=== PATIENT | male | born 1945 | race Caucasian/White ===

== ENCOUNTER 2018-03-04 05:58 | Inpatient (IN) ==
[2018-03-04 09:43] LABS: ABG PCO2 44 mmHg (38-42); ABG PO2 84 mmHg (61-120)
[2018-03-04] MEDS ORDERED: fentaNYL Citrate Inj 100 MCG/2 ML Ampul IV.PUSH ONE (09:43)
[2018-03-04] MEDS: Sod Chloride 0.9% Inj 1,000 ML IV.CONT SCH ×2 (09:45→18:08)
[2018-03-04] MEDS: Sod Chloride 0.9% Inj 1,000 ML IV.SIG SCH ×5 (09:45→11:17)
[2018-03-04 09:46] LABS: Hematocrit 31.6 % (39.0-51.0); Hemoglobin 10.8 gm/dL (13.0-17.0); Mean Corpuscular HGB Conc 34.1 % (32.0-36.0); Mean Corpuscular Hemoglobin 36.1 pg (27.0-34.0); Mean Corpuscular Volume 105.9 fL (80.0-100.0); Mean Platelet Volume 10.2 fL (7.0-11.0); Platelet Count 166 th/mm3 (150-450); Red Blood Count 2.98 mil/mm3 (4.50-5.90); Red Cell Distribution Width 13.6 % (11.6-17.2); White Blood Count 41.9 th/mm3 (4.0-11.0)
[2018-03-04 09:53] LABS: INR 1.2 Ratio; Prothrombin Time 12.6 sec (9.8-11.6)
[2018-03-04] MEDS ORDERED: Sodium Bicarbonate 8.4% Inj 50 MEQ/50 ML Syringe ONE (09:58)
[2018-03-04 10:06] LABS: Albumin 1.8 g/dL (3.4-5.0); Calcium 6.9 mg/dL (8.5-10.1); Carbon Dioxide 18.4 meq/L (21.0-32.0); Potassium 3.6 meq/L (3.5-5.1); Total Protein 4.8 g/dL (6.4-8.2)
--- NOTE | 2018-03-04 10:08 | XR ---
EXAM DATE: 03/04/2018 10:03 AM EST AGE/SEX: 73 years / Male INDICATIONS: Esophageal perforation. CLINICAL DATA: This is the patient's subsequent encounter. Patient reports that signs and symptoms h ave been present for 1 day and indicates a pain score of Nonresponsive. MEDICAL/SURGICAL HISTORY: Non-responsive. Non-responsive. COMPARISON: . FINDINGS: ET tube is in good position. Nasogastric tube has been removed. Minimal parental changes are noted in the right base. There is increased consolidation and pleural effusion in the left chest. There is no pneumothorax. CONCLUSION: Increasing consolidation and pleural effusion left chest ET tube in good position. Nasogastric tube is not evident. Electronically signed by: Scotty Martins MD Board Certified Radiologist 03/04/2018 10:07 AM EST
[2018-03-04] MEDS: Sodium Bicarbonate 8.4% Inj 150 MEQ in Water for Inj, Sterile 850 ML IV.CONT SCH ×2 (10:18→17:44)
[2018-03-04 10:23] LABS: Eosinophils 1 % (0-4); Metamyelocytes 2 % (0-1); Monocytes 4 % (0-8); Platelet Estimate Normal (Normal); Platelet Morphology Normal (Normal); Toxic Granulation 2+
--- NOTE | 2018-03-04 10:46 | P.HPCC ---
History of Present Illness Service: Critical care medicine Primary Care Physician: Mich Ashton Chief Complaint: Abdominal pain History of Present Illness: This 73-year-old gentleman presented to [facility] with severe left chest and upper abdominal pain. He underwent a proximal gastrectomy for carcinoma on February 23 and had an uneventful postoperative course. He was initially doing well at home but was not satisfied with small portions for meals. His states that he began eating large amounts of food and subsequently developed severe vomiting over the past 2 days. CAT scan on arrival to the outside hospital reveals mediastinal air consistent with disruption of the esophageal anastomosis. There is a left pleural effusion and diffuse abdominal tenderness. He was intubated at the outside hospital and arrives on mechanical ventilation. Blood pressure on arrival was 65 systolic with norepinephrine infusing at 40 mcg/min and Abhinav-Synephrine infusing at 100 mics per minute. He responded quickly to 3 L of intravenous fluid and sodium bicarbonate, administered for a metabolic acidosis and base deficit of 10. He was loaded with Flagyl intravenous antibiotic before arrival and we have augmented this with cefepime. - Diagnosis (1) Septic shock (2) Acute kidney injury (nontraumatic) (3) Acute hypoxemic respiratory failure (4) Encephalopathy acute Inpatient Certification: I certify that the inpatient services were ordered in accordance with Medicare regulations governing the order. This includes certification that hospital inpatient services are reasonable and necessary and in the case of services not specified as inpatient-only under 42 CFR 419.22(n), that they are appropriately provided as inpatient services in accordance to with the 2-midnight benchmark under 43 CFR 412.3(e) Review of Systems Severe chest and upper abdominal pain. Shortness of breath. PMFSH - History History Provided By: Patient - Medical History Medical History: Medical History (Last Reviewed 02/28/18 @ 09:00 by Becki Blas) Cervical vertebral fusion Crohn disease Depression Gastric cancer High blood pressure High cholesterol Melanoma Prostate CA Thrombocytopenia - Surgical History Surgical History: Surgical History (Last Reviewed 02/28/18 @ 09:00 by Becki Blas) H/O prostatectomy History of cholecystectomy Hx of tonsillectomy - Tobacco History Second Hand Smoke Exposure: Yes Smoking Status: Current every day smoker Tobacco Type: Cigarettes - Alcohol History How Often Do You Have a Drink Containing Alcohol: Monthly or less - Substance Use History Substance History: No History of Abuse Medications and Allergies Active Medications: Active Medications Albuterol (Duoneb Neb (Prn)) 1 ampul NEB Q2HR NEB PRN PRN Reason: SHORTNESS OF BREATH Chlorhexidine Gluconate (Peridex 0.12% Oral Kit) 15 ml OROPHARYNG BID@0800, 2000 [facility] Hydrocortisone Sodium Succinate (Solucortef Inj) 50 mg IV.PUSH Q6HR [facility] Stop: 03/06/18 23:59 Sodium Chloride (Ns Inj) 1,000 mls @ 3,000 mls/hr IV.SIG Q20M [facility] Stop: 03/04/18 10:44 Metronidazole/Sodium Chloride (Flagyl 500 Mg Inj) 100 mls @ 100 mls/hr IV.SIG Q6H [facility] Cefepime HCl 2,000 mg/ Sodium (Chloride) 100 mls @ 200 mls/hr IV.SIG Q12H [facility] Phenylephrine HCl 80 mg/ (Sodium Chloride) 500 mls @ 15 mls/hr IV.CONT TITRATE PRN; Protocol PRN Reason: See prorocol Norepinephrine Bitartrate (Levophed-Dextrose 4 Mg/250 Ml Drip) 4 mg in 250 mls @ 7.5 mls/hr IV.SIG TITRATE PRN; Protocol PRN Reason: Per Protocol Fentanyl (Fentanyl 10 Mcg/Ml Premix Drip) 2,500 mcg in 250 mls @ 5 mls/hr IV.SIG TITRATE PRN; Protocol PRN Reason: Per Protocol Propofol (Diprivan 1000 Mg/100 Ml Inj) 1,000 mg in 100 mls @ 2.166 mls/hr IV.CONT TITRATE PRN; Protocol PRN Reason: Per Protocol Sodium Chloride (Ns Inj) 1,000 mls @ 150 mls/hr IV.CONT .Q6H40M [facility] Sodium Bicarbonate 150 meq/ (Sterile Water) 1,000 mls @ 150 mls/hr IV.CONT .Q6H40M [facility] Sodium Chloride (Ns Inj) 1,000 mls @ 3,000 mls/hr IV.SIG Q20M [facility] Stop: 03/04/18 10:59 Miscellaneous Medication () 1 each OROPHARYNG 0000,0400,1200,1600 [facility] Pantoprazole Sodium (Protonix Inj) 40 mg IV.PUSH Q24H [facility] Terbutaline Sulfate (Brethine Inj) 1 mg SQ UNSCH PRN PRN Reason: For Extravasation Terbutaline Sulfate (Brethine Inj) 1 mg SQ UNSCH PRN PRN Reason: For Extravasation Allergies Allergy/AdvReac Type Severity Reaction Status Date / Time No Known Allergies Allergy Verified 02/23/18 06:30 Home Medications Medication Instructions Recorded Confirmed Type atorvastatin [Lipitor] 20 mg PO DAILY 02/23/18 02/23/18 History duloxetine [Cymbalta] 30 mg PO DAILY 02/23/18 02/23/18 History lisinopril 5 mg PO DAILY 02/23/18 02/23/18 History multivitamin 1 tab PO DAILY 02/23/18 02/23/18 History Results - Labs CBC & Chem 7: 03/04/18 09:30 03/04/18 09:30 Labs: Short CBC 03/04/18 Range/Units 09:30 WBC 41.9 H (4.0-11.0) th/mm3 Hgb 10.8 L (13.0-17.0) gm/dL Hct 31.6 L (39.0-51.0) % Plt Count 166 D (150-450) th/mm3 BMP 03/04/18 09:30 Sodium 146 H Potassium 3.6 Chloride 115 H Carbon Dioxide 18.4 L BUN 18 Creatinine 1.59 H Calcium 6.9 L* Liver Function 03/04/18 Range/Units 09:30 Total Bilirubin 1.2 H (0.2-1.0) mg/dL AST 21 (15-37) U/L ALT 17 (12-78) U/L Alkaline Phosphatase 87 (45-117) U/L Albumin 1.8 L (3.4-5.0) g/dL - Imaging Impressions Chest X-Ray 03/04/18 00:00 CONCLUSION: Increasing consolidation and pleural effusion left chest ET tube in good position. Nasogastric tube is not evident. Exam Vital signs: Intake & Output 03/03/18 03/04/18 03/04/18 18:59 06:59 18:59 Weight 72.2 kg Narrative: General: Ill-appearing but well-developed 73-year-old male, in acute distress Head: Normal, atraumatic Neck: Supple, orotracheal intubation Lungs: Decreased breath sounds left side with diffuse rhonchi. Breath sounds clear right side with few rhonchi. Good bilateral air movement Heart: Distant tones, tachycardia, neck veins are flat Abdomen: Moderately distended, generally tender to palpation, quiet. Small well -healed laparoscopy incisions. Extremities: Tepid, poorly perfused. No peripheral edema. Neuro: Moves 4 limbs spontaneously. Does not follow commands. Opens eyes to noxious stimulation. Fentanyl drip infusing and appears encephalopathic. Septic Shock Reassessment Septic shock perfusion: reassessment completed Caprini VTE Risk Assessment Caprini VTE Risk Assessment: Moderate/High Risk (score >= 2) VTE Pharmacological Exception Reason: High risk for bleeding Caprini Risk Assessment Model: Point Value = 1 Point Value = 2 Point Value = 3 Point Value = 5 Age 41-60 Minor surgery BMI > 25 kg/m2 Swollen legs Varicose veins or History of unexplained or recurrent spontaneous Oral contraceptives or hormone replacement Sepsis (< 1 month) Serious lung disease, including pneumonia (< 1 month) Abnormal pulmonary function Acute myocardial infarction Congestive heart failure (< 1 month) History of inflammatory bowel disease Medical patient at bed rest Age 61-74 Arthroscopic surgery Major open surgery (> 45 min) Laparoscopic surgery (> 45 min) Malignancy Confined to bed (> 72 hours) Immobilizing plaster cast Central venous access Age >= 75 History of VTE Family history of VTE Factor V Leiden Prothrombin [id number] Lupus anticoagulant Anticardiolipin antibodies Elevated serum homocysteine Heparin-induced thrombocytopenia Other congenital or acquired thrombophilia Stroke (< 1 month) Elective arthroplasty Hip, pelvis, or leg fracture Acute spinal cord injury (< 1 month) Prophylaxis Regimen: Total Risk Factor Score Risk Level Prophylaxis Regimen 0-1 Low Early ambulation 2 Moderate Order ONE of the following: *Sequential Compression Device (SCD) *Heparin 5000 units SQ BID 3-4 Higher Order ONE of the following medications: *Heparin 5000 units SQ TID *Enoxaparin/Lovenox 40 mg SQ daily (WT < 150 kg, CrCl > 30 mL/min) *Enoxaparin/Lovenox 30 mg SQ daily (WT < 150 kg, CrCl > 10-29 mL/min) *Enoxaparin/Lovenox 30 mg SQ BID (WT < 150 kg, CrCl > 30 mL/min) AND/OR *Sequential Compression Device (SCD) 5 or more Highest Order ONE of the following medications: *Heparin 5000 units SQ TID (Preferred with Epidurals) *Enoxaparin/Lovenox 40 mg SQ daily (WT < 150 kg, CrCl > 30 mL/min) *Enoxaparin/Lovenox 30 mg SQ daily (WT < 150 kg, CrCl > 10-29 mL/min) *Enoxaparin/Lovenox 30 mg SQ BID (WT < 150 kg, CrCl > 30 mL/min) AND *Sequential Compression Device (SCD) Assessment and Plan - Problem List (1) Septic shock Code(s): A41.9 - Sepsis, unspecified organism; R65.21 - Severe sepsis with septic shock Status: Acute (2) Acute kidney injury (nontraumatic) Code(s): N17.9 - Acute kidney failure, unspecified Status: Acute (3) Acute hypoxemic respiratory failure Code(s): J96.01 - Acute respiratory failure with hypoxia Status: Acute (4) Encephalopathy acute Code(s): G93.40 - Encephalopathy, unspecified Status: Acute - Assessment and Plan Plan: Plan: 1. Continued aggressive hydration with isotonic crystalloid 2. Dressed dose steroids, hydrocortisone 50 mg IV every 6 hours 3. Protonix for GI ulcer prophylaxis 4. Avoid nasogastric tube for now 5. Mechanical ventilation assist control mode 6. Cefepime and Flagyl antibiotic coverage 7. Hold chemical DVT prophylaxis until after surgery. 8. Sodium bicarb drip at 150 cc/h 9. Fernandez catheter for hourly urine output 10. Arterial blood gas now and after 2 hours. 11. Type and screen for blood 12. See MP and CBC 13. Coagulation profile Overall impression: This gentleman is critically ill and septic shock with multiple organ system dysfunction. He remains hemodynamically unstable and vasopressor support at quite high doses. He will likely remain unstable until source control surgery can be performed. We are using this intervening opportunity to resuscitate him and hopefully achieve better peripheral perfusion and acid-base balance prior to his operation. Critical care time 80 minutes aside from invasive procedures.
--- NOTE | 2018-03-04 10:48 | P.PCN ---
Date of procedure: 03/04/18 Procedure: Diagnosis: Septic shock Procedure: Insertion left common femoral artery monitoring line Narrative: Timeout performed and patient properly identified. Ultrasound inspection of the left groin revealed a suitable conduit for insertion. Distal pulse week and left foot. Left groin prepped and draped using ultrasound guidance the left common femoral artery was cannulated with a thin-walled needle and a wire easily advanced. Over the wire a 18-gauge catheter was advanced to a distance of 15 cm. The arterial line flange was sutured in place and the insertion site was covered with a sterile dressing. Dorsalis pedis pulse in the left foot was unchanged after the procedure. A good waveform was observed on the monitor.
[2018-03-04] MEDS: Oral Hygiene Kit OROPHARYNG SCH ×2 (11:48→17:44)
[2018-03-04] MEDS: Pantoprazole Inj 40 MG Vial IV.PUSH SCH (11:48)
[2018-03-04] MEDS: Hydrocortisone Sod Succinate 100 MG Vial IV.PUSH SCH ×2 (11:48→20:10)
--- NOTE | 2018-03-04 11:54 | P.HPGS ---
History of Present Illness Service: General Surgery Primary Care Physician: Mich Ashton Chief Complaint: Abdominal pain History of Present Illness: This year old male known to our service and is status post laparoscopic proximal gastrectomy on February 23 of this year. The patient recovered well during his hospitalization and was discharged on February 28. He was instructed to eat small meals. His family at the bedside report that he had an excellent day on Wednesday but on Wednesday began eating larger meals. On , he ate a large bowl of soup and starting vomiting. He was taken to [facility]. His WBC was 20,000. A CT abdomen/pelvis was obtained which is shows intraperitoneal free air and there is a concern for an anastomotic leak at the gastroesophageal junction. The patient has been transferred to [place] for evaluation. He is currently intubated and on pressors. - Diagnosis (1) Gastric perforation Inpatient Certification: I certify that the inpatient services were ordered in accordance with Medicare regulations governing the order. This includes certification that hospital inpatient services are reasonable and necessary and in the case of services not specified as inpatient-only under 42 CFR 419.22(n), that they are appropriately provided as inpatient services in accordance to with the 2-midnight benchmark under 43 CFR 412.3(e) Review of Systems unobtainable due to endotracheal tube PMFSH - History History Provided By: Family Member - Medical History Medical History: Medical History (Last Reviewed 03/04/18 @ 11:51 by STEVE Rosa) Cervical vertebral fusion Crohn disease Depression Gastric cancer High blood pressure High cholesterol Melanoma Prostate CA Thrombocytopenia - Surgical History Surgical History: Surgical History (Last Updated 03/04/18 @ 11:51 by STEVE Rosa) History of partial gastrectomy H/O prostatectomy History of cholecystectomy Hx of tonsillectomy - Tobacco History Second Hand Smoke Exposure: Yes Smoking Status: Current every day smoker Tobacco Type: Cigarettes - Alcohol History How Often Do You Have a Drink Containing Alcohol: Monthly or less - Substance Use History Substance History: No History of Abuse Medications and Allergies Allergies Allergy/AdvReac Type Severity Reaction Status Date / Time No Known Allergies Allergy Verified 02/23/18 06:30 Home Medications Medication Instructions Recorded Confirmed Type atorvastatin [Lipitor] 20 mg PO DAILY 02/23/18 02/23/18 History duloxetine [Cymbalta] 30 mg PO DAILY 02/23/18 02/23/18 History lisinopril 5 mg PO DAILY 02/23/18 02/23/18 History multivitamin 1 tab PO DAILY 02/23/18 02/23/18 History Active Medications: Active Medications Albuterol (Duoneb Neb (Prn)) 1 ampul NEB Q2HR NEB PRN PRN Reason: SHORTNESS OF BREATH Chlorhexidine Gluconate (Peridex 0.12% Oral Kit) 15 ml OROPHARYNG BID@0800, 2000 [facility] Hydrocortisone Sodium Succinate (Solucortef Inj) 50 mg IV.PUSH Q6HR [facility] Stop: 03/06/18 23:59 Metronidazole/Sodium Chloride (Flagyl 500 Mg Inj) 100 mls @ 100 mls/hr IV.SIG Q6H [facility] Cefepime HCl 2,000 mg/ Sodium (Chloride) 100 mls @ 200 mls/hr IV.SIG Q12H [facility] Phenylephrine HCl 80 mg/ (Sodium Chloride) 500 mls @ 15 mls/hr IV.CONT TITRATE PRN; Protocol PRN Reason: See prorocol Norepinephrine Bitartrate (Levophed-Dextrose 4 Mg/250 Ml Drip) 4 mg in 250 mls @ 7.5 mls/hr IV.SIG TITRATE PRN; Protocol PRN Reason: Per Protocol Fentanyl (Fentanyl 10 Mcg/Ml Premix Drip) 2,500 mcg in 250 mls @ 5 mls/hr IV.SIG TITRATE PRN; Protocol PRN Reason: Per Protocol Propofol (Diprivan 1000 Mg/100 Ml Inj) 1,000 mg in 100 mls @ 2.166 mls/hr IV.CONT TITRATE PRN; Protocol PRN Reason: Per Protocol Sodium Chloride (Ns Inj) 1,000 mls @ 150 mls/hr IV.CONT .Q6H40M [facility] Sodium Bicarbonate 150 meq/ (Sterile Water) 1,000 mls @ 150 mls/hr IV.CONT .Q6H40M [facility] Last Admin: 03/04/18 10:18 Dose: 150 mls/hr Miscellaneous Medication () 1 each OROPHARYNG 0000,0400,1200,1600 [facility] Pantoprazole Sodium (Protonix Inj) 40 mg IV.PUSH Q24H [facility] Terbutaline Sulfate (Brethine Inj) 1 mg SQ UNSCH PRN PRN Reason: For Extravasation Terbutaline Sulfate (Brethine Inj) 1 mg SQ UNSCH PRN PRN Reason: For Extravasation Exam Vital signs: Vital Signs 03/04/18 10:32 Respiratory Rate 22 Pulse Oximetry 100 Intake & Output 03/03/18 03/04/18 03/04/18 18:59 06:59 18:59 Intake Total 4000 / 4000 Balance 4000 / 4000 Weight 72.2 kg Intake: IV 4000 / 4000 NS Inj 1,000 ML @ 3000 mls/hr 4000 / 4000 IV.SIG Q20M [facility] Rx#:[id number] Narrative: GENERAL: 73 year old male critically ill orally intubated on mechanical ventilation. SKIN: Warm and dry. HEAD: Atraumatic. Normocephalic. EYES: Pupils equal and round. No scleral icterus. No injection or drainage. ENT: No nasal bleeding or discharge. Mucous membranes pink and moist. NECK: Trachea midline. CARDIOVASCULAR: Regular rate and rhythm. RESPIRATORY: No accessory muscle use. Clear to auscultation. Breath sounds equal bilaterally. GASTROINTESTINAL: Abdomen firm. Incisions c/d/i with skin glue. MUSCULOSKELETAL: Extremities without clubbing, cyanosis, or edema. No obvious deformities. NEUROLOGICAL: Unable to examine. PSYCHIATRIC: Unable to examine. Results - Labs 03/09/18 04:22 03/09/18 03:36 Laboratory Results - last 24 hr 03/04/18 03/04/18 03/04/18 09:08 09:26 09:30 WBC RBC Hgb Hct MCV MCH MCHC RDW Plt Count MPV WBC Differential Seg Neuts % (Manual) Band Neuts % (Manual) Monocytes % (Manual) Eosinophils % (Manual) Metamyelocytes % (Man) Abs Neuts (Manual) Differential Comment Toxic Granulation Platelet Estimate Platelet Morphology PT INR Puncture Site Art line Patient Temperature 98.6 O2 Saturation 91 ABG pH 7.20 L* ABG pCO2 44 H ABG pO2 84 ABG HCO3 17 L ABG O2 Content 14.0 ABG Base Excess -10.0 L ABG Methemoglobin 1.3 Hemoglobin 10.9 L Carboxyhemoglobin 0.9 O2 Delivery Device Ventilator Vent Setting 500/20/+5/0.90 Inspired O2 100 Critical Value Yes Sodium Potassium Chloride Carbon Dioxide Anion Gap BUN Creatinine Estimated GFR POC Glucose 125 H Random Glucose Lactic Acid 5.4 H* Calcium Calcium Adj for Albumin Total Bilirubin AST ALT Alkaline Phosphatase Total Protein Albumin Blood Type Blood Type Recheck Antibody Screen 03/04/18 03/04/18 03/04/18 09:30 09:30 09:30 WBC 41.9 H RBC 2.98 L Hgb 10.8 L Hct 31.6 L MCV 105.9 H MCH 36.1 H MCHC 34.1 RDW 13.6 Plt Count 166 D MPV 10.2 WBC Differential Manual diff final Seg Neuts % (Manual) 73 H Band Neuts % (Manual) 20 H Monocytes % (Manual) 4 Eosinophils % (Manual) 1 Metamyelocytes % (Man) 2 H Abs Neuts (Manual) 39.8 H Differential Comment . Toxic Granulation 2+ H Platelet Estimate Normal Platelet Morphology Normal PT 12.6 H INR 1.2 Puncture Site Patient Temperature O2 Saturation ABG pH ABG pCO2 ABG pO2 ABG HCO3 ABG O2 Content ABG Base Excess ABG Methemoglobin Hemoglobin Carboxyhemoglobin O2 Delivery Device Vent Setting Inspired O2 Critical Value Sodium 146 H Potassium 3.6 Chloride 115 H Carbon Dioxide 18.4 L Anion Gap 13 BUN 18 Creatinine 1.59 H Estimated GFR 43 L POC Glucose Random Glucose 143 H Lactic Acid Calcium 6.9 L* Calcium Adj for Albumin 8.7 Total Bilirubin 1.2 H AST 21 ALT 17 Alkaline Phosphatase 87 Total Protein 4.8 L D Albumin 1.8 L Blood Type Blood Type Recheck Antibody Screen 03/04/18 09:30 WBC RBC Hgb Hct MCV MCH MCHC RDW Plt Count MPV WBC Differential Seg Neuts % (Manual) Band Neuts % (Manual) Monocytes % (Manual) Eosinophils % (Manual) Metamyelocytes % (Man) Abs Neuts (Manual) Differential Comment Toxic Granulation Platelet Estimate Platelet Morphology PT INR Puncture Site Patient Temperature O2 Saturation ABG pH ABG pCO2 ABG pO2 ABG HCO3 ABG O2 Content ABG Base Excess ABG Methemoglobin Hemoglobin Carboxyhemoglobin O2 Delivery Device Vent Setting Inspired O2 Critical Value Sodium Potassium Chloride Carbon Dioxide Anion Gap BUN Creatinine Estimated GFR POC Glucose Random Glucose Lactic Acid Calcium Calcium Adj for Albumin Total Bilirubin AST ALT Alkaline Phosphatase Total Protein Albumin Blood Type A Positive Blood Type Recheck Not needed Antibody Screen Negative - Imaging Imaging: ITS Impressions Chest X-Ray 03/04/18 00:00 CONCLUSION: Increasing consolidation and pleural effusion left chest ET tube in good position. Nasogastric tube is not evident. CT scan - abdomen: image reviewed (reviewed images from [facility]) Caprini VTE Risk Assessment Caprini VTE Risk Assessment: Moderate/High Risk (score >= 2) VTE Pharmacological Exception Reason: Documented (Going to [place] ), High risk for bleeding Caprini Risk Assessment Model: Point Value = 1 Point Value = 2 Point Value = 3 Point Value = 5 Age 41-60 Minor surgery BMI > 25 kg/m2 Swollen legs Varicose veins or History of unexplained or recurrent spontaneous Oral contraceptives or hormone replacement Sepsis (< 1 month) Serious lung disease, including pneumonia (< 1 month) Abnormal pulmonary function Acute myocardial infarction Congestive heart failure (< 1 month) History of inflammatory bowel disease Medical patient at bed rest Age 61-74 Arthroscopic surgery Major open surgery (> 45 min) Laparoscopic surgery (> 45 min) Malignancy Confined to bed (> 72 hours) Immobilizing plaster cast Central venous access Age >= 75 History of VTE Family history of VTE Factor V Leiden Prothrombin [id number] Lupus anticoagulant Anticardiolipin antibodies Elevated serum homocysteine Heparin-induced thrombocytopenia Other congenital or acquired thrombophilia Stroke (< 1 month) Elective arthroplasty Hip, pelvis, or leg fracture Acute spinal cord injury (< 1 month) Prophylaxis Regimen: Total Risk Factor Score Risk Level Prophylaxis Regimen 0-1 Low Early ambulation 2 Moderate Order ONE of the following: *Sequential Compression Device (SCD) *Heparin 5000 units SQ BID 3-4 Higher Order ONE of the following medications: *Heparin 5000 units SQ TID *Enoxaparin/Lovenox 40 mg SQ daily (WT < 150 kg, CrCl > 30 mL/min) *Enoxaparin/Lovenox 30 mg SQ daily (WT < 150 kg, CrCl > 10-29 mL/min) *Enoxaparin/Lovenox 30 mg SQ BID (WT < 150 kg, CrCl > 30 mL/min) AND/OR *Sequential Compression Device (SCD) 5 or more Highest Order ONE of the following medications: *Heparin 5000 units SQ TID (Preferred with Epidurals) *Enoxaparin/Lovenox 40 mg SQ daily (WT < 150 kg, CrCl > 30 mL/min) *Enoxaparin/Lovenox 30 mg SQ daily (WT < 150 kg, CrCl > 10-29 mL/min) *Enoxaparin/Lovenox 30 mg SQ BID (WT < 150 kg, CrCl > 30 mL/min) AND *Sequential Compression Device (SCD) Assessment and Plan - Assessment (1) Gastric perforation Code(s): K25.5 - Chronic or unspecified gastric ulcer with perforation Status : Acute Plan: 73 year old male s/p partial gastrectomy about 10 days ago; back with gastric perforation; septic shock -Will plan for ex lap; possible G and J tube; LEFT thoracoscopy tube placement -Obtain consents -NPO -Family at bedside updated about patient's condition as well as procedure -Patient remains critically ill - Plan Discussed Condition With: Dr. Dotty Ramos case specialist at bedside - Attending Attestation The exam, history, and the medical decision-making described in the above note were completed with the assistance of the mid-level provider. I reviewed and agree with the findings presented. I attest that I had a [id number] encounter with the patient on the same day, and personally performed and documented my assessment and findings in the medical record. s/p lap proximal gastrectomy, patient "overate" per family report, then had violent vomiting, followed by left chest pain transferred from [place], severe chest pain and sepsis, CT scan shows left effusion suspect traumatic perforation at anastomosis due to vomiting, Boerhaave's syndrome presentation long d/w family at , recommend surgery for left chest, exlap for evaluation and source control for possible leak, R/B/A discussed family agrees to surgery will proceed emergently to [place]
[2018-03-04] MEDS ORDERED: Post-op Orders (for Pharmacy) OTHER ONE (16:30)
[2018-03-04] MEDS ORDERED: Promethazine 25 MG Supp RECTAL PRN (16:30)
[2018-03-04] MEDS ORDERED: Sod Chloride 0.9% Inj 1,000 ML IV.CONT SCH (16:30)
[2018-03-04] MEDS ORDERED: Benzocaine 20% Oral Spray 60 ML Can OROPHARYNG PRN (16:30)
[2018-03-04] MEDS ORDERED: Naloxone Inj 0.4 MG/ML Vial IV.PUSH PRN (16:30)
[2018-03-04 17:49] LABS: Calcium 6.4 mg/dL (8.5-10.1); Carbon Dioxide 21.8 meq/L (21.0-32.0); Potassium 3.3 meq/L (3.5-5.1)
[2018-03-04 18:08] LABS: Albumin 1.8 g/dL (3.4-5.0); Calcium-Albumin Corrected 8.2 mg/dL (8.5-10.1)
--- NOTE | 2018-03-04 19:14 | MB ---
cc: Louie Olivier MD DATE: 03/04/2018 CONSULTING PHYSICIAN: Dr. Olivier REFERRING PHYSICIAN: Dr. Storm REASON FOR CONSULTATION: Gastroesophageal perforation and contamination of the left chest, sepsis. This is an intraoperative consult. HISTORY OF PRESENT ILLNESS: This 73-year-old male underwent a proximal gastrectomy with primary anastomosis for a carcinoma of the esophagus. 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 This also resulted in a huge left pleural effusion with abdominal pain and chest pain. The patient was transferred to [facility] and then to us for further care. I am doing an intraoperative at this point regarding the chest condition. PAST MEDICAL HISTORY: Crohn disease, hypertension, hypercholesterolemia, melanoma, carcinoma of the prostate, and above-noted proximal gastric cancer. PAST SURGICAL HISTORY: As above noted, plus prostatectomy and tonsillectomy. PHYSICAL EXAMINATION: Physical examination is performed in the OR and I was present at the time of surgery. The patient does indeed have an intraabdominal perforation which is now being repaired by Dr. Storm. I discussed with him the issues regarding the chest. The patient apparently had significant chest contamination, which was washed out with saline and 2 large chest tubes were placed. This would be exactly what I would have done and, at this point, hopefully the patient will not develop empyema. If he does develop empyema or any signs of such, I will be available to assist. Thank you very much for the referral. Louie Olivier MD SJ/ll , 05:47 PM , 05:54 PM
[2018-03-04] MEDS ORDERED: Magnesium Oxide 400 MG Tablet PO PRN (19:19)
[2018-03-04] MEDS ORDERED: Sodium Phosphate Inj 30 MMOL in Sodium Chlor 0.9% Inj 250 ML IV.SIG PRN (19:19)
[2018-03-04] MEDS ORDERED: Magnesium Sulfate Inj 4 GM in Sodium Chlor 0.9% Inj 92 ML IV.SIG PRN (19:19)
[2018-03-04] MEDS ORDERED: Potassium Chlor 20 mEq Premix 20 MEQ/100 ML PIGGYBACK IV.SIG PRN (19:19)
[2018-03-04] MEDS ORDERED: Magnesium Sulfate Inj 2 GM in Sodium Chlor 0.9% Inj 96 ML IV.SIG PRN (19:19)
[2018-03-04] MEDS ORDERED: Potassium Chlor 40 mEq Premix 40 MEQ/100 ML PIGGYBACK IV.SIG PRN ×2 (19:19)
[2018-03-04] MEDS ORDERED: Potassium Phosphate Inj 30 MMOL in Sodium Chlor 0.9% Inj 250 ML IV.SIG PRN (19:19)
[2018-03-04] MEDS: Phenylephrine Inj 80 MG in Sodium Chlor 0.9% Inj 492 ML IV.CONT PRN (20:20)
[2018-03-04] MEDS: Chlorhexidine 0.12% Oral Kit 15 ML UDC OROPHARYNG SCH (20:28)
--- NOTE | 2018-03-04 21:39 | MP ---
cc: Fabián Storm MD DATE OF OPERATION: 03/04/2018 PREOPERATIVE DIAGNOSES: 1. Proximal gastric adenocarcinoma, status post chemotherapy and radiation and proximal gastrectomy. 2. Sepsis with suspected perforation of gastric remnant. POSTOPERATIVE DIAGNOSES: 1. Proximal gastric adenocarcinoma, status post chemotherapy and radiation and proximal gastrectomy. 2. Anastomotic dehiscence anterior and laterally at the junction of the esophagus and gastric remnant with contamination of the left chest and a Boerhaave-type perforation. PROCEDURE PERFORMED: 1. Left thoracostomy tube placement x 2 with irrigation of the left chest. 2. Exploratory laparotomy. 3. Primary repair of esophagogastric dehiscence, 50% of the circumference. 4. Pyloroplasty, Heineke-Mikulicz pyloroplasty. 4. Peritoneal biopsy on the transverse colon mesentery. 5. Gastrostomy tube. 6. Jejunostomy tube. ATTENDING SURGEON: Fabián Storm MD ROADWAY TECHNICIAN: Staff. ANESTHESIA: General. FINDINGS: 1. One liter of black to lopez turbid fluid in the left chest. 2. No abdominal contamination. 3. Dehiscence of the anterior and lateral esophagogastrostomy anastomosis with drainage into the left chest, tissue healthy viable and bleeding, consistent with a traumatic dehiscence. 3. Stomach engorged and distended with food products. 4. Patent but mildly narrow pylorus. INTRAOPERATIVE CONSULTATION: Louie Olivier MD, thoracic surgery. BLOOD LOSS: 100 mL. COMPLICATIONS: None. INDICATIONS FOR PROCEDURE: The patient is a 73-year-old male who is approximately 2 weeks status post laparoscopic proximal gastrectomy with esophagogastrostomy anastomosis. The patient was discharged home, tolerating a soft diet and was prescribed to eat small, very soft food meals. The patient, per family report, is noncompliant with his diet and overeats multiple large meals, which resulted in discomfort, multiple episodes of vomiting and left-sided chest pain last night. The patient presented to [facility], underwent evaluation, and there was concern for perforation of the patient's gastric remnant. The patient was transferred to [facility] in critical condition for evaluation. Upon arrival, the patient was found to be in septic shock. There was clinically concern for intra-abdominal and perforation into the left chest. A discussion was had with the patient's about risks, benefits, and alternatives to return to the operating room for exploration and treatment of any source of sepsis. She agreed that the patient undergo the procedure. PROCEDURE: The patient was taken to the operating room emergently, and placed on the operating room table and placed under general anesthesia through his already in place endotracheal tube. The patient's chest bilaterally and abdomen were shaved, prepped and draped in a sterile fashion. A timeout was performed. Thoracostomy tube was performed on the left side. A 2 cm horizontal skin incision at the level of the nipple and spread down to above the rib with the hemostats. We bluntly entered the chest. We were greeted with approximately 1 liter of black to brown foul smelling turbid fluid. This was suctioned clear, completely out of the chest using a full suction device. At this point in time, consultation was placed, Dr. Olivier of thoracic surgery, for possible further management. After evaluation, Dr. Olivier did recommend that the patient undergo a washout and 2 chest tube placement, for expectant management and to avoid a thoracotomy. The patient had no signs of empyema or pleural thickening. We used 3 liters of sterile saline with cystoscopy tubing to irrigate the left chest thoroughly until all suctioned fluid was completely clear of all discoloration or particulate matter. We placed two 32-[place] Islander chest tubes 1 at the apex and 1 in the left lower chest through 2 separate incisions. We sutured these in place with silk sutures and sterile dressings were placed. These were placed to 20 cm suction. We then turned our attention towards the abdomen. An upper midline incision was made with the 15 blade scalpel, followed by Bovie electrocautery through the subcutaneous tissue and fascia. We entered the abdomen. There was no contamination of the abdomen, no signs of perforation. We carefully explored the GE junction and after dissecting the gastric remnant and the esophagus away from the surrounding diaphragm, we noted a 50% dehiscence of the anastomosis anteriorly and laterally. This was good healthy viable, bleeding edges with no signs of any necrosis. I felt this was consistent with a traumatic perforation likely due to the patient vomiting after a recent surgery. Again, there was no contamination in this area. We did place an NG tube through the esophagus into the gastric remnant under visualization. The suture had primarily repaired this perforation using several interrupted 3-0 silk sutures. We had complete closure of this dehiscence with healthy tissue. At this point in time, we did place omental tissue on either side of this anastomosis in an attempt to place omental tissue up towards the area of the chest. I turned my attention towards the stomach, a small gastrotomy was made in the area where a planned gastrostomy tube was to be placed. I evaluated the pylorus. This was patent, although it was less than 1 centimeter. I wanted to ensure good drainage in this patient. Therefore, I performed the Heineke-Mikulicz pyloroplasty. A Bovie electrocautery was used to make a vertical incision over the pylorus, dividing the muscle completely through the mucosa. This was closed, then transversely with interrupted 3-0 silk sutures. We had excellent technical repair with no leak. We also gently explored the abdomen, irrigated this out gently and looked for any other pathology. We ran the small bowel. There was no other pathology or any sign of infection. However, there was a small nodule from the transverse colon mesentery. This was completely excised with the Bovie electrocautery and sent for permanent processing to rule out any peritoneal disease. The patient did have history of recent gastric cancer. We turned our attention towards completion and did place two 19-[place] Islander round Randy drains through separate stab incisions, one in the right upper quadrant, one in her left upper quadrant, and sutured these in place with nylon sutures. We performed a jejunostomy tube approximately 40 cm past the ligament of Treitz. This was performed through a pursestring and Pattie sutured up against the abdominal wall with 3-0 silk sutures. We performed a gastrostomy tube, placing the gastrostomy through the gastrotomy we had made earlier in the case, and this was closed with a pursestring as well as Pattie sutured up against the abdominal wall and brought out through a separate incision. At this point in time, we felt the patient was sufficiently treated and there were no further surgical procedures indicated. The patient did remain in critical condition and attempts were made to limit anesthesia time, in the patient's best interest. We turned towards closure, and we closed the upper midline incision with #1 looped PDS suture. We closed the skin with miracle and sterile dressing was applied. The patient's drains were placed to bulb suction. The patient's gastrostomy and jejunostomy tubes were placed to gravity drainage bag. The chest tubes were placed to 20 cm suction. The patient was transported to the intensive care unit, critical care bed in critical condition. The patient tolerated the procedure well and slightly improved hemodynamically during the procedure. All counts were correct. There were no apparent complications. I was present and scrubbed for the entire procedure. MD ADILIA Dias/sharon/do , 06:54 PM , 07:11 PM [email or web address]
[2018-03-05] MEDS: Sodium Bicarbonate 8.4% Inj 150 MEQ in Water for Inj, Sterile 850 ML IV.CONT SCH ×2 (00:05→06:41)
[2018-03-05] MEDS: Hydrocortisone Sod Succinate 100 MG Vial IV.PUSH SCH ×4 (00:06→17:00)
[2018-03-05] MEDS: Oral Hygiene Kit OROPHARYNG SCH ×4 (01:56→16:17)
[2018-03-05] MEDS: fentaNYL 10 mcg/mL Premix Drip 2,500 MCG/250 ML BAG IV.SIG PRN ×3 (02:10→20:09)
[2018-03-05 02:13] LABS: Baso % (Auto) 0.2 % (0.0-2.0); Hematocrit 33.1 % (39.0-51.0); Hemoglobin 11.7 gm/dL (13.0-17.0); Lymph # (Auto) 0.8 th/mm3 (1.0-4.8); Lymph % (Auto) 3.3 % (9.0-44.0); Mean Corpuscular HGB Conc 35.3 % (32.0-36.0); Mean Corpuscular Hemoglobin 35.6 pg (27.0-34.0); Mean Corpuscular Volume 100.7 fL (80.0-100.0); Mean Platelet Volume 10.2 fL (7.0-11.0); Mono # (Auto) 0.9 th/mm3 (0.0-0.9); Mono % (Auto) 3.6 % (0.0-8.0); Neut # (Auto) 22.8 th/mm3 (1.8-7.7); Neut % (Auto) 92.9 % (16.0-70.0); Platelet Count 150 th/mm3 (150-450); Red Blood Count 3.28 mil/mm3 (4.50-5.90); Red Cell Distribution Width 13.6 % (11.6-17.2); White Blood Count 24.5 th/mm3 (4.0-11.0)
[2018-03-05 02:38] LABS: Carbon Dioxide 25.5 meq/L (21.0-32.0); Potassium 4.3 meq/L (3.5-5.1)
[2018-03-05 02:44] LABS: Albumin 1.5 g/dL (3.4-5.0); Lymphocytes 3 % (9-44); Metamyelocytes 6 % (0-1); Monocytes 3 % (0-8); Myelocytes 3 % (0-0)
[2018-03-05 02:45] LABS: Platelet Estimate Normal (Normal); Platelet Morphology Normal (Normal)
--- NOTE | 2018-03-05 05:19 | XR ---
EXAM DATE: 03/05/2018 5:13 AM EST AGE/SEX: 73 years / Male INDICATIONS: Pleural effusion. Status post esophageal repair. CLINICAL DATA: This is the patient's subsequent encounter. Patient reports that signs and symptoms h ave been present for 2 days and indicates a pain score of Nonresponsive. MEDICAL/SURGICAL HISTORY: Non-responsive. Non-responsive. COMPARISON: [facility], CHEST 1V SINGLE AP, 03/04/2018. . FINDINGS: The ET tube and NG tube are well placed. There are 2 left-sided chest tubes. A pneumothorax is not se en. The heart size is upper limits of normal. There is diffuse increased interstitial prominence. Stone gical hardware is seen in the cervical spine. CONCLUSION: Diffuse increased interstitial prominence likely related to edema. 2 left-sided chest tubes without evidence for pneumothorax. Electronically signed by: Nic Rodríguez MD Board Certified Radiologist 03/05/2018 5:18 AM EST
[2018-03-05 07:25] LABS: ABG Base Excess 3.1 mmol/L (-2-2); ABG PCO2 34 mmHg (38-42); ABG PO2 78 mmHg (61-120)
[2018-03-05] MEDS: Chlorhexidine 0.12% Oral Kit 15 ML UDC OROPHARYNG SCH ×2 (08:17→22:13)
[2018-03-05] MEDS: Sod Chloride 0.9% Inj 1,000 ML IV.SIG SCH ×2 (08:17→16:17)
[2018-03-05] MEDS: Pantoprazole Inj 40 MG Vial IV.PUSH SCH (09:03)
--- NOTE | 2018-03-05 09:07 | P.PNVS ---
Subjective Subjective/Hospital Course: 11/03/2017 This 73-year-old male underwent a proximal gastrectomy with primary anastomosis for a carcinoma of the esophagus. 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 This also resulted in a huge left pleural effusion with abdominal pain and chest pain. The patient was transferred to [facility] and then to us for further care. I am doing an intraoperative at this point regarding the chest condition. Physical examination is performed in the OR and I was present at the time of surgery. The patient does indeed have an intraabdominal perforation which is now being repaired by Dr. Storm. I discussed with him the issues regarding the chest. The patient apparently had significant chest contamination, which was washed out with saline and 2 large chest tubes were placed. This would be exactly what I would have done and, at this point, hopefully the patient will not develop empyema. If he does develop empyema or any signs of such, I will be available to assist. Today patient is stable hemodynamically and respiratory Bilateral breath sounds ventilatory supported Left chest tubes are draining serosanguineous material, some grayish particulate matter but left chest appears to be clear on a.m. x-ray With this quite adequate drainage patient is not likely to develop an empyema but clearly with contamination this is a distinct possibility so we will see how he does Will continue to follow Objective Vital Signs / I&O: Vital Signs 03/04/18 10:32 03/04/18 11:01 03/04/18 12:00 Temperature Pulse Rate 129 H Respiratory Rate 22 22 Blood Pressure 94/59 L Pulse Oximetry 100 94 L 03/04/18 12:01 03/04/18 12:02 03/04/18 12:03 Temperature Pulse Rate 129 H 128 H 128 H Respiratory Rate 22 22 22 Blood Pressure 83/54 L 84/57 L 95/53 L Pulse Oximetry 94 L 94 L 94 L 03/04/18 12:27 03/04/18 13:00 03/04/18 13:01 Temperature Pulse Rate 128 H 127 H Respiratory Rate 22 22 22 Blood Pressure 88/50 L Pulse Oximetry 95 95 95 03/04/18 13:05 03/04/18 16:14 03/04/18 16:23 Temperature Pulse Rate 126 H 94 H 94 H Respiratory Rate 22 22 Blood Pressure 97/55 L Pulse Oximetry 95 100 99 03/04/18 16:25 03/04/18 16:28 03/04/18 16:30 Temperature Pulse Rate 93 H Respiratory Rate 22 22 Blood Pressure 110/69 97/59 L Pulse Oximetry 97 97 03/04/18 16:45 03/04/18 17:00 03/04/18 17:15 Temperature Pulse Rate 87 89 88 Respiratory Rate 10 L 22 22 Blood Pressure 104/70 99/63 L 105/64 Pulse Oximetry 97 98 99 03/04/18 17:30 03/04/18 17:45 03/04/18 18:00 Temperature Pulse Rate 87 86 87 Respiratory Rate 22 18 18 Blood Pressure 101/65 111/73 107/60 Pulse Oximetry 99 100 100 03/04/18 18:15 03/04/18 18:30 03/04/18 18:44 Temperature Pulse Rate 86 86 Respiratory Rate 18 18 Blood Pressure 99/58 L 100/64 93/54 L Pulse Oximetry 100 100 03/04/18 18:45 03/04/18 19:00 03/04/18 20:00 Temperature 97.9 F Pulse Rate 88 87 91 H Respiratory Rate 18 18 18 Blood Pressure 108/63 109/58 L 94/53 L Pulse Oximetry 100 100 99 03/04/18 20:31 03/04/18 21:00 03/04/18 21:30 Temperature Pulse Rate 85 84 Respiratory Rate 18 18 18 Blood Pressure 93/53 L 94/55 L Pulse Oximetry 100 99 100 03/04/18 21:45 03/04/18 22:00 03/04/18 22:11 Temperature Pulse Rate 85 84 Respiratory Rate 18 18 20 Blood Pressure 99/54 L 99/54 L Pulse Oximetry 99 100 100 03/04/18 22:45 03/04/18 23:00 03/04/18 23:03 Temperature Pulse Rate 89 88 96 H Respiratory Rate 18 18 16 Blood Pressure 107/52 L Pulse Oximetry 99 99 100 03/04/18 23:04 03/04/18 23:15 03/04/18 23:30 Temperature Pulse Rate 88 87 Respiratory Rate 18 18 Blood Pressure Pulse Oximetry 99 99 100 03/04/18 23:45 03/05/18 00:00 03/05/18 00:15 Temperature 97.9 F Pulse Rate 87 86 85 Respiratory Rate 18 18 18 Blood Pressure 99/54 L Pulse Oximetry 99 99 100 03/05/18 00:30 03/05/18 00:45 03/05/18 01:00 Temperature Pulse Rate 86 85 84 Respiratory Rate 18 18 18 Blood Pressure Pulse Oximetry 99 100 100 03/05/18 01:15 03/05/18 01:25 03/05/18 01:30 Temperature Pulse Rate 83 84 Respiratory Rate 18 18 18 Blood Pressure Pulse Oximetry 100 99 99 03/05/18 01:45 03/05/18 02:00 03/05/18 02:15 Temperature Pulse Rate 83 81 84 Respiratory Rate 18 25 H 19 Blood Pressure 99/54 L Pulse Oximetry 100 98 98 03/05/18 02:30 03/05/18 02:31 03/05/18 02:45 Temperature Pulse Rate 83 83 84 Respiratory Rate 18 18 18 Blood Pressure Pulse Oximetry 99 99 99 03/05/18 03:00 03/05/18 03:15 03/05/18 03:30 Temperature Pulse Rate 82 81 81 Respiratory Rate 18 18 18 Blood Pressure Pulse Oximetry 99 99 99 03/05/18 03:45 03/05/18 04:00 03/05/18 04:15 Temperature 98.7 F Pulse Rate 80 80 82 Respiratory Rate 18 19 18 Blood Pressure Pulse Oximetry 98 98 99 03/05/18 04:30 03/05/18 04:45 03/05/18 04:46 Temperature Pulse Rate 81 80 Respiratory Rate 18 18 18 Blood Pressure Pulse Oximetry 98 99 99 03/05/18 05:00 03/05/18 05:15 03/05/18 05:30 Temperature Pulse Rate 70 74 79 Respiratory Rate 18 18 18 Blood Pressure Pulse Oximetry 98 98 98 03/05/18 05:45 03/05/18 06:00 03/05/18 06:15 Temperature Pulse Rate 83 84 86 Respiratory Rate 19 18 18 Blood Pressure Pulse Oximetry 98 97 97 03/05/18 08:28 Temperature Pulse Rate Respiratory Rate Blood Pressure Pulse Oximetry 97 Intake & Output 03/04/18 03/05/18 03/05/18 18:59 06:59 18:59 Intake Total 6700 / 6700 3700 / 3700 Output Total 1250 / 1250 890 / 890 Balance 5450 / 5450 2810 / 2810 Weight 72.2 kg 81 kg Intake: IV 5200 / 5200 3700 / 3700 Sodium Bicarbonate 8.4% Inj 150 1000 / 1000 2000 / 2000 MEQ In Sterile Water for Inj 850 ML @ 50 mls/hr IV.CONT . Q20H KELSIE Rx#:[id number] Maxipime Inj 2,000 MG In NS Inj 100 / 100 100 / 100 100 ML @ 200 mls/hr IV.SIG Q12H KELSIE Rx#:[id number] Levophed-Dextrose 4 mg/250 ml 500 / 500 Drip 4 mg In 250 ml @ 2 MCG/MIN 7.5 mls/hr IV.SIG TITRATE PRN Rx#:[id number] KCl 40 mEq Premix Inj 40 meq In 100 / 100 100 ml @ 25 mls/hr IV.SIG Q2H PRN Rx#:[id number] NS Inj 1,000 ML @ 3000 mls/hr 4000 / 4000 IV.SIG Q20M KELSIE Rx#:[id number] Flagyl 500 MG Inj 100 ML @ 100 100 / 100 300 / 300 mls/hr IV.SIG Q6H KELSIE Rx#: [id number] Oral 0 / 0 Anesthesia Amount 1500 / 1500 Output: Estimated Blood Loss 100 / 100 Urine Amount (Catheter) 750 / 750 200 / 200 Indwelling Urethral Catheter 750 / 750 200 / 200 Gastric Drainage 0 / 0 170 / 170 G tube 0 / 0 100 / 100 J tube 0 / 0 60 / 60 RT NG tube 0 / 0 10 / 10 Wound Drainage 150 / 150 120 / 120 #1 Lft Abdomen 90 / 90 70 / 70 #2 Rt abdomen 60 / 60 50 / 50 Chest Tube Drainage 250 / 250 400 / 400 #1Y and #2Y Left Pleural Y 250 / 250 400 / 400 Connected Other: Weight On Admission 72.2 kg Laboratory Results - last 24 hr 03/04/18 03/04/18 03/04/18 09:08 09:26 09:30 WBC RBC Hgb Hct MCV MCH MCHC RDW Plt Count MPV Prelim Diff (Auto) Neut % (Auto) Lymph % (Auto) Wilcox % (Auto) Eos % (Auto) Baso % (Auto) Neut # (Auto) Lymph # (Auto) Wilcox # (Auto) Eos # (Auto) Baso # (Auto) WBC Differential Seg Neuts % (Manual) Band Neuts % (Manual) Lymphocytes % (Manual) Monocytes % (Manual) Eosinophils % (Manual) Metamyelocytes % (Man) Myelocytes % (Man) Abs Neuts (Manual) Differential Comment Toxic Granulation Platelet Estimate Platelet Morphology PT INR Puncture Site Art line Patient Temperature 98.6 O2 Saturation 91 ABG pH 7.20 L* ABG pCO2 44 H ABG pO2 84 ABG HCO3 17 L ABG O2 Content 14.0 ABG Base Excess -10.0 L ABG Methemoglobin 1.3 Freddy Test Hemoglobin 10.9 L Carboxyhemoglobin 0.9 O2 Delivery Device Ventilator Vent Setting 500/20/+5/0.90 Inspired O2 100 Critical Value Yes Sodium Potassium Chloride Carbon Dioxide Anion Gap BUN Creatinine Estimated GFR POC Glucose 125 H Random Glucose Lactic Acid 5.4 H* Calcium Calcium Adj for Albumin Total Bilirubin AST ALT Alkaline Phosphatase Total Protein Albumin Blood Type Blood Type Recheck Antibody Screen 03/04/18 03/04/18 03/04/18 09:30 09:30 09:30 WBC 41.9 H RBC 2.98 L Hgb 10.8 L Hct 31.6 L MCV 105.9 H MCH 36.1 H MCHC 34.1 RDW 13.6 Plt Count 166 D MPV 10.2 Prelim Diff (Auto) Manual diff required Neut % (Auto) Lymph % (Auto) Wilcox % (Auto) Eos % (Auto) Baso % (Auto) Neut # (Auto) Lymph # (Auto) Wilcox # (Auto) Eos # (Auto) Baso # (Auto) WBC Differential Manual diff final Seg Neuts % (Manual) 73 H Band Neuts % (Manual) 20 H Lymphocytes % (Manual) Monocytes % (Manual) 4 Eosinophils % (Manual) 1 Metamyelocytes % (Man) 2 H Myelocytes % (Man) Abs Neuts (Manual) 39.8 H Differential Comment . Toxic Granulation 2+ H Platelet Estimate Normal Platelet Morphology Normal PT 12.6 H INR 1.2 Puncture Site Patient Temperature O2 Saturation ABG pH ABG pCO2 ABG pO2 ABG HCO3 ABG O2 Content ABG Base Excess ABG Methemoglobin Freddy Test Hemoglobin Carboxyhemoglobin O2 Delivery Device Vent Setting Inspired O2 Critical Value Sodium 146 H Potassium 3.6 Chloride 115 H Carbon Dioxide 18.4 L Anion Gap 13 BUN 18 Creatinine 1.59 H Estimated GFR 43 L POC Glucose Random Glucose 143 H Lactic Acid Calcium 6.9 L* Calcium Adj for Albumin 8.7 Total Bilirubin 1.2 H AST 21 ALT 17 Alkaline Phosphatase 87 Total Protein 4.8 L D Albumin 1.8 L Blood Type Blood Type Recheck Antibody Screen 03/04/18 03/04/18 03/04/18 09:30 13:05 16:45 WBC RBC Hgb Hct MCV MCH MCHC RDW Plt Count MPV Prelim Diff (Auto) Neut % (Auto) Lymph % (Auto) Wilcox % (Auto) Eos % (Auto) Baso % (Auto) Neut # (Auto) Lymph # (Auto) Wilcox # (Auto) Eos # (Auto) Baso # (Auto) WBC Differential Seg Neuts % (Manual) Band Neuts % (Manual) Lymphocytes % (Manual) Monocytes % (Manual) Eosinophils % (Manual) Metamyelocytes % (Man) Myelocytes % (Man) Abs Neuts (Manual) Differential Comment Toxic Granulation Platelet Estimate Platelet Morphology PT INR Puncture Site Patient Temperature O2 Saturation ABG pH ABG pCO2 ABG pO2 ABG HCO3 ABG O2 Content ABG Base Excess ABG Methemoglobin Freddy Test Hemoglobin Carboxyhemoglobin O2 Delivery Device Vent Setting Inspired O2 Critical Value Sodium 145 Potassium 3.3 L Chloride 112 H Carbon Dioxide 21.8 Anion Gap 11 BUN 19 H Creatinine 1.55 H Estimated GFR 44 L POC Glucose Random Glucose 165 H Lactic Acid 4.8 H* Calcium 6.4 L* Calcium Adj for Albumin 8.2 L Total Bilirubin AST ALT Alkaline Phosphatase Total Protein Albumin 1.8 L Blood Type A Positive Blood Type Recheck Not needed Antibody Screen Negative 03/05/18 03/05/18 03/05/18 02:02 02:02 07:11 WBC 24.5 H RBC 3.28 L Hgb 11.7 L Hct 33.1 L MCV 100.7 H D MCH 35.6 H MCHC 35.3 RDW 13.6 Plt Count 150 MPV 10.2 Prelim Diff (Auto) Slide review pending Neut % (Auto) 92.9 H Lymph % (Auto) 3.3 L Wilcox % (Auto) 3.6 Eos % (Auto) 0.0 Baso % (Auto) 0.2 Neut # (Auto) 22.8 H Lymph # (Auto) 0.8 L Wilcox # (Auto) 0.9 Eos # (Auto) 0.0 Baso # (Auto) 0.0 WBC Differential Manual diff final Seg Neuts % (Manual) 52 Band Neuts % (Manual) 33 H Lymphocytes % (Manual) 3 L Monocytes % (Manual) 3 Eosinophils % (Manual) Metamyelocytes % (Man) 6 H Myelocytes % (Man) 3 H Abs Neuts (Manual) 23.0 H Differential Comment . Toxic Granulation Platelet Estimate Normal Platelet Morphology Normal PT INR Puncture Site Marilou Patient Temperature 98.6 O2 Saturation 95 ABG pH 7.50 H ABG pCO2 34 L ABG pO2 78 ABG HCO3 26 ABG O2 Content 14.9 ABG Base Excess 3.1 H ABG Methemoglobin 1.2 Freddy Test Present Hemoglobin 11.1 L Carboxyhemoglobin 1.1 O2 Delivery Device Ventilator Vent Setting See comments Inspired O2 50 Critical Value No Sodium 144 Potassium 4.3 D Chloride 112 H Carbon Dioxide 25.5 Anion Gap 7 BUN 21 H Creatinine 1.77 H Estimated GFR 38 L POC Glucose Random Glucose 139 H Lactic Acid Calcium 6.0 L* Calcium Adj for Albumin 8.0 L Total Bilirubin AST ALT Alkaline Phosphatase Total Protein Albumin 1.5 L Blood Type Blood Type Recheck Antibody Screen Impressions Chest X-Ray 03/04/18 00:00 CONCLUSION: Increasing consolidation and pleural effusion left chest ET tube in good position. Nasogastric tube is not evident. Chest X-Ray 03/05/18 04:00 CONCLUSION: Diffuse increased interstitial prominence likely related to edema. 2 left-sided chest tubes without evidence for pneumothorax.
--- NOTE | 2018-03-05 09:40 | P.PNCC ---
Subjective Subjective Remarks/Hospital Course: This 73-year-old gentleman presented to [facility] with severe left chest and upper abdominal pain. He underwent a proximal gastrectomy for carcinoma on February 23 and had an uneventful postoperative course. He was initially doing well at home but was not satisfied with small portions for meals. His states that he began eating large amounts of food and subsequently developed severe vomiting over the past 2 days. CAT scan on arrival to the outside hospital reveals mediastinal air consistent with disruption of the esophageal anastomosis. There is a left pleural effusion and diffuse abdominal tenderness. He was intubated at the outside hospital and arrives on mechanical ventilation. Blood pressure on arrival was 65 systolic with norepinephrine infusing at 40 mcg/min and Abhinav-Synephrine infusing at 100 mics per minute. He responded quickly to 3 L of intravenous fluid and sodium bicarbonate, administered for a metabolic acidosis and base deficit of 10. He was loaded with Flagyl intravenous antibiotic before arrival and we have augmented this with cefepime. 03/05: Remains vasopressor dependent despite aggressive fluid resuscitation and stress dose steroids. Acid base balance largely corrected and bicarb drip has been discontinued. Remains on mechanical ventilation and gas exchange is acceptable. Urinary output marginal with decrease in glomerular filtration rate observed. Continue broad-spectrum antibiotic coverage including fungal. - Diagnosis (1) Septic shock (s/p repair of gastrojejunal anastomotic disruption) (2) Acute kidney injury (nontraumatic) (3) Acute hypoxemic respiratory failure (4) Encephalopathy acute Objective Vital Signs / I&O: Vital Signs 03/04/18 10:32 03/04/18 11:01 03/04/18 12:00 Temperature Pulse Rate 129 H Respiratory Rate 22 22 Blood Pressure 94/59 L Pulse Oximetry 100 94 L 03/04/18 12:01 03/04/18 12:02 03/04/18 12:03 Temperature Pulse Rate 129 H 128 H 128 H Respiratory Rate 22 22 22 Blood Pressure 83/54 L 84/57 L 95/53 L Pulse Oximetry 94 L 94 L 94 L 03/04/18 12:27 03/04/18 13:00 03/04/18 13:01 Temperature Pulse Rate 128 H 127 H Respiratory Rate 22 22 22 Blood Pressure 88/50 L Pulse Oximetry 95 95 95 03/04/18 13:05 03/04/18 16:14 03/04/18 16:23 Temperature Pulse Rate 126 H 94 H 94 H Respiratory Rate 22 22 Blood Pressure 97/55 L Pulse Oximetry 95 100 99 03/04/18 16:25 03/04/18 16:28 03/04/18 16:30 Temperature Pulse Rate 93 H Respiratory Rate 22 22 Blood Pressure 110/69 97/59 L Pulse Oximetry 97 97 03/04/18 16:45 03/04/18 17:00 03/04/18 17:15 Temperature Pulse Rate 87 89 88 Respiratory Rate 10 L 22 22 Blood Pressure 104/70 99/63 L 105/64 Pulse Oximetry 97 98 99 03/04/18 17:30 03/04/18 17:45 03/04/18 18:00 Temperature Pulse Rate 87 86 87 Respiratory Rate 22 18 18 Blood Pressure 101/65 111/73 107/60 Pulse Oximetry 99 100 100 03/04/18 18:15 03/04/18 18:30 03/04/18 18:44 Temperature Pulse Rate 86 86 Respiratory Rate 18 18 Blood Pressure 99/58 L 100/64 93/54 L Pulse Oximetry 100 100 03/04/18 18:45 03/04/18 19:00 03/04/18 20:00 Temperature 97.9 F Pulse Rate 88 87 91 H Respiratory Rate 18 18 18 Blood Pressure 108/63 109/58 L 94/53 L Pulse Oximetry 100 100 99 03/04/18 20:31 03/04/18 21:00 03/04/18 21:30 Temperature Pulse Rate 85 84 Respiratory Rate 18 18 18 Blood Pressure 93/53 L 94/55 L Pulse Oximetry 100 99 100 03/04/18 21:45 03/04/18 22:00 03/04/18 22:11 Temperature Pulse Rate 85 84 Respiratory Rate 18 18 20 Blood Pressure 99/54 L 99/54 L Pulse Oximetry 99 100 100 03/04/18 22:45 03/04/18 23:00 03/04/18 23:03 Temperature Pulse Rate 89 88 96 H Respiratory Rate 18 18 16 Blood Pressure 107/52 L Pulse Oximetry 99 99 100 03/04/18 23:04 03/04/18 23:15 03/04/18 23:30 Temperature Pulse Rate 88 87 Respiratory Rate 18 18 Blood Pressure Pulse Oximetry 99 99 100 03/04/18 23:45 03/05/18 00:00 03/05/18 00:15 Temperature 97.9 F Pulse Rate 87 86 85 Respiratory Rate 18 18 18 Blood Pressure 99/54 L Pulse Oximetry 99 99 100 03/05/18 00:30 03/05/18 00:45 03/05/18 01:00 Temperature Pulse Rate 86 85 84 Respiratory Rate 18 18 18 Blood Pressure Pulse Oximetry 99 100 100 03/05/18 01:15 03/05/18 01:25 03/05/18 01:30 Temperature Pulse Rate 83 84 Respiratory Rate 18 18 18 Blood Pressure Pulse Oximetry 100 99 99 03/05/18 01:45 03/05/18 02:00 03/05/18 02:15 Temperature Pulse Rate 83 81 84 Respiratory Rate 18 25 H 19 Blood Pressure 99/54 L Pulse Oximetry 100 98 98 03/05/18 02:30 03/05/18 02:31 03/05/18 02:45 Temperature Pulse Rate 83 83 84 Respiratory Rate 18 18 18 Blood Pressure Pulse Oximetry 99 99 99 03/05/18 03:00 03/05/18 03:15 03/05/18 03:30 Temperature Pulse Rate 82 81 81 Respiratory Rate 18 18 18 Blood Pressure Pulse Oximetry 99 99 99 03/05/18 03:45 03/05/18 04:00 03/05/18 04:15 Temperature 98.7 F Pulse Rate 80 80 82 Respiratory Rate 18 19 18 Blood Pressure Pulse Oximetry 98 98 99 03/05/18 04:30 03/05/18 04:45 03/05/18 04:46 Temperature Pulse Rate 81 80 Respiratory Rate 18 18 18 Blood Pressure Pulse Oximetry 98 99 99 03/05/18 05:00 03/05/18 05:15 03/05/18 05:30 Temperature Pulse Rate 70 74 79 Respiratory Rate 18 18 18 Blood Pressure Pulse Oximetry 98 98 98 03/05/18 05:45 03/05/18 06:00 03/05/18 06:15 Temperature Pulse Rate 83 84 86 Respiratory Rate 19 18 18 Blood Pressure Pulse Oximetry 98 97 97 03/05/18 08:28 Temperature Pulse Rate Respiratory Rate Blood Pressure Pulse Oximetry 97 Intake & Output 03/04/18 03/05/18 03/05/18 18:59 06:59 18:59 Intake Total 6700 / 6700 3700 / 3700 250 / 250 Output Total 1250 / 1250 890 / 890 Balance 5450 / 5450 2810 / 2810 250 / 250 Weight 72.2 kg 81 kg Intake: IV 5200 / 5200 3700 / 3700 250 / 250 Sodium Bicarbonate 8.4% Inj 150 1000 / 1000 2000 / 2000 MEQ In Sterile Water for Inj 850 ML @ 50 mls/hr IV.CONT . Q20H KELSIE Rx#:[id number] Maxipime Inj 2,000 MG In NS Inj 100 / 100 100 / 100 100 ML @ 200 mls/hr IV.SIG Q12H KELSIE Rx#:[id number] Levophed-Dextrose 4 mg/250 ml 500 / 500 250 / 250 Drip 4 mg In 250 ml @ 2 MCG/MIN 7.5 mls/hr IV.SIG TITRATE PRN Rx#:[id number] KCl 40 mEq Premix Inj 40 meq In 100 / 100 100 ml @ 25 mls/hr IV.SIG Q2H PRN Rx#:[id number] NS Inj 1,000 ML @ 3000 mls/hr 4000 / 4000 IV.SIG Q20M KELSIE Rx#:[id number] Flagyl 500 MG Inj 100 ML @ 100 100 / 100 300 / 300 mls/hr IV.SIG Q6H KELSIE Rx#: [id number] Oral 0 / 0 Anesthesia Amount 1500 / 1500 Output: Estimated Blood Loss 100 / 100 Urine Amount (Catheter) 750 / 750 200 / 200 Indwelling Urethral Catheter 750 / 750 200 / 200 Gastric Drainage 0 / 0 170 / 170 G tube 0 / 0 100 / 100 J tube 0 / 0 60 / 60 RT NG tube 0 / 0 10 / 10 Wound Drainage 150 / 150 120 / 120 #1 Lft Abdomen 90 / 90 70 / 70 #2 Rt abdomen 60 / 60 50 / 50 Chest Tube Drainage 250 / 250 400 / 400 #1Y and #2Y Left Pleural Y 250 / 250 400 / 400 Connected Other: Weight On Admission 72.2 kg Result Diagrams: 03/05/18 02:02 03/05/18 02:02 Objective Remarks: Narrative: General: Ill-appearing 73-year-old male Head: Normal, atraumatic Neck: Supple, orotracheal intubation Lungs: Improved breath sounds left side with persistent rhonchi. Breath sounds clear right side with few rhonchi. Good bilateral air movement Heart: Distant tones, tachycardia, neck veins are not distended. Abdomen: Moderately distended, bowel sounds are present. Small well-healed laparoscopy incisions. Extremities: Warm, well-perfused. No peripheral edema. Neuro: Moves 4 limbs spontaneously. Does not follow commands. Opens eyes to noxious stimulation. Fentanyl drip infusing and heavily sedated. Assessment and Plan - Problem List (1) Septic shock Code(s): A41.9 - Sepsis, unspecified organism; R65.21 - Severe sepsis with septic shock Status: Acute (2) Acute kidney injury (nontraumatic) Code(s): N17.9 - Acute kidney failure, unspecified Status: Acute (3) Acute hypoxemic respiratory failure Code(s): J96.01 - Acute respiratory failure with hypoxia Status: Acute (4) Encephalopathy acute Code(s): G93.40 - Encephalopathy, unspecified Status: Acute - Assessment and Plan Plan: Plan: 1. Continued maintenance hydration with isotonic crystalloid 2. Stress dose steroids, hydrocortisone 50 mg IV every 6 hours 3. Protonix for GI ulcer prophylaxis 4. Nasogastric tube to low intermittent suction 5. Mechanical ventilation assist control mode, PEEP 8 6. Cefepime and Flagyl antibiotic coverage, add micafungin. 7. Chemical DVT prophylaxis until after surgery. 8. Discontinue sodium bicarb drip at 150 cc/h 9. Fernandez catheter for hourly urine output 10. Arterial blood gas in a.m. 11. Type and screen for blood 12. Daily BMP, CBC 13. Follow left hemithorax closely for development of effusion. Overall impression: This gentleman arrived critically ill and in septic shock with multiple organ system dysfunction. He remains hemodynamically unstable and still requiring vasopressor support. He is undergone infection source control surgery with debridement and adequate drainage of the involved start him. He remains critically ill and hemodynamically unstable. Critical care time 45 minutes aside from invasive procedures.
[2018-03-05] MEDS: Albumin Human 25% Inj 100 ML IV.SIG SCH ×2 (10:39→17:00)
[2018-03-05] MEDS: Propofol 1000 mg/100 ml Inj 1,000 MG/100 ML BOTTLE IV.CONT PRN ×2 (14:07→20:36)
--- NOTE | 2018-03-05 15:05 | P.PNGS ---
Subjective Patient reports: other (Patient on ventilator) Interval history: DAILY PROGRESS NOTE FOR SURGICAL ATTENDING, DR. AUNDREA HIDALGO Discussed with nursing staff Physical Exam Vital signs: Vital Signs 03/04/18 16:14 03/04/18 16:23 03/04/18 16:25 Temperature Pulse Rate 94 H 94 H Respiratory Rate 22 Blood Pressure 110/69 Pulse Oximetry 100 99 03/04/18 16:28 03/04/18 16:30 03/04/18 16:45 Temperature Pulse Rate 93 H 87 Respiratory Rate 22 22 10 L Blood Pressure 97/59 L 104/70 Pulse Oximetry 97 97 97 03/04/18 17:00 03/04/18 17:15 03/04/18 17:30 Temperature Pulse Rate 89 88 87 Respiratory Rate 22 22 22 Blood Pressure 99/63 L 105/64 101/65 Pulse Oximetry 98 99 99 03/04/18 17:45 03/04/18 18:00 03/04/18 18:15 Temperature Pulse Rate 86 87 86 Respiratory Rate 18 18 18 Blood Pressure 111/73 107/60 99/58 L Pulse Oximetry 100 100 100 03/04/18 18:30 03/04/18 18:44 03/04/18 18:45 Temperature Pulse Rate 86 88 Respiratory Rate 18 18 Blood Pressure 100/64 93/54 L 108/63 Pulse Oximetry 100 100 03/04/18 19:00 03/04/18 20:00 03/04/18 20:31 Temperature 97.9 F Pulse Rate 87 91 H Respiratory Rate 18 18 18 Blood Pressure 109/58 L 94/53 L Pulse Oximetry 100 99 100 03/04/18 21:00 03/04/18 21:30 03/04/18 21:45 Temperature Pulse Rate 85 84 85 Respiratory Rate 18 18 18 Blood Pressure 93/53 L 94/55 L 99/54 L Pulse Oximetry 99 100 99 03/04/18 22:00 03/04/18 22:11 03/04/18 22:45 Temperature Pulse Rate 84 89 Respiratory Rate 18 20 18 Blood Pressure 99/54 L Pulse Oximetry 100 100 99 03/04/18 23:00 03/04/18 23:03 03/04/18 23:04 Temperature Pulse Rate 88 96 H Respiratory Rate 18 16 Blood Pressure 107/52 L Pulse Oximetry 99 100 99 03/04/18 23:15 03/04/18 23:30 03/04/18 23:45 Temperature Pulse Rate 88 87 87 Respiratory Rate 18 18 18 Blood Pressure Pulse Oximetry 99 100 99 03/05/18 00:00 03/05/18 00:15 03/05/18 00:30 Temperature 97.9 F Pulse Rate 86 85 86 Respiratory Rate 18 18 18 Blood Pressure 99/54 L Pulse Oximetry 99 100 99 03/05/18 00:45 03/05/18 01:00 03/05/18 01:15 Temperature Pulse Rate 85 84 83 Respiratory Rate 18 18 18 Blood Pressure Pulse Oximetry 100 100 100 03/05/18 01:25 03/05/18 01:30 03/05/18 01:45 Temperature Pulse Rate 84 83 Respiratory Rate 18 18 18 Blood Pressure Pulse Oximetry 99 99 100 03/05/18 02:00 03/05/18 02:15 03/05/18 02:30 Temperature Pulse Rate 81 84 83 Respiratory Rate 25 H 19 18 Blood Pressure 99/54 L Pulse Oximetry 98 98 99 03/05/18 02:31 03/05/18 02:45 03/05/18 03:00 Temperature Pulse Rate 83 84 82 Respiratory Rate 18 18 18 Blood Pressure Pulse Oximetry 99 99 99 03/05/18 03:15 03/05/18 03:30 03/05/18 03:45 Temperature Pulse Rate 81 81 80 Respiratory Rate 18 18 18 Blood Pressure Pulse Oximetry 99 99 98 03/05/18 04:00 03/05/18 04:15 03/05/18 04:30 Temperature 98.7 F Pulse Rate 80 82 81 Respiratory Rate 19 18 18 Blood Pressure Pulse Oximetry 98 99 98 03/05/18 04:45 03/05/18 04:46 03/05/18 05:00 Temperature Pulse Rate 80 70 Respiratory Rate 18 18 18 Blood Pressure Pulse Oximetry 99 99 98 03/05/18 05:15 03/05/18 05:30 03/05/18 05:45 Temperature Pulse Rate 74 79 83 Respiratory Rate 18 18 19 Blood Pressure Pulse Oximetry 98 98 98 03/05/18 06:00 03/05/18 06:15 03/05/18 06:31 Temperature Pulse Rate 84 86 86 Respiratory Rate 18 18 18 Blood Pressure 90/55 L Pulse Oximetry 97 97 96 03/05/18 07:00 03/05/18 08:00 03/05/18 08:28 Temperature 98.8 F Pulse Rate 84 81 Respiratory Rate 18 14 Blood Pressure Pulse Oximetry 97 97 97 03/05/18 09:00 03/05/18 10:00 03/05/18 11:00 Temperature Pulse Rate 76 75 70 Respiratory Rate 14 Blood Pressure Pulse Oximetry 97 95 96 03/05/18 11:41 03/05/18 12:00 03/05/18 13:00 Temperature 99.8 F H Pulse Rate 76 72 Respiratory Rate 14 14 14 Blood Pressure Pulse Oximetry 96 96 96 03/05/18 14:00 Temperature Pulse Rate 71 Respiratory Rate 14 Blood Pressure Pulse Oximetry 96 Intake & Output 03/04/18 03/05/18 03/05/18 18:59 06:59 18:59 Intake Total 6700 / 6700 3700 / 3700 2049 Output Total 1250 / 1250 890 / 890 210 / 210 Balance 5450 / 5450 2810 / 2810 1840 / 1840 Weight 72.2 kg 81 kg Intake: IV 5200 / 5200 3700 / 3700 2049 Sodium Bicarbonate 8.4% Inj 150 1000 / 1000 2000 / 2000 1000 / 1000 MEQ In Sterile Water for Inj 850 ML @ 50 mls/hr IV.CONT . Q20H KELSIE Rx#:[id number] Flexbumin 25% Inj 100 ML @ 60 100 / 100 mls/hr IV.SIG Q8H KELSIE Rx#: [id number] Maxipime Inj 2,000 MG In NS Inj 100 / 100 100 / 100 100 / 100 100 ML @ 200 mls/hr IV.SIG Q12H KELSIE Rx#:[id number] Levophed-Dextrose 4 mg/250 ml 500 / 500 500 / 500 Drip 4 mg In 250 ml @ 2 MCG/MIN 7.5 mls/hr IV.SIG TITRATE PRN Rx#:[id number] KCl 40 mEq Premix Inj 40 meq In 100 / 100 100 ml @ 25 mls/hr IV.SIG Q2H PRN Rx#:[id number] NS Inj 1,000 ML @ 3000 mls/hr 4000 / 4000 IV.SIG Q20M KELSIE Rx#:[id number] fentaNYL 10 mcg/mL Premix Drip 250 / 250 2,500 mcg In 250 ml @ 50 MCG/HR 5 mls/hr IV.SIG TITRATE PRN Rx #:[id number] Flagyl 500 MG Inj 100 ML @ 100 100 / 100 300 / 300 100 / 100 mls/hr IV.SIG Q6H KELSIE Rx#: [id number] Oral 0 / 0 Anesthesia Amount 1500 / 1500 Output: Estimated Blood Loss 100 / 100 Urine Amount (Catheter) 750 / 750 200 / 200 Indwelling Urethral Catheter 750 / 750 200 / 200 Gastric Drainage 0 / 0 170 / 170 G tube 0 / 0 100 / 100 J tube 0 / 0 60 / 60 RT NG tube 0 / 0 10 / 10 Wound Drainage 150 / 150 120 / 120 210 / 210 #1 Lft Abdomen 90 / 90 70 / 70 60 / 60 #2 Rt abdomen 60 / 60 50 / 50 150 / 150 Chest Tube Drainage 250 / 250 400 / 400 #1Y and #2Y Left Pleural Y 250 / 250 400 / 400 Connected Other: Weight On Admission 72.2 kg Narrative: Patient on the ventilator Chest tubes left side G-tube and J-tube and Dominic-Shah drains noted. Cloudy drainage from chest tube on the left chest Fernandez catheter in with urine - Urinary Catheter Management Indwelling Urethral Catheter Cath placed during this visit: no Reason for continuing: Hourly intake/output Results - Labs 03/05/18 02:02 03/05/18 02:02 Laboratory Results - last 24 hr 03/04/18 03/05/18 03/05/18 16:45 02:02 02:02 WBC 24.5 H RBC 3.28 L Hgb 11.7 L Hct 33.1 L MCV 100.7 H D MCH 35.6 H MCHC 35.3 RDW 13.6 Plt Count 150 MPV 10.2 Prelim Diff (Auto) Slide review pending Neut % (Auto) 92.9 H Lymph % (Auto) 3.3 L Placer % (Auto) 3.6 Eos % (Auto) 0.0 Baso % (Auto) 0.2 Neut # (Auto) 22.8 H Lymph # (Auto) 0.8 L Placer # (Auto) 0.9 Eos # (Auto) 0.0 Baso # (Auto) 0.0 WBC Differential Manual diff final Seg Neuts % (Manual) 52 Band Neuts % (Manual) 33 H Lymphocytes % (Manual) 3 L Monocytes % (Manual) 3 Metamyelocytes % (Man) 6 H Myelocytes % (Man) 3 H Abs Neuts (Manual) 23.0 H Differential Comment . Platelet Estimate Normal Platelet Morphology Normal Puncture Site Patient Temperature O2 Saturation ABG pH ABG pCO2 ABG pO2 ABG HCO3 ABG O2 Content ABG Base Excess ABG Methemoglobin Freddy Test Hemoglobin Carboxyhemoglobin O2 Delivery Device Vent Setting Inspired O2 Critical Value Sodium 145 144 Potassium 3.3 L 4.3 D Chloride 112 H 112 H Carbon Dioxide 21.8 25.5 Anion Gap 11 7 BUN 19 H 21 H Creatinine 1.55 H 1.77 H Estimated GFR 44 L 38 L Random Glucose 165 H 139 H Calcium 6.4 L* 6.0 L* Calcium Adj for Albumin 8.2 L 8.0 L Albumin 1.8 L 1.5 L 03/05/18 07:11 WBC RBC Hgb Hct MCV MCH MCHC RDW Plt Count MPV Prelim Diff (Auto) Neut % (Auto) Lymph % (Auto) Placer % (Auto) Eos % (Auto) Baso % (Auto) Neut # (Auto) Lymph # (Auto) Placer # (Auto) Eos # (Auto) Baso # (Auto) WBC Differential Seg Neuts % (Manual) Band Neuts % (Manual) Lymphocytes % (Manual) Monocytes % (Manual) Metamyelocytes % (Man) Myelocytes % (Man) Abs Neuts (Manual) Differential Comment Platelet Estimate Platelet Morphology Puncture Site [place] Patient Temperature 98.6 O2 Saturation 95 ABG pH 7.50 H ABG pCO2 34 L ABG pO2 78 ABG HCO3 26 ABG O2 Content 14.9 ABG Base Excess 3.1 H ABG Methemoglobin 1.2 Freddy Test Present Hemoglobin 11.1 L Carboxyhemoglobin 1.1 O2 Delivery Device Ventilator Vent Setting See comments Inspired O2 50 Critical Value No Sodium Potassium Chloride Carbon Dioxide Anion Gap BUN Creatinine Estimated GFR Random Glucose Calcium Calcium Adj for Albumin Albumin - Imaging Imaging: ITS Impressions Chest X-Ray 03/05/18 04:00 CONCLUSION: Diffuse increased interstitial prominence likely related to edema. 2 left-sided chest tubes without evidence for pneumothorax. 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 AUNDREA HIDALGO I attest that I had a [id number] encounter with the patient on the same day, and personally performed and documented my assessment and findings in the medical record. The following services were provided during this hospital visit: Chart data review, vital sign assessments/reviewing monitor data Review of consultations notes if present. Medication orders/review and/or management Ordering and/or reviewing lab tests Ordering and/or interpreting/reviewing x-rays and/or diagnostic studies Care of the patient and discussion of the patient with the care team Documentation time To help prompt me to consider important information that might be impacting today's encounter and assessment, Information from prior notes written by myself or my colleagues may have been "brought forward/copy and pasted" into today's note.
[2018-03-05 16:59] LABS: Calcium 6.5 mg/dL (8.5-10.1); Carbon Dioxide 27.6 meq/L (21.0-32.0); Potassium 4.3 meq/L (3.5-5.1)
[2018-03-05 17:13] LABS: Albumin 1.9 g/dL (3.4-5.0); Calcium-Albumin Corrected 8.2 mg/dL (8.5-10.1)
[2018-03-06] MEDS: Hydrocortisone Sod Succinate 100 MG Vial IV.PUSH SCH ×4 (01:04→17:15)
[2018-03-06] MEDS: Oral Hygiene Kit OROPHARYNG SCH ×4 (01:04→15:10)
[2018-03-06] MEDS: Sod Chloride 0.9% Inj 1,000 ML IV.SIG SCH ×3 (01:04→12:27)
[2018-03-06] MEDS: Phenylephrine Inj 80 MG in Sodium Chlor 0.9% Inj 492 ML IV.CONT PRN (01:17)
[2018-03-06] MEDS: Albumin Human 25% Inj 100 ML IV.SIG SCH ×3 (03:27→17:15)
[2018-03-06] MEDS: Propofol 1000 mg/100 ml Inj 1,000 MG/100 ML BOTTLE IV.CONT PRN ×3 (04:23→19:05)
[2018-03-06] MEDS: fentaNYL 10 mcg/mL Premix Drip 2,500 MCG/250 ML BAG IV.SIG PRN ×2 (06:11→17:16)
[2018-03-06 06:17] LABS: Baso % (Auto) 0.1 % (0.0-2.0); Hematocrit 27.3 % (39.0-51.0); Hemoglobin 9.6 gm/dL (13.0-17.0); Lymph # (Auto) 0.6 th/mm3 (1.0-4.8); Lymph % (Auto) 4.2 % (9.0-44.0); Mean Corpuscular HGB Conc 35.3 % (32.0-36.0); Mean Corpuscular Hemoglobin 36.1 pg (27.0-34.0); Mean Corpuscular Volume 102.2 fL (80.0-100.0); Mean Platelet Volume 10.8 fL (7.0-11.0); Mono # (Auto) 0.5 th/mm3 (0.0-0.9); Mono % (Auto) 3.4 % (0.0-8.0); Neut # (Auto) 14.2 th/mm3 (1.8-7.7); Neut % (Auto) 92.3 % (16.0-70.0); Platelet Count 112 th/mm3 (150-450); Red Blood Count 2.67 mil/mm3 (4.50-5.90); Red Cell Distribution Width 13.6 % (11.6-17.2); White Blood Count 15.3 th/mm3 (4.0-11.0)
[2018-03-06 06:49] LABS: Calcium 6.8 mg/dL (8.5-10.1); Carbon Dioxide 23.9 meq/L (21.0-32.0); Potassium 3.8 meq/L (3.5-5.1)
[2018-03-06 07:05] LABS: Albumin 2.4 g/dL (3.4-5.0); Calcium-Albumin Corrected 8.1 mg/dL (8.5-10.1)
[2018-03-06] MEDS: Chlorhexidine 0.12% Oral Kit 15 ML UDC OROPHARYNG SCH ×2 (07:49→21:04)
[2018-03-06] MEDS: Pantoprazole Inj 40 MG Vial IV.PUSH SCH (09:06)
--- NOTE | 2018-03-06 11:03 | P.PNCC ---
Subjective Subjective Remarks/Hospital Course: This 73-year-old gentleman presented to [facility] with severe left chest and upper abdominal pain. He underwent a proximal gastrectomy for carcinoma on February 23 and had an uneventful postoperative course. He was initially doing well at home but was not satisfied with small portions for meals. His states that he began eating large amounts of food and subsequently developed severe vomiting over the past 2 days. CAT scan on arrival to the outside hospital reveals mediastinal air consistent with disruption of the esophageal anastomosis. There is a left pleural effusion and diffuse abdominal tenderness. He was intubated at the outside hospital and arrives on mechanical ventilation. Blood pressure on arrival was 65 systolic with norepinephrine infusing at 40 mcg/min and Abhinav-Synephrine infusing at 100 mics per minute. He responded quickly to 3 L of intravenous fluid and sodium bicarbonate, administered for a metabolic acidosis and base deficit of 10. He was loaded with Flagyl intravenous antibiotic before arrival and we have augmented this with cefepime. 03/05: Remains vasopressor dependent despite aggressive fluid resuscitation and stress dose steroids. Acid base balance largely corrected and bicarb drip has been discontinued. Remains on mechanical ventilation and gas exchange is acceptable. Urinary output marginal with decrease in glomerular filtration rate observed. Continue broad-spectrum antibiotic coverage including fungal. 03/06: Left lung well expanded on chest x-ray and pleural fluid well-drained. Thoracostomy tubes in good position. Largely weaned off vasopressors at this time, will stop stress dose steroids this evening. Peripheral perfusion acceptable and urinary output acceptable. Intraoperative cultures pending. - Diagnosis (1) Septic shock (s/p repair of gastro-esophageal anastomotic disruption) (2) Acute kidney injury (nontraumatic) (3) Acute hypoxemic respiratory failure (4) Encephalopathy acute Objective Vital Signs / I&O: Vital Signs 03/05/18 11:00 03/05/18 11:41 03/05/18 12:00 Temperature 99.8 F H Pulse Rate 70 76 Respiratory Rate 14 14 14 Pulse Oximetry 96 96 96 03/05/18 13:00 03/05/18 14:00 03/05/18 15:00 Temperature Pulse Rate 72 71 69 Respiratory Rate 14 14 Pulse Oximetry 96 96 97 03/05/18 16:00 03/05/18 16:17 03/05/18 17:00 Temperature 98.8 F Pulse Rate 66 61 Respiratory Rate 14 14 Pulse Oximetry 98 98 98 12/15/18 18:00 03/05/18 19:00 03/05/18 20:00 Temperature 98.4 F Pulse Rate 58 L 64 61 Respiratory Rate 14 14 Pulse Oximetry 99 98 99 03/05/18 20:35 03/05/18 21:00 03/05/18 22:00 Temperature Pulse Rate 60 58 L Respiratory Rate 14 Pulse Oximetry 99 99 99 03/05/18 23:00 03/06/18 00:00 03/06/18 00:44 Temperature 97.4 F L Pulse Rate 58 L 56 L Respiratory Rate 14 14 Pulse Oximetry 99 99 99 03/06/18 01:00 03/06/18 02:00 03/06/18 03:00 Temperature Pulse Rate 54 L 57 L 55 L Respiratory Rate Pulse Oximetry 99 99 99 03/06/18 04:00 03/06/18 04:38 03/06/18 05:00 Temperature 97.7 F Pulse Rate 63 52 L Respiratory Rate 14 Pulse Oximetry 99 100 100 03/06/18 06:00 03/06/18 07:00 03/06/18 07:36 Temperature 98.4 F Pulse Rate 52 L 53 L Respiratory Rate 14 Pulse Oximetry 99 99 99 03/06/18 08:00 03/06/18 09:00 03/06/18 10:00 Temperature 98.4 F Pulse Rate 51 L 59 L 73 Respiratory Rate 14 14 Pulse Oximetry 100 98 97 Intake & Output 03/05/18 03/06/18 03/06/18 18:59 06:59 18:59 Intake Total 3500 / 3500 1500 / 1500 200 / 200 Output Total 1340 / 1340 1040 / 1040 Balance 2160 / 2160 460 / 460 200 / 200 Weight 84.1 kg Intake: IV 3500 / 3500 1500 / 1500 200 / 200 Neosynephrine Inj 80 MG In NS 400 / 400 Inj 492 ML @ 40 MCG/MIN 15 mls/ hr IV.CONT TITRATE PRN Rx#: [id number] Diprivan 1000 mg/100 ml Inj 1, 200 / 200 000 mg In 100 ml @ 5 MCG/KG/MIN 2.166 mls/hr IV.CONT TITRATE PRN Rx#:[id number] Sodium Bicarbonate 8.4% Inj 150 1000 / 1000 MEQ In Sterile Water for Inj 850 ML @ 50 mls/hr IV.CONT . Q20H KELSIE Rx#:[id number] Flexbumin 25% Inj 100 ML @ 60 200 / 200 100 / 100 mls/hr IV.SIG Q8H KELSIE Rx#: [id number] Maxipime Inj 2,000 MG In NS Inj 100 / 100 100 / 100 100 / 100 100 ML @ 200 mls/hr IV.SIG Q12H KELSIE Rx#:[id number] Levophed-Dextrose 4 mg/250 ml 750 / 750 Drip 4 mg In 250 ml @ 2 MCG/MIN 7.5 mls/hr IV.SIG TITRATE PRN Rx#:[id number] NS Inj 1,000 ML @ 100 mls/hr IV 1000 / 1000 .SIG .Q10H KELSIE Rx#:[id number] fentaNYL 10 mcg/mL Premix Drip 250 / 250 500 / 500 2,500 mcg In 250 ml @ 50 MCG/HR 5 mls/hr IV.SIG TITRATE PRN Rx #:[id number] Flagyl 500 MG Inj 100 ML @ 100 200 / 200 200 / 200 100 / 100 mls/hr IV.SIG Q6H KELSIE Rx#: [id number] Output: Urine Amount (Catheter) 350 / 350 450 / 450 Indwelling Urethral Catheter 350 / 350 450 / 450 Gastric Drainage 300 / 300 100 / 100 G tube 250 / 250 50 / 50 J tube 50 / 50 50 / 50 RT NG tube 0 / 0 0 / 0 Wound Drainage 360 / 360 280 / 280 #1 Lft Abdomen 140 / 140 170 / 170 #2 Rt abdomen 220 / 220 110 / 110 Chest Tube Drainage 330 / 330 210 / 210 #1 Left Upper 0 / 0 15 / 15 #1Y and #2Y Left Pleural Y 300 / 300 Connected #2 Left Lower 30 / 30 195 / 195 Other: # Bowel Movements 0 Result Diagrams: 03/06/18 05:30 03/06/18 05:30 Objective Remarks: Narrative: General: Ill-appearing 73-year-old male, opens eyes to loud voice Head: Normal, atraumatic Neck: Supple, orotracheal intubation Lungs: Improved breath sounds left side, generally clear now. Breath sounds clear right side with few rhonchi. Good bilateral air movement Heart: Distant tones, regular rhythm normal S1, S2, neck veins are not distended. Abdomen: Moderately distended, bowel sounds are present. Extremities: Warm, well-perfused. No peripheral edema. Neuro: Moves 4 limbs spontaneously. Does not follow commands. Opens eyes to stimulation. Fentanyl drip infusing and lightly sedated. Assessment and Plan - Problem List (1) Septic shock Code(s): A41.9 - Sepsis, unspecified organism; R65.21 - Severe sepsis with septic shock Status: Acute (2) Acute kidney injury (nontraumatic) Code(s): N17.9 - Acute kidney failure, unspecified Status: Acute (3) Acute hypoxemic respiratory failure Code(s): J96.01 - Acute respiratory failure with hypoxia Status: Acute (4) Encephalopathy acute Code(s): G93.40 - Encephalopathy, unspecified Status: Acute - Assessment and Plan Plan: Plan: 1. Continued maintenance hydration with isotonic crystalloid 2. Stress dose steroids, hydrocortisone 50 mg IV every 6 hours 3. Protonix for GI ulcer prophylaxis 4. Nasogastric tube to low intermittent suction 5. Mechanical ventilation assist control mode, PEEP 8 6. Cefepime and Flagyl antibiotic coverage, add micafungin. 7. Chemical DVT prophylaxis until after surgery. 8. Discontinue sodium bicarb drip at 150 cc/h 9. Fernandez catheter for hourly urine output 10. Arterial blood gas in a.m. 11. Type and screen for blood 12. Daily BMP, CBC 13. Follow left hemithorax closely for development of effusion. 14. Initiate enteral feeding through jejunostomy tube. Overall impression: This gentleman arrived critically ill and in septic shock with multiple organ system dysfunction. He has undergone source control surgery 03/04 with debridement and adequate drainage of the mediastinum and left chest.. He remains critically ill and hemodynamically unstable. We are unable to wean him from mechanical ventilation at this time and his respiratory status remains unstable. Critical care time 38 minutes
--- NOTE | 2018-03-06 12:30 | P.PNVS ---
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 This also resulted in a huge left pleural effusion with abdominal pain and chest pain. The patient was transferred to [facility] and then to us for further care. I am doing an intraoperative at this point regarding the chest condition. Physical examination is performed in the OR and I was present at the time of surgery. The patient does indeed have an intraabdominal perforation which is now being repaired by Dr. Storm. I discussed with him the issues regarding the chest. The patient apparently had significant chest contamination, which was washed out with saline and 2 large chest tubes were placed. This would be exactly what I would have done and, at this point, hopefully the patient will not develop empyema. If he does develop empyema or any signs of such, I will be available to assist. Today patient is stable hemodynamically and respiratory Bilateral breath sounds ventilatory supported Left chest tubes are draining serosanguineous material, some grayish particulate matter but left chest appears to be clear on a.m. x-ray With this quite adequate drainage patient is not likely to develop an empyema but clearly with contamination this is a distinct possibility so we will see how he does Will continue to follow 03/06/2018 Remains intubated ventilated but hemodynamically improved and stabilized Bilateral pulmonary expansion and chest tubes on the left side have been by me and placed in separate Pleur-evacs The anterior chest tube is draining serosanguineous material over the posterior chest tube is draining particulate matter grayish brown in color Clearly retained fluid from the chest. Again is noted yesterday to question whether this is going to cause empyema but at this point the most important thing is adequate drainage and that certainly present Nothing to add at this time Objective Vital Signs / I&O: Vital Signs 03/05/18 13:00 03/05/18 14:00 03/05/18 15:00 Temperature Pulse Rate 72 71 69 Respiratory Rate 14 14 Pulse Oximetry 96 96 97 03/05/18 16:00 03/05/18 16:17 03/05/18 17:00 Temperature 98.8 F Pulse Rate 66 61 Respiratory Rate 14 14 Pulse Oximetry 98 98 98 12/15/18 18:00 03/05/18 19:00 03/05/18 20:00 Temperature 98.4 F Pulse Rate 58 L 64 61 Respiratory Rate 14 14 Pulse Oximetry 99 98 99 03/05/18 20:35 03/05/18 21:00 03/05/18 22:00 Temperature Pulse Rate 60 58 L Respiratory Rate 14 Pulse Oximetry 99 99 99 03/05/18 23:00 03/06/18 00:00 03/06/18 00:44 Temperature 97.4 F L Pulse Rate 58 L 56 L Respiratory Rate 14 14 Pulse Oximetry 99 99 99 03/06/18 01:00 03/06/18 02:00 03/06/18 03:00 Temperature Pulse Rate 54 L 57 L 55 L Respiratory Rate Pulse Oximetry 99 99 99 03/06/18 04:00 03/06/18 04:38 03/06/18 05:00 Temperature 97.7 F Pulse Rate 63 52 L Respiratory Rate 14 Pulse Oximetry 99 100 100 03/06/18 06:00 03/06/18 07:00 03/06/18 07:36 Temperature 98.4 F Pulse Rate 52 L 53 L Respiratory Rate 14 Pulse Oximetry 99 99 99 03/06/18 08:00 03/06/18 09:00 03/06/18 10:00 Temperature 98.4 F Pulse Rate 51 L 59 L 73 Respiratory Rate 14 14 Pulse Oximetry 100 98 97 03/06/18 11:00 03/06/18 11:50 03/06/18 12:00 Temperature 98.4 F Pulse Rate 54 L 52 L Respiratory Rate 14 14 Pulse Oximetry 99 100 100 Intake & Output 03/05/18 03/06/18 03/06/18 18:59 06:59 18:59 Intake Total 3500 / 3500 1500 / 1500 1400 / 1400 Output Total 1340 / 1340 1040 / 1040 90 / 90 Balance 2160 / 2160 460 / 460 1310 / 1310 Weight 84.1 kg Intake: IV 3500 / 3500 1500 / 1500 1400 / 1400 Neosynephrine Inj 80 MG In NS 400 / 400 Inj 492 ML @ 40 MCG/MIN 15 mls/ hr IV.CONT TITRATE PRN Rx#: [id number] Diprivan 1000 mg/100 ml Inj 1, 200 / 200 100 / 100 000 mg In 100 ml @ 5 MCG/KG/MIN 2.166 mls/hr IV.CONT TITRATE PRN Rx#:[id number] Sodium Bicarbonate 8.4% Inj 150 1000 / 1000 MEQ In Sterile Water for Inj 850 ML @ 50 mls/hr IV.CONT . Q20H KELSIE Rx#:[id number] Flexbumin 25% Inj 100 ML @ 60 200 / 200 100 / 100 100 / 100 mls/hr IV.SIG Q8H KELSIE Rx#: [id number] Maxipime Inj 2,000 MG In NS Inj 100 / 100 100 / 100 100 / 100 100 ML @ 200 mls/hr IV.SIG Q12H KELSIE Rx#:[id number] Levophed-Dextrose 4 mg/250 ml 750 / 750 Drip 4 mg In 250 ml @ 2 MCG/MIN 7.5 mls/hr IV.SIG TITRATE PRN Rx#:[id number] NS Inj 1,000 ML @ 100 mls/hr IV 1000 / 1000 1000 / 1000 .SIG .Q10H KELSIE Rx#:[id number] fentaNYL 10 mcg/mL Premix Drip 250 / 250 500 / 500 2,500 mcg In 250 ml @ 50 MCG/HR 5 mls/hr IV.SIG TITRATE PRN Rx #:[id number] Flagyl 500 MG Inj 100 ML @ 100 200 / 200 200 / 200 100 / 100 mls/hr IV.SIG Q6H KELSIE Rx#: [id number] Output: Urine Amount (Catheter) 350 / 350 450 / 450 Indwelling Urethral Catheter 350 / 350 450 / 450 Gastric Drainage 300 / 300 100 / 100 G tube 250 / 250 50 / 50 J tube 50 / 50 50 / 50 RT NG tube 0 / 0 0 / 0 Wound Drainage 360 / 360 280 / 280 90 / 90 #1 Lft Abdomen 140 / 140 170 / 170 90 / 90 #2 Rt abdomen 220 / 220 110 / 110 Chest Tube Drainage 330 / 330 210 / 210 #1 Left Upper 0 / 0 15 / 15 #1Y and #2Y Left Pleural Y 300 / 300 Connected #2 Left Lower 30 / 30 195 / 195 Other: # Bowel Movements 0 Laboratory Results - last 24 hr 03/05/18 03/06/18 03/06/18 16:30 05:30 05:30 WBC 15.3 H RBC 2.67 L Hgb 9.6 L D Hct 27.3 L MCV 102.2 H MCH 36.1 H MCHC 35.3 RDW 13.6 Plt Count 112 L MPV 10.8 Neut % (Auto) 92.3 H Lymph % (Auto) 4.2 L [place] % (Auto) 3.4 Eos % (Auto) 0.0 Baso % (Auto) 0.1 Neut # (Auto) 14.2 H Lymph # (Auto) 0.6 L [place] # (Auto) 0.5 Eos # (Auto) 0.0 Baso # (Auto) 0.0 WBC Differential . Differential Comment Auto diff final Sodium 143 142 Potassium 4.3 3.8 Chloride 108 H 110 H Carbon Dioxide 27.6 23.9 Anion Gap 7 8 BUN 26 H 28 H Creatinine 1.71 H 1.42 H Estimated GFR 39 L 49 L Random Glucose 136 H 105 Calcium 6.5 L* 6.8 L* Calcium Adj for Albumin 8.2 L 8.1 L Albumin 1.9 L 2.4 L Nasal Screen MRSA (PCR) 03/06/18 08:45 WBC RBC Hgb Hct MCV MCH MCHC RDW Plt Count MPV Neut % (Auto) Lymph % (Auto) [place] % (Auto) Eos % (Auto) Baso % (Auto) Neut # (Auto) Lymph # (Auto) [place] # (Auto) Eos # (Auto) Baso # (Auto) WBC Differential Differential Comment Sodium Potassium Chloride Carbon Dioxide Anion Gap BUN Creatinine Estimated GFR Random Glucose Calcium Calcium Adj for Albumin Albumin Nasal Screen MRSA (PCR) Not detected Microbiology 03/04/18 13:48 Gram Stain - Final Fluid - Pleural fluid Body Fluid Culture - Preliminary Impressions Chest X-Ray 03/05/18 04:00 CONCLUSION: Diffuse increased interstitial prominence likely related to edema. 2 left-sided chest tubes without evidence for pneumothorax.
[2018-03-06 17:19] LABS: Calcium 6.9 mg/dL (8.5-10.1); Carbon Dioxide 25.2 meq/L (21.0-32.0); Potassium 3.8 meq/L (3.5-5.1)
[2018-03-06 17:30] LABS: Albumin 2.4 g/dL (3.4-5.0); Calcium-Albumin Corrected 8.2 mg/dL (8.5-10.1)
--- NOTE | 2018-03-06 18:42 | P.PN ---
Subjective Interval history: Intubated and sedated; appears comfortable. Physical Exam Vital signs: Vital Signs 03/05/18 19:00 03/05/18 20:00 03/05/18 20:35 Temperature 98.4 F Pulse Rate 64 61 Respiratory Rate 14 14 Pulse Oximetry 98 99 99 03/05/18 21:00 03/05/18 22:00 03/05/18 23:00 Temperature Pulse Rate 60 58 L 58 L Respiratory Rate Pulse Oximetry 99 99 99 03/06/18 00:00 03/06/18 00:44 03/06/18 01:00 Temperature 97.4 F L Pulse Rate 56 L 54 L Respiratory Rate 14 14 Pulse Oximetry 99 99 99 03/06/18 02:00 03/06/18 03:00 03/06/18 04:00 Temperature 97.7 F Pulse Rate 57 L 55 L 63 Respiratory Rate Pulse Oximetry 99 99 99 03/06/18 04:38 03/06/18 05:00 03/06/18 06:00 Temperature Pulse Rate 52 L 52 L Respiratory Rate 14 Pulse Oximetry 100 100 99 03/06/18 07:00 03/06/18 07:36 03/06/18 08:00 Temperature 98.4 F 98.4 F Pulse Rate 53 L 51 L Respiratory Rate 14 14 Pulse Oximetry 99 99 100 03/06/18 09:00 03/06/18 10:00 03/06/18 11:00 Temperature Pulse Rate 59 L 73 54 L Respiratory Rate 14 Pulse Oximetry 98 97 99 03/06/18 11:50 03/06/18 12:00 03/06/18 13:00 Temperature 98.4 F Pulse Rate 52 L 61 Respiratory Rate 14 14 Pulse Oximetry 100 100 100 03/06/18 14:00 03/06/18 15:00 03/06/18 16:00 Temperature 98.9 F Pulse Rate 51 L 49 L 55 L Respiratory Rate 14 Pulse Oximetry 99 100 99 03/06/18 17:00 03/06/18 18:00 03/06/18 18:33 Temperature Pulse Rate 54 L 61 Respiratory Rate 14 14 Pulse Oximetry 100 100 100 Intake & Output 03/05/18 03/06/18 03/06/18 18:59 06:59 18:59 Intake Total 3500 / 3500 1500 / 1500 1850 / 1850 Output Total 1340 / 1340 1040 / 1040 880 / 880 Balance 2160 / 2160 460 / 460 970 / 970 Weight 84.1 kg Intake: IV 3500 / 3500 1500 / 1500 1850 / 1850 Neosynephrine Inj 80 MG In NS 400 / 400 Inj 492 ML @ 40 MCG/MIN 15 mls/ hr IV.CONT TITRATE PRN Rx#: [id number] Diprivan 1000 mg/100 ml Inj 1, 200 / 200 100 / 100 000 mg In 100 ml @ 5 MCG/KG/MIN 2.166 mls/hr IV.CONT TITRATE PRN Rx#:[id number] Sodium Bicarbonate 8.4% Inj 150 1000 / 1000 MEQ In Sterile Water for Inj 850 ML @ 50 mls/hr IV.CONT . Q20H KELSIE Rx#:[id number] Flexbumin 25% Inj 100 ML @ 60 200 / 200 100 / 100 100 / 100 mls/hr IV.SIG Q8H KELSIE Rx#: [id number] Maxipime Inj 2,000 MG In NS Inj 100 / 100 100 / 100 100 / 100 100 ML @ 200 mls/hr IV.SIG Q12H KELSIE Rx#:[id number] Mycamine Inj 100 MG In NS Inj 100 / 100 100 ML @ 100 mls/hr IV.SIG Q24H KELSIE Rx#:[id number] Levophed-Dextrose 4 mg/250 ml 750 / 750 Drip 4 mg In 250 ml @ 2 MCG/MIN 7.5 mls/hr IV.SIG TITRATE PRN Rx#:[id number] NS Inj 1,000 ML @ 100 mls/hr IV 1000 / 1000 1000 / 1000 .SIG .Q10H KELSIE Rx#:[id number] fentaNYL 10 mcg/mL Premix Drip 250 / 250 500 / 500 250 / 250 2,500 mcg In 250 ml @ 50 MCG/HR 5 mls/hr IV.SIG TITRATE PRN Rx #:[id number] Flagyl 500 MG Inj 100 ML @ 100 200 / 200 200 / 200 200 / 200 mls/hr IV.SIG Q6H KELSIE Rx#: [id number] Output: Urine Amount (Catheter) 350 / 350 450 / 450 350 / 350 Indwelling Urethral Catheter 350 / 350 450 / 450 350 / 350 Gastric Drainage 300 / 300 100 / 100 50 / 50 G tube 250 / 250 50 / 50 0 / 0 J tube 50 / 50 50 / 50 50 / 50 RT NG tube 0 / 0 0 / 0 0 / 0 Wound Drainage 360 / 360 280 / 280 370 / 370 #1 Lft Abdomen 140 / 140 170 / 170 330 / 330 #2 Rt abdomen 220 / 220 110 / 110 40 / 40 Chest Tube Drainage 330 / 330 210 / 210 110 / 110 #1 Left Upper 0 / 0 15 / 15 10 / 10 #1Y and #2Y Left Pleural Y 300 / 300 Connected #2 Left Lower 30 / 30 195 / 195 100 / 100 Other: # Bowel Movements 0 - Routine Respiratory Exam Comments: Chest tubes with serosanguineous drainage - Routine Abdominal Exam Present: soft, drain (Left drain qty greater than right drain; both serosanguineous.) - Urinary Catheter Management Indwelling Urethral Catheter Cath placed during this visit: no Reason for continuing: Hourly intake/output Results - Labs CBC & Chem 7: 03/06/18 05:30 03/06/18 16:42 Laboratory Results - last 24 hr 03/06/18 03/06/18 03/06/18 05:30 05:30 08:45 WBC 15.3 H RBC 2.67 L Hgb 9.6 L D Hct 27.3 L MCV 102.2 H MCH 36.1 H MCHC 35.3 RDW 13.6 Plt Count 112 L MPV 10.8 Neut % (Auto) 92.3 H Lymph % (Auto) 4.2 L [place] % (Auto) 3.4 Eos % (Auto) 0.0 Baso % (Auto) 0.1 Neut # (Auto) 14.2 H Lymph # (Auto) 0.6 L [place] # (Auto) 0.5 Eos # (Auto) 0.0 Baso # (Auto) 0.0 WBC Differential . Differential Comment Auto diff final Sodium 142 Potassium 3.8 Chloride 110 H Carbon Dioxide 23.9 Anion Gap 8 BUN 28 H Creatinine 1.42 H Estimated GFR 49 L Random Glucose 105 Calcium 6.8 L* Calcium Adj for Albumin 8.1 L Albumin 2.4 L Nasal Screen MRSA (PCR) Not detected 03/06/18 16:42 WBC RBC Hgb Hct MCV MCH MCHC RDW Plt Count MPV Neut % (Auto) Lymph % (Auto) [place] % (Auto) Eos % (Auto) Baso % (Auto) Neut # (Auto) Lymph # (Auto) [place] # (Auto) Eos # (Auto) Baso # (Auto) WBC Differential Differential Comment Sodium 143 Potassium 3.8 Chloride 112 H Carbon Dioxide 25.2 Anion Gap 6 BUN 31 H Creatinine 1.31 H Estimated GFR 53 L Random Glucose 103 Calcium 6.9 L* Calcium Adj for Albumin 8.2 L Albumin 2.4 L Nasal Screen MRSA (PCR) Microbiology 03/04/18 13:48 Fluid - Pleural fluid Gram Stain - Final 03/04/18 13:48 Fluid - Pleural fluid Body Fluid Culture - Preliminary Assessment and Plan - Assessment (1) Gastric perforation Code(s): K25.5 - Chronic or unspecified gastric ulcer with perforation Status : Acute Plan: Continue sedation; increase enteral feeding as tolerated. 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 The following services were provided during this hospital visit: Chart data review, vital sign assessments/reviewing monitor data Review of consultation notes if present Medication orders/review and/or management Ordering and/or reviewing lab tests Ordering and/or interpreting/reviewing x-rays and/or diagnostic studies Care of the patient and discussion of the patient with the care team Documentation time To help prompt me to consider important information that might be impacting today's encounter and assessment, Information from prior notes written by myself or my colleagues may have been "brought forward/copy and pasted" into today's note.
[2018-03-07] MEDS: Albumin Human 25% Inj 100 ML IV.SIG SCH ×3 (02:19→17:11)
[2018-03-07] MEDS: Oral Hygiene Kit OROPHARYNG SCH ×4 (02:20→15:57)
[2018-03-07] MEDS: fentaNYL 10 mcg/mL Premix Drip 2,500 MCG/250 ML BAG IV.SIG PRN ×2 (03:42→13:37)
[2018-03-07] MEDS: Sod Chloride 0.9% Inj 1,000 ML IV.SIG SCH ×4 (03:43→18:35)
[2018-03-07 07:04] LABS: Baso % (Auto) 0.1 % (0.0-2.0); Hematocrit 25.8 % (39.0-51.0); Hemoglobin 9.1 gm/dL (13.0-17.0); Lymph # (Auto) 0.8 th/mm3 (1.0-4.8); Lymph % (Auto) 7.1 % (9.0-44.0); Mean Corpuscular HGB Conc 35.3 % (32.0-36.0); Mean Corpuscular Hemoglobin 36.3 pg (27.0-34.0); Mean Corpuscular Volume 102.9 fL (80.0-100.0); Mean Platelet Volume 11.2 fL (7.0-11.0); Mono # (Auto) 0.3 th/mm3 (0.0-0.9); Mono % (Auto) 2.6 % (0.0-8.0); Neut # (Auto) 10.5 th/mm3 (1.8-7.7); Neut % (Auto) 90.2 % (16.0-70.0); Platelet Count 86 th/mm3 (150-450); Red Cell Distribution Width 13.7 % (11.6-17.2); White Blood Count 11.6 th/mm3 (4.0-11.0)
[2018-03-07 07:17] LABS: Calcium 7.2 mg/dL (8.5-10.1); Carbon Dioxide 24.5 meq/L (21.0-32.0); Potassium 3.5 meq/L (3.5-5.1)
[2018-03-07 07:23] LABS: Albumin 2.6 g/dL (3.4-5.0); Calcium-Albumin Corrected 8.3 mg/dL (8.5-10.1)
[2018-03-07] MEDS: Propofol 1000 mg/100 ml Inj 1,000 MG/100 ML BOTTLE IV.CONT PRN ×3 (07:33→21:03)
[2018-03-07] MEDS: Chlorhexidine 0.12% Oral Kit 15 ML UDC OROPHARYNG SCH ×2 (07:49→20:08)
[2018-03-07 08:37] LABS: Lymphocytes 4 % (9-44); Monocytes 3 % (0-8); Platelet Morphology Normal (Normal); Toxic Granulation 1+
[2018-03-07 08:38] LABS: Dimorphic RBC Present
[2018-03-07] MEDS: Pantoprazole Inj 40 MG Vial IV.PUSH SCH (09:08)
[2018-03-07] MEDS ORDERED: Enoxaparin Inj 40 MG/0.4 ML Syringe SQ SCH (10:45)
--- NOTE | 2018-03-07 11:03 | P.PNGS ---
Subjective Interval history: Intubated/Sedated SUZE Lyle and Martha at bedside Physical Exam Vital signs: Vital Signs 03/06/18 11:00 03/06/18 11:50 03/06/18 12:00 Temperature 98.4 F Pulse Rate 54 L 52 L Respiratory Rate 14 14 Pulse Oximetry 99 100 100 03/06/18 13:00 03/06/18 14:00 03/06/18 15:00 Temperature Pulse Rate 61 51 L 49 L Respiratory Rate Pulse Oximetry 100 99 100 03/06/18 16:00 03/06/18 17:00 03/06/18 18:00 Temperature 98.9 F Pulse Rate 55 L 54 L 61 Respiratory Rate 14 14 Pulse Oximetry 99 100 100 03/06/18 18:33 03/06/18 19:00 03/06/18 19:29 Temperature Pulse Rate 56 L Respiratory Rate 14 14 Pulse Oximetry 100 100 100 03/06/18 20:00 03/06/18 21:00 03/06/18 22:00 Temperature 97.9 F Pulse Rate 56 L 56 L 55 L Respiratory Rate Pulse Oximetry 99 100 100 03/06/18 23:00 03/06/18 23:48 03/07/18 00:00 Temperature Pulse Rate 55 L 52 L Respiratory Rate 14 Pulse Oximetry 99 100 100 03/07/18 01:00 03/07/18 02:00 03/07/18 03:00 Temperature Pulse Rate 52 L 53 L 53 L Respiratory Rate Pulse Oximetry 100 100 100 03/07/18 04:00 03/07/18 04:14 03/07/18 05:00 Temperature Pulse Rate 51 L 50 L Respiratory Rate 14 Pulse Oximetry 100 100 100 03/07/18 06:00 03/07/18 07:00 03/07/18 08:00 Temperature 98.4 F 98.4 F Pulse Rate 54 L 51 L 50 L Respiratory Rate 14 14 Pulse Oximetry 99 99 100 03/07/18 09:00 03/07/18 09:33 03/07/18 10:00 Temperature Pulse Rate 51 L 52 L Respiratory Rate 14 Pulse Oximetry 100 99 99 Intake & Output 03/06/18 03/07/18 03/07/18 18:59 06:59 18:59 Intake Total 2050 / 2050 1750 / 1750 300 / 300 Output Total 880 / 880 837 / 837 Balance 1170 / 1170 913 / 913 300 / 300 Weight 85.4 kg Intake: IV 2049 / 0 1750 / 1750 300 / 300 Diprivan 1000 mg/100 ml Inj 1, 200 / 200 100 / 100 000 mg In 100 ml @ 5 MCG/KG/MIN 2.166 mls/hr IV.CONT TITRATE PRN Rx#:[id number] Flexbumin 25% Inj 100 ML @ 60 200 / 200 100 / 100 100 / 100 mls/hr IV.SIG Q8H KELSIE Rx#: [id number] Maxipime Inj 2,000 MG In NS Inj 100 / 100 100 / 100 100 / 100 100 ML @ 200 mls/hr IV.SIG Q12H KELSIE Rx#:[id number] Mycamine Inj 100 MG In NS Inj 100 / 100 100 ML @ 100 mls/hr IV.SIG Q24H KELSIE Rx#:[id number] NS Inj 1,000 ML @ 100 mls/hr IV 1000 / 1000 1000 / 1000 .SIG .Q10H KELSIE Rx#:[id number] fentaNYL 10 mcg/mL Premix Drip 250 / 250 250 / 250 2,500 mcg In 250 ml @ 50 MCG/HR 5 mls/hr IV.SIG TITRATE PRN Rx #:[id number] Flagyl 500 MG Inj 100 ML @ 100 200 / 200 200 / 200 100 / 100 mls/hr IV.SIG Q6H KELSIE Rx#: [id number] Output: Urine Amount (Catheter) 350 / 350 350 / 350 Indwelling Urethral Catheter 350 / 350 350 / 350 Gastric Drainage 50 / 50 50 / 50 G tube 0 / 0 50 / 50 J tube 50 / 50 0 / 0 RT NG tube 0 / 0 0 / 0 Wound Drainage 370 / 370 335 / 335 #1 Lft Abdomen 330 / 330 60 / 60 #2 Rt abdomen 40 / 40 275 / 275 Chest Tube Drainage 110 / 110 102 / 102 #1 Left Upper 10 / 10 12 / 12 #2 Left Lower 100 / 100 90 / 90 Other: # Bowel Movements 0 Narrative: Intubated Resp: course breath sounds on the left Abd: soft; CHAR x2 with serous fluid; G tube to gravity; J tube clamped; NGT to LIWS LEFT chest tubes x 2 --- cloudy drainage - Urinary Catheter Management Indwelling Urethral Catheter Cath placed during this visit: no Reason for continuing: Hourly intake/output Results - Labs 03/09/18 04:22 03/09/18 03:36 Laboratory Results - last 24 hr 03/06/18 03/07/18 03/07/18 16:42 05:50 05:50 WBC 11.6 H RBC 2.50 L Hgb 9.1 L Hct 25.8 L MCV 102.9 H MCH 36.3 H MCHC 35.3 RDW 13.7 Plt Count 86 L MPV 11.2 H Prelim Diff (Auto) Slide review pending Neut % (Auto) 90.2 H Lymph % (Auto) 7.1 L [place] % (Auto) 2.6 Eos % (Auto) 0.0 Baso % (Auto) 0.1 Neut # (Auto) 10.5 H Lymph # (Auto) 0.8 L [place] # (Auto) 0.3 Eos # (Auto) 0.0 Baso # (Auto) 0.0 WBC Differential Manual diff final Seg Neuts % (Manual) 81 H Band Neuts % (Manual) 12 H Lymphocytes % (Manual) 4 L Monocytes % (Manual) 3 Abs Neuts (Manual) 10.8 H Differential Comment . Toxic Granulation 1+ H Platelet Estimate Low L Platelet Morphology Normal Dimorphic RBCs Present H Sodium 143 144 Potassium 3.8 3.5 Chloride 112 H 113 H Carbon Dioxide 25.2 24.5 Anion Gap 6 7 BUN 31 H 37 H Creatinine 1.31 H 1.26 Estimated GFR 53 L 56 L Random Glucose 103 92 Calcium 6.9 L* 7.2 L* Calcium Adj for Albumin 8.2 L 8.3 L Albumin 2.4 L 2.6 L - Imaging Imaging: ITS Impressions Chest X-Ray 03/05/18 04:00 CONCLUSION: Diffuse increased interstitial prominence likely related to edema. 2 left-sided chest tubes without evidence for pneumothorax. 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 I reviewed and agree with the findings presented. I attest that I had a [id number] encounter with the patient on the same day, and personally performed and documented my assessment and findings in the medical record. no acute events overnight vitals stable, on vent abdominal exam stable, drains clear appreciate pneumatic jacketer and thoracic help await bowel function continue supportive care
--- NOTE | 2018-03-07 11:24 | P.DIET ---
Nutritional Evaluation Type of nutrition evaluation: initial Nutrition consult regarding: Tube Feeding Objective - Diagnosis Gastric Perforation - Objective % IBW: 92 (IBW = 172#) Body Weight Used for Calculations: Actual (admit wt 72.2 kg) Energy Needs - Lower Range (kCal/kg): 28 Energy Needs - Upper Range (kCal/kg): 32 Lower Limit kCal/kg (kCals): 2,022 Upper Limit kCal/kg (kCals): 2,310 Lower Limit Protein Factor (Grams per Kg): 1.2 Upper Limit Protein Factor (Grams per Kg): 1.6 Lower Protein Needs (Protein): 87 Upper Protein Needs (Protein): 116 Dietitian Reviewed in Medical Record: Curent medications, Intake & Output, Labs , Medical history, Tube feeding Diet Order: NPO Objective Comments: 02/23 lap proximal gastrectomy Assessment Assessment: Pt is at high nutrition risk 2' to dx and need for TF. He is s/p exp lap, L chest tube placement and g/j-t (03/04) and has been npo x 3 days. Current order is for Jevity 1.5 trickle feed of 10 mls/hr via j-t with g-t to gravity. When gaol TF is needed, recommend Vital 1.5 @ 60 mls/hr to provide 2160 kcals, 97 gms protein and 1100 mls of free water. Some additional kcals will be provided by propofol (1.1 kcal/ml). Recommendations: When goal is needed: Vital 1.5 @ 60 mls/hr Dietitian to Monitor: Lab values, Intake & Output, Tube feeding tolerance, Weight change, Medical course
--- NOTE | 2018-03-07 13:58 | P.PNCC ---
Subjective Subjective Remarks/Hospital Course: This 73-year-old gentleman presented to [facility] with severe left chest and upper abdominal pain. He underwent a proximal gastrectomy for carcinoma on February 23 and had an uneventful postoperative course. He was initially doing well at home but was not satisfied with small portions for meals. His states that he began eating large amounts of food and subsequently developed severe vomiting over the past 2 days. CAT scan on arrival to the outside hospital reveals mediastinal air consistent with disruption of the esophageal anastomosis. There is a left pleural effusion and diffuse abdominal tenderness. He was intubated at the outside hospital and arrives on mechanical ventilation. Blood pressure on arrival was 65 systolic with norepinephrine infusing at 40 mcg/min and Abhinav-Synephrine infusing at 100 mics per minute. He responded quickly to 3 L of intravenous fluid and sodium bicarbonate, administered for a metabolic acidosis and base deficit of 10. He was loaded with Flagyl intravenous antibiotic before arrival and we have augmented this with cefepime. 03/05: Remains vasopressor dependent despite aggressive fluid resuscitation and stress dose steroids. Acid base balance largely corrected and bicarb drip has been discontinued. Remains on mechanical ventilation and gas exchange is acceptable. Urinary output marginal with decrease in glomerular filtration rate observed. Continue broad-spectrum antibiotic coverage including fungal. 03/06: Left lung well expanded on chest x-ray and pleural fluid well-drained. Thoracostomy tubes in good position. Largely weaned off vasopressors at this time, will stop stress dose steroids this evening. Peripheral perfusion acceptable and urinary output acceptable. Intraoperative cultures pending. 03/07: Remains sedated, orally intubated on mechanical ventilation. - Diagnosis (1) Septic shock (s/p repair of gastro-esophageal anastomotic disruption) (2) Acute kidney injury (nontraumatic) (3) Acute hypoxemic respiratory failure (4) Encephalopathy acute Objective Vital Signs / I&O: Vital Signs 03/06/18 14:00 03/06/18 15:00 03/06/18 16:00 Temperature 98.9 F Pulse Rate 51 L 49 L 55 L Respiratory Rate 14 Pulse Oximetry 99 100 99 03/06/18 17:00 03/06/18 18:00 03/06/18 18:33 Temperature Pulse Rate 54 L 61 Respiratory Rate 14 14 Pulse Oximetry 100 100 100 03/06/18 19:00 03/06/18 19:29 03/06/18 20:00 Temperature 97.9 F Pulse Rate 56 L 56 L Respiratory Rate 14 Pulse Oximetry 100 100 99 03/06/18 21:00 03/06/18 22:00 03/06/18 23:00 Temperature Pulse Rate 56 L 55 L 55 L Respiratory Rate Pulse Oximetry 100 100 99 03/06/18 23:48 03/07/18 00:00 03/07/18 01:00 Temperature Pulse Rate 52 L 52 L Respiratory Rate 14 Pulse Oximetry 100 100 100 03/07/18 02:00 03/07/18 03:00 03/07/18 04:00 Temperature Pulse Rate 53 L 53 L 51 L Respiratory Rate Pulse Oximetry 100 100 100 03/07/18 04:14 03/07/18 05:00 03/07/18 06:00 Temperature Pulse Rate 50 L 54 L Respiratory Rate 14 Pulse Oximetry 100 100 99 03/07/18 07:00 03/07/18 08:00 03/07/18 09:00 Temperature 98.4 F 98.4 F Pulse Rate 51 L 50 L 51 L Respiratory Rate 14 14 Pulse Oximetry 99 100 100 03/07/18 09:33 03/07/18 10:00 03/07/18 11:00 Temperature Pulse Rate 52 L 55 L Respiratory Rate 14 Pulse Oximetry 99 99 100 03/07/18 12:00 03/07/18 12:14 03/07/18 13:00 Temperature 98.5 F Pulse Rate 54 L 50 L Respiratory Rate 14 14 14 Pulse Oximetry 98 99 99 Intake & Output 03/06/18 03/07/18 03/07/18 18:59 06:59 18:59 Intake Total 2049 1750 / 1750 750 / 750 Output Total 880 / 880 837 / 837 Balance 1170 / 1170 913 / 913 750 / 750 Weight 85.4 kg Intake: IV 2049 1750 / 1750 750 / 750 Diprivan 1000 mg/100 ml Inj 1, 200 / 200 100 / 100 100 / 100 000 mg In 100 ml @ 5 MCG/KG/MIN 2.166 mls/hr IV.CONT TITRATE PRN Rx#:[id number] Flexbumin 25% Inj 100 ML @ 60 200 / 200 100 / 100 100 / 100 mls/hr IV.SIG Q8H KELSIE Rx#: [id number] Maxipime Inj 2,000 MG In NS Inj 100 / 100 100 / 100 100 / 100 100 ML @ 200 mls/hr IV.SIG Q12H KELSIE Rx#:[id number] Mycamine Inj 100 MG In NS Inj 100 / 100 100 / 100 100 ML @ 100 mls/hr IV.SIG Q24H KELSIE Rx#:[id number] NS Inj 1,000 ML @ 100 mls/hr IV 1000 / 1000 1000 / 1000 .SIG .Q10H KELSIE Rx#:[id number] fentaNYL 10 mcg/mL Premix Drip 250 / 250 250 / 250 250 / 250 2,500 mcg In 250 ml @ 50 MCG/HR 5 mls/hr IV.SIG TITRATE PRN Rx #:[id number] Flagyl 500 MG Inj 100 ML @ 100 200 / 200 200 / 200 100 / 100 mls/hr IV.SIG Q6H KELSIE Rx#: [id number] Output: Urine Amount (Catheter) 350 / 350 350 / 350 Indwelling Urethral Catheter 350 / 350 350 / 350 Gastric Drainage 50 / 50 50 / 50 G tube 0 / 0 50 / 50 J tube 50 / 50 0 / 0 RT NG tube 0 / 0 0 / 0 Wound Drainage 370 / 370 335 / 335 #1 Lft Abdomen 330 / 330 60 / 60 #2 Rt abdomen 40 / 40 275 / 275 Chest Tube Drainage 110 / 110 102 / 102 #1 Left Upper 10 / 10 12 / 12 #2 Left Lower 100 / 100 90 / 90 Other: # Bowel Movements 0 Result Diagrams: 03/07/18 05:50 03/07/18 05:50 Objective Remarks: Narrative: General: Ill-appearing 73-year-old male, opens eyes to loud voice Head: Normal, atraumatic Neck: Supple, orotracheal intubation Lungs: Improved breath sounds left side, generally clear now. Breath sounds clear right side with few rhonchi. Good bilateral air movement Heart: Distant tones, regular rhythm normal S1, S2, neck veins are not distended. Abdomen: Moderately distended, bowel sounds are present. Extremities: Warm, well-perfused. No peripheral edema. Neuro: Moves 4 limbs spontaneously. Does not follow commands. Opens eyes to stimulation. Fentanyl drip infusing and lightly sedated. Assessment and Plan - Problem List (1) Septic shock Code(s): A41.9 - Sepsis, unspecified organism; R65.21 - Severe sepsis with septic shock Status: Acute (2) Acute kidney injury (nontraumatic) Code(s): N17.9 - Acute kidney failure, unspecified Status: Acute (3) Acute hypoxemic respiratory failure Code(s): J96.01 - Acute respiratory failure with hypoxia Status: Acute (4) Encephalopathy acute Code(s): G93.40 - Encephalopathy, unspecified Status: Acute - Assessment and Plan Plan: Plan: 1. Continued maintenance hydration with isotonic crystalloid 2. Stress dose steroids, hydrocortisone 50 mg IV every 6 hours to be tapered off. 3. Protonix for GI ulcer prophylaxis 4. Nasogastric tube to low intermittent suction 5. Mechanical ventilation assist control mode, PEEP 8 6. Cefepime and Flagyl antibiotic coverage, add micafungin. 7. Daily CPAP trials 8. Discontinue sodium bicarb drip at 150 cc/h 9. Fernandez catheter for hourly urine output 10. Arterial blood gas in a.m. 11. Type and screen for blood 12. Daily BMP, CBC 13. Chest tube x2 on the left. Continue as high risk for empyema development. 14. Initiate enteral feeding through jejunostomy tube. 15. Start Lovenox for DVT prophylaxis when okay with surgery Overall impression: This gentleman arrived critically ill and in septic shock with multiple organ system dysfunction. He has undergone source control surgery 03/04 with debridement and adequate drainage of the mediastinum and left chest.. He remains critically ill and hemodynamically unstable. We are unable to wean him from mechanical ventilation at this time and his respiratory status remains unstable. Critical care time 35 minutes
--- NOTE | 2018-03-07 16:22 | P.PNVS ---
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 This also resulted in a huge left pleural effusion with abdominal pain and chest pain. The patient was transferred to [facility] and then to us for further care. I am doing an intraoperative at this point regarding the chest condition. Physical examination is performed in the OR and I was present at the time of surgery. The patient does indeed have an intraabdominal perforation which is now being repaired by Dr. Storm. I discussed with him the issues regarding the chest. The patient apparently had significant chest contamination, which was washed out with saline and 2 large chest tubes were placed. This would be exactly what I would have done and, at this point, hopefully the patient will not develop empyema. If he does develop empyema or any signs of such, I will be available to assist. Today patient is stable hemodynamically and respiratory Bilateral breath sounds ventilatory supported Left chest tubes are draining serosanguineous material, some grayish particulate matter but left chest appears to be clear on a.m. x-ray With this quite adequate drainage patient is not likely to develop an empyema but clearly with contamination this is a distinct possibility so we will see how he does Will continue to follow 03/06/2018 Remains intubated ventilated but hemodynamically improved and stabilized Bilateral pulmonary expansion and chest tubes on the left side have been by me and placed in separate Pleur-evacs The anterior chest tube is draining serosanguineous material over the posterior chest tube is draining particulate matter grayish brown in color Clearly retained fluid from the chest. Again is noted yesterday to question whether this is going to cause empyema but at this point the most important thing is adequate drainage and that certainly present Nothing to add at this time 03/07/2018 Patient intubated ventilated Agree with trickle feeds and see how he does Anterior chest tube draining clear material was a posterior chest tube is still somewhat dark brownish stuff but clearing up We will check chest x-ray Nothing to add at this time leave both tubes in place Objective Vital Signs / I&O: Vital Signs 03/06/18 17:00 03/06/18 18:00 03/06/18 18:33 Temperature Pulse Rate 54 L 61 Respiratory Rate 14 14 Pulse Oximetry 100 100 100 03/06/18 19:00 03/06/18 19:29 03/06/18 20:00 Temperature 97.9 F Pulse Rate 56 L 56 L Respiratory Rate 14 Pulse Oximetry 100 100 99 03/06/18 21:00 03/06/18 22:00 03/06/18 23:00 Temperature Pulse Rate 56 L 55 L 55 L Respiratory Rate Pulse Oximetry 100 100 99 03/06/18 23:48 03/07/18 00:00 03/07/18 01:00 Temperature Pulse Rate 52 L 52 L Respiratory Rate 14 Pulse Oximetry 100 100 100 03/07/18 02:00 03/07/18 03:00 03/07/18 04:00 Temperature Pulse Rate 53 L 53 L 51 L Respiratory Rate Pulse Oximetry 100 100 100 03/07/18 04:14 03/07/18 05:00 03/07/18 06:00 Temperature Pulse Rate 50 L 54 L Respiratory Rate 14 Pulse Oximetry 100 100 99 03/07/18 07:00 03/07/18 08:00 03/07/18 09:00 Temperature 98.4 F 98.4 F Pulse Rate 51 L 50 L 51 L Respiratory Rate 14 14 Pulse Oximetry 99 100 100 03/07/18 09:33 03/07/18 10:00 03/07/18 11:00 Temperature Pulse Rate 52 L 55 L Respiratory Rate 14 Pulse Oximetry 99 99 100 03/07/18 12:00 03/07/18 12:14 03/07/18 13:00 Temperature 98.5 F Pulse Rate 54 L 50 L Respiratory Rate 14 14 14 Pulse Oximetry 98 99 99 03/07/18 14:00 03/07/18 15:00 03/07/18 15:31 Temperature Pulse Rate 50 L 51 L Respiratory Rate 14 14 14 Pulse Oximetry 100 100 100 03/07/18 16:00 Temperature 98.8 F Pulse Rate 51 L Respiratory Rate 14 Pulse Oximetry 100 Intake & Output 03/06/18 03/07/18 03/07/18 18:59 06:59 18:59 Intake Total 2050 / 2050 1750 / 1750 750 / 750 Output Total 880 / 880 837 / 837 Balance 1170 / 1170 913 / 913 750 / 750 Weight 85.4 kg Intake: IV 2050 / 2050 1750 / 1750 750 / 750 Diprivan 1000 mg/100 ml Inj 1, 200 / 200 100 / 100 100 / 100 000 mg In 100 ml @ 5 MCG/KG/MIN 2.166 mls/hr IV.CONT TITRATE PRN Rx#:[id number] Flexbumin 25% Inj 100 ML @ 60 200 / 200 100 / 100 100 / 100 mls/hr IV.SIG Q8H KELSIE Rx#: [id number] Maxipime Inj 2,000 MG In NS Inj 100 / 100 100 / 100 100 / 100 100 ML @ 200 mls/hr IV.SIG Q12H KELSIE Rx#:[id number] Mycamine Inj 100 MG In NS Inj 100 / 100 100 / 100 100 ML @ 100 mls/hr IV.SIG Q24H KELSIE Rx#:[id number] NS Inj 1,000 ML @ 100 mls/hr IV 1000 / 1000 1000 / 1000 .SIG .Q10H KELSIE Rx#:[id number] fentaNYL 10 mcg/mL Premix Drip 250 / 250 250 / 250 250 / 250 2,500 mcg In 250 ml @ 50 MCG/HR 5 mls/hr IV.SIG TITRATE PRN Rx #:[id number] Flagyl 500 MG Inj 100 ML @ 100 200 / 200 200 / 200 100 / 100 mls/hr IV.SIG Q6H KELSIE Rx#: [id number] Output: Urine Amount (Catheter) 350 / 350 350 / 350 Indwelling Urethral Catheter 350 / 350 350 / 350 Gastric Drainage 50 / 50 50 / 50 G tube 0 / 0 50 / 50 J tube 50 / 50 0 / 0 RT NG tube 0 / 0 0 / 0 Wound Drainage 370 / 370 335 / 335 #1 Lft Abdomen 330 / 330 60 / 60 #2 Rt abdomen 40 / 40 275 / 275 Chest Tube Drainage 110 / 110 102 / 102 #1 Left Upper 10 / 10 12 / 12 #2 Left Lower 100 / 100 90 / 90 Other: # Bowel Movements 0 Laboratory Results - last 24 hr 03/06/18 03/07/18 03/07/18 16:42 05:50 05:50 WBC 11.6 H RBC 2.50 L Hgb 9.1 L Hct 25.8 L MCV 102.9 H MCH 36.3 H MCHC 35.3 RDW 13.7 Plt Count 86 L MPV 11.2 H Prelim Diff (Auto) Slide review pending Neut % (Auto) 90.2 H Lymph % (Auto) 7.1 L [place] % (Auto) 2.6 Eos % (Auto) 0.0 Baso % (Auto) 0.1 Neut # (Auto) 10.5 H Lymph # (Auto) 0.8 L [place] # (Auto) 0.3 Eos # (Auto) 0.0 Baso # (Auto) 0.0 WBC Differential Manual diff final Seg Neuts % (Manual) 81 H Band Neuts % (Manual) 12 H Lymphocytes % (Manual) 4 L Monocytes % (Manual) 3 Abs Neuts (Manual) 10.8 H Differential Comment . Toxic Granulation 1+ H Platelet Estimate Low L Platelet Morphology Normal Dimorphic RBCs Present H Sodium 143 144 Potassium 3.8 3.5 Chloride 112 H 113 H Carbon Dioxide 25.2 24.5 Anion Gap 6 7 BUN 31 H 37 H Creatinine 1.31 H 1.26 Estimated GFR 53 L 56 L Random Glucose 103 92 Calcium 6.9 L* 7.2 L* Calcium Adj for Albumin 8.2 L 8.3 L Albumin 2.4 L 2.6 L Microbiology 03/04/18 13:48 Acid Fast Bacilli Smear - Final Fluid - Pleural fluid No acid fast bacilli seen 03/04/18 13:48 Gram Stain - Final Fluid - Pleural fluid Body Fluid Culture - Final Haemophilus parainfluenzae
[2018-03-07 17:58] LABS: Calcium 6.9 mg/dL (8.5-10.1); Carbon Dioxide 23.5 meq/L (21.0-32.0); Potassium 3.2 meq/L (3.5-5.1)
[2018-03-07 18:05] LABS: Albumin 2.5 g/dL (3.4-5.0); Calcium-Albumin Corrected 8.1 mg/dL (8.5-10.1)
[2018-03-08] MEDS: Oral Hygiene Kit OROPHARYNG SCH ×4 (00:54→16:13)
[2018-03-08] MEDS: fentaNYL 10 mcg/mL Premix Drip 2,500 MCG/250 ML BAG IV.SIG PRN ×2 (00:54→18:50)
[2018-03-08] MEDS: Propofol 1000 mg/100 ml Inj 1,000 MG/100 ML BOTTLE IV.CONT PRN ×3 (03:48→21:09)
--- NOTE | 2018-03-08 04:07 | XR ---
EXAM DATE: 03/08/2018 3:54 AM EST AGE/SEX: 73 years / Male INDICATIONS: Respiratory failure. CLINICAL DATA: This is the patient's subsequent encounter. Patient reports that signs and symptoms h ave been present for 4 - 6 days and indicates a pain score of Nonresponsive. MEDICAL/SURGICAL HISTORY: Crohn's disease. Carcinoma, gastric. Hypertension. Prostate cancer . Prostatectomy Fusion, cervical. Tonsillectomy. Cholecystectomy. COMPARISON: C, CHEST 1V SINGLE AP, 03/05/2018. . FINDINGS: Endotracheal tube tip well above the rebeca. 2 chest drainage tubes on the left side stable in positi on. No evidence of pneumothorax. There is persisting consolidation in the left lower lung with loss o f delineation of the left hemidiaphragm. There is increasing hazy opacity in the right mid and lower lung with loss of delineation of the right hemidiaphragm. The heart is mildly enlarged. Anterior plat e in the cervical spine. CONCLUSION: Persistent left lower lobe consolidation. Interval development of hazy opacity in the right mid and l ower lung suggesting pleural effusion. Electronically signed by: Catarino Salomon MD Board Certified Radiologist 03/08/2018 4:05 AM EST
[2018-03-08 05:21] LABS: Baso # (Auto) 0.1 th/mm3 (0.0-0.2); Baso % (Auto) 0.7 % (0.0-2.0); Eos % (Auto) 0.2 % (0.0-4.0); Hematocrit 30.8 % (39.0-51.0); Hemoglobin 10.7 gm/dL (13.0-17.0); Lymph # (Auto) 0.6 th/mm3 (1.0-4.8); Lymph % (Auto) 5.3 % (9.0-44.0); Mean Corpuscular HGB Conc 34.7 % (32.0-36.0); Mean Corpuscular Hemoglobin 36.2 pg (27.0-34.0); Mean Corpuscular Volume 104.3 fL (80.0-100.0); Mean Platelet Volume 10.8 fL (7.0-11.0); Mono # (Auto) 0.5 th/mm3 (0.0-0.9); Mono % (Auto) 3.9 % (0.0-8.0); Neut # (Auto) 10.9 th/mm3 (1.8-7.7); Neut % (Auto) 89.9 % (16.0-70.0); Platelet Count 90 th/mm3 (150-450); Red Blood Count 2.95 mil/mm3 (4.50-5.90); Red Cell Distribution Width 13.9 % (11.6-17.2); White Blood Count 12.1 th/mm3 (4.0-11.0)
[2018-03-08 06:12] LABS: Calcium 7.1 mg/dL (8.5-10.1); Carbon Dioxide 23.3 meq/L (21.0-32.0); Potassium 3.4 meq/L (3.5-5.1)
[2018-03-08] MEDS: Sod Chloride 0.9% Inj 1,000 ML IV.SIG SCH ×3 (06:23→16:20)
[2018-03-08 06:24] LABS: Albumin 2.5 g/dL (3.4-5.0); Calcium-Albumin Corrected 8.3 mg/dL (8.5-10.1)
[2018-03-08 06:48] LABS: Eosinophils 1 % (0-4); Lymphocytes 2 % (9-44); Metamyelocytes 1 % (0-1); Platelet Morphology Normal (Normal); Tallied Nucleated RBC 1 (0-0)
[2018-03-08] MEDS: Chlorhexidine 0.12% Oral Kit 15 ML UDC OROPHARYNG SCH ×2 (08:36→21:09)
[2018-03-08] MEDS: Pantoprazole Inj 40 MG Vial IV.PUSH SCH (08:59)
--- NOTE | 2018-03-08 10:01 | P.PNGS ---
Subjective Patient reports: no new complaints, no bowel movement, afebrile Physical Exam Vital signs: Vital Signs 03/07/18 10:00 03/07/18 11:00 03/07/18 12:00 Temperature 98.5 F Pulse Rate 52 L 55 L 54 L Respiratory Rate 14 Pulse Oximetry 99 100 98 03/07/18 12:14 03/07/18 13:00 03/07/18 14:00 Temperature Pulse Rate 50 L 50 L Respiratory Rate 14 14 14 Pulse Oximetry 99 99 100 03/07/18 15:00 03/07/18 15:31 03/07/18 16:00 Temperature 98.8 F Pulse Rate 51 L 51 L Respiratory Rate 14 14 14 Pulse Oximetry 100 100 100 03/07/18 17:00 03/07/18 18:00 03/07/18 19:00 Temperature Pulse Rate 51 L 51 L 52 L Respiratory Rate Pulse Oximetry 100 100 100 03/07/18 19:34 03/07/18 20:00 03/07/18 21:00 Temperature 97.5 F L Pulse Rate 61 57 L Respiratory Rate 14 14 Pulse Oximetry 100 100 100 03/07/18 22:00 03/07/18 23:00 03/08/18 00:00 Temperature 98.3 F Pulse Rate 54 L 54 L 56 L Respiratory Rate Pulse Oximetry 100 100 100 03/08/18 00:08 03/08/18 01:00 03/08/18 02:00 Temperature Pulse Rate 61 59 L Respiratory Rate 14 14 14 Pulse Oximetry 100 100 100 03/08/18 03:00 03/08/18 03:18 03/08/18 04:00 Temperature 98.4 F Pulse Rate 58 L 65 Respiratory Rate 14 14 Pulse Oximetry 100 100 100 03/08/18 05:00 03/08/18 06:00 03/08/18 07:00 Temperature Pulse Rate 65 59 L 62 Respiratory Rate 14 Pulse Oximetry 100 100 100 03/08/18 07:54 03/08/18 08:00 Temperature 98.8 F Pulse Rate 65 Respiratory Rate 14 14 Pulse Oximetry 100 100 Intake & Output 03/07/18 03/08/18 03/08/18 18:59 06:59 18:59 Intake Total 1919 / 1920 1963 / 1963 Output Total 1755 / 1755 1420 / 1420 Balance 165 / 165 544 / 544 Weight 85.8 kg Intake: IV 1850 / 1850 1850 / 1850 Diprivan 1000 mg/100 ml Inj 1, 100 / 100 200 / 200 000 mg In 100 ml @ 5 MCG/KG/MIN 2.166 mls/hr IV.CONT TITRATE PRN Rx#:[id number] Flexbumin 25% Inj 100 ML @ 60 100 / 100 100 / 100 mls/hr IV.SIG Q8H KELSIE Rx#: [id number] Maxipime Inj 2,000 MG In NS Inj 100 / 100 100 / 100 100 ML @ 200 mls/hr IV.SIG Q12H KELSIE Rx#:[id number] Mycamine Inj 100 MG In NS Inj 100 / 100 100 ML @ 100 mls/hr IV.SIG Q24H KELSIE Rx#:[id number] NS Inj 1,000 ML @ 100 mls/hr IV 1000 / 1000 1000 / 1000 .SIG .Q10H KELSIE Rx#:[id number] fentaNYL 10 mcg/mL Premix Drip 250 / 250 250 / 250 2,500 mcg In 250 ml @ 50 MCG/HR 5 mls/hr IV.SIG TITRATE PRN Rx #:[id number] Flagyl 500 MG Inj 100 ML @ 100 200 / 200 200 / 200 mls/hr IV.SIG Q6H KELSIE Rx#: [id number] Tube Feeding 70 / 70 114 / 114 Output: Stool 0 / 0 Urine Amount (Catheter) 450 / 450 550 / 550 Indwelling Urethral Catheter 450 / 450 550 / 550 Gastric Drainage 75 / 75 150 / 150 G tube 75 / 75 150 / 150 J tube 0 / 0 Wound Drainage 900 / 900 570 / 570 #1 Lft Abdomen 785 / 785 495 / 495 #2 Rt abdomen 115 / 115 75 / 75 Chest Tube Drainage 330 / 330 150 / 150 #1 Left Upper 30 / 30 20 / 20 #2 Left Lower 300 / 300 130 / 130 Other: # Bowel Movements 0 - Constitutional mild distress - Routine Respiratory Exam Present: patient mechanically ventilated, CTA bilaterally Comments: chest tubes yellow straw colored fluid - Routine Cardiovascular Exam Present: RRR - Routine Abdominal Exam Present: soft, normoactive bowel sounds. Absent: tenderness, distended, rebound , guarding Comments: CHAR clear fluid - Routine Extremities Exam Present: edema - Detailed Neurological Exam: Coma Scale Eye Opening: To pressure - Urinary Catheter Management Indwelling Urethral Catheter Cath placed during this visit: no Reason for continuing: Hourly intake/output Results - Labs 03/08/18 05:05 03/08/18 05:05 Laboratory Results - last 24 hr 03/07/18 03/08/18 03/08/18 17:00 05:05 05:05 WBC 12.1 H RBC 2.95 L Hgb 10.7 L Hct 30.8 L MCV 104.3 H MCH 36.2 H MCHC 34.7 RDW 13.9 Plt Count 90 L MPV 10.8 Prelim Diff (Auto) Slide review pending Neut % (Auto) 89.9 H Lymph % (Auto) 5.3 L [place] % (Auto) 3.9 Eos % (Auto) 0.2 Baso % (Auto) 0.7 Neut # (Auto) 10.9 H Lymph # (Auto) 0.6 L [place] # (Auto) 0.5 Eos # (Auto) 0.0 Baso # (Auto) 0.1 WBC Differential Manual diff final Seg Neuts % (Manual) 86 H Band Neuts % (Manual) 10 H Lymphocytes % (Manual) 2 L Eosinophils % (Manual) 1 Metamyelocytes % (Man) 1 Abs Neuts (Manual) 11.7 H Nucleated RBCs/100 WBC 1 H Differential Comment . Platelet Estimate Low L Platelet Morphology Normal Sodium 146 H 146 H Potassium 3.2 L 3.4 L Chloride 113 H 116 H Carbon Dioxide 23.5 23.3 Anion Gap 10 7 BUN 37 H 35 H Creatinine 1.22 1.25 Estimated GFR 58 L 56 L Random Glucose 103 109 H Calcium 6.9 L* 7.1 L* Calcium Adj for Albumin 8.1 L 8.3 L Albumin 2.5 L 2.5 L - Imaging Imaging: ITS Impressions Chest X-Ray 03/08/18 06:00 CONCLUSION: Persistent left lower lobe consolidation. Interval development of hazy opacity in the right mid and lower lung suggesting pleural effusion. Assessment and Plan - Assessment (1) Gastric perforation Code(s): K25.5 - Chronic or unspecified gastric ulcer with perforation Status : Acute Plan: 73 year old male s/p partial gastrectomy for adenocarcinoma, readmit for perforation at gastroesophageal anastomosis after vomiting -POD4 ex lap; repair of esophagogastric dehiscence; placement of G tube; placement of J tube; Chest washout and tube placement x 2 -Thoracic surgery following, chest tubes more clear -[employer] following, vent weaning -tolerating TF via j-tube, increase slowly as patient tolerates - D/W on phone, all questions answered to her satisfaction (2) Adenocarcinoma, 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
--- NOTE | 2018-03-08 10:33 | P.PNVS ---
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 This also resulted in a huge left pleural effusion with abdominal pain and chest pain. The patient was transferred to [facility] and then to us for further care. I am doing an intraoperative at this point regarding the chest condition. Physical examination is performed in the OR and I was present at the time of surgery. The patient does indeed have an intraabdominal perforation which is now being repaired by Dr. Storm. I discussed with him the issues regarding the chest. The patient apparently had significant chest contamination, which was washed out with saline and 2 large chest tubes were placed. This would be exactly what I would have done and, at this point, hopefully the patient will not develop empyema. If he does develop empyema or any signs of such, I will be available to assist. Today patient is stable hemodynamically and respiratory Bilateral breath sounds ventilatory supported Left chest tubes are draining serosanguineous material, some grayish particulate matter but left chest appears to be clear on a.m. x-ray With this quite adequate drainage patient is not likely to develop an empyema but clearly with contamination this is a distinct possibility so we will see how he does Will continue to follow 03/06/2018 Remains intubated ventilated but hemodynamically improved and stabilized Bilateral pulmonary expansion and chest tubes on the left side have been by me and placed in separate Pleur-evacs The anterior chest tube is draining serosanguineous material over the posterior chest tube is draining particulate matter grayish brown in color Clearly retained fluid from the chest. Again is noted yesterday to question whether this is going to cause empyema but at this point the most important thing is adequate drainage and that certainly present Nothing to add at this time 03/07/2018 Patient intubated ventilated Agree with trickle feeds and see how he does Anterior chest tube draining clear material was a posterior chest tube is still somewhat dark brownish stuff but clearing up We will check chest x-ray Nothing to add at this time leave both tubes in place 03/08/2018 Bilateral breath sounds Remains intubated ventilated No evidence of any leak from anastomosis or otherwise Chest tube drainage has cleared up and is straw-colored no particulate material and lungs appear to be quite clear Would leave chest tubes in and then perhaps do a dilute Gastrografin through the gastrostomy tube to check the anastomotic integrity Objective Vital Signs / I&O: Vital Signs 03/07/18 11:00 03/07/18 12:00 03/07/18 12:14 Temperature 98.5 F Pulse Rate 55 L 54 L Respiratory Rate 14 14 Pulse Oximetry 100 98 99 03/07/18 13:00 03/07/18 14:00 03/07/18 15:00 Temperature Pulse Rate 50 L 50 L 51 L Respiratory Rate 14 14 14 Pulse Oximetry 99 100 100 03/07/18 15:31 03/07/18 16:00 03/07/18 17:00 Temperature 98.8 F Pulse Rate 51 L 51 L Respiratory Rate 14 14 Pulse Oximetry 100 100 100 03/07/18 18:00 03/07/18 19:00 03/07/18 19:34 Temperature Pulse Rate 51 L 52 L Respiratory Rate 14 Pulse Oximetry 100 100 100 03/07/18 20:00 03/07/18 21:00 03/07/18 22:00 Temperature 97.5 F L Pulse Rate 61 57 L 54 L Respiratory Rate 14 Pulse Oximetry 100 100 100 03/07/18 23:00 03/08/18 00:00 03/08/18 00:08 Temperature 98.3 F Pulse Rate 54 L 56 L Respiratory Rate 14 Pulse Oximetry 100 100 100 03/08/18 01:00 03/08/18 02:00 03/08/18 03:00 Temperature Pulse Rate 61 59 L 58 L Respiratory Rate 14 14 14 Pulse Oximetry 100 100 100 03/08/18 03:18 03/08/18 04:00 03/08/18 05:00 Temperature 98.4 F Pulse Rate 65 65 Respiratory Rate 14 Pulse Oximetry 100 100 100 03/08/18 06:00 03/08/18 07:00 03/08/18 07:54 Temperature Pulse Rate 59 L 62 Respiratory Rate 14 14 Pulse Oximetry 100 100 100 03/08/18 08:00 03/08/18 09:00 03/08/18 10:00 Temperature 98.8 F Pulse Rate 65 65 66 Respiratory Rate 14 Pulse Oximetry 100 100 100 Intake & Output 03/07/18 03/08/18 03/08/18 18:59 06:59 18:59 Intake Total 192 / 1920 1963 / 1963 100 / 100 Output Total 1755 / 1755 1420 / 1420 Balance 165 / 165 544 / 544 100 / 100 Weight 85.8 kg Intake: IV 1850 / 1850 1850 / 1850 100 / 100 Diprivan 1000 mg/100 ml Inj 1, 100 / 100 200 / 200 000 mg In 100 ml @ 5 MCG/KG/MIN 2.166 mls/hr IV.CONT TITRATE PRN Rx#:[id number] Flexbumin 25% Inj 100 ML @ 60 100 / 100 100 / 100 mls/hr IV.SIG Q8H KELSIE Rx#: [id number] Maxipime Inj 2,000 MG In NS Inj 100 / 100 100 / 100 100 / 100 100 ML @ 200 mls/hr IV.SIG Q12H KELSIE Rx#:[id number] Mycamine Inj 100 MG In NS Inj 100 / 100 100 ML @ 100 mls/hr IV.SIG Q24H KELSIE Rx#:[id number] NS Inj 1,000 ML @ 100 mls/hr IV 1000 / 1000 1000 / 1000 .SIG .Q10H KELSIE Rx#:[id number] fentaNYL 10 mcg/mL Premix Drip 250 / 250 250 / 250 2,500 mcg In 250 ml @ 50 MCG/HR 5 mls/hr IV.SIG TITRATE PRN Rx #:[id number] Flagyl 500 MG Inj 100 ML @ 100 200 / 200 200 / 200 mls/hr IV.SIG Q6H KELSIE Rx#: [id number] Tube Feeding 70 / 70 114 / 114 Output: Stool 0 / 0 Urine Amount (Catheter) 450 / 450 550 / 550 Indwelling Urethral Catheter 450 / 450 550 / 550 Gastric Drainage 75 / 75 150 / 150 G tube 75 / 75 150 / 150 J tube 0 / 0 Wound Drainage 900 / 900 570 / 570 #1 Lft Abdomen 785 / 785 495 / 495 #2 Rt abdomen 115 / 115 75 / 75 Chest Tube Drainage 330 / 330 150 / 150 #1 Left Upper 30 / 30 20 / 20 #2 Left Lower 300 / 300 130 / 130 Other: # Bowel Movements 0 Laboratory Results - last 24 hr 03/07/18 03/08/18 03/08/18 17:00 05:05 05:05 WBC 12.1 H RBC 2.95 L Hgb 10.7 L Hct 30.8 L MCV 104.3 H MCH 36.2 H MCHC 34.7 RDW 13.9 Plt Count 90 L MPV 10.8 Prelim Diff (Auto) Slide review pending Neut % (Auto) 89.9 H Lymph % (Auto) 5.3 L [place] % (Auto) 3.9 Eos % (Auto) 0.2 Baso % (Auto) 0.7 Neut # (Auto) 10.9 H Lymph # (Auto) 0.6 L [place] # (Auto) 0.5 Eos # (Auto) 0.0 Baso # (Auto) 0.1 WBC Differential Manual diff final Seg Neuts % (Manual) 86 H Band Neuts % (Manual) 10 H Lymphocytes % (Manual) 2 L Eosinophils % (Manual) 1 Metamyelocytes % (Man) 1 Abs Neuts (Manual) 11.7 H Nucleated RBCs/100 WBC 1 H Differential Comment . Platelet Estimate Low L Platelet Morphology Normal Sodium 146 H 146 H Potassium 3.2 L 3.4 L Chloride 113 H 116 H Carbon Dioxide 23.5 23.3 Anion Gap 10 7 BUN 37 H 35 H Creatinine 1.22 1.25 Estimated GFR 58 L 56 L Random Glucose 103 109 H Calcium 6.9 L* 7.1 L* Calcium Adj for Albumin 8.1 L 8.3 L Albumin 2.5 L 2.5 L Microbiology 03/04/18 13:48 Acid Fast Bacilli Smear - Final Fluid - Pleural fluid No acid fast bacilli seen 03/04/18 13:48 Gram Stain - Final Fluid - Pleural fluid Body Fluid Culture - Final Haemophilus parainfluenzae Impressions Chest X-Ray 03/08/18 06:00 CONCLUSION: Persistent left lower lobe consolidation. Interval development of hazy opacity in the right mid and lower lung suggesting pleural effusion.
--- NOTE | 2018-03-08 14:20 | P.PNCC ---
Subjective Subjective Remarks/Hospital Course: This 73-year-old gentleman presented to [facility] with severe left chest and upper abdominal pain. He underwent a proximal gastrectomy for carcinoma on February 23 and had an uneventful postoperative course. He was initially doing well at home but was not satisfied with small portions for meals. His states that he began eating large amounts of food and subsequently developed severe vomiting over the past 2 days. CAT scan on arrival to the outside hospital reveals mediastinal air consistent with disruption of the esophageal anastomosis. There is a left pleural effusion and diffuse abdominal tenderness. He was intubated at the outside hospital and arrives on mechanical ventilation. Blood pressure on arrival was 65 systolic with norepinephrine infusing at 40 mcg/min and Abhinav-Synephrine infusing at 100 mics per minute. He responded quickly to 3 L of intravenous fluid and sodium bicarbonate, administered for a metabolic acidosis and base deficit of 10. He was loaded with Flagyl intravenous antibiotic before arrival and we have augmented this with cefepime. 03/05: Remains vasopressor dependent despite aggressive fluid resuscitation and stress dose steroids. Acid base balance largely corrected and bicarb drip has been discontinued. Remains on mechanical ventilation and gas exchange is acceptable. Urinary output marginal with decrease in glomerular filtration rate observed. Continue broad-spectrum antibiotic coverage including fungal. 03/06: Left lung well expanded on chest x-ray and pleural fluid well-drained. Thoracostomy tubes in good position. Largely weaned off vasopressors at this time, will stop stress dose steroids this evening. Peripheral perfusion acceptable and urinary output acceptable. Intraoperative cultures pending. 03/07: Remains sedated, orally intubated on mechanical ventilation. 03/08: Remains sedated, orally intubated on mechanical ventilation. J-tube feeds started yesterday. Chest tubes x2 in place, no air leak, minimal drainage overnight. - Diagnosis (1) Septic shock (s/p repair of gastro-esophageal anastomotic disruption) (2) Acute kidney injury (nontraumatic) (3) Acute hypoxemic respiratory failure (4) Encephalopathy acute Objective Vital Signs / I&O: Vital Signs 03/07/18 15:00 03/07/18 15:31 03/07/18 16:00 Temperature 98.8 F Pulse Rate 51 L 51 L Respiratory Rate 14 14 14 Pulse Oximetry 100 100 100 03/07/18 17:00 03/07/18 18:00 03/07/18 19:00 Temperature Pulse Rate 51 L 51 L 52 L Respiratory Rate Pulse Oximetry 100 100 100 03/07/18 19:34 03/07/18 20:00 03/07/18 21:00 Temperature 97.5 F L Pulse Rate 61 57 L Respiratory Rate 14 14 Pulse Oximetry 100 100 100 03/07/18 22:00 03/07/18 23:00 03/08/18 00:00 Temperature 98.3 F Pulse Rate 54 L 54 L 56 L Respiratory Rate Pulse Oximetry 100 100 100 03/08/18 00:08 03/08/18 01:00 03/08/18 02:00 Temperature Pulse Rate 61 59 L Respiratory Rate 14 14 14 Pulse Oximetry 100 100 100 03/08/18 03:00 03/08/18 03:18 03/08/18 04:00 Temperature 98.4 F Pulse Rate 58 L 65 Respiratory Rate 14 14 Pulse Oximetry 100 100 100 03/08/18 05:00 03/08/18 06:00 03/08/18 07:00 Temperature Pulse Rate 65 59 L 62 Respiratory Rate 14 Pulse Oximetry 100 100 100 03/08/18 07:54 03/08/18 08:00 03/08/18 09:00 Temperature 98.8 F Pulse Rate 65 65 Respiratory Rate 14 14 Pulse Oximetry 100 100 100 03/08/18 10:00 03/08/18 11:00 03/08/18 11:33 Temperature Pulse Rate 66 60 Respiratory Rate 14 14 Pulse Oximetry 100 100 100 03/08/18 12:00 03/08/18 13:00 03/08/18 14:00 Temperature 98.2 F Pulse Rate 62 61 61 Respiratory Rate 14 Pulse Oximetry 100 100 100 Intake & Output 03/07/18 03/08/18 03/08/18 18:59 06:59 18:59 Intake Total 1920 / 1920 1963 / 1963 300 / 300 Output Total 1755 / 1755 1420 / 1420 Balance 165 / 165 544 / 544 300 / 300 Weight 85.8 kg Intake: IV 1850 / 1850 1850 / 1850 300 / 300 Diprivan 1000 mg/100 ml Inj 1, 100 / 100 200 / 200 100 / 100 000 mg In 100 ml @ 5 MCG/KG/MIN 2.166 mls/hr IV.CONT TITRATE PRN Rx#:[id number] Flexbumin 25% Inj 100 ML @ 60 100 / 100 100 / 100 mls/hr IV.SIG Q8H KELSIE Rx#: [id number] Maxipime Inj 2,000 MG In NS Inj 100 / 100 100 / 100 100 / 100 100 ML @ 200 mls/hr IV.SIG Q12H KELSIE Rx#:[id number] Mycamine Inj 100 MG In NS Inj 100 / 100 100 ML @ 100 mls/hr IV.SIG Q24H KELSIE Rx#:[id number] NS Inj 1,000 ML @ 100 mls/hr IV 1000 / 1000 1000 / 1000 .SIG .Q10H KELSIE Rx#:[id number] fentaNYL 10 mcg/mL Premix Drip 250 / 250 250 / 250 2,500 mcg In 250 ml @ 50 MCG/HR 5 mls/hr IV.SIG TITRATE PRN Rx #:[id number] Flagyl 500 MG Inj 100 ML @ 100 200 / 200 200 / 200 100 / 100 mls/hr IV.SIG Q6H KELSIE Rx#: [id number] Tube Feeding 70 / 70 114 / 114 Output: Stool 0 / 0 Urine Amount (Catheter) 450 / 450 550 / 550 Indwelling Urethral Catheter 450 / 450 550 / 550 Gastric Drainage 75 / 75 150 / 150 G tube 75 / 75 150 / 150 J tube 0 / 0 Wound Drainage 900 / 900 570 / 570 #1 Lft Abdomen 785 / 785 495 / 495 #2 Rt abdomen 115 / 115 75 / 75 Chest Tube Drainage 330 / 330 150 / 150 #1 Left Upper 30 / 30 20 / 20 #2 Left Lower 300 / 300 130 / 130 Other: # Bowel Movements 0 Result Diagrams: 03/08/18 05:05 03/08/18 05:05 Objective Remarks: Narrative: General: Ill-appearing 73-year-old male, opens eyes to loud voice Head: Normal, atraumatic Neck: Supple Lungs: Orally intubated on mechanical ventilation, improved breath sounds left side, generally clear now. Breath sounds clear right side with few rhonchi. Good bilateral air movement Heart: Distant tones, regular rhythm normal S1, S2, neck veins are not distended. Abdomen: Moderately distended, bowel sounds are present. Extremities: Warm, well-perfused. No peripheral edema. Neuro: Moves 4 limbs spontaneously. Does not follow commands. Opens eyes to stimulation. Fentanyl drip infusing and lightly sedated. Assessment and Plan - Problem List (1) Septic shock Code(s): A41.9 - Sepsis, unspecified organism; R65.21 - Severe sepsis with septic shock Status: Acute (2) Acute kidney injury (nontraumatic) Code(s): N17.9 - Acute kidney failure, unspecified Status: Acute (3) Acute hypoxemic respiratory failure Code(s): J96.01 - Acute respiratory failure with hypoxia Status: Acute (4) Encephalopathy acute Code(s): G93.40 - Encephalopathy, unspecified Status: Acute - Assessment and Plan Plan: Plan: 1. Continued maintenance hydration with isotonic crystalloid 2. Stress dose steroids, hydrocortisone 50 mg IV every 6 hours to be tapered off. 3. Protonix for GI ulcer prophylaxis 4. Nasogastric tube to low intermittent suction 5. Mechanical ventilation assist control mode, PEEP 8 6. Cefepime and Flagyl antibiotic coverage, micafungin. 7. Daily CPAP trials 8. Discontinue sodium bicarb drip at 150 cc/h 9. Fernandez catheter for hourly urine output 10. Arterial blood gas in a.m. 11. Type and screen for blood 12. Daily BMP, CBC 13. Chest tube x2 on the left. Continue as high risk for empyema development. 14. Initiate enteral feeding through jejunostomy tube. 15. Start Lovenox for DVT prophylaxis when okay with surgery Discontinue right femoral triple-lumen catheter Overall impression: This gentleman arrived critically ill and in septic shock with multiple organ system dysfunction. He has undergone source control surgery 03/04 with debridement and adequate drainage of the mediastinum and left chest.. He remains critically ill and hemodynamically unstable. We are unable to wean him from mechanical ventilation at this time and his respiratory status remains unstable. Critical care time 35 minutes
[2018-03-08 15:06] LABS: Calcium 6.9 mg/dL (8.5-10.1); Carbon Dioxide 22.4 meq/L (21.0-32.0); Potassium 3.7 meq/L (3.5-5.1)
[2018-03-09] MEDS: Oral Hygiene Kit OROPHARYNG SCH ×4 (00:22→15:05)
[2018-03-09] MEDS: Sod Chloride 0.9% Inj 1,000 ML IV.SIG SCH ×3 (04:04→20:18)
[2018-03-09 04:11] LABS: Calcium 7.5 mg/dL (8.5-10.1); Carbon Dioxide 20.4 meq/L (21.0-32.0)
[2018-03-09 04:12] LABS: Potassium 3.8 meq/L (3.5-5.1)
[2018-03-09] MEDS: Propofol 1000 mg/100 ml Inj 1,000 MG/100 ML BOTTLE IV.CONT PRN (05:03)
[2018-03-09 05:12] LABS: Baso % (Auto) 0.2 % (0.0-2.0); Eos % (Auto) 0.1 % (0.0-4.0); Hemoglobin 11.5 gm/dL (13.0-17.0); Lymph # (Auto) 0.5 th/mm3 (1.0-4.8); Mean Corpuscular HGB Conc 34.8 % (32.0-36.0); Mean Corpuscular Hemoglobin 36.1 pg (27.0-34.0); Mean Corpuscular Volume 103.6 fL (80.0-100.0); Mean Platelet Volume 10.5 fL (7.0-11.0); Mono # (Auto) 0.7 th/mm3 (0.0-0.9); Mono % (Auto) 5.1 % (0.0-8.0); Neut # (Auto) 11.7 th/mm3 (1.8-7.7); Neut % (Auto) 90.6 % (16.0-70.0); Platelet Count 87 th/mm3 (150-450); Red Blood Count 3.19 mil/mm3 (4.50-5.90); Red Cell Distribution Width 13.5 % (11.6-17.2); White Blood Count 12.9 th/mm3 (4.0-11.0)
[2018-03-09] MEDS: fentaNYL 10 mcg/mL Premix Drip 2,500 MCG/250 ML BAG IV.SIG PRN (06:39)
[2018-03-09 07:06] LABS: Lymphocytes 4 % (9-44); Metamyelocytes 1 % (0-1); Monocytes 2 % (0-8)
[2018-03-09 07:07] LABS: Platelet Morphology Normal (Normal)
[2018-03-09] MEDS: Chlorhexidine 0.12% Oral Kit 15 ML UDC OROPHARYNG SCH ×2 (08:01→20:18)
--- NOTE | 2018-03-09 08:52 | P.PNCC ---
Subjective Subjective Remarks/Hospital Course: This 73-year-old gentleman presented to [facility] with severe left chest and upper abdominal pain. He underwent a proximal gastrectomy for carcinoma on February 23 and had an uneventful postoperative course. He was initially doing well at home but was not satisfied with small portions for meals. His states that he began eating large amounts of food and subsequently developed severe vomiting over the past 2 days. CAT scan on arrival to the outside hospital reveals mediastinal air consistent with disruption of the esophageal anastomosis. There is a left pleural effusion and diffuse abdominal tenderness. He was intubated at the outside hospital and arrives on mechanical ventilation. Blood pressure on arrival was 65 systolic with norepinephrine infusing at 40 mcg/min and Abhinav-Synephrine infusing at 100 mics per minute. He responded quickly to 3 L of intravenous fluid and sodium bicarbonate, administered for a metabolic acidosis and base deficit of 10. He was loaded with Flagyl intravenous antibiotic before arrival and we have augmented this with cefepime. 03/05: Remains vasopressor dependent despite aggressive fluid resuscitation and stress dose steroids. Acid base balance largely corrected and bicarb drip has been discontinued. Remains on mechanical ventilation and gas exchange is acceptable. Urinary output marginal with decrease in glomerular filtration rate observed. Continue broad-spectrum antibiotic coverage including fungal. 03/06: Left lung well expanded on chest x-ray and pleural fluid well-drained. Thoracostomy tubes in good position. Largely weaned off vasopressors at this time, will stop stress dose steroids this evening. Peripheral perfusion acceptable and urinary output acceptable. Intraoperative cultures pending. 03/07: Remains sedated, orally intubated on mechanical ventilation. 03/08: Remains sedated, orally intubated on mechanical ventilation. J-tube feeds started yesterday. Chest tubes x2 in place, no air leak, minimal drainage overnight. 03/09: No significant overnight events, BP is very labile in response to propofol as per RN, patient appears comfortable currently. Tolerating CPAP at present. - Diagnosis (1) Septic shock (s/p repair of gastro-esophageal anastomotic disruption) (2) Acute kidney injury (nontraumatic) (3) Acute hypoxemic respiratory failure (4) Encephalopathy acute Objective Vital Signs / I&O: Vital Signs 03/08/18 09:00 03/08/18 10:00 03/08/18 11:00 Temperature Pulse Rate 65 66 60 Respiratory Rate 14 Blood Pressure Pulse Oximetry 100 100 100 12/18/18 11:33 03/08/18 12:00 03/08/18 13:00 Temperature 98.2 F Pulse Rate 62 61 Respiratory Rate 14 14 Blood Pressure Pulse Oximetry 100 100 100 03/08/18 14:00 03/08/18 14:58 03/08/18 15:00 Temperature Pulse Rate 61 77 71 Respiratory Rate Blood Pressure 150/74 H 149/76 H Pulse Oximetry 100 100 100 03/08/18 15:25 03/08/18 16:00 03/08/18 16:08 Temperature 98.8 F Pulse Rate 63 63 Respiratory Rate 14 Blood Pressure 79/50 L 89/52 L Pulse Oximetry 100 100 100 03/08/18 16:13 03/08/18 16:35 03/08/18 17:00 Temperature Pulse Rate 62 68 63 Respiratory Rate Blood Pressure 90/55 L 117/69 96/60 L Pulse Oximetry 100 100 100 03/08/18 18:00 03/08/18 19:00 03/08/18 19:46 Temperature Pulse Rate 65 66 Respiratory Rate 14 14 Blood Pressure 101/65 121/66 Pulse Oximetry 100 100 100 03/08/18 20:00 03/08/18 21:00 03/08/18 22:00 Temperature 99.2 F Pulse Rate 65 73 69 Respiratory Rate 14 14 14 Blood Pressure 103/61 135/75 118/75 Pulse Oximetry 100 100 100 03/08/18 23:00 03/08/18 23:45 03/09/18 00:00 Temperature 99 F Pulse Rate 82 86 Respiratory Rate 14 20 14 Blood Pressure 146/75 H 123/68 Pulse Oximetry 100 100 100 03/09/18 01:00 03/09/18 01:11 03/09/18 01:21 Temperature Pulse Rate 58 L 58 L 57 L Respiratory Rate Blood Pressure 72/47 L 79/50 L 79/51 L Pulse Oximetry 100 100 100 03/09/18 01:30 03/09/18 01:31 03/09/18 01:41 Temperature Pulse Rate 70 76 Respiratory Rate 18 Blood Pressure 147/86 H 158/76 H Pulse Oximetry 100 100 100 03/09/18 01:51 03/09/18 02:00 03/09/18 02:15 Temperature Pulse Rate 85 98 H 84 Respiratory Rate Blood Pressure 163/82 H 169/104 H 149/71 H Pulse Oximetry 100 100 95 03/09/18 02:30 03/09/18 02:45 03/09/18 03:00 Temperature Pulse Rate 82 111 H 80 Respiratory Rate Blood Pressure 148/75 H 161/74 H 118/68 Pulse Oximetry 95 95 94 L 03/09/18 03:15 03/09/18 03:34 03/09/18 03:45 Temperature Pulse Rate 101 H 81 75 Respiratory Rate Blood Pressure 146/116 H 130/72 111/64 Pulse Oximetry 94 L 92 L 91 L 03/09/18 04:00 03/09/18 04:15 03/09/18 04:18 Temperature 98.8 F Pulse Rate 70 69 Respiratory Rate 14 16 Blood Pressure 93/54 L 125/76 Pulse Oximetry 94 L 91 L 95 03/09/18 04:30 03/09/18 04:45 03/09/18 05:00 Temperature Pulse Rate 75 78 83 Respiratory Rate Blood Pressure 136/80 154/93 H 142/88 H Pulse Oximetry 94 L 94 L 96 03/09/18 05:15 03/09/18 05:30 03/09/18 05:45 Temperature Pulse Rate 72 66 64 Respiratory Rate Blood Pressure 107/67 88/58 L 84/56 L Pulse Oximetry 96 96 98 03/09/18 06:00 03/09/18 06:15 03/09/18 06:30 Temperature Pulse Rate 61 75 72 Respiratory Rate Blood Pressure 88/58 L 160/92 H 149/76 H Pulse Oximetry 99 97 96 03/09/18 07:38 03/09/18 08:09 Temperature Pulse Rate Respiratory Rate 15 18 Blood Pressure Pulse Oximetry 96 Intake & Output 03/08/18 03/09/18 03/09/18 18:59 06:59 18:59 Intake Total 2062 / 2062 1969 / 1968 Output Total 1680 / 1680 1413 / 1413 Balance 383 / 383 556 / 556 Weight 82.9 kg Intake: IV 1850 / 1850 1750 / 1750 Diprivan 1000 mg/100 ml Inj 1, 100 / 100 200 / 200 000 mg In 100 ml @ 5 MCG/KG/MIN 2.166 mls/hr IV.CONT TITRATE PRN Rx#:[id number] Maxipime Inj 2,000 MG In NS Inj 100 / 100 100 / 100 100 ML @ 200 mls/hr IV.SIG Q12H KELSIE Rx#:[id number] Mycamine Inj 100 MG In NS Inj 100 / 100 100 ML @ 100 mls/hr IV.SIG Q24H KELSIE Rx#:[id number] KCl 40 mEq Premix Inj 40 meq In 100 / 100 100 ml @ 25 mls/hr IV.SIG UNSCH PRN Rx#:[id number] NS Inj 1,000 ML @ 100 mls/hr IV 1000 / 1000 1000 / 1000 .SIG .Q10H KELSIE Rx#:[id number] fentaNYL 10 mcg/mL Premix Drip 250 / 250 250 / 250 2,500 mcg In 250 ml @ 50 MCG/HR 5 mls/hr IV.SIG TITRATE PRN Rx #:[id number] Flagyl 500 MG Inj 100 ML @ 100 200 / 200 200 / 200 mls/hr IV.SIG Q6H KELSIE Rx#: [id number] Tube Feeding 213 / 213 219 / 219 Output: Urine 750 / 750 Urine Amount (Catheter) 700 / 700 Indwelling Urethral Catheter 700 / 700 Gastric Drainage 50 / 50 100 / 100 G tube 50 / 50 100 / 100 Wound Drainage 620 / 620 385 / 385 #1 Lft Abdomen 555 / 555 340 / 340 #2 Rt abdomen 65 / 65 45 / 45 Chest Tube Drainage 310 / 310 178 / 178 #1 Left Upper 10 / 10 28 / 28 #2 Left Lower 300 / 300 150 / 150 Other: # Bowel Movements 0 Result Diagrams: 03/09/18 04:22 03/09/18 03:36 Objective Remarks: General: Ill-appearing 73-year-old male, easily arousable to voice Head: NCAT, ETT present Neck: Supple, trachea midline Lungs: Mechanical breath sounds present bilaterally, diminished at right base. No air leak from chest tubes. Heart: Regular rate and rhythm Abdomen: Mild distended, non-tender in all quadrants. RUQ CHAR with scant serous drainage present, LUQ drain with moderate amount of serous drainage. : Very edematous scrotum, Fernandez in place Extremities: Warm, well-perfused. 1+ peripheral edema Neuro: RASS -1, GCS 10T ([id number]), follows commands, easily arousable Assessment and Plan - Assessment and Plan Plan: 73yM with esophageal anastomotic disruption secondary to non-compliance with post-gastrectomy diet, septic shock, vent dependent respiratory failure NEURO: * Currently sedated on propofol and fentanyl. BP labile to changes in propofol, will attempt to switch to precedex today; if BP continues to be labile with sedation, will change to benzo instead * Delirium precautions (frequent re-orientation, daily sedation vacations, lights on/ shades up during the day, limit nighttime disruptions) CARDIO: * Sedation switch as noted above * Otherwise hemodynamically stable, not on pressors PULM: Vent dependent respiratory failure Left-sided chest tubes present * Intubation day #5 * Vent bundle * Continue chest tubes to suction * Remains at high-risk for development of empyema * Right-sided pleural effusion developing, will start to diurese today * Continue CPAP as tolerated but will not attempt to extubate today due to right -sided pleural effusion; would like to optimize respiratory status first F/E/N: Chronic severe protein calorie malnutrition as evidenced by hypoalbuminemia, present on admission * J tube feeds started yesterday, currently at 20, advance to 30 mL/hr today as per surgery * Goal is 50 mL/hr with propofol at 20 mcg/hr (current), 60 mL/hr without propofol on * Add multivitamin supplement * Net positive 14L and up 10 kg since admission, will start to diurese as tolerated GI: Esophageal anastomotic leak s/p gastrectomy for gastric CA, secondary to patient non-compliance with recommended post-gastrectomy diet H/O gastric CA * Surgical exploration and repair on 03/[address] Storm * Continue chest tubes as per surgery, continue NGT to suction, do not manipulate NGT ID: Mediastinal contamination s/p esophageal anastomotic leak Septic shock, improving * Continue cefepime/ flagyl/ micafungin, antibiotic day #5, antifungal day #3 * Steroids discontinued HEME: Thrombocytopenia Normocytic anemia * Thrombocytopenia likely secondary to sepsis * Start prophylactic SQH as patient is at high risk for DVT, monitor for signs of bleeding LINES & TUBES: -ETT 03/04 -Fernandez 03/04- requires continuation for accurate Is/Os, unable to change to condom catheter due to severe edema PROPHY: * SCDs, start SQH today * PPI (protonix) OVERALL: This patient remains critically ill but stable, requires continued ICU level of care. Level 2 follow up To help prompt me to consider important information that might be impacting today's encounter and assessment, information from prior notes written by myself or my colleagues may have been "brought forward" into today's note. My signature on this note, however, is an attestation that I personally performed the exam, history, and/or decision-making noted today, and, unless otherwise indicated, the interactions with patient, family, and staff as well as the review of records all occurred today. I also attest that the listed assessment and stated plan reflect my best clinical judgment today based on the combination of historical information, prior notes, and today's exam/ interactions. Code Status: Full Discussed Condition With: RNTracie (surgery AP)
[2018-03-09] MEDS ORDERED: Dexmedetomidine Inj 200 MCG in Sodium Chlor 0.9% Inj 48 ML IV.CONT PRN (09:12)
--- NOTE | 2018-03-09 10:20 | P.PNGS ---
Subjective Interval history: Intubated/Sedated Physical Exam Vital signs: Vital Signs 03/08/18 11:00 03/08/18 11:33 03/08/18 12:00 Temperature 98.2 F Pulse Rate 60 62 Respiratory Rate 14 14 14 Blood Pressure Pulse Oximetry 100 100 100 03/08/18 13:00 03/08/18 14:00 03/08/18 14:58 Temperature Pulse Rate 61 61 77 Respiratory Rate Blood Pressure 150/74 H Pulse Oximetry 100 100 100 03/08/18 15:00 03/08/18 15:25 03/08/18 16:00 Temperature 98.8 F Pulse Rate 71 63 Respiratory Rate 14 Blood Pressure 149/76 H 79/50 L Pulse Oximetry 100 100 100 03/08/18 16:08 03/08/18 16:13 03/08/18 16:35 Temperature Pulse Rate 63 62 68 Respiratory Rate Blood Pressure 89/52 L 90/55 L 117/69 Pulse Oximetry 100 100 100 03/08/18 17:00 03/08/18 18:00 03/08/18 19:00 Temperature Pulse Rate 63 65 66 Respiratory Rate 14 Blood Pressure 96/60 L 101/65 121/66 Pulse Oximetry 100 100 100 03/08/18 19:46 03/08/18 20:00 03/08/18 21:00 Temperature 99.2 F Pulse Rate 65 73 Respiratory Rate 14 14 14 Blood Pressure 103/61 135/75 Pulse Oximetry 100 100 100 03/08/18 22:00 03/08/18 23:00 03/08/18 23:45 Temperature Pulse Rate 69 82 Respiratory Rate 14 14 20 Blood Pressure 118/75 146/75 H Pulse Oximetry 100 100 100 03/09/18 00:00 03/09/18 01:00 03/09/18 01:11 Temperature 99 F Pulse Rate 86 58 L 58 L Respiratory Rate 14 Blood Pressure 123/68 72/47 L 79/50 L Pulse Oximetry 100 100 100 03/09/18 01:21 03/09/18 01:30 03/09/18 01:31 Temperature Pulse Rate 57 L 70 Respiratory Rate 18 Blood Pressure 79/51 L 147/86 H Pulse Oximetry 100 100 100 03/09/18 01:41 03/09/18 01:51 03/09/18 02:00 Temperature Pulse Rate 76 85 98 H Respiratory Rate Blood Pressure 158/76 H 163/82 H 169/104 H Pulse Oximetry 100 100 100 03/09/18 02:15 03/09/18 02:30 03/09/18 02:45 Temperature Pulse Rate 84 82 111 H Respiratory Rate Blood Pressure 149/71 H 148/75 H 161/74 H Pulse Oximetry 95 95 95 03/09/18 03:00 03/09/18 03:15 03/09/18 03:34 Temperature Pulse Rate 80 101 H 81 Respiratory Rate Blood Pressure 118/68 146/116 H 130/72 Pulse Oximetry 94 L 94 L 92 L 03/09/18 03:45 03/09/18 04:00 03/09/18 04:15 Temperature 98.8 F Pulse Rate 75 70 69 Respiratory Rate 14 Blood Pressure 111/64 93/54 L 125/76 Pulse Oximetry 91 L 94 L 91 L 03/09/18 04:18 03/09/18 04:30 03/09/18 04:45 Temperature Pulse Rate 75 78 Respiratory Rate 16 Blood Pressure 136/80 154/93 H Pulse Oximetry 95 94 L 94 L 03/09/18 05:00 03/09/18 05:15 03/09/18 05:30 Temperature Pulse Rate 83 72 66 Respiratory Rate Blood Pressure 142/88 H 107/67 88/58 L Pulse Oximetry 96 96 96 03/09/18 05:45 03/09/18 06:00 03/09/18 06:15 Temperature Pulse Rate 64 61 75 Respiratory Rate Blood Pressure 84/56 L 88/58 L 160/92 H Pulse Oximetry 98 99 97 03/09/18 06:30 03/09/18 06:45 03/09/18 07:00 Temperature Pulse Rate 72 71 78 Respiratory Rate Blood Pressure 149/76 H 161/76 H 154/83 H Pulse Oximetry 96 96 96 03/09/18 07:15 03/09/18 07:30 03/09/18 07:38 Temperature Pulse Rate 70 74 Respiratory Rate 15 Blood Pressure 138/81 137/79 Pulse Oximetry 96 96 03/09/18 07:45 03/09/18 08:00 03/09/18 08:09 Temperature 99.3 F Pulse Rate 90 88 Respiratory Rate 18 Blood Pressure 169/91 H 161/91 H Pulse Oximetry 96 96 96 03/09/18 08:15 03/09/18 08:17 03/09/18 08:30 Temperature Pulse Rate 96 H 110 H 80 Respiratory Rate Blood Pressure 163/124 H 163/87 H 132/69 Pulse Oximetry 96 95 95 03/09/18 08:45 03/09/18 09:00 Temperature Pulse Rate 79 76 Respiratory Rate Blood Pressure 129/64 102/59 L Pulse Oximetry 95 96 Intake & Output 03/08/18 03/09/18 12 18:59 06:59 18:59 Intake Total 2062 / 2062 1968 / 1968 Output Total 1680 / 1680 1413 / 1413 Balance 383 / 383 556 / 556 Weight 82.9 kg Intake: IV 1850 / 1850 1750 / 1750 Diprivan 1000 mg/100 ml Inj 1, 100 / 100 200 / 200 000 mg In 100 ml @ 5 MCG/KG/MIN 2.166 mls/hr IV.CONT TITRATE PRN Rx#:[id number] Maxipime Inj 2,000 MG In NS Inj 100 / 100 100 / 100 100 ML @ 200 mls/hr IV.SIG Q12H KELSIE Rx#:[id number] Mycamine Inj 100 MG In NS Inj 100 / 100 100 ML @ 100 mls/hr IV.SIG Q24H KESLIE Rx#:[id number] KCl 40 mEq Premix Inj 40 meq In 100 / 100 100 ml @ 25 mls/hr IV.SIG UNSCH PRN Rx#:[id number] NS Inj 1,000 ML @ 100 mls/hr IV 1000 / 1000 1000 / 1000 .SIG .Q10H KELSIE Rx#:[id number] fentaNYL 10 mcg/mL Premix Drip 250 / 250 250 / 250 2,500 mcg In 250 ml @ 50 MCG/HR 5 mls/hr IV.SIG TITRATE PRN Rx #:[id number] Flagyl 500 MG Inj 100 ML @ 100 200 / 200 200 / 200 mls/hr IV.SIG Q6H KELSIE Rx#: [id number] Tube Feeding 213 / 213 219 / 219 Output: Urine 750 / 750 Urine Amount (Catheter) 700 / 700 Indwelling Urethral Catheter 700 / 700 Gastric Drainage 50 / 50 100 / 100 G tube 50 / 50 100 / 100 Wound Drainage 620 / 620 385 / 385 #1 Lft Abdomen 555 / 555 340 / 340 #2 Rt abdomen 65 / 65 45 / 45 Chest Tube Drainage 310 / 310 178 / 178 #1 Left Upper 10 / 10 28 / 28 #2 Left Lower 300 / 300 150 / 150 Other: # Bowel Movements 0 Narrative: Intubated/Sedated Resp: course breath sounds bilaterally although improved Abd: Midline incision with miracle c/d/i; CHAR x2 with serous drainage. CT x2 both with serous drainage now. G tube to gravity bag. J tube with TF Severe peripheral edema including scrotal edema - Urinary Catheter Management Indwelling Urethral Catheter Cath placed during this visit: no Reason for continuing: Hourly intake/output Results - Labs 03/09/18 04:22 03/09/18 03:36 Laboratory Results - last 24 hr 03/08/18 03/08/18 03/09/18 14:30 14:30 03:36 WBC RBC Hgb Hct MCV MCH MCHC RDW Plt Count MPV Prelim Diff (Auto) Neut % (Auto) Lymph % (Auto) Campbell % (Auto) Eos % (Auto) Baso % (Auto) Neut # (Auto) Lymph # (Auto) Campbell # (Auto) Eos # (Auto) Baso # (Auto) WBC Differential Seg Neuts % (Manual) Band Neuts % (Manual) Lymphocytes % (Manual) Monocytes % (Manual) Metamyelocytes % (Man) Abs Neuts (Manual) Differential Comment Platelet Estimate Platelet Morphology Sodium 146 H 146 H Potassium 3.7 3.7 3.8 Chloride 116 H 117 H Carbon Dioxide 22.4 20.4 L Anion Gap 8 9 BUN 30 H 25 H Creatinine 1.09 1.14 Estimated GFR 66 L 63 L Random Glucose 128 H 154 H Calcium 6.9 L* 7.5 L 03/09/18 04:22 WBC 12.9 H RBC 3.19 L Hgb 11.5 L Hct 33.0 L MCV 103.6 H MCH 36.1 H MCHC 34.8 RDW 13.5 Plt Count 87 L MPV 10.5 Prelim Diff (Auto) Slide review pending Neut % (Auto) 90.6 H Lymph % (Auto) 4.0 L Campbell % (Auto) 5.1 Eos % (Auto) 0.1 Baso % (Auto) 0.2 Neut # (Auto) 11.7 H Lymph # (Auto) 0.5 L Campbell # (Auto) 0.7 Eos # (Auto) 0.0 Baso # (Auto) 0.0 WBC Differential Manual diff final Seg Neuts % (Manual) 86 H Band Neuts % (Manual) 7 H Lymphocytes % (Manual) 4 L Monocytes % (Manual) 2 Metamyelocytes % (Man) 1 Abs Neuts (Manual) 12.1 H Differential Comment . Platelet Estimate Low L Platelet Morphology Normal Sodium Potassium Chloride Carbon Dioxide Anion Gap BUN Creatinine Estimated GFR Random Glucose Calcium - Imaging Imaging: ITS Impressions Chest X-Ray 03/08/18 06:00 CONCLUSION: Persistent left lower lobe consolidation. Interval development of hazy opacity in the right mid and lower lung suggesting pleural effusion. Assessment and Plan - Assessment (1) Gastric perforation Code(s): K25.5 - Chronic or unspecified gastric ulcer with perforation Status : Acute Plan: 73 year old male s/p partial gastrectomy for adenocarcinoma, readmit for perforation at gastroesophageal anastomosis after vomiting -POD5 ex lap; repair of esophagogastric dehiscence; placement of G tube; placement of J tube; Chest washout and tube placement x 2 -Thoracic surgery following, chest tubes more clear -Information [employer] following, vent weaning but will likely stay intubated today; diuresing today -tolerating TF via j-tube, increase slowly as patient tolerates -Discussed with Dinorah ARCINIEGA and Dr. 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 I reviewed and agree with the findings presented. I attest that I had a [id number] encounter with the patient on the same day, and personally performed and documented my assessment and findings in the medical record. s/p exlap and repair of perforation no acute events overnight on vent, more stable, weaning ongoing DC superior chest tube
[2018-03-09] MEDS: Pantoprazole Inj 40 MG Vial IV.PUSH SCH (10:35)
[2018-03-09] MEDS: Heparin - SQ 10,000 UNITS/ML Vial SQ SCH ×2 (10:36→21:34)
[2018-03-09] MEDS ORDERED: HYDROmorphone PF Inj 0.5 MG/0.5 ML Syringe IV.PUSH ONE (11:45)
[2018-03-09] MEDS: Multivit/Folic Acid/Minerals Chewable Tablets CHEW SCH (13:20)
[2018-03-09 16:57] LABS: Carbon Dioxide 24.4 meq/L (21.0-32.0); Potassium 3.7 meq/L (3.5-5.1)
[2018-03-09 17:06] LABS: Calcium-Albumin Corrected 8.4 mg/dL (8.5-10.1)
[2018-03-10] MEDS: Oral Hygiene Kit OROPHARYNG SCH ×4 (02:05→17:13)
[2018-03-10 06:14] LABS: Baso % (Auto) 0.1 % (0.0-2.0); Eos # (Auto) 0.1 th/mm3 (0.0-0.4); Eos % (Auto) 0.7 % (0.0-4.0); Hematocrit 36.6 % (39.0-51.0); Hemoglobin 12.4 gm/dL (13.0-17.0); Lymph % (Auto) 8.8 % (9.0-44.0); Mean Corpuscular HGB Conc 33.9 % (32.0-36.0); Mean Corpuscular Hemoglobin 35.1 pg (27.0-34.0); Mean Corpuscular Volume 103.6 fL (80.0-100.0); Mean Platelet Volume 11.6 fL (7.0-11.0); Mono # (Auto) 0.9 th/mm3 (0.0-0.9); Mono % (Auto) 7.5 % (0.0-8.0); Neut # (Auto) 9.4 th/mm3 (1.8-7.7); Neut % (Auto) 82.9 % (16.0-70.0); Platelet Count 118 th/mm3 (150-450); Red Blood Count 3.53 mil/mm3 (4.50-5.90); Red Cell Distribution Width 13.6 % (11.6-17.2); White Blood Count 11.3 th/mm3 (4.0-11.0)
[2018-03-10 06:46] LABS: Calcium 7.3 mg/dL (8.5-10.1); Carbon Dioxide 23.9 meq/L (21.0-32.0); Magnesium 1.9 mg/dL (1.5-2.5)
[2018-03-10 06:47] LABS: Potassium 4.3 meq/L (3.5-5.1)
[2018-03-10 07:04] LABS: Albumin 1.9 g/dL (3.4-5.0)
--- NOTE | 2018-03-10 07:45 | P.PNCC ---
Subjective Subjective Remarks/Hospital Course: This 73-year-old gentleman presented to [facility] with severe left chest and upper abdominal pain. He underwent a proximal gastrectomy for carcinoma on February 23 and had an uneventful postoperative course. He was initially doing well at home but was not satisfied with small portions for meals. His states that he began eating large amounts of food and subsequently developed severe vomiting over the past 2 days. CAT scan on arrival to the outside hospital reveals mediastinal air consistent with disruption of the esophageal anastomosis. There is a left pleural effusion and diffuse abdominal tenderness. He was intubated at the outside hospital and arrives on mechanical ventilation. Blood pressure on arrival was 65 systolic with norepinephrine infusing at 40 mcg/min and Abhinav-Synephrine infusing at 100 mics per minute. He responded quickly to 3 L of intravenous fluid and sodium bicarbonate, administered for a metabolic acidosis and base deficit of 10. He was loaded with Flagyl intravenous antibiotic before arrival and we have augmented this with cefepime. 03/05: Remains vasopressor dependent despite aggressive fluid resuscitation and stress dose steroids. Acid base balance largely corrected and bicarb drip has been discontinued. Remains on mechanical ventilation and gas exchange is acceptable. Urinary output marginal with decrease in glomerular filtration rate observed. Continue broad-spectrum antibiotic coverage including fungal. 03/06: Left lung well expanded on chest x-ray and pleural fluid well-drained. Thoracostomy tubes in good position. Largely weaned off vasopressors at this time, will stop stress dose steroids this evening. Peripheral perfusion acceptable and urinary output acceptable. Intraoperative cultures pending. 03/07: Remains sedated, orally intubated on mechanical ventilation. 03/08: Remains sedated, orally intubated on mechanical ventilation. J-tube feeds started yesterday. Chest tubes x2 in place, no air leak, minimal drainage overnight. 03/09: No significant overnight events, BP is very labile in response to propofol as per RN, patient appears comfortable currently. Tolerating CPAP at present. 03/10: Extubated yesterday afternoon, superior chest tube removed by surgery. Patient's only complaint this morning is "my lips are chapped". - Diagnosis (1) Septic shock (s/p repair of gastro-esophageal anastomotic disruption) (2) Acute kidney injury (nontraumatic) (3) Acute hypoxemic respiratory failure (4) Encephalopathy acute Objective Vital Signs / I&O: Vital Signs 03/09/18 07:45 03/09/18 08:00 03/09/18 08:09 Temperature 99.3 F Pulse Rate 90 88 Respiratory Rate 18 Blood Pressure 169/91 H 161/91 H Pulse Oximetry 96 96 96 03/09/18 08:15 03/09/18 08:17 03/09/18 08:30 Temperature Pulse Rate 96 H 110 H 80 Respiratory Rate Blood Pressure 163/124 H 163/87 H 132/69 Pulse Oximetry 96 95 95 03/09/18 08:45 03/09/18 09:00 03/09/18 09:15 Temperature Pulse Rate 79 76 83 Respiratory Rate Blood Pressure 129/64 102/59 L 143/75 H Pulse Oximetry 95 96 96 03/09/18 09:30 03/09/18 09:45 03/09/18 09:48 Temperature Pulse Rate 90 110 H 111 H Respiratory Rate Blood Pressure 160/84 H 178/107 H 167/93 H Pulse Oximetry 94 L 93 L 93 L 03/09/18 10:00 03/09/18 10:15 03/09/18 10:17 Temperature Pulse Rate 81 68 65 Respiratory Rate Blood Pressure 136/66 76/47 L 78/50 L Pulse Oximetry 94 L 95 95 03/09/18 10:18 03/09/18 10:19 03/09/18 10:21 Temperature Pulse Rate 64 63 63 Respiratory Rate Blood Pressure 74/49 L 75/51 L 83/53 L Pulse Oximetry 95 95 95 03/09/18 10:30 03/09/18 10:45 03/09/18 11:00 Temperature Pulse Rate 61 67 77 Respiratory Rate Blood Pressure 107/55 L 141/75 H 129/77 Pulse Oximetry 95 95 95 03/09/18 11:02 03/09/18 11:15 03/09/18 11:17 Temperature Pulse Rate 72 58 L 57 L Respiratory Rate Blood Pressure 101/58 L 69/44 L 68/45 L Pulse Oximetry 95 99 99 03/09/18 11:18 03/09/18 11:19 03/09/18 11:20 Temperature Pulse Rate 57 L 58 L Respiratory Rate Blood Pressure 67/44 L 67/43 L 66/42 L Pulse Oximetry 99 99 03/09/18 11:21 03/09/18 11:22 03/09/18 11:23 Temperature Pulse Rate Respiratory Rate Blood Pressure 67/44 L 66/44 L 66/43 L Pulse Oximetry 03/09/18 11:24 03/09/18 11:27 03/09/18 11:28 Temperature Pulse Rate 58 L 58 L Respiratory Rate Blood Pressure 65/42 L 66/43 L 67/44 L Pulse Oximetry 99 99 03/09/18 11:29 03/09/18 11:30 03/09/18 11:31 Temperature Pulse Rate 58 L 57 L Respiratory Rate Blood Pressure 64/42 L 65/44 L 69/44 L Pulse Oximetry 99 99 03/09/18 11:32 03/09/18 11:37 03/09/18 11:46 Temperature Pulse Rate 57 L 59 L Respiratory Rate 14 Blood Pressure 84/50 L 74/49 L Pulse Oximetry 99 99 99 03/09/18 11:48 03/09/18 11:49 03/09/18 11:50 Temperature Pulse Rate 60 59 L Respiratory Rate Blood Pressure 77/51 L 76/51 L 78/51 L Pulse Oximetry 99 99 03/09/18 11:58 03/09/18 12:00 03/09/18 12:01 Temperature 98.1 F Pulse Rate 59 L 58 L 58 L Respiratory Rate Blood Pressure 88/53 L 87/55 L Pulse Oximetry 99 99 99 03/09/18 12:16 03/09/18 12:31 03/09/18 12:46 Temperature Pulse Rate 58 L 59 L 62 Respiratory Rate Blood Pressure 107/61 111/66 106/63 Pulse Oximetry 99 100 99 03/09/18 13:00 03/09/18 13:01 03/09/18 13:16 Temperature Pulse Rate 64 65 79 Respiratory Rate Blood Pressure 109/65 118/69 Pulse Oximetry 99 99 96 03/09/18 13:31 03/09/18 13:46 03/09/18 13:57 Temperature Pulse Rate 69 66 65 Respiratory Rate Blood Pressure 98/59 L 82/50 L 81/51 L Pulse Oximetry 97 97 98 03/09/18 14:00 03/09/18 14:01 03/09/18 14:16 Temperature Pulse Rate 65 65 65 Respiratory Rate Blood Pressure 83/50 L 93/57 L Pulse Oximetry 98 98 98 03/09/18 14:31 03/09/18 14:46 03/09/18 15:00 Temperature Pulse Rate 66 71 66 Respiratory Rate Blood Pressure 127/66 96/55 L Pulse Oximetry 99 98 98 03/09/18 15:01 03/09/18 15:16 03/09/18 15:31 Temperature Pulse Rate 65 78 77 Respiratory Rate Blood Pressure 93/56 L 101/66 148/70 H Pulse Oximetry 98 98 98 03/09/18 15:46 03/09/18 16:00 03/09/18 16:01 Temperature 98.7 F Pulse Rate 95 H 88 92 H Respiratory Rate Blood Pressure 153/80 H 151/79 H Pulse Oximetry 95 95 95 03/09/18 16:16 03/09/18 16:31 03/09/18 16:46 Temperature Pulse Rate 98 H 106 H 111 H Respiratory Rate Blood Pressure 149/83 H 154/91 H 156/88 H Pulse Oximetry 94 L 95 92 L 03/09/18 17:00 03/09/18 17:01 03/09/18 17:02 Temperature Pulse Rate 109 H 112 H 113 H Respiratory Rate Blood Pressure 156/102 H 157/92 H Pulse Oximetry 91 L 90 L 90 L 03/09/18 17:16 03/09/18 17:31 03/09/18 17:46 Temperature Pulse Rate 108 H 99 H 99 H Respiratory Rate Blood Pressure 161/80 H 152/80 H 147/78 H Pulse Oximetry 93 L 91 L 91 L 03/09/18 18:00 03/09/18 18:01 03/09/18 18:16 Temperature Pulse Rate 98 H 96 H 96 H Respiratory Rate Blood Pressure 157/80 H 169/80 H Pulse Oximetry 95 95 95 03/09/18 18:31 03/09/18 18:46 03/09/18 19:00 Temperature Pulse Rate 96 H 101 H 94 H Respiratory Rate Blood Pressure 150/79 H 168/79 H Pulse Oximetry 95 95 95 03/09/18 19:01 03/09/18 19:16 03/09/18 19:31 Temperature Pulse Rate 93 H 91 H 96 H Respiratory Rate Blood Pressure 150/77 H 148/85 H 148/80 H Pulse Oximetry 95 95 95 03/09/18 19:46 03/09/18 19:50 03/09/18 19:55 Temperature Pulse Rate 98 H 95 H Respiratory Rate 20 Blood Pressure 160/85 H Pulse Oximetry 95 95 03/09/18 20:00 03/09/18 20:01 03/09/18 21:00 Temperature 98.7 F Pulse Rate 96 H 98 H 88 Respiratory Rate Blood Pressure 152/81 H Pulse Oximetry 94 L 95 94 L 03/09/18 21:01 03/09/18 22:00 03/09/18 22:28 Temperature Pulse Rate 88 92 H 86 Respiratory Rate 21 17 Blood Pressure 153/77 H 149/86 H Pulse Oximetry 94 L 92 L 94 L 03/09/18 23:00 03/10/18 00:00 03/10/18 01:00 Temperature 98.8 F Pulse Rate 83 83 81 Respiratory Rate 18 17 19 Blood Pressure 143/79 H 149/80 H 160/85 H Pulse Oximetry 94 L 95 95 03/10/18 02:00 03/10/18 03:00 03/10/18 04:00 Temperature 98.8 F Pulse Rate 82 81 91 H Respiratory Rate 20 21 25 H Blood Pressure 151/79 H 151/86 H 164/78 H Pulse Oximetry 95 95 93 L 03/10/18 05:00 03/10/18 06:00 03/10/18 07:00 Temperature Pulse Rate 77 76 84 Respiratory Rate 20 20 26 H Blood Pressure 147/79 H 149/87 H 153/76 H Pulse Oximetry 97 97 94 L Intake & Output 03/09/18 03/10/18 03/10/18 18:59 06:59 18:59 Intake Total 1932 / 1932 1571 / 1571 Output Total 2380 / 2380 1880 / 1880 Balance -448 / -448 -309 / -309 Weight 82.1 kg Intake: IV 1800 / 1800 1200 / 1200 Precedex Inj 200 MCG In NS Inj 50 / 50 48 ML @ 0.2 MCG/KG/HR 4.14 mls/ hr IV.CONT TITRATE PRN Rx#: [id number] Diprivan 1000 mg/100 ml Inj 1, 100 / 100 000 mg In 100 ml @ 5 MCG/KG/MIN 2.166 mls/hr IV.CONT TITRATE PRN Rx#:[id number] Maxipime Inj 2,000 MG In NS Inj 100 / 100 100 / 100 100 ML @ 200 mls/hr IV.SIG Q12H KELSIE Rx#:[id number] Mycamine Inj 100 MG In NS Inj 100 / 100 100 ML @ 100 mls/hr IV.SIG Q24H KELSIE Rx#:[id number] NS Inj 1,000 ML @ 100 mls/hr IV 1000 / 1000 1000 / 1000 .SIG .Q10H KELSIE Rx#:[id number] fentaNYL 10 mcg/mL Premix Drip 250 / 250 2,500 mcg In 250 ml @ 50 MCG/HR 5 mls/hr IV.SIG TITRATE PRN Rx #:[id number] Flagyl 500 MG Inj 100 ML @ 100 200 / 200 100 / 100 mls/hr IV.SIG Q6H KELSIE Rx#: [id number] Tube Feeding 132 / 132 371 / 371 Output: Urine Amount (Catheter) 1999 / 1600 Indwelling Urethral Catheter 1999 / 1600 Gastric Drainage 80 / 80 20 / 20 G tube 80 / 80 20 / 20 Wound Drainage 240 / 240 200 / 200 #1 Lft Abdomen 180 / 180 170 / 170 #2 Rt abdomen 60 / 60 30 / 30 Chest Tube Drainage 60 / 60 60 / 60 #2 Left Lower 60 / 60 60 / 60 Other: # Bowel Movements 0 Result Diagrams: 03/10/18 04:26 03/10/18 04:26 Objective Remarks: General: Lying in bed, no acute distress Head: NCAT Neck: Supple, trachea midline Lungs: Clear to auscultation bilaterally, strong cough, 1 left-sided chest tube present/ on suction/ no air leak Heart: Regular rate and rhythm Abdomen: Mildly distended, mild diffuse tenderness. Both JPs have serous drainage present. : Still very edematous scrotum, Fernandez in place Extremities: Warm, well-perfused. 1+ peripheral edema, improving Neuro: A&Ox3, answers questions appropriately, moves all extremities Psych: Calm, appropriate affect Assessment and Plan - Assessment and Plan Plan: 73yM with esophageal anastomotic disruption secondary to non-compliance with post-gastrectomy diet, septic shock, vent dependent respiratory failure NEURO: * Pain control * Delirium precautions (frequent re-orientation, daily sedation vacations, lights on/ shades up during the day, limit nighttime disruptions) CARDIO: * No active issues * Diuresed well yesterday, continue today PULM: Vent dependent respiratory failure Left-sided chest tube x1 present * Chest tube management as per surgery * Remains at high-risk for development of empyema * Right-sided pleural effusion developing on CXR yesterday, diuresed well with lasix, repeat CXR in 1-2 days depending on patient's course F/E/N: Chronic severe protein calorie malnutrition as evidenced by hypoalbuminemia, present on admission * Continue to advance J tube feeds as per surgery, goal is 60 mL/hr * Multivitamin supplement * -750 mL yesterday, continue diuresis today GI: Esophageal anastomotic leak s/p gastrectomy for gastric CA, secondary to patient non-compliance with recommended post-gastrectomy diet H/O gastric CA * Surgical exploration and repair on 03/[address] Storm * Continue chest tube as per surgery, NGT removed yesterday ID: Mediastinal contamination s/p esophageal anastomotic leak Septic shock, improving * Continue cefepime/ flagyl/ micafungin, antibiotic day #6, antifungal day #4-- I suspect he will need 10 days total of both for mediastinal contamination but he presently has no signs or symptoms of mediastinitis * Steroids discontinued HEME: Thrombocytopenia Normocytic anemia * Thrombocytopenia likely secondary to sepsis, improving * On SQH for DVT prophylaxis, ok to switch to lovenox if surgery prefers LINES & TUBES: -Fernandez 03/04- maintain Fernandez as patient remains very swollen and will be difficult if not impossible to serially straight cath PROPHY: * SCDs, SQH * PPI (protonix) OVERALL: This patient is improving overall, can likely move out of ISC in 1-2 days if ok with surgery. Level 2 follow up To help prompt me to consider important information that might be impacting today's encounter and assessment, information from prior notes written by myself or my colleagues may have been "brought forward" into today's note. My signature on this note, however, is an attestation that I personally performed the exam, history, and/or decision-making noted today, and, unless otherwise indicated, the interactions with patient, family, and staff as well as the review of records all occurred today. I also attest that the listed assessment and stated plan reflect my best clinical judgment today based on the combination of historical information, prior notes, and today's exam/ interactions. Code Status: Full
[2018-03-10] MEDS: Multivit/Folic Acid/Minerals Chewable Tablets CHEW SCH (08:39)
[2018-03-10] MEDS: Chlorhexidine 0.12% Oral Kit 15 ML UDC OROPHARYNG SCH ×2 (08:39→20:53)
[2018-03-10] MEDS: Heparin - SQ 10,000 UNITS/ML Vial SQ SCH ×2 (08:40→20:53)
[2018-03-10] MEDS: Pantoprazole Inj 40 MG Vial IV.PUSH SCH (09:17)
--- NOTE | 2018-03-10 10:58 | P.PNGS ---
Subjective Interval history: Now extubated Asking for RN to call his Physical Exam Vital signs: Vital Signs 03/09/18 11:00 03/09/18 11:02 03/09/18 11:15 Temperature Pulse Rate 77 72 58 L Respiratory Rate Blood Pressure 129/77 101/58 L 69/44 L Pulse Oximetry 95 95 99 03/09/18 11:17 03/09/18 11:18 03/09/18 11:19 Temperature Pulse Rate 57 L 57 L Respiratory Rate Blood Pressure 68/45 L 67/44 L 67/43 L Pulse Oximetry 99 99 03/09/18 11:20 03/09/18 11:21 03/09/18 11:22 Temperature Pulse Rate 58 L Respiratory Rate Blood Pressure 66/42 L 67/44 L 66/44 L Pulse Oximetry 99 03/09/18 11:23 03/09/18 11:24 03/09/18 11:27 Temperature Pulse Rate 58 L Respiratory Rate Blood Pressure 66/43 L 65/42 L 66/43 L Pulse Oximetry 99 03/09/18 11:28 03/09/18 11:29 03/09/18 11:30 Temperature Pulse Rate 58 L 58 L Respiratory Rate Blood Pressure 67/44 L 64/42 L 65/44 L Pulse Oximetry 99 99 03/09/18 11:31 03/09/18 11:32 03/09/18 11:37 Temperature Pulse Rate 57 L 57 L Respiratory Rate 14 Blood Pressure 69/44 L 84/50 L Pulse Oximetry 99 99 99 03/09/18 11:46 03/09/18 11:48 03/09/18 11:49 Temperature Pulse Rate 59 L 60 Respiratory Rate Blood Pressure 74/49 L 77/51 L 76/51 L Pulse Oximetry 99 99 03/09/18 11:50 03/09/18 11:58 03/09/18 12:00 Temperature Pulse Rate 59 L 59 L 58 L Respiratory Rate Blood Pressure 78/51 L 88/53 L Pulse Oximetry 99 99 99 03/09/18 12:01 03/09/18 12:16 03/09/18 12:31 Temperature 98.1 F Pulse Rate 58 L 58 L 59 L Respiratory Rate Blood Pressure 87/55 L 107/61 111/66 Pulse Oximetry 99 99 100 03/09/18 12:46 03/09/18 13:00 03/09/18 13:01 Temperature Pulse Rate 62 64 65 Respiratory Rate Blood Pressure 106/63 109/65 Pulse Oximetry 99 99 99 03/09/18 13:16 03/09/18 13:31 03/09/18 13:46 Temperature Pulse Rate 79 69 66 Respiratory Rate Blood Pressure 118/69 98/59 L 82/50 L Pulse Oximetry 96 97 97 03/09/18 13:57 03/09/18 14:00 03/09/18 14:01 Temperature Pulse Rate 65 65 65 Respiratory Rate Blood Pressure 81/51 L 83/50 L Pulse Oximetry 98 98 98 03/09/18 14:16 03/09/18 14:31 03/09/18 14:46 Temperature Pulse Rate 65 66 71 Respiratory Rate Blood Pressure 93/57 L 127/66 96/55 L Pulse Oximetry 98 99 98 03/09/18 15:00 03/09/18 15:01 03/09/18 15:16 Temperature Pulse Rate 66 65 78 Respiratory Rate Blood Pressure 93/56 L 101/66 Pulse Oximetry 98 98 98 03/09/18 15:31 03/09/18 15:46 03/09/18 16:00 Temperature 98.7 F Pulse Rate 77 95 H 88 Respiratory Rate Blood Pressure 148/70 H 153/80 H Pulse Oximetry 98 95 95 03/09/18 16:01 03/09/18 16:16 03/09/18 16:31 Temperature Pulse Rate 92 H 98 H 106 H Respiratory Rate Blood Pressure 151/79 H 149/83 H 154/91 H Pulse Oximetry 95 94 L 95 03/09/18 16:46 03/09/18 17:00 03/09/18 17:01 Temperature Pulse Rate 111 H 109 H 112 H Respiratory Rate Blood Pressure 156/88 H 156/102 H Pulse Oximetry 92 L 91 L 90 L 03/09/18 17:02 03/09/18 17:16 03/09/18 17:31 Temperature Pulse Rate 113 H 108 H 99 H Respiratory Rate Blood Pressure 157/92 H 161/80 H 152/80 H Pulse Oximetry 90 L 93 L 91 L 03/09/18 17:46 03/09/18 18:00 03/09/18 18:01 Temperature Pulse Rate 99 H 98 H 96 H Respiratory Rate Blood Pressure 147/78 H 157/80 H Pulse Oximetry 91 L 95 95 03/09/18 18:16 03/09/18 18:31 03/09/18 18:46 Temperature Pulse Rate 96 H 96 H 101 H Respiratory Rate Blood Pressure 169/80 H 150/79 H 168/79 H Pulse Oximetry 95 95 95 03/09/18 19:00 03/09/18 19:01 03/09/18 19:16 Temperature Pulse Rate 94 H 93 H 91 H Respiratory Rate Blood Pressure 150/77 H 148/85 H Pulse Oximetry 95 95 95 03/09/18 19:31 03/09/18 19:46 03/09/18 19:50 Temperature Pulse Rate 96 H 98 H 95 H Respiratory Rate 20 Blood Pressure 148/80 H 160/85 H Pulse Oximetry 95 95 03/09/18 19:55 03/09/18 20:00 03/09/18 20:01 Temperature 98.7 F Pulse Rate 96 H 98 H Respiratory Rate Blood Pressure 152/81 H Pulse Oximetry 95 94 L 95 03/09/18 21:00 03/09/18 21:01 03/09/18 22:00 Temperature Pulse Rate 88 88 92 H Respiratory Rate 21 Blood Pressure 153/77 H Pulse Oximetry 94 L 94 L 92 L 03/09/18 22:28 03/09/18 23:00 03/10/18 00:00 Temperature 98.8 F Pulse Rate 86 83 83 Respiratory Rate 17 18 17 Blood Pressure 149/86 H 143/79 H 149/80 H Pulse Oximetry 94 L 94 L 95 03/10/18 01:00 03/10/18 02:00 03/10/18 03:00 Temperature Pulse Rate 81 82 81 Respiratory Rate 19 20 21 Blood Pressure 160/85 H 151/79 H 151/86 H Pulse Oximetry 95 95 95 03/10/18 04:00 03/10/18 05:00 03/10/18 06:00 Temperature 98.8 F Pulse Rate 91 H 77 76 Respiratory Rate 25 H 20 20 Blood Pressure 164/78 H 147/79 H 149/87 H Pulse Oximetry 93 L 97 97 03/10/18 07:00 03/10/18 08:00 03/10/18 09:00 Temperature 98.4 F Pulse Rate 84 88 84 Respiratory Rate 26 H 31 H 26 H Blood Pressure 153/76 H 118/73 159/85 H Pulse Oximetry 94 L 93 L 94 L 03/10/18 10:00 Temperature Pulse Rate 84 Respiratory Rate 26 H Blood Pressure 132/73 Pulse Oximetry 95 Intake & Output 03/09/18 03/10/18 03/10/18 18:59 06:59 18:59 Intake Total 1932 / 1932 1671 / 1671 1200 / 1200 Output Total 2380 / 2380 1880 / 1880 Balance -448 / -448 -209 / -209 1200 / 1200 Weight 82.1 kg Intake: IV 1800 / 1800 1300 / 1300 1200 / 1200 Precedex Inj 200 MCG In NS Inj 50 / 50 48 ML @ 0.2 MCG/KG/HR 4.14 mls/ hr IV.CONT TITRATE PRN Rx#: [id number] Diprivan 1000 mg/100 ml Inj 1, 100 / 100 000 mg In 100 ml @ 5 MCG/KG/MIN 2.166 mls/hr IV.CONT TITRATE PRN Rx#:[id number] Maxipime Inj 2,000 MG In NS Inj 100 / 100 100 / 100 100 / 100 100 ML @ 200 mls/hr IV.SIG Q12H KELSIE Rx#:[id number] Mycamine Inj 100 MG In NS Inj 100 / 100 100 ML @ 100 mls/hr IV.SIG Q24H KELSIE Rx#:[id number] NS Inj 1,000 ML @ 100 mls/hr IV 1000 / 1000 1000 / 1000 1000 / 1000 .SIG .Q10H KELSIE Rx#:[id number] fentaNYL 10 mcg/mL Premix Drip 250 / 250 2,500 mcg In 250 ml @ 50 MCG/HR 5 mls/hr IV.SIG TITRATE PRN Rx #:[id number] Flagyl 500 MG Inj 100 ML @ 100 200 / 200 200 / 200 100 / 100 mls/hr IV.SIG Q6H KELSIE Rx#: [id number] Tube Feeding 132 / 132 371 / 371 Output: Urine Amount (Catheter) 1999 / 1599 Indwelling Urethral Catheter 1999 / 1599 Gastric Drainage 80 / 80 20 / 20 G tube 80 / 80 20 / 20 Wound Drainage 240 / 240 200 / 200 #1 Lft Abdomen 180 / 180 170 / 170 #2 Rt abdomen 60 / 60 30 / 30 Chest Tube Drainage 60 / 60 60 / 60 #2 Left Lower 60 / 60 60 / 60 Other: # Bowel Movements 0 Narrative: Alert and awake Resp: CTAB Abd: soft; midline incision with miralce; G tube to gravity; J tube with TF; CT x1 on the LEFT with serous drainage; JPx2 both to biliary bag-- serous drainage Generalized edema - Urinary Catheter Management Indwelling Urethral Catheter Cath placed during this visit: no Reason for continuing: Hourly intake/output Results - Labs 03/10/18 04:26 03/10/18 04:26 Laboratory Results - last 24 hr 03/09/18 03/10/18 03/10/18 16:23 04:26 04:26 WBC 11.3 H RBC 3.53 L Hgb 12.4 L Hct 36.6 L MCV 103.6 H MCH 35.1 H MCHC 33.9 RDW 13.6 Plt Count 118 L D MPV 11.6 H Neut % (Auto) 82.9 H Lymph % (Auto) 8.8 L [place] % (Auto) 7.5 Eos % (Auto) 0.7 Baso % (Auto) 0.1 Neut # (Auto) 9.4 H Lymph # (Auto) 1.0 [place] # (Auto) 0.9 Eos # (Auto) 0.1 Baso # (Auto) 0.0 WBC Differential . Differential Comment Auto diff final Sodium 149 H 146 H Potassium 3.7 4.3 Chloride 119 H 115 H Carbon Dioxide 24.4 23.9 Anion Gap 6 7 BUN 21 H 19 H Creatinine 1.02 1.03 Estimated GFR 71 L 71 L Random Glucose 158 H 143 H Calcium 6.0 L* D 7.3 L* D Calcium Adj for Albumin 8.4 L 9.0 Magnesium 1.9 Albumin 1.0 L D 1.9 L D - Imaging Imaging: ITS Impressions Chest X-Ray 03/08/18 06:00 CONCLUSION: Persistent left lower lobe consolidation. Interval development of hazy opacity in the right mid and lower lung suggesting pleural effusion. Assessment and Plan - Assessment (1) Gastric perforation Code(s): K25.5 - Chronic or unspecified gastric ulcer with perforation Status : Acute Plan: 73 year old male s/p partial gastrectomy for adenocarcinoma, readmit for perforation at gastroesophageal anastomosis after vomiting -POD6 ex lap; repair of esophagogastric dehiscence; placement of G tube; placement of J tube; Chest washout and tube placement x 2 -Thoracic surgery following, chest tube continues to be serous now -Extubated -Tolerating TF via j-tube, increase slowly as patient tolerates -Discussed with Dinorah ARCINIEGA and Dr. 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 I reviewed and agree with the findings presented. I attest that I had a [id number] encounter with the patient on the same day, and personally performed and documented my assessment and findings in the medical record. s/p repair of perforation, doing well extubated, continue pulmonary support appreciate special needs child caregiver help increase TF, PT/OT drains to gravity ok for ice chips only
--- NOTE | 2018-03-10 16:29 | P.PNVS ---
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 This also resulted in a huge left pleural effusion with abdominal pain and chest pain. The patient was transferred to [facility] and then to us for further care. I am doing an intraoperative at this point regarding the chest condition. Physical examination is performed in the OR and I was present at the time of surgery. The patient does indeed have an intraabdominal perforation which is now being repaired by Dr. Storm. I discussed with him the issues regarding the chest. The patient apparently had significant chest contamination, which was washed out with saline and 2 large chest tubes were placed. This would be exactly what I would have done and, at this point, hopefully the patient will not develop empyema. If he does develop empyema or any signs of such, I will be available to assist. Today patient is stable hemodynamically and respiratory Bilateral breath sounds ventilatory supported Left chest tubes are draining serosanguineous material, some grayish particulate matter but left chest appears to be clear on a.m. x-ray With this quite adequate drainage patient is not likely to develop an empyema but clearly with contamination this is a distinct possibility so we will see how he does Will continue to follow 03/06/2018 Remains intubated ventilated but hemodynamically improved and stabilized Bilateral pulmonary expansion and chest tubes on the left side have been by me and placed in separate Pleur-evacs The anterior chest tube is draining serosanguineous material over the posterior chest tube is draining particulate matter grayish brown in color Clearly retained fluid from the chest. Again is noted yesterday to question whether this is going to cause empyema but at this point the most important thing is adequate drainage and that certainly present Nothing to add at this time 03/07/2018 Patient intubated ventilated Agree with trickle feeds and see how he does Anterior chest tube draining clear material was a posterior chest tube is still somewhat dark brownish stuff but clearing up We will check chest x-ray Nothing to add at this time leave both tubes in place 03/08/2018 Bilateral breath sounds Remains intubated ventilated No evidence of any leak from anastomosis or otherwise Chest tube drainage has cleared up and is straw-colored no particulate material and lungs appear to be quite clear Would leave chest tubes in and then perhaps do a dilute Gastrografin through the gastrostomy tube to check the anastomotic integrity 03/10/2018 Anterior chest tube has been removed and posterior one is draining straw- colored fluid which is quite clear and does not appear to be contaminated Haemophilus parainfluenza cultures from the chest Infectious disease help is greatly appreciated At this point I would leave the left chest tube in for another few days until the drainage comes down to less than 150 cc for 24 hours and we can remove after that tube I agree that this time patient is unlikely to get empyema of the chest but you never know Objective Vital Signs / I&O: Vital Signs 03/09/18 16:31 03/09/18 16:46 03/09/18 17:00 Temperature Pulse Rate 106 H 111 H 109 H Respiratory Rate Blood Pressure 154/91 H 156/88 H Pulse Oximetry 95 92 L 91 L 03/09/18 17:01 03/09/18 17:02 03/09/18 17:16 Temperature Pulse Rate 112 H 113 H 108 H Respiratory Rate Blood Pressure 156/102 H 157/92 H 161/80 H Pulse Oximetry 90 L 90 L 93 L 03/09/18 17:31 03/09/18 17:46 03/09/18 18:00 Temperature Pulse Rate 99 H 99 H 98 H Respiratory Rate Blood Pressure 152/80 H 147/78 H Pulse Oximetry 91 L 91 L 95 03/09/18 18:01 03/09/18 18:16 03/09/18 18:31 Temperature Pulse Rate 96 H 96 H 96 H Respiratory Rate Blood Pressure 157/80 H 169/80 H 150/79 H Pulse Oximetry 95 95 95 03/09/18 18:46 03/09/18 19:00 03/09/18 19:01 Temperature Pulse Rate 101 H 94 H 93 H Respiratory Rate Blood Pressure 168/79 H 150/77 H Pulse Oximetry 95 95 95 03/09/18 19:16 03/09/18 19:31 03/09/18 19:46 Temperature Pulse Rate 91 H 96 H 98 H Respiratory Rate Blood Pressure 148/85 H 148/80 H 160/85 H Pulse Oximetry 95 95 95 03/09/18 19:50 03/09/18 19:55 03/09/18 20:00 Temperature 98.7 F Pulse Rate 95 H 96 H Respiratory Rate 20 Blood Pressure Pulse Oximetry 95 94 L 03/09/18 20:01 03/09/18 21:00 03/09/18 21:01 Temperature Pulse Rate 98 H 88 88 Respiratory Rate Blood Pressure 152/81 H 153/77 H Pulse Oximetry 95 94 L 94 L 03/09/18 22:00 03/09/18 22:28 03/09/18 23:00 Temperature Pulse Rate 92 H 86 83 Respiratory Rate 21 17 18 Blood Pressure 149/86 H 143/79 H Pulse Oximetry 92 L 94 L 94 L 03/10/18 00:00 03/10/18 01:00 03/10/18 02:00 Temperature 98.8 F Pulse Rate 83 81 82 Respiratory Rate 17 19 20 Blood Pressure 149/80 H 160/85 H 151/79 H Pulse Oximetry 95 95 95 03/10/18 03:00 03/10/18 04:00 03/10/18 05:00 Temperature 98.8 F Pulse Rate 81 91 H 77 Respiratory Rate 21 25 H 20 Blood Pressure 151/86 H 164/78 H 147/79 H Pulse Oximetry 95 93 L 97 03/10/18 06:00 03/10/18 07:00 03/10/18 08:00 Temperature 98.4 F Pulse Rate 76 84 88 Respiratory Rate 20 26 H 31 H Blood Pressure 149/87 H 153/76 H 118/73 Pulse Oximetry 97 94 L 93 L 03/10/18 09:00 03/10/18 10:00 03/10/18 11:00 Temperature Pulse Rate 84 84 91 H Respiratory Rate 26 H 26 H 35 H Blood Pressure 159/85 H 132/73 Pulse Oximetry 94 L 95 95 03/10/18 11:19 03/10/18 12:00 03/10/18 13:00 Temperature 98.8 F Pulse Rate 82 90 78 Respiratory Rate 26 H 31 H 23 Blood Pressure 132/77 122/90 139/84 Pulse Oximetry 99 96 100 03/10/18 14:00 03/10/18 15:00 03/10/18 16:00 Temperature 98.7 F Pulse Rate 78 82 74 Respiratory Rate 26 H 25 H 26 H Blood Pressure 145/75 H 149/97 H 129/77 Pulse Oximetry 100 95 99 Intake & Output 03/09/18 03/10/1818 18:59 06:59 18:59 Intake Total 1932 / 1932 1671 / 1671 1200 / 1200 Output Total 2380 / 2380 1880 / 1880 Balance -448 / -448 -209 / -209 1200 / 1200 Weight 82.1 kg Intake: IV 1800 / 1800 1300 / 1300 1200 / 1200 Precedex Inj 200 MCG In NS Inj 50 / 50 48 ML @ 0.2 MCG/KG/HR 4.14 mls/ hr IV.CONT TITRATE PRN Rx#: [id number] Diprivan 1000 mg/100 ml Inj 1, 100 / 100 000 mg In 100 ml @ 5 MCG/KG/MIN 2.166 mls/hr IV.CONT TITRATE PRN Rx#:[id number] Maxipime Inj 2,000 MG In NS Inj 100 / 100 100 / 100 100 / 100 100 ML @ 200 mls/hr IV.SIG Q12H KELSIE Rx#:[id number] Mycamine Inj 100 MG In NS Inj 100 / 100 100 ML @ 100 mls/hr IV.SIG Q24H KELSIE Rx#:[id number] NS Inj 1,000 ML @ 100 mls/hr IV 1000 / 1000 1000 / 1000 1000 / 1000 .SIG .Q10H KELSIE Rx#:[id number] fentaNYL 10 mcg/mL Premix Drip 250 / 250 2,500 mcg In 250 ml @ 50 MCG/HR 5 mls/hr IV.SIG TITRATE PRN Rx #:[id number] Flagyl 500 MG Inj 100 ML @ 100 200 / 200 200 / 200 100 / 100 mls/hr IV.SIG Q6H KELSIE Rx#: [id number] Tube Feeding 132 / 132 371 / 371 Output: Urine Amount (Catheter) 1999 1600 / 1600 Indwelling Urethral Catheter 1999 / 1599 Gastric Drainage 80 / 80 20 / 20 G tube 80 / 80 20 / 20 Wound Drainage 240 / 240 200 / 200 #1 Lft Abdomen 180 / 180 170 / 170 #2 Rt abdomen 60 / 60 30 / 30 Chest Tube Drainage 60 / 60 60 / 60 #2 Left Lower 60 / 60 60 / 60 Other: # Bowel Movements 0 Laboratory Results - last 24 hr 03/09/18 03/10/18 03/10/18 16:23 04:26 04:26 WBC 11.3 H RBC 3.53 L Hgb 12.4 L Hct 36.6 L MCV 103.6 H MCH 35.1 H MCHC 33.9 RDW 13.6 Plt Count 118 L D MPV 11.6 H Neut % (Auto) 82.9 H Lymph % (Auto) 8.8 L [place] % (Auto) 7.5 Eos % (Auto) 0.7 Baso % (Auto) 0.1 Neut # (Auto) 9.4 H Lymph # (Auto) 1.0 [place] # (Auto) 0.9 Eos # (Auto) 0.1 Baso # (Auto) 0.0 WBC Differential . 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
[2018-03-10] MEDS: Morphine Sulfate Inj 2 MG/ML Vial IV.PUSH PRN (21:03)
[2018-03-10] MEDS: Morphine Inj 4 MG/ML Vial IV.PUSH PRN (22:57)
[2018-03-11] MEDS: Oral Hygiene Kit OROPHARYNG SCH ×5 (00:35→23:48)
[2018-03-11] MEDS: Morphine Sulfate Inj 2 MG/ML Vial IV.PUSH PRN ×4 (00:35→13:54)
[2018-03-11 05:23] LABS: Baso % (Auto) 0.2 % (0.0-2.0); Eos # (Auto) 0.1 th/mm3 (0.0-0.4); Eos % (Auto) 1.1 % (0.0-4.0); Hematocrit 33.8 % (39.0-51.0); Hemoglobin 11.8 gm/dL (13.0-17.0); Lymph # (Auto) 1.1 th/mm3 (1.0-4.8); Lymph % (Auto) 8.7 % (9.0-44.0); Mean Corpuscular HGB Conc 34.9 % (32.0-36.0); Mean Corpuscular Hemoglobin 35.6 pg (27.0-34.0); Mean Corpuscular Volume 101.8 fL (80.0-100.0); Mean Platelet Volume 11.4 fL (7.0-11.0); Mono # (Auto) 1.4 th/mm3 (0.0-0.9); Mono % (Auto) 10.7 % (0.0-8.0); Neut # (Auto) 10.1 th/mm3 (1.8-7.7); Neut % (Auto) 79.3 % (16.0-70.0); Platelet Count 136 th/mm3 (150-450); Red Blood Count 3.32 mil/mm3 (4.50-5.90); Red Cell Distribution Width 13.8 % (11.6-17.2); White Blood Count 12.7 th/mm3 (4.0-11.0)
[2018-03-11 05:52] LABS: Calcium 7.4 mg/dL (8.5-10.1); Carbon Dioxide 31.3 meq/L (21.0-32.0); Magnesium 1.8 mg/dL (1.5-2.5); Potassium 3.2 meq/L (3.5-5.1)
[2018-03-11] MEDS: Potassium Chlor 20 mEq Premix 20 MEQ/100 ML PIGGYBACK IV.SIG PRN ×4 (06:02→15:22)
[2018-03-11 06:08] LABS: Albumin 1.8 g/dL (3.4-5.0); Calcium-Albumin Corrected 9.2 mg/dL (8.5-10.1)
[2018-03-11] MEDS: Morphine Inj 4 MG/ML Vial IV.PUSH PRN ×2 (08:11→20:40)
[2018-03-11] MEDS: Pantoprazole Inj 40 MG Vial IV.PUSH SCH (09:57)
[2018-03-11] MEDS: Multivit/Folic Acid/Minerals Chewable Tablets CHEW SCH (09:57)
[2018-03-11] MEDS: Chlorhexidine 0.12% Oral Kit 15 ML UDC OROPHARYNG SCH ×2 (09:57→20:34)
[2018-03-11] MEDS: Heparin - SQ 10,000 UNITS/ML Vial SQ SCH ×2 (09:58→20:40)
--- NOTE | 2018-03-11 10:22 | P.PNVS ---
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 This also resulted in a huge left pleural effusion with abdominal pain and chest pain. The patient was transferred to [facility] and then to us for further care. I am doing an intraoperative at this point regarding the chest condition. Physical examination is performed in the OR and I was present at the time of surgery. The patient does indeed have an intraabdominal perforation which is now being repaired by Dr. Storm. I discussed with him the issues regarding the chest. The patient apparently had significant chest contamination, which was washed out with saline and 2 large chest tubes were placed. This would be exactly what I would have done and, at this point, hopefully the patient will not develop empyema. If he does develop empyema or any signs of such, I will be available to assist. Today patient is stable hemodynamically and respiratory Bilateral breath sounds ventilatory supported Left chest tubes are draining serosanguineous material, some grayish particulate matter but left chest appears to be clear on a.m. x-ray With this quite adequate drainage patient is not likely to develop an empyema but clearly with contamination this is a distinct possibility so we will see how he does Will continue to follow 03/06/2018 Remains intubated ventilated but hemodynamically improved and stabilized Bilateral pulmonary expansion and chest tubes on the left side have been by me and placed in separate Pleur-evacs The anterior chest tube is draining serosanguineous material over the posterior chest tube is draining particulate matter grayish brown in color Clearly retained fluid from the chest. Again is noted yesterday to question whether this is going to cause empyema but at this point the most important thing is adequate drainage and that certainly present Nothing to add at this time 03/07/2018 Patient intubated ventilated Agree with trickle feeds and see how he does Anterior chest tube draining clear material was a posterior chest tube is still somewhat dark brownish stuff but clearing up We will check chest x-ray Nothing to add at this time leave both tubes in place 03/08/2018 Bilateral breath sounds Remains intubated ventilated No evidence of any leak from anastomosis or otherwise Chest tube drainage has cleared up and is straw-colored no particulate material and lungs appear to be quite clear Would leave chest tubes in and then perhaps do a dilute Gastrografin through the gastrostomy tube to check the anastomotic integrity 03/10/2018 Anterior chest tube has been removed and posterior one is draining straw- colored fluid which is quite clear and does not appear to be contaminated Haemophilus parainfluenza cultures from the chest Infectious disease help is greatly appreciated At this point I would leave the left chest tube in for another few days until the drainage comes down to less than 150 cc for 24 hours and we can remove after that tube I agree that this time patient is unlikely to get empyema of the chest but you never know 03/11/2018 Patient is doing better every day Remaining left chest tube drainage is down from 300 cc to about 120 cc over the last 24 hours Leave chest tube in place at this point and will remove chest tube the next few days At this point chance of empyema is certainly very low Objective Vital Signs / I&O: Vital Signs 03/10/18 11:00 03/10/18 11:19 03/10/18 12:00 Temperature 98.8 F Pulse Rate 91 H 82 90 Respiratory Rate 35 H 26 H 31 H Blood Pressure 132/77 122/90 Pulse Oximetry 95 99 96 03/10/18 13:00 03/10/18 14:00 03/10/18 15:00 Temperature Pulse Rate 78 78 82 Respiratory Rate 23 26 H 25 H Blood Pressure 139/84 145/75 H 149/97 H Pulse Oximetry 100 100 95 03/10/18 16:00 03/10/18 17:00 03/10/18 18:00 Temperature 98.7 F Pulse Rate 74 79 74 Respiratory Rate 26 H 28 H 26 H Blood Pressure 129/77 141/82 H 129/74 Pulse Oximetry 99 97 98 03/10/18 19:00 03/10/18 20:00 03/10/18 20:27 Temperature 99.3 F Pulse Rate 77 72 Respiratory Rate 22 24 Blood Pressure 142/73 H 132/81 Pulse Oximetry 99 97 98 03/10/18 21:00 03/10/18 22:00 03/10/18 23:00 Temperature Pulse Rate 81 72 80 Respiratory Rate 24 24 22 Blood Pressure 146/74 H 126/73 134/74 Pulse Oximetry 98 98 95 03/10/18 23:18 03/11/18 00:00 03/11/18 01:00 Temperature 99.2 F Pulse Rate 72 71 Respiratory Rate 18 24 24 Blood Pressure 133/71 133/73 Pulse Oximetry 96 96 03/11/18 02:00 03/11/18 03:00 03/11/18 04:00 Temperature 98.0 F Pulse Rate 73 70 82 Respiratory Rate 22 18 22 Blood Pressure 147/75 H 128/71 133/74 Pulse Oximetry 97 95 94 L 03/11/18 05:00 03/11/18 05:58 03/11/18 06:00 Temperature Pulse Rate 74 68 Respiratory Rate 24 18 14 Blood Pressure 135/75 136/75 Pulse Oximetry 96 96 Intake & Output 03/10/18 03/11/18 03/11/18 18:59 06:59 18:59 Intake Total 1436 / 1436 887 / 887 Output Total 1979 2633 / 2633 Balance -544 / -544 -1746 / -1746 Weight 78.1 kg Intake: IV 1300 / 1300 400 / 400 Maxipime Inj 2,000 MG In NS Inj 100 / 100 100 / 100 100 ML @ 200 mls/hr IV.SIG Q12H KELSIE Rx#:[id number] Mycamine Inj 100 MG In NS Inj 100 / 100 100 ML @ 100 mls/hr IV.SIG Q24H KELSIE Rx#:[id number] NS Inj 1,000 ML @ 100 mls/hr IV 1000 / 1000 .SIG .Q10H KELSIE Rx#:[id number] Flagyl 500 MG Inj 100 ML @ 100 200 / 200 200 / 200 mls/hr IV.SIG Q6H KELSIE Rx#: [id number] Tube Feeding 136 / 136 487 / 487 Output: Urine Amount (Catheter) 1849 2530 / 2530 Indwelling Urethral Catheter 1849 2530 / 2530 Gastric Drainage 10 / 10 3 / 3 G tube 10 / 10 3 / 3 Wound Drainage 100 / 100 60 / 60 #1 Lft Abdomen 20 / 20 60 / 60 #2 Rt abdomen 80 / 80 0 / 0 Chest Tube Drainage 20 / 20 40 / 40 #2 Left Lower 20 / 20 40 / 40 Laboratory Results - last 24 hr 03/11/18 03/11/18 04:05 04:05 WBC 12.7 H RBC 3.32 L Hgb 11.8 L Hct 33.8 L MCV 101.8 H MCH 35.6 H MCHC 34.9 RDW 13.8 Plt Count 136 L MPV 11.4 H Neut % (Auto) 79.3 H Lymph % (Auto) 8.7 L [place] % (Auto) 10.7 H Eos % (Auto) 1.1 Baso % (Auto) 0.2 Neut # (Auto) 10.1 H Lymph # (Auto) 1.1 [place] # (Auto) 1.4 H Eos # (Auto) 0.1 Baso # (Auto) 0.0 WBC Differential . 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
--- NOTE | 2018-03-11 10:48 | P.PNIM ---
Subjective Interval history: in no acute distress. has mild abdominal pain but with no nausea or vomiting. afebrile. chest tube in place. Physical Exam Vital signs: Last Vital Signs Temp 98.0 F 03/11/18 04:00 Pulse 68 03/11/18 06:00 Resp 14 03/11/18 06:00 BP 136/75 03/11/18 06:00 Pulse Ox 96 03/11/18 06:00 Intake & Output 03/09/18 03/10/18 03/11/18 03/12/18 06:59 06:59 06:59 06:59 Intake Total 4032 / 4032 3603 / 3603 2323 / 2323 Output Total 3093 / 3093 4260 / 4260 4613 / 4613 Balance 939 / 939 -657 / -657 -2290 / -2290 Weight 82.9 kg 82.1 kg 78.1 kg Constitutional no acute distress Routine Respiratory Exam Present CTA bilaterally Comments: chest tube in place. Routine Cardiovascular Exam Present RRR Routine Abdominal Exam Present soft Routine Extremities Exam Comments: no pedal edema. Routine Neurological Exam Present alert and oriented X3 Urinary Catheter Management Indwelling Urethral Catheter: Cath placed during this visit: no Results Labs CBC & Chem 7: 03/11/18 04:05 03/11/18 04:05 Assessment and Plan (1) Gastric perforation: Code(s): K25.5 - Chronic or unspecified gastric ulcer with perforation Status: Acute Continue sedation; increase enteral feeding as tolerated. All drains will stay in for now (2) Adenocarcinoma, gastric cardia: Code(s): C16.0 - Malignant neoplasm of cardia Status: Acute Plan A/P NEURO: Pain control Delirium precautions (frequent re-orientation, daily sedation vacations, lights on/ shades up during the day, limit nighttime disruptions) PULM: acute respiratory failure- s/p extubation- currently stable. Chest tube management as per surgery F/E/N: Chronic severe protein calorie malnutrition as evidenced by hypoalbuminemia, present on admission Continue to advance J tube feeds as per surgery, goal is 60 mL/hr Multivitamin supplement GI: Esophageal anastomotic leak s/p gastrectomy for gastric CA, secondary to patient non-compliance with recommended post-gastrectomy diet H/O gastric CA Surgical exploration and repair on 03/[address] Storm Continue chest tube as per surgery. ID: Mediastinal contamination s/p esophageal anastomotic leak Septic shock, improving started on cefepime/ flagyl/ micafungin- Abx per ID. Steroids discontinued HEME: Thrombocytopenia Normocytic anemia Thrombocytopenia likely secondary to sepsis, improving On SQH for DVT prophylaxis, ok to switch to lovenox if surgery prefers PROPHY: SCDs, SQH PPI (protonix) Progress Note: Quality VTE Deep Vein Thrombosis/Pulmonary Embolism Present on Admission: No
--- NOTE | 2018-03-11 10:58 | P.PNGS ---
Subjective Interval history: Awake and alert No issues overnight Physical Exam Vital signs: Vital Signs 03/10/18 11:00 03/10/18 11:19 03/10/18 12:00 Temperature 98.8 F Pulse Rate 91 H 82 90 Respiratory Rate 35 H 26 H 31 H Blood Pressure 132/77 122/90 Pulse Oximetry 95 99 96 03/10/18 13:00 03/10/18 14:00 03/10/18 15:00 Temperature Pulse Rate 78 78 82 Respiratory Rate 23 26 H 25 H Blood Pressure 139/84 145/75 H 149/97 H Pulse Oximetry 100 100 95 03/10/18 16:00 03/10/18 17:00 03/10/18 18:00 Temperature 98.7 F Pulse Rate 74 79 74 Respiratory Rate 26 H 28 H 26 H Blood Pressure 129/77 141/82 H 129/74 Pulse Oximetry 99 97 98 03/10/18 19:00 03/10/18 20:00 03/10/18 20:27 Temperature 99.3 F Pulse Rate 77 72 Respiratory Rate 22 24 Blood Pressure 142/73 H 132/81 Pulse Oximetry 99 97 98 03/10/18 21:00 03/10/18 22:00 03/10/18 23:00 Temperature Pulse Rate 81 72 80 Respiratory Rate 24 24 22 Blood Pressure 146/74 H 126/73 134/74 Pulse Oximetry 98 98 95 03/10/18 23:18 03/11/18 00:00 03/11/18 01:00 Temperature 99.2 F Pulse Rate 72 71 Respiratory Rate 18 24 24 Blood Pressure 133/71 133/73 Pulse Oximetry 96 96 03/11/18 02:00 03/11/18 03:00 03/11/18 04:00 Temperature 98.0 F Pulse Rate 73 70 82 Respiratory Rate 22 18 22 Blood Pressure 147/75 H 128/71 133/74 Pulse Oximetry 97 95 94 L 03/11/18 05:00 03/11/18 05:58 03/11/18 06:00 Temperature Pulse Rate 74 68 Respiratory Rate 24 18 14 Blood Pressure 135/75 136/75 Pulse Oximetry 96 96 Intake & Output 03/10/18 03/11/18 03/11/18 18:59 06:59 18:59 Intake Total 1436 / 1436 887 / 887 Output Total 1979 / 1979 2633 / 2633 Balance -544 / -544 -1746 / -1746 Weight 78.1 kg Intake: IV 1300 / 1300 400 / 400 Maxipime Inj 2,000 MG In NS Inj 100 / 100 100 / 100 100 ML @ 200 mls/hr IV.SIG Q12H KELSIE Rx#:[id number] Mycamine Inj 100 MG In NS Inj 100 / 100 100 ML @ 100 mls/hr IV.SIG Q24H KELSIE Rx#:[id number] NS Inj 1,000 ML @ 100 mls/hr IV 1000 / 1000 .SIG .Q10H KELSIE Rx#:[id number] Flagyl 500 MG Inj 100 ML @ 100 200 / 200 200 / 200 mls/hr IV.SIG Q6H KELSIE Rx#: [id number] Tube Feeding 136 / 136 487 / 487 Output: Urine Amount (Catheter) 1849 2530 / 2530 Indwelling Urethral Catheter 1849 2530 / 2530 Gastric Drainage 10 / 10 3 / 3 G tube 10 / 10 3 / 3 Wound Drainage 100 / 100 60 / 60 #1 Lft Abdomen 20 / 20 60 / 60 #2 Rt abdomen 80 / 80 0 / 0 Chest Tube Drainage 20 / 20 40 / 40 #2 Left Lower 20 / 20 40 / 40 Narrative: Awake and alert Resp: CTAB Abd: soft; G tube to gravity; J tube with TF; CHAR x2 both to biliary bags--- serous drainage; chest tube x 1 to LEFT side--- serous Generalized edema still present although greatly improved - Urinary Catheter Management Indwelling Urethral Catheter Cath placed during this visit: no Reason for continuing: Hourly intake/output Results - Labs 03/11/18 04:05 03/11/18 04:05 Laboratory Results - last 24 hr 03/11/18 03/11/18 04:05 04:05 WBC 12.7 H RBC 3.32 L Hgb 11.8 L Hct 33.8 L MCV 101.8 H MCH 35.6 H MCHC 34.9 RDW 13.8 Plt Count 136 L MPV 11.4 H Neut % (Auto) 79.3 H Lymph % (Auto) 8.7 L [place] % (Auto) 10.7 H Eos % (Auto) 1.1 Baso % (Auto) 0.2 Neut # (Auto) 10.1 H Lymph # (Auto) 1.1 [place] # (Auto) 1.4 H Eos # (Auto) 0.1 Baso # (Auto) 0.0 WBC Differential . Differential Comment Auto diff final Sodium 147 H Potassium 3.2 L D Chloride 109 H Carbon Dioxide 31.3 Anion Gap 7 BUN 17 Creatinine 1.06 Estimated GFR 68 L Random Glucose 159 H Calcium 7.4 L* Calcium Adj for Albumin 9.2 Magnesium 1.8 Albumin 1.8 L - Imaging Imaging: ITS Impressions Chest X-Ray 03/08/18 06:00 CONCLUSION: Persistent left lower lobe consolidation. Interval development of hazy opacity in the right mid and lower lung suggesting pleural effusion. Assessment and Plan - Assessment (1) Gastric perforation Code(s): K25.5 - Chronic or unspecified gastric ulcer with perforation Status : Acute Plan: 73 year old male s/p partial gastrectomy for adenocarcinoma, readmit for perforation at gastroesophageal anastomosis after vomiting -POD7 ex lap; repair of esophagogastric dehiscence; placement of G tube; placement of J tube; Chest washout and tube placement x 2 -Thoracic surgery following, chest tube continues to be serous now -Okay for swabs only -Will plan for Upper GI on Wednesday morning -Tolerating TF via j-tube, increase slowly as patient tolerates -Continue PT -Okay to transfer to the floor (2) Adenocarcinoma, 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
[2018-03-12] MEDS: Morphine Sulfate Inj 2 MG/ML Vial IV.PUSH PRN ×3 (01:01→15:16)
[2018-03-12] MEDS: Oral Hygiene Kit OROPHARYNG SCH ×4 (03:38→23:29)
[2018-03-12 04:52] LABS: Baso % (Auto) 0.2 % (0.0-2.0); Eos # (Auto) 0.1 th/mm3 (0.0-0.4); Eos % (Auto) 0.9 % (0.0-4.0); Hemoglobin 11.3 gm/dL (13.0-17.0); Lymph # (Auto) 1.1 th/mm3 (1.0-4.8); Lymph % (Auto) 8.1 % (9.0-44.0); Mean Corpuscular HGB Conc 35.2 % (32.0-36.0); Mean Corpuscular Hemoglobin 35.6 pg (27.0-34.0); Mean Corpuscular Volume 101.2 fL (80.0-100.0); Mean Platelet Volume 10.6 fL (7.0-11.0); Mono # (Auto) 1.4 th/mm3 (0.0-0.9); Mono % (Auto) 10.8 % (0.0-8.0); Neut # (Auto) 10.7 th/mm3 (1.8-7.7); Platelet Count 153 th/mm3 (150-450); Red Blood Count 3.17 mil/mm3 (4.50-5.90); Red Cell Distribution Width 13.7 % (11.6-17.2); White Blood Count 13.4 th/mm3 (4.0-11.0)
[2018-03-12 05:19] LABS: Calcium 7.4 mg/dL (8.5-10.1); Carbon Dioxide 30.2 meq/L (21.0-32.0); Magnesium 1.8 mg/dL (1.5-2.5); Potassium 3.6 meq/L (3.5-5.1)
[2018-03-12 05:27] LABS: Albumin 1.8 g/dL (3.4-5.0); Calcium-Albumin Corrected 9.2 mg/dL (8.5-10.1)
--- NOTE | 2018-03-12 08:13 | P.PNIM ---
Subjective Interval history: in no acute distress. has mild abdominal pain and some pain to the site of chest tube- but overall looks fairly comfortable. no nausea or vomiting. afebrile. d/w the RN and no acute issues over night. Physical Exam Vital signs: Last Vital Signs Temp 99.3 F 03/12/18 04:00 Pulse 75 03/12/18 06:00 Resp 24 03/12/18 06:51 BP 147/74 H 03/12/18 06:00 Pulse Ox 95 03/12/18 06:00 Intake & Output 03/10/18 03/11/18 03/12/18 03/13/18 06:59 06:59 06:59 06:59 Intake Total 3603 / 3603 2323 / 2323 2104 / 2104 Output Total 4260 / 4260 4613 / 4613 1510 / 1510 Balance -657 / -657 -2290 / -2290 594 / 594 Weight 82.1 kg 78.1 kg 78.4 kg Constitutional no acute distress Routine Respiratory Exam Present CTA bilaterally Routine Cardiovascular Exam Present RRR Routine Abdominal Exam Present soft Routine Extremities Exam Comments: no pedal edema. Routine Neurological Exam Present alert and oriented X3 Urinary Catheter Management Indwelling Urethral Catheter: Cath placed during this visit: no Results Labs CBC & Chem 7: 03/12/18 04:25 03/12/18 04:25 Labs: Microbiology 03/04/18 13:48 Fluid - Pleural fluid Fungal Smear - Final No fungal elements seen 03/04/18 13:48 Fluid - Pleural fluid Fungal Culture - Preliminary No growth in 1 week 03/04/18 13:48 Fluid - Pleural fluid Acid Fast Bacilli Smear - Final No acid fast bacilli seen 03/04/18 13:48 Fluid - Pleural fluid Mycobacterial Culture - Preliminary No growth in 1 week Assessment and Plan (1) Gastric perforation: Code(s): K25.5 - Chronic or unspecified gastric ulcer with perforation Status: Acute Continue sedation; increase enteral feeding as tolerated. 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 Chest tube management as per surgery F/E/N: Chronic severe protein calorie malnutrition as evidenced by hypoalbuminemia, present on admission Continue to advance J tube feeds as per surgery. Multivitamin supplement Esophageal anastomotic leak s/p gastrectomy for gastric CA, secondary to patient non-compliance with recommended post-gastrectomy diet H/O gastric CA Surgical exploration and repair on 03/[address] Storm Continue chest tube as per surgery. Mediastinal contamination s/p esophageal anastomotic leak Septic shock; resolved. started on cefepime/ flagyl/ micafungin- Abx per general surgery. Steroids discontinued Thrombocytopenia-resolved Normocytic anemia- fairly stable PROPHY: SCDs, [facility] ok for transfer to floor per general surgery. Progress Note: Quality VTE Deep Vein Thrombosis/Pulmonary Embolism Present on Admission: No
[2018-03-12] MEDS: Heparin - SQ 10,000 UNITS/ML Vial SQ SCH ×2 (09:53→20:11)
[2018-03-12] MEDS: Pantoprazole Inj 40 MG Vial IV.PUSH SCH (09:53)
[2018-03-12] MEDS: Multivit/Folic Acid/Minerals Chewable Tablets CHEW SCH (09:53)
[2018-03-12] MEDS: Chlorhexidine 0.12% Oral Kit 15 ML UDC OROPHARYNG SCH ×2 (09:53→20:11)
--- NOTE | 2018-03-12 11:56 | P.PNGS ---
Subjective Patient reports: feels better (Right shoulder pain this morning it is now much better. His pain is under good control. He desperately wants physical therapy come to see him to work with him. He was using water to keep his mouth moist but not swallowing anything.) Physical Exam Vital signs: Vital Signs 03/11/18 12:00 03/11/18 13:00 03/11/18 14:00 Temperature 98.4 F Pulse Rate 84 78 78 Respiratory Rate 21 24 22 Blood Pressure 119/76 121/67 137/69 Pulse Oximetry 95 92 L 91 L 03/11/18 15:00 03/11/18 16:00 03/11/18 17:00 Temperature 98.4 F Pulse Rate 76 88 83 Respiratory Rate 23 23 24 Blood Pressure 138/68 140/72 129/72 Pulse Oximetry 92 L 91 L 91 L 03/11/18 18:00 03/11/18 19:00 03/11/18 19:25 Temperature Pulse Rate 85 85 Respiratory Rate 22 26 H Blood Pressure 137/65 142/76 H Pulse Oximetry 92 L 92 L 93 L 03/11/18 20:00 03/11/18 20:42 03/11/18 21:00 Temperature 99.3 F Pulse Rate 82 81 Respiratory Rate 22 24 22 Blood Pressure 142/66 H 147/75 H Pulse Oximetry 92 L 93 L 03/11/18 22:00 03/11/18 23:00 03/12/18 00:00 Temperature 99.3 F Pulse Rate 74 75 80 Respiratory Rate 22 22 22 Blood Pressure 129/69 127/71 125/69 Pulse Oximetry 93 L 93 L 95 03/12/18 01:00 03/12/18 01:03 03/12/18 02:00 Temperature Pulse Rate 84 82 Respiratory Rate 22 18 19 Blood Pressure 147/71 H 139/70 Pulse Oximetry 95 94 L 03/12/18 03:00 03/12/18 04:00 03/12/18 05:00 Temperature 99.3 F Pulse Rate 77 83 84 Respiratory Rate 21 23 18 Blood Pressure 130/67 151/74 H 130/68 Pulse Oximetry 95 95 94 L 03/12/18 06:00 03/12/18 06:51 03/12/18 07:00 Temperature Pulse Rate 75 84 Respiratory Rate 18 24 31 H Blood Pressure 147/74 H 138/66 Pulse Oximetry 95 94 L 03/12/18 08:00 03/12/18 08:34 03/12/18 08:47 Temperature Pulse Rate 76 78 Respiratory Rate 28 H 22 Blood Pressure 141/67 H Pulse Oximetry 94 L 03/12/18 08:51 03/12/18 09:00 03/12/18 10:00 Temperature Pulse Rate 84 82 Respiratory Rate 35 H 31 H Blood Pressure 152/81 H 154/72 H Pulse Oximetry 94 L 94 L 94 L 03/12/18 11:00 Temperature Pulse Rate 80 Respiratory Rate 29 H Blood Pressure 153/72 H Pulse Oximetry 94 L Intake & Output 03/11/18 03/12/18 03/12/18 18:59 06:59 18:59 Intake Total 1243 / 1243 861 / 861 200 / 200 Output Total 760 / 760 750 / 750 Balance 483 / 483 111 / 111 200 / 200 Weight 78.4 kg Intake: IV 800 / 800 300 / 300 200 / 200 Maxipime Inj 2,000 MG In NS Inj 100 / 100 100 / 100 100 / 100 100 ML @ 200 mls/hr IV.SIG Q12H [facility] Rx#:[id number] Mycamine Inj 100 MG In NS Inj 100 / 100 100 ML @ 100 mls/hr IV.SIG Q24H [facility] Rx#:[id number] KCl 20 mEq Premix Inj 20 meq In 400 / 400 100 ml @ 50 mls/hr IV.SIG Q2H [facility] Rx#:[id number] Flagyl 500 MG Inj 100 ML @ 100 200 / 200 200 / 200 100 / 100 mls/hr IV.SIG Q6H [facility] Rx#: [id number] Tube Feeding 443 / 443 561 / 561 Output: Urine Amount (Catheter) 600 / 600 750 / 750 Indwelling Urethral Catheter 600 / 600 750 / 750 Gastric Drainage 5 / 5 G tube 5 / 5 Wound Drainage 75 / 75 0 / 0 #1 Lft Abdomen 60 / 60 0 / 0 #2 Rt abdomen 15 / 15 0 / 0 Chest Tube Drainage 80 / 80 0 / 0 #2 Left Lower 80 / 80 0 / 0 Other: # Bowel Movements 0 Narrative: His breath sounds are clear to auscultation anteriorly bilaterally. His heart sounds are regular. There is a left chest tube is not draining much. There is a small leak. His abdomen is soft and nondistended. His upper midline incision is healing well. [place] are intact. There is no drainage or erythema. His G-tube site appears uncomplicated as well. There is minimal drainage from his G-tube. There is minimal drainage from his drain. His extremities are nonedematous. Sequential compression devices are in place. - Urinary Catheter Management Indwelling Urethral Catheter Cath placed during this visit: no Reason for continuing: Hourly intake/output Results - Labs 03/12/18 04:25 03/12/18 04:25 Laboratory Results - last 24 hr 03/11/18 03/12/18 03/12/18 23:47 04:25 04:25 WBC 13.4 H RBC 3.17 L Hgb 11.3 L Hct 32.0 L MCV 101.2 H MCH 35.6 H MCHC 35.2 RDW 13.7 Plt Count 153 MPV 10.6 Neut % (Auto) 80.0 H Lymph % (Auto) 8.1 L [place] % (Auto) 10.8 H Eos % (Auto) 0.9 Baso % (Auto) 0.2 Neut # (Auto) 10.7 H Lymph # (Auto) 1.1 [place] # (Auto) 1.4 H Eos # (Auto) 0.1 Baso # (Auto) 0.0 WBC Differential . Differential Comment Auto diff final Sodium 146 H Potassium 3.8 3.6 Chloride 110 H Carbon Dioxide 30.2 Anion Gap 6 BUN 23 H Creatinine 0.98 Estimated GFR 75 L Random Glucose 158 H Calcium 7.4 L* Calcium Adj for Albumin 9.2 Magnesium 1.8 Albumin 1.8 L - Imaging Imaging: ITS Impressions Chest X-Ray 03/08/18 06:00 CONCLUSION: Persistent left lower lobe consolidation. Interval development of hazy opacity in the right mid and lower lung suggesting pleural effusion. Assessment and Plan - Assessment (1) Gastric perforation Code(s): K25.5 - Chronic or unspecified gastric ulcer with perforation Status : Acute Plan: 73 year old male s/p partial gastrectomy for adenocarcinoma, readmit for perforation at gastroesophageal anastomosis after vomiting -POD7 ex lap; repair of esophagogastric dehiscence; placement of G tube; placement of J tube; Chest washout and tube placement x 2 -Thoracic surgery following, chest tube continues to be serous now -Okay for swabs only -Will plan for Upper GI on Wednesday morning -Tolerating TF via j-tube, increase slowly as patient tolerates -Continue PT -Okay to transfer to the floor (2) Adenocarcinoma, 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 Continue supportive therapy. Plans for upper GI on Wednesday to evaluate for healing. Discussed in detail with patient and . I discussed with bedside RN getting the patient out of bed, apparently physical therapy is not seeing old patient's today only new patients.
[2018-03-12] MEDS: Sod Chloride 0.9% Inj 1,000 ML IV.SIG SCH (15:17)
[2018-03-13] MEDS: Morphine Sulfate Inj 2 MG/ML Vial IV.PUSH PRN ×4 (02:17→22:13)
[2018-03-13] MEDS: Oral Hygiene Kit OROPHARYNG SCH ×3 (04:42→15:12)
[2018-03-13 07:24] LABS: Baso % (Auto) 0.3 % (0.0-2.0); Eos # (Auto) 0.1 th/mm3 (0.0-0.4); Eos % (Auto) 0.8 % (0.0-4.0); Hematocrit 29.7 % (39.0-51.0); Hemoglobin 10.4 gm/dL (13.0-17.0); Lymph # (Auto) 1.1 th/mm3 (1.0-4.8); Lymph % (Auto) 8.7 % (9.0-44.0); Mean Corpuscular HGB Conc 35.1 % (32.0-36.0); Mean Corpuscular Hemoglobin 35.6 pg (27.0-34.0); Mean Corpuscular Volume 101.6 fL (80.0-100.0); Mean Platelet Volume 10.9 fL (7.0-11.0); Mono # (Auto) 1.3 th/mm3 (0.0-0.9); Mono % (Auto) 10.4 % (0.0-8.0); Neut % (Auto) 79.8 % (16.0-70.0); Platelet Count 161 th/mm3 (150-450); Red Blood Count 2.92 mil/mm3 (4.50-5.90); Red Cell Distribution Width 13.7 % (11.6-17.2); White Blood Count 12.6 th/mm3 (4.0-11.0)
[2018-03-13] MEDS: Chlorhexidine 0.12% Oral Kit 15 ML UDC OROPHARYNG SCH ×2 (07:38→22:05)
[2018-03-13 07:42] LABS: Calcium 7.3 mg/dL (8.5-10.1); Carbon Dioxide 30.9 meq/L (21.0-32.0); Magnesium 1.9 mg/dL (1.5-2.5); Potassium 3.5 meq/L (3.5-5.1)
[2018-03-13 08:07] LABS: Albumin 1.7 g/dL (3.4-5.0); Calcium-Albumin Corrected 9.1 mg/dL (8.5-10.1)
[2018-03-13] MEDS: Multivit/Folic Acid/Minerals Chewable Tablets CHEW SCH (08:30)
[2018-03-13] MEDS: Heparin - SQ 10,000 UNITS/ML Vial SQ SCH ×2 (08:30→22:05)
--- NOTE | 2018-03-13 09:40 | P.PNGS ---
Subjective Patient reports: feels better, flatus Physical Exam Vital signs: Vital Signs 03/12/18 10:00 03/12/18 11:00 03/12/18 12:00 Temperature Pulse Rate 82 80 78 Respiratory Rate 31 H 29 H 30 H Blood Pressure 154/72 H 153/72 H 148/78 H Pulse Oximetry 94 L 94 L 93 L 03/12/18 13:00 03/12/18 14:00 03/12/18 15:00 Temperature Pulse Rate 81 76 77 Respiratory Rate 34 H 33 H 29 H Blood Pressure 158/87 H 156/77 H 170/83 H Pulse Oximetry 93 L 96 94 L 03/12/18 16:00 03/12/18 16:54 03/12/18 17:00 Temperature Pulse Rate 75 79 Respiratory Rate 27 H 18 28 H Blood Pressure 144/70 H 151/73 H Pulse Oximetry 94 L 95 03/12/18 18:00 03/12/18 19:00 03/12/18 20:00 Temperature 98.7 F Pulse Rate 82 76 75 Respiratory Rate 29 H 23 21 Blood Pressure 155/75 H 158/75 H 141/74 H Pulse Oximetry 94 L 94 L 93 L 03/12/18 20:02 03/12/18 21:00 03/12/18 22:00 Temperature Pulse Rate 80 80 Respiratory Rate 19 29 H Blood Pressure 140/71 149/75 H Pulse Oximetry 94 L 92 L 94 L 03/13/18 02:39 03/13/18 04:00 03/13/18 08:00 Temperature 100.3 F H 99.6 F 99.0 F Pulse Rate 77 82 84 Respiratory Rate 18 18 16 Blood Pressure 137/80 146/66 H 146/80 H Pulse Oximetry 96 95 95 Intake & Output 03/12/18 03/13/18 03/13/18 18:59 06:59 18:59 Intake Total 929 / 929 863 / 863 Output Total 1180 / 1180 1575 / 1575 Balance -251 / -251 -712 / -712 Weight 73.6 kg Intake: IV 400 / 400 300 / 300 Maxipime Inj 2,000 MG In NS Inj 100 / 100 100 / 100 100 ML @ 200 mls/hr IV.SIG Q12H [facility] Rx#:[id number] Mycamine Inj 100 MG In NS Inj 100 / 100 100 ML @ 100 mls/hr IV.SIG Q24H [facility] Rx#:[id number] Flagyl 500 MG Inj 100 ML @ 100 200 / 200 200 / 200 mls/hr IV.SIG Q6H [facility] Rx#: [id number] Tube Feeding 529 / 529 563 / 563 Output: Urine 800 / 800 Urine Amount (Catheter) 950 / 950 350 / 350 Indwelling Urethral Catheter 950 / 950 350 / 350 Gastric Drainage 0 / 0 45 / 45 G tube 0 / 0 45 / 45 Wound Drainage 140 / 140 330 / 330 #1 Lft Abdomen 60 / 60 150 / 150 #2 Rt abdomen 80 / 80 180 / 180 Chest Tube Drainage 90 / 90 50 / 50 #2 Left Lower 90 / 90 50 / 50 Other: # Bowel Movements 0 - Constitutional no acute distress - Routine Respiratory Exam Present: CTA bilaterally (chest tube in place c/d/i) - Routine Cardiovascular Exam Present: RRR - Routine Abdominal Exam Present: soft (incision c/d/i drains in place) - Urinary Catheter Management Indwelling Urethral Catheter Cath placed during this visit: no Reason for continuing: Hourly intake/output Results - Labs 03/13/18 06:33 03/13/18 06:33 Laboratory Results - last 24 hr 03/13/18 03/13/18 06:33 06:33 WBC 12.6 H RBC 2.92 L Hgb 10.4 L Hct 29.7 L MCV 101.6 H MCH 35.6 H MCHC 35.1 RDW 13.7 Plt Count 161 MPV 10.9 Neut % (Auto) 79.8 H Lymph % (Auto) 8.7 L [place] % (Auto) 10.4 H Eos % (Auto) 0.8 Baso % (Auto) 0.3 Neut # (Auto) 10.0 H Lymph # (Auto) 1.1 [place] # (Auto) 1.3 H Eos # (Auto) 0.1 Baso # (Auto) 0.0 WBC Differential . Differential Comment Auto diff final Sodium 146 H Potassium 3.5 Chloride 110 H Carbon Dioxide 30.9 Anion Gap 5 BUN 24 H Creatinine 0.94 Estimated GFR 78 L Random Glucose 155 H Calcium 7.3 L* Calcium Adj for Albumin 9.1 Magnesium 1.9 Albumin 1.7 L - Imaging Imaging: ITS Impressions Chest X-Ray 03/08/18 06:00 CONCLUSION: Persistent left lower lobe consolidation. Interval development of hazy opacity in the right mid and lower lung suggesting pleural effusion. Assessment and Plan - Assessment (1) Gastric perforation Code(s): K25.5 - Chronic or unspecified gastric ulcer with perforation Status : Acute Plan: 73 year old male s/p partial gastrectomy for adenocarcinoma, readmit for perforation at gastroesophageal anastomosis after vomiting transferred to floor doing better -POD8 ex lap; repair of esophagogastric dehiscence; placement of G tube; placement of J tube; Chest washout and tube placement x 2 -Thoracic surgery following, chest tube continues to be serous now -Okay for swabs only , NPO -Will plan for Upper GI tomorrow -Tolerating TF via j-tube, increase slowly as patient tolerates -Continue PT (2) Adenocarcinoma, 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
[2018-03-13] MEDS: Pantoprazole Inj 40 MG Vial IV.PUSH SCH (10:31)
--- NOTE | 2018-03-13 16:41 | P.PNIM ---
Subjective Interval history: Nursing denies any acute changes overnight. Patient himself reports having some pain at the site of his chest tube insertion. Denies any abdominal issues, nausea, vomiting. Physical Exam Vital signs: Vital Signs 03/12/18 16:54 03/12/18 17:00 03/12/18 18:00 Temperature Pulse Rate 79 82 Respiratory Rate 18 28 H 29 H Blood Pressure 151/73 H 155/75 H Pulse Oximetry 95 94 L 03/12/18 19:00 03/12/18 20:00 03/12/18 20:02 Temperature 98.7 F Pulse Rate 76 75 Respiratory Rate 23 21 Blood Pressure 158/75 H 141/74 H Pulse Oximetry 94 L 93 L 94 L 03/12/18 21:00 03/12/18 22:00 03/13/18 02:39 Temperature 100.3 F H Pulse Rate 80 80 77 Respiratory Rate 19 29 H 18 Blood Pressure 140/71 149/75 H 137/80 Pulse Oximetry 92 L 94 L 96 03/13/18 04:00 03/13/18 08:00 03/13/18 12:00 Temperature 99.6 F 99.0 F 97.7 F Pulse Rate 82 84 81 Respiratory Rate 18 16 17 Blood Pressure 146/66 H 146/80 H 153/80 H Pulse Oximetry 95 95 95 Intake & Output 03/12/18 03/13/18 03/13/18 18:59 06:59 18:59 Intake Total 929 / 929 863 / 863 400 / 400 Output Total 1180 / 1180 1575 / 1575 490 / 490 Balance -251 / -251 -712 / -712 -90 / -90 Weight 73.6 kg Intake: IV 400 / 400 300 / 300 400 / 400 Maxipime Inj 2,000 MG In NS Inj 100 / 100 100 / 100 100 / 100 100 ML @ 200 mls/hr IV.SIG Q12H [facility] Rx#:[id number] Mycamine Inj 100 MG In NS Inj 100 / 100 100 / 100 100 ML @ 100 mls/hr IV.SIG Q24H [facility] Rx#:[id number] Flagyl 500 MG Inj 100 ML @ 100 200 / 200 200 / 200 200 / 200 mls/hr IV.SIG Q6H [facility] Rx#: [id number] Tube Feeding 529 / 529 563 / 563 Output: Urine 800 / 800 Urine Amount (Catheter) 950 / 950 350 / 350 Indwelling Urethral Catheter 950 / 950 350 / 350 Gastric Drainage 0 / 0 45 / 45 125 / 125 G tube 0 / 0 45 / 45 125 / 125 Wound Drainage 140 / 140 330 / 330 325 / 325 #1 Lft Abdomen 60 / 60 150 / 150 300 / 300 #2 Rt abdomen 80 / 80 180 / 180 25 / 25 Chest Tube Drainage 90 / 90 50 / 50 40 / 40 #2 Left Lower 90 / 90 50 / 50 40 / 40 Other: # Bowel Movements 0 Narrative: Abdomen soft, nontender, PEG tube in place Clear lungs bilaterally, chest tube in place over left lung field Heart sounds regular rate and rhythm Lying in bed, awake, alert, no acute distress No lower extremity edema - Urinary Catheter Management Indwelling Urethral Catheter Cath placed during this visit: no Reason for continuing: Hourly intake/output Results - Labs CBC & Chem 7: 03/13/18 06:33 03/13/18 06:33 Laboratory Results - last 24 hr 03/13/18 03/13/18 06:33 06:33 WBC 12.6 H RBC 2.92 L Hgb 10.4 L Hct 29.7 L MCV 101.6 H MCH 35.6 H MCHC 35.1 RDW 13.7 Plt Count 161 MPV 10.9 Neut % (Auto) 79.8 H Lymph % (Auto) 8.7 L [place] % (Auto) 10.4 H Eos % (Auto) 0.8 Baso % (Auto) 0.3 Neut # (Auto) 10.0 H Lymph # (Auto) 1.1 [place] # (Auto) 1.3 H Eos # (Auto) 0.1 Baso # (Auto) 0.0 WBC Differential . Differential Comment Auto diff final Sodium 146 H Potassium 3.5 Chloride 110 H Carbon Dioxide 30.9 Anion Gap 5 BUN 24 H Creatinine 0.94 Estimated GFR 78 L Random Glucose 155 H Calcium 7.3 L* Calcium Adj for Albumin 9.1 Magnesium 1.9 Albumin 1.7 L Assessment and Plan - Assessment (1) Gastric perforation Code(s): K25.5 - Chronic or unspecified gastric ulcer with perforation Status : Acute Plan: Continue sedation; increase enteral feeding as tolerated. 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 History of gastric cancer. Patient was admitted to the ICU on mechanical ventilation and started on pressor support and abx for septic shock. He had 2 chest tubes inserted in the OR on 03/04 due to suspected mediastinal contamination, one anterior and one posterior, underwent surgical exploration and repair by gen surg. Eventually had anterior chest tube removed on 03/10, pleural fluid cultures growing Haemophilus parainfluenza. Is currently tolerating feeds via J-tube, G-tube is to gravity. Acute respiratory failure Wean O2 to room air as tolerated Esophageal anastomotic leak s/p gastrectomy for gastric CA, secondary to patient non-compliance with recommended post-gastrectomy diet -Surgical exploration and repair on 03/[address] Storm -upper GI workup jose per gen surg Pleural effusion + mediastinal contamination 2/2 intrabdominal perforation -CTS following and managing chest tube - cultures growing Haemophilus parainfluenza, consulting infectious disease Septic shock Shock element resolved -continue cefepime and Flagyl and micafungin Severe chronic protein malnutrition j-tube feeds for now
[2018-03-14] MEDS: Oral Hygiene Kit OROPHARYNG SCH ×4 (01:20→17:39)
[2018-03-14] MEDS: Morphine Sulfate Inj 2 MG/ML Vial IV.PUSH PRN ×2 (02:01→21:20)
[2018-03-14 07:14] LABS: Baso % (Auto) 0.2 % (0.0-2.0); Eos # (Auto) 0.1 th/mm3 (0.0-0.4); Eos % (Auto) 0.4 % (0.0-4.0); Hematocrit 31.2 % (39.0-51.0); Hemoglobin 10.8 gm/dL (13.0-17.0); Lymph # (Auto) 1.2 th/mm3 (1.0-4.8); Lymph % (Auto) 8.2 % (9.0-44.0); Mean Corpuscular HGB Conc 34.6 % (32.0-36.0); Mean Corpuscular Hemoglobin 35.3 pg (27.0-34.0); Mean Corpuscular Volume 102.1 fL (80.0-100.0); Mean Platelet Volume 11.5 fL (7.0-11.0); Mono # (Auto) 1.4 th/mm3 (0.0-0.9); Mono % (Auto) 9.8 % (0.0-8.0); Neut # (Auto) 11.5 th/mm3 (1.8-7.7); Neut % (Auto) 81.4 % (16.0-70.0); Platelet Count 190 th/mm3 (150-450); Red Blood Count 3.06 mil/mm3 (4.50-5.90); Red Cell Distribution Width 13.5 % (11.6-17.2); White Blood Count 14.1 th/mm3 (4.0-11.0)
[2018-03-14 07:43] LABS: Calcium 7.4 mg/dL (8.5-10.1); Carbon Dioxide 29.6 meq/L (21.0-32.0); Magnesium 2.1 mg/dL (1.5-2.5); Potassium 3.6 meq/L (3.5-5.1)
[2018-03-14 07:54] LABS: Albumin 1.9 g/dL (3.4-5.0); Calcium-Albumin Corrected 9.1 mg/dL (8.5-10.1)
--- NOTE | 2018-03-14 08:22 | P.PNVS ---
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 This also resulted in a huge left pleural effusion with abdominal pain and chest pain. The patient was transferred to [facility] and then to us for further care. I am doing an intraoperative at this point regarding the chest condition. Physical examination is performed in the OR and I was present at the time of surgery. The patient does indeed have an intraabdominal perforation which is now being repaired by Dr. Storm. I discussed with him the issues regarding the chest. The patient apparently had significant chest contamination, which was washed out with saline and 2 large chest tubes were placed. This would be exactly what I would have done and, at this point, hopefully the patient will not develop empyema. If he does develop empyema or any signs of such, I will be available to assist. Today patient is stable hemodynamically and respiratory Bilateral breath sounds ventilatory supported Left chest tubes are draining serosanguineous material, some grayish particulate matter but left chest appears to be clear on a.m. x-ray With this quite adequate drainage patient is not likely to develop an empyema but clearly with contamination this is a distinct possibility so we will see how he does Will continue to follow 03/06/2018 Remains intubated ventilated but hemodynamically improved and stabilized Bilateral pulmonary expansion and chest tubes on the left side have been by me and placed in separate Pleur-evacs The anterior chest tube is draining serosanguineous material over the posterior chest tube is draining particulate matter grayish brown in color Clearly retained fluid from the chest. Again is noted yesterday to question whether this is going to cause empyema but at this point the most important thing is adequate drainage and that certainly present Nothing to add at this time 03/07/2018 Patient intubated ventilated Agree with trickle feeds and see how he does Anterior chest tube draining clear material was a posterior chest tube is still somewhat dark brownish stuff but clearing up We will check chest x-ray Nothing to add at this time leave both tubes in place 03/08/2018 Bilateral breath sounds Remains intubated ventilated No evidence of any leak from anastomosis or otherwise Chest tube drainage has cleared up and is straw-colored no particulate material and lungs appear to be quite clear Would leave chest tubes in and then perhaps do a dilute Gastrografin through the gastrostomy tube to check the anastomotic integrity 03/10/2018 Anterior chest tube has been removed and posterior one is draining straw- colored fluid which is quite clear and does not appear to be contaminated Haemophilus parainfluenza cultures from the chest Infectious disease help is greatly appreciated At this point I would leave the left chest tube in for another few days until the drainage comes down to less than 150 cc for 24 hours and we can remove after that tube I agree that this time patient is unlikely to get empyema of the chest but you never know 03/11/2018 Patient is doing better every day Remaining left chest tube drainage is down from 300 cc to about 120 cc over the last 24 hours Leave chest tube in place at this point and will remove chest tube the next few days At this point chance of empyema is certainly very low 03/13/2018 Chest tube drainage is straw-colored and clean Will do chest x-ray and if okay will remove the chest tube today Patient doing very well at this time Objective Vital Signs / I&O: Vital Signs 03/13/18 12:00 03/13/18 16:00 03/13/18 20:00 Temperature 97.7 F 99.8 F H 98.9 F Pulse Rate 81 79 83 Respiratory Rate 17 17 18 Blood Pressure 153/80 H 158/77 H 143/74 H Pulse Oximetry 95 93 L 95 03/14/18 00:00 03/14/18 04:00 Temperature 99.7 F H 98.7 F Pulse Rate 81 80 Respiratory Rate 18 18 Blood Pressure 148/77 H 148/78 H Pulse Oximetry 95 97 Intake & Output 03/13/18 03/14/18 03/14/18 18:59 06:59 18:59 Intake Total 400 / 400 860 / 860 Output Total 1540 / 1540 1755 / 1755 Balance -1140 / -1140 -895 / -895 Weight 71.8 kg Intake: IV 400 / 400 300 / 300 Maxipime Inj 2,000 MG In NS Inj 100 / 100 100 / 100 100 ML @ 200 mls/hr IV.SIG Q12H [facility] Rx#:[id number] Mycamine Inj 100 MG In NS Inj 100 / 100 100 ML @ 100 mls/hr IV.SIG Q24H [facility] Rx#:[id number] Flagyl 500 MG Inj 100 ML @ 100 200 / 200 200 / 200 mls/hr IV.SIG Q6H [facility] Rx#: [id number] Oral 0 / 0 0 / 0 Tube Feeding 310 / 310 Tube Irrigant 250 / 250 Output: Urine 650 / 650 Urine Amount (Catheter) 1050 / 1050 550 / 550 Indwelling Urethral Catheter 1050 / 1050 550 / 550 Gastric Drainage 125 / 125 325 / 325 G tube 125 / 125 325 / 325 Wound Drainage 325 / 325 200 / 200 #1 Lft Abdomen 300 / 300 175 / 175 #2 Rt abdomen 25 / 25 25 / 25 Chest Tube Drainage 40 / 40 30 / 30 #2 Left Lower 40 / 40 30 / 30 Other: # Voids 1 # Bowel Movements 0 Laboratory Results - last 24 hr 03/13/18 03/14/18 03/14/18 06:33 05:44 05:54 WBC 14.1 H RBC 3.06 L Hgb 10.8 L Hct 31.2 L MCV 102.1 H MCH 35.3 H MCHC 34.6 RDW 13.5 Plt Count 190 MPV 11.5 H Neut % (Auto) 81.4 H Lymph % (Auto) 8.2 L [place] % (Auto) 9.8 H Eos % (Auto) 0.4 Baso % (Auto) 0.2 Neut # (Auto) 11.5 H Lymph # (Auto) 1.2 [place] # (Auto) 1.4 H Eos # (Auto) 0.1 Baso # (Auto) 0.0 WBC Differential . 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
--- NOTE | 2018-03-14 09:17 | XR ---
EXAM DATE: 03/14/2018 9:09 AM EST AGE/SEX: 73 years / Male INDICATIONS: Short of breath. CLINICAL DATA: This is the patient's subsequent encounter. Patient reports that signs and symptoms h ave been present for 3 days and indicates a pain score of 1/10. MEDICAL/SURGICAL HISTORY: . Crohn's disease. Carcinoma, gastric. Hypertension. Prostate cancer. . Prostatectomy Fusion, cervical. Tonsillectomy. Cholecystectomy. COMPARISON: [facility] [place], CHEST 1V SINGLE AP, 03/08/2018. . FINDINGS: A left-sided chest tube is noted within the left lung base. No pneumothorax is noted. There is minima l patchiness within the left lung base consistent with atelectasis and/or infiltrate. Minimal central pulmonary vascular congestion is noted. The heart is enlarged. CONCLUSION: 1. Minimal central pulmonary vascular congestion. 2. Minimal patchiness within the left lung base consistent with atelectasis/or infiltrate. 3. Cardiomegaly. Electronically signed by: Ronn Whitmore MD Board Certified Radiologist 03/14/2018 9:16 AM EST
--- NOTE | 2018-03-14 09:40 | P.PNGS ---
Subjective Interval history: Just on stretcher to go down to radiology Physical Exam Vital signs: Vital Signs 03/13/18 12:00 03/13/18 16:00 03/13/18 20:00 Temperature 97.7 F 99.8 F H 98.9 F Pulse Rate 81 79 83 Respiratory Rate 17 17 18 Blood Pressure 153/80 H 158/77 H 143/74 H Pulse Oximetry 95 93 L 95 03/14/18 00:00 03/14/18 04:00 Temperature 99.7 F H 98.7 F Pulse Rate 81 80 Respiratory Rate 18 18 Blood Pressure 148/77 H 148/78 H Pulse Oximetry 95 97 Intake & Output 03/13/18 03/14/18 03/14/18 18:59 06:59 18:59 Intake Total 400 / 400 860 / 860 Output Total 1540 / 1540 1755 / 1755 Balance -1140 / -1140 -895 / -895 Weight 71.8 kg Intake: IV 400 / 400 300 / 300 Maxipime Inj 2,000 MG In NS Inj 100 / 100 100 / 100 100 ML @ 200 mls/hr IV.SIG Q12H KELSIE Rx#:[id number] Mycamine Inj 100 MG In NS Inj 100 / 100 100 ML @ 100 mls/hr IV.SIG Q24H KELSIE Rx#:[id number] Flagyl 500 MG Inj 100 ML @ 100 200 / 200 200 / 200 mls/hr IV.SIG Q6H KELSIE Rx#: [id number] Oral 0 / 0 0 / 0 Tube Feeding 310 / 310 Tube Irrigant 250 / 250 Output: Urine 650 / 650 Urine Amount (Catheter) 1050 / 1050 550 / 550 Indwelling Urethral Catheter 1050 / 1050 550 / 550 Gastric Drainage 125 / 125 325 / 325 G tube 125 / 125 325 / 325 Wound Drainage 325 / 325 200 / 200 #1 Lft Abdomen 300 / 300 175 / 175 #2 Rt abdomen 25 / 25 25 / 25 Chest Tube Drainage 40 / 40 30 / 30 #2 Left Lower 40 / 40 30 / 30 Other: # Voids 1 # Bowel Movements 0 Narrative: Alert and awake Abd: soft; minimal tenderness; G tube to gravity bag; J tube capped to go to radiology; JPs to biliary bags; LEFT chest tube with serous drainage in place Generalized edema improved - Urinary Catheter Management Indwelling Urethral Catheter Cath placed during this visit: yes, but has since been removed by the nurse Reason for continuing: Decision to DC catheter Removal date: 03/13/18 Removal time: 21:42 Results - Labs 03/15/18 05:30 03/15/18 05:30 Laboratory Results - last 24 hr 03/14/18 03/14/18 05:44 05:54 WBC 14.1 H RBC 3.06 L Hgb 10.8 L Hct 31.2 L MCV 102.1 H MCH 35.3 H MCHC 34.6 RDW 13.5 Plt Count 190 MPV 11.5 H Neut % (Auto) 81.4 H Lymph % (Auto) 8.2 L [place] % (Auto) 9.8 H Eos % (Auto) 0.4 Baso % (Auto) 0.2 Neut # (Auto) 11.5 H Lymph # (Auto) 1.2 [place] # (Auto) 1.4 H Eos # (Auto) 0.1 Baso # (Auto) 0.0 WBC Differential . Differential Comment Auto diff final Sodium 144 Potassium 3.6 Chloride 108 H Carbon Dioxide 29.6 Anion Gap 6 BUN 23 H Creatinine 0.88 Estimated GFR 85 L Random Glucose 98 Calcium 7.4 L* Calcium Adj for Albumin 9.1 Magnesium 2.1 Albumin 1.9 L - Imaging Imaging: ITS Impressions Chest X-Ray 03/14/18 00:00 CONCLUSION: 1. Minimal central pulmonary vascular congestion. 2. Minimal patchiness within the left lung base consistent with atelectasis/or infiltrate. 3. Cardiomegaly. Assessment and Plan - Assessment (1) Gastric perforation Code(s): K25.5 - Chronic or unspecified gastric ulcer with perforation Status : Acute Plan: 73 year old male s/p partial gastrectomy for adenocarcinoma, readmit for perforation at gastroesophageal anastomosis after vomiting transferred to floor doing better -s/p ex lap; repair of esophagogastric dehiscence; placement of G tube; placement of J tube; Chest washout and tube placement x 2 -Thoracic surgery following, chest tube continues to be serous now; CXR pending -Okay for swabs only, NPO -UGI today ---will follow up on results -Tolerating TF via j-tube, increase slowly as patient tolerates -Continue PT (2) Adenocarcinoma, 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 TEST ENGINEERING INTERN documented our visit. TEST ENGINEERING INTERN entered orders under my supervision. Care plan reviewed with patient and nurse. EMILIO ZENDEJAS MD FACS
--- NOTE | 2018-03-14 11:11 | FL ---
EXAM DATE: 03/14/2018 11:03 AM EST AGE/SEX: 73 years / Male INDICATIONS: S/p gastric perforation CLINICAL DATA: This is the patient's initial encounter. Patient reports that signs and symptoms have been present for 2 weeks and indicates a pain score of Nonresponsive. MEDICAL/SURGICAL HISTORY: Hypertension. Gastric ca, Crohn's disease, Prostate ca Cholecystecto my. prostatectomy, partial gastrectomy COMPARISON: No prior exams available for comparison. FLUORO TIME: 3.3 IMAGE COUNT: 23 RADIATION DOSE: 1756.2 DAP FINDINGS: The community relations assistant film demonstrates multiple tubes overlying the abdomen. There is a gastrostomy tube in the stomach. There appears to be a left-sided chest tube along the base of the left hemithorax. The bowel gas pattern is within normal limits. Gastrografin was placed through the gastrostomy tube. There was good filling of the stomach. Reflux was noted of the thoracic esophagus. Contrast is also noted in t he duodenal bulb and proximal small bowel. However, there is evidence of leakage of contrast outside the GI tract at the level of the GE junction extending towards the left. CONCLUSION: 1. There is leakage of contrast outside the GI tract which is at or just below the level of the GE j unction. The contrast extravasation extends towards the left near the tip of the left-sided chest tub e.. Electronically signed by: Tyrone Lyles MD Board Certified Radiologist 03/14/2018 11:10 AM EST
[2018-03-14] MEDS: Morphine Inj 4 MG/ML Vial IV.PUSH PRN (11:35)
[2018-03-14] MEDS: Pantoprazole Inj 40 MG Vial IV.PUSH SCH (11:44)
[2018-03-14] MEDS: Multivit/Folic Acid/Minerals Chewable Tablets CHEW SCH (11:44)
[2018-03-14] MEDS: Heparin - SQ 10,000 UNITS/ML Vial SQ SCH ×2 (11:44→21:24)
[2018-03-14] MEDS ORDERED: Diatrizoate Meglum/Diatrizoate Sod Liq 120 ML Bottle (for RAD diag) PO ONE (12:42)
[2018-03-14] MEDS: Chlorhexidine 0.12% Oral Kit 15 ML UDC OROPHARYNG SCH ×2 (13:23→21:30)
--- NOTE | 2018-03-14 13:32 | P.PNIM ---
Subjective Interval history: Nursing denies any acute changes overnight. Patient self reports relatively unchanged level of pain in the chest and abdominal discomfort. Just came back from Gastrografin study. No nausea at this time. Physical Exam Vital signs: Vital Signs 03/13/18 16:00 03/13/18 20:00 03/14/18 00:00 Temperature 99.8 F H 98.9 F 99.7 F H Pulse Rate 79 83 81 Respiratory Rate 17 18 18 Blood Pressure 158/77 H 143/74 H 148/77 H Pulse Oximetry 93 L 95 95 03/14/18 04:00 03/14/18 08:00 03/14/18 12:00 Temperature 98.7 F 98.7 F 98.9 F Pulse Rate 80 79 79 Respiratory Rate 18 17 18 Blood Pressure 148/78 H 156/71 H 158/89 H Pulse Oximetry 97 95 96 Intake & Output 03/13/18 03/14/18 03/14/18 18:59 06:59 18:59 Intake Total 400 / 400 860 / 860 200 / 200 Output Total 1540 / 1540 1755 / 1755 Balance -1140 / -1140 -895 / -895 200 / 200 Weight 71.8 kg Intake: IV 400 / 400 300 / 300 200 / 200 Maxipime Inj 2,000 MG In NS Inj 100 / 100 100 / 100 100 / 100 100 ML @ 200 mls/hr IV.SIG Q12H KELSIE Rx#:[id number] Mycamine Inj 100 MG In NS Inj 100 / 100 100 ML @ 100 mls/hr IV.SIG Q24H KELSIE Rx#:[id number] Flagyl 500 MG Inj 100 ML @ 100 200 / 200 200 / 200 100 / 100 mls/hr IV.SIG Q6H KELSIE Rx#: [id number] Oral 0 / 0 0 / 0 Tube Feeding 310 / 310 Tube Irrigant 250 / 250 Output: Urine 650 / 650 Urine Amount (Catheter) 1050 / 1050 550 / 550 Indwelling Urethral Catheter 1050 / 1050 550 / 550 Gastric Drainage 125 / 125 325 / 325 G tube 125 / 125 325 / 325 Wound Drainage 325 / 325 200 / 200 #1 Lft Abdomen 300 / 300 175 / 175 #2 Rt abdomen 25 / 25 25 / 25 Chest Tube Drainage 40 / 40 30 / 30 #2 Left Lower 40 / 40 30 / 30 Other: # Voids 1 # Bowel Movements 0 Narrative: Abdomen soft, benign, J-tube and G-tube in place Clear lungs bilaterally, chest tube in place over left posterior lung field Heart sounds regular rate and rhythm No lower extremity edema Awake and alert - Urinary Catheter Management Indwelling Urethral Catheter Cath placed during this visit: yes, but has since been removed by the nurse Reason for continuing: Decision to DC catheter Removal date: 03/13/18 Removal time: 21:42 Results - Labs CBC & Chem 7: 03/14/18 05:54 03/14/18 05:44 Laboratory Results - last 24 hr 03/14/18 03/14/18 05:44 05:54 WBC 14.1 H RBC 3.06 L Hgb 10.8 L Hct 31.2 L MCV 102.1 H MCH 35.3 H MCHC 34.6 RDW 13.5 Plt Count 190 MPV 11.5 H Neut % (Auto) 81.4 H Lymph % (Auto) 8.2 L [place] % (Auto) 9.8 H Eos % (Auto) 0.4 Baso % (Auto) 0.2 Neut # (Auto) 11.5 H Lymph # (Auto) 1.2 [place] # (Auto) 1.4 H Eos # (Auto) 0.1 Baso # (Auto) 0.0 WBC Differential . Differential Comment Auto diff final Sodium 144 Potassium 3.6 Chloride 108 H Carbon Dioxide 29.6 Anion Gap 6 BUN 23 H Creatinine 0.88 Estimated GFR 85 L Random Glucose 98 Calcium 7.4 L* Calcium Adj for Albumin 9.1 Magnesium 2.1 Albumin 1.9 L - Imaging Impressions Chest X-Ray 03/14/18 00:00 CONCLUSION: 1. Minimal central pulmonary vascular congestion. 2. Minimal patchiness within the left lung base consistent with atelectasis/or infiltrate. 3. Cardiomegaly. Gastrografin Study 03/14/18 00:00 CONCLUSION: 1. There is leakage of contrast outside the GI tract which is at or just below the level of the GE junction. The contrast extravasation extends towards the left near the tip of the left-sided chest tube.. Assessment and Plan - Assessment (1) Gastric perforation Code(s): K25.5 - Chronic or unspecified gastric ulcer with perforation Status : Acute Plan: Continue sedation; increase enteral feeding as tolerated. 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 History of gastric cancer. Patient was admitted to the ICU on mechanical ventilation and started on pressor support and abx for septic shock. He had 2 chest tubes inserted in the OR on 03/04 due to suspected mediastinal contamination, one anterior and one posterior, underwent surgical exploration and repair by gen surg. Eventually had anterior chest tube removed on 03/10, pleural fluid cultures growing Haemophilus parainfluenza. Is currently tolerating feeds via J-tube, G-tube is to gravity. Acute respiratory failure Wean O2 to room air as tolerated Esophageal anastomotic leak s/p gastrectomy for gastric CA, secondary to patient non-compliance with recommended post-gastrectomy diet -Surgical exploration and repair on 03/[address] Storm -Gastrografin study showing extravasation onset of GI tract upwards towards left chest tube, general surgery notified, planning EGD with GI in 2 days Pleural effusion + mediastinal contamination 2/2 intra-abdominal perforation causing possible empyema -CTS managing chest tube - cultures growing Haemophilus parainfluenza, strep viridans -> appreciate ID input with further imaging -continue cefepime and Flagyl and micafungin until modified by ID Severe chronic protein malnutrition j-tube feeds for now heparin q8
--- NOTE | 2018-03-14 15:02 | P.DIET ---
Nutritional Evaluation Type of nutrition evaluation: follow-up Nutrition consult regarding: Tube Feeding Subjective Subjective Comments: Pt has just returned form gastrogafin study-TF'ing not running. Objective - Diagnosis Gastric Perforation - Objective % IBW: 92 (IBW = 172#) Body Weight Used for Calculations: Actual (admit wt 72.2 kg) Energy Needs - Lower Range (kCal/kg): 28 Energy Needs - Upper Range (kCal/kg): 32 Lower Limit kCal/kg (kCals): 2,022 Upper Limit kCal/kg (kCals): 2,310 Lower Limit Protein Factor (Grams per Kg): 1.2 Upper Limit Protein Factor (Grams per Kg): 1.6 Lower Protein Needs (Protein): 87 Upper Protein Needs (Protein): 116 Dietitian Reviewed in Medical Record: Curent medications, Intake & Output, Labs , Medical history, Tube feeding Diet Order: NPO Objective Comments: PMH includes: cervical vertebra fusion, Crohn Disease, Depression, Gastric Cancer, high blood pressure, high cholesterol, melanoma, prostate cancer, thrombocytopenia 12/ lap proximal gastrectomy Assessment Assessment: Pt continues at high nutrition risk r/t diagnosis and need for TF'ing. He is s/ p exp lap, L chest tube placement and g/j-tube placement (03/04/18). When TF' ing is restarted, Rec Vital 1.5 @ goal rate 60 ml/hr to provide 2160 kcal, 97g protein and 1100 ml of free water. Free water flushes per MD. Labs reviewed. Wt changes noted. Dietitian following. Recommendations: 1. When TF'ing is restarted, Rec Vital 1.5 @ goal rate 60 ml/hr 2. Free water flushes per MD 3. Dietitian following Dietitian to Monitor: Lab values, Intake & Output, Tube feeding tolerance, Weight change, Medical course
--- NOTE | 2018-03-14 16:18 | P.CONID ---
History of Present Illness Service: Infectious Disease Consult date: 03/14/18 Requesting Physician: Reuben Mccain Reason for Consult: Evaluation and Mment of Sepsis, Empyema Primary Care Provider: Mich Ashton Chief Complaint: Abdominal pain History of Present Illness: is a 73 y/o CM with PMHX significant for adenocarcinoma, s/p laparoscopic proximal gastrectomy on 02/23/2018. Patient was reportedly doing well post operatively and when he went home he had large volume meals and had vomiting with retching at times. He was taken to [facility] and then transferred to [facility].His WBC was 20,000. A CT abdomen/pelvis was obtained which is shows intraperitoneal free air and there is a concern for an anastomotic leak at the gastroesophageal junction. Patient was initially in ICU with septic shock on vasopressors. He was also reportedly intubated at other hospital. He had a large left side pleural effusion. He has been seen by General surgery, CT Surgery . He is now s/p ex lap; repair of esophagogastric dehiscence; placement of G tube; placement of J tube; Chest washout and tube placement x 2 during this admission. At the time of my evaluation, patient is in on regular floor. Awake, sitting in chair, Ox3, Non focal. He had a gastrograffin study which shows ongoing leak. Dw Surgery team plan for possible stent placement later this week. Review of Systems All other systems reviewed negative except as stated in HPI PMFSH - History History Provided By: Patient - Medical History Medical History: Medical History (Last Reviewed 03/11/18 @ 09:53 by Vernon Alicia) Cervical vertebral fusion Crohn disease Depression Gastric cancer High blood pressure High cholesterol Melanoma Prostate CA Thrombocytopenia - Surgical History Surgical History: Surgical History (Last Reviewed 03/11/18 @ 09:53 by Vernon Alicia) History of partial gastrectomy H/O prostatectomy History of cholecystectomy Hx of tonsillectomy - Tobacco History Second Hand Smoke Exposure: Yes Tobacco Use In Past 30 Days: No Smoking Status: Former smoker Tobacco Type: Cigarettes - Alcohol History How Often Do You Have a Drink Containing Alcohol: Never - Substance Use History Substance History: No History of Abuse - Travel History Recent Travel in the [place] Within the Last 8 Weeks: No Recent Travel Out of the Country Within the Last 8 Weeks: No - Immunization History Tetanus Immunization: <5 Years Hx Influenza Vaccine This Season: Yes Medications and Allergies Active Medications: Active Medications Albuterol (Duoneb Neb (Prn)) 1 ampul NEB Q2HR NEB PRN PRN Reason: SHORTNESS OF BREATH Last Admin: 03/09/18 19:50 Dose: 1 ampul Benzocaine (Hurricaine 20% Oral [place]) 1 spray OROPHARYNG ONCE PRN PRN Reason: SEE LABEL COMMENTS Chlorhexidine Gluconate (Peridex 0.12% Oral Kit) 15 ml OROPHARYNG BID@0800, 2000 [facility] Last Admin: 03/14/18 13:23 Dose: Not Given Heparin Sodium (Porcine) (Heparin Inj) 5,000 units SQ Q8HR KELSIE Metronidazole/Sodium Chloride (Flagyl 500 Mg Inj) 100 mls @ 100 mls/hr IV.SIG Q6H KELSIE Last Infusion: 03/14/18 12:41 Dose: Infused Cefepime HCl 2,000 mg/ Sodium (Chloride) 100 mls @ 200 mls/hr IV.SIG Q12H [facility] Last Infusion: 03/14/18 12:10 Dose: Infused Magnesium Sulfate 4 gm/ Sodium (Chloride) 100 mls @ 50 mls/hr IV.SIG UNSCH PRN PRN Reason: For Magnesium 0.9 - 1.1 mg/dL Magnesium Sulfate 2 gm/ Sodium (Chloride) 100 mls @ 50 mls/hr IV.SIG UNSCH PRN PRN Reason: For Magnesium 1.2 - 1.6 mg/dL Potassium Chloride (Kcl 40 Meq Premix Inj) 40 meq in 100 mls @ 25 mls/hr IV.SIG Q2H PRN PRN Reason: For Potassium 2.8 - 3.2 mEq/L Last Infusion: 03/05/18 00:05 Dose: Infused Potassium Chloride (Kcl 20 Meq Premix Inj) 20 meq in 100 mls @ 50 mls/hr IV.SIG Q2H PRN PRN Reason: For Potassium 3.3 - 3.5 mEq/L Potassium Chloride (Kcl 20 Meq Premix Inj) 20 meq in 100 mls @ 50 mls/hr IV.SIG Q2H PRN PRN Reason: For Potassium 2.8 - 3.2 mEq/L Last Infusion: 03/11/18 17:43 Dose: Infused Potassium Phosphate 30 mmol/ (Sodium Chloride) 260 mls @ 42 mls/hr IV.SIG UNSCH PRN PRN Reason: SEE LABEL COMMENTS Sodium Phosphate 30 mmol/ (Sodium Chloride) 260 mls @ 42 mls/hr IV.SIG UNSCH PRN PRN Reason: For Phosphorus < 2.5 mg/dL Potassium Chloride (Kcl 40 Meq Premix Inj) 40 meq in 100 mls @ 25 mls/hr IV.SIG UNSCH PRN PRN Reason: For Potassium 3.3 - 3.5 mEq/L Last Infusion: 03/08/18 12:21 Dose: Infused Micafungin Sodium 100 mg/ (Sodium Chloride) 100 mls @ 100 mls/hr IV.SIG Q24H KELSIE Last Admin: 03/14/18 13:22 Dose: 100 mls/hr Magnesium Oxide (Mag-Ox) 800 mg PO UNSCH PRN PRN Reason: For Magnesium 1.2 - 1.6 mg/dL Miscellaneous Medication () 1 each OROPHARYNG 0000,0400,1200,1600 [facility] Last Admin: 03/14/18 13:22 Dose: Not Given Morphine Sulfate (Morphine Inj) 2 mg IV.PUSH Q3H PRN PRN Reason: PAIN 3-5; IF UABLE TO TAKE PO Last Admin: 03/14/18 02:01 Dose: 2 mg Morphine Sulfate (Morphine Inj) 4 mg IV.PUSH Q3H PRN PRN Reason: BREAKTHROUGH PAIN Last Admin: 03/14/18 11:35 Dose: 4 mg Multivitamins/Folic Acid/Vitamin C (Flintstones) 1 tab CHEW DAILY [facility] Last Admin: 03/14/18 11:44 Dose: 1 tab Ondansetron HCl (Zofran Odt) 4 mg PO Q6H PRN PRN Reason: NAUSEA OR VOMITING Ondansetron HCl (Zofran Inj) 4 mg IV.PUSH Q6H PRN PRN Reason: NAUSEA OR VOMITING Padimate O (Chapstick) 0 applicatio TOPICAL UNSCH PRN PRN Reason: DRY LIPS Pantoprazole Sodium (Protonix Inj) 40 mg IV.PUSH Q24H [facility] Last Admin: 03/14/18 11:44 Dose: 40 mg Promethazine HCl (Phenergan Supp) 25 mg RECTAL Q6H PRN PRN Reason: NAUSEA OR VOMITING Promethazine HCl (Phenergan) 25 mg PO Q6H PRN PRN Reason: NAUSEA OR VOMITING Allergies Allergy/AdvReac Type Severity Reaction Status Date / Time No Known Allergies Allergy Verified 12/05/18 06:30 Home Medications Medication Instructions Recorded Confirmed Type atorvastatin [Lipitor] 20 mg PO DAILY 02/23/18 03/10/18 History duloxetine [Cymbalta] 30 mg PO DAILY 02/23/18 03/10/18 History lisinopril 5 mg PO DAILY 02/23/18 03/10/18 History multivitamin 1 tab PO DAILY 02/23/18 03/10/18 History Exam Vital signs: Vital Signs 03/13/18 20:00 03/14/18 00:00 03/14/18 04:00 Temperature 98.9 F 99.7 F H 98.7 F Pulse Rate 83 81 80 Respiratory Rate 18 18 18 Blood Pressure 143/74 H 148/77 H 148/78 H Pulse Oximetry 95 95 97 03/14/18 08:00 03/14/18 12:00 Temperature 98.7 F 98.9 F Pulse Rate 79 79 Respiratory Rate 17 18 Blood Pressure 156/71 H 158/89 H Pulse Oximetry 95 96 Intake & Output 03/13/18 03/14/18 03/14/18 18:59 06:59 18:59 Intake Total 400 / 400 860 / 860 200 / 200 Output Total 1540 / 1540 1755 / 1755 Balance -1140 / -1140 -895 / -895 200 / 200 Weight 71.8 kg Intake: IV 400 / 400 300 / 300 200 / 200 Maxipime Inj 2,000 MG In NS Inj 100 / 100 100 / 100 100 / 100 100 ML @ 200 mls/hr IV.SIG Q12H KELSIE Rx#:[id number] Mycamine Inj 100 MG In NS Inj 100 / 100 100 ML @ 100 mls/hr IV.SIG Q24H KELSIE Rx#:[id number] Flagyl 500 MG Inj 100 ML @ 100 200 / 200 200 / 200 100 / 100 mls/hr IV.SIG Q6H KELSIE Rx#: [id number] Oral 0 / 0 0 / 0 Tube Feeding 310 / 310 Tube Irrigant 250 / 250 Output: Urine 650 / 650 Urine Amount (Catheter) 1050 / 1050 550 / 550 Indwelling Urethral Catheter 1050 / 1050 550 / 550 Gastric Drainage 125 / 125 325 / 325 G tube 125 / 125 325 / 325 Wound Drainage 325 / 325 200 / 200 #1 Lft Abdomen 300 / 300 175 / 175 #2 Rt abdomen 25 / 25 / Chest Tube Drainage 40 / 40 30 / 30 #2 Left Lower 40 / 40 30 / 30 Other: # Voids 1 # Bowel Movements 0 Narrative: GENERAL: Well-nourished well-developed, not in acute distress SKIN: Cool and dry, no generalized rash HEAD: Atraumatic. Normocephalic. No temporal or scalp tenderness. EYES: Pupils equal round and reactive. Scleral icterus. No injection or drainage. No petechia ENT: Nothing abnormal detected NECK: Trachea midline. Supple, nontender, no meningeal signs. CARDIOVASCULAR: HS audible. RESPIRATORY: Clear to auscultation bilaterally. GASTROINTESTINAL: Abdomen soft nontender. G tube ok. J tube ok. CT sites ok. MUSCULOSKELETAL: Extremities without clubbing, cyanosis. NEUROLOGICAL: Alert oriented 3. Nonfocal. Psych cooperative IV line sites ok. Results - Labs CBC & Chem 7: 03/14/18 05:54 03/14/18 05:44 Labs: Laboratory Results - last 24 hr 03/14/18 03/14/18 03/14/18 05:44 05:44 05:54 WBC 14.1 H RBC 3.06 L Hgb 10.8 L Hct 31.2 L MCV 102.1 H MCH 35.3 H MCHC 34.6 RDW 13.5 Plt Count 190 MPV 11.5 H Neut % (Auto) 81.4 H Lymph % (Auto) 8.2 L [place] % (Auto) 9.8 H Eos % (Auto) 0.4 Baso % (Auto) 0.2 Neut # (Auto) 11.5 H Lymph # (Auto) 1.2 [place] # (Auto) 1.4 H Eos # (Auto) 0.1 Baso # (Auto) 0.0 WBC Differential . Differential Comment Auto diff final Sodium 144 Potassium 3.6 Chloride 108 H Carbon Dioxide 29.6 Anion Gap 6 BUN 23 H Creatinine 0.88 Estimated GFR 85 L Random Glucose 98 Calcium 7.4 L* Calcium Adj for Albumin 9.1 Magnesium 2.1 C-Reactive Protein 4.05 H Albumin 1.9 L - Imaging Impressions Chest X-Ray 03/14/18 00:00 CONCLUSION: 1. Minimal central pulmonary vascular congestion. 2. Minimal patchiness within the left lung base consistent with atelectasis/or infiltrate. 3. Cardiomegaly. Gastrografin Study 03/14/18 00:00 CONCLUSION: 1. There is leakage of contrast outside the GI tract which is at or just below the level of the GE junction. The contrast extravasation extends towards the left near the tip of the left-sided chest tube.. Assessment and Plan - Plan Septic Shock on admission now resolved. Ongoing sepsis due to persistent leucocytosis and source issues. Strep viridans, Haemophilus parainfluenza, Rothia species for left pleural effusion washout. Now with loculated pleural effusion cw empyema. Right side moderate pleural effusion adenocarcinoma, s/p laparoscopic proximal gastrectomy on 02/23/2018. s/p ex lap; repair of esophagogastric dehiscence; placement of G tube; placement of J tube; Chest washout and tube placement x 2 Recs: DC Cefepime IV Start Ceftriaxone IV (covers Strep viridans and H.parainfluenzae, and Rothia species) Continue Flagyl IV (anaerobic coverage) Follow cultures Follow clinical course dw Micro the specimen is not available for further susceptibility testing as it was discarded. dw General surgery: will get CT C/A/P with oral contrast but with IV contrast. dw her about Gastrgraffin study results of ongoing leakage. Possible surgery later this week for stent. Will review imaging and decide. noel RN dw patient and above plan dw Dr.Masoodi Clara MEREDITH Time spent in excess of 80 mins. noel Radiology, Micro dept, reviewed MAR adjusted ABX, reviewed literature. noel MEREDITH, RN, patient (and spouse) plan of care. dw Gen surgery about radiology findings and leak plans.
--- NOTE | 2018-03-14 18:46 | CT ---
EXAM DATE: 03/14/2018 6:26 PM EST AGE/SEX: 73 years / Male INDICATIONS: Evaluate anastomosis leak. CLINICAL DATA: This is the patient's initial encounter. Patient reports that signs and symptoms have been present for 1 day and indicates a pain score of 7/10. MEDICAL/SURGICAL HISTORY: Crohn's disease. Carcinoma, gastric. Carcinoma, prostatic. Cholecys tectomy. Prostatectomy. Fusion, cervical. Partial gastrectomy ORAL CONTRAST: No oral contrast ingested. RADIATION DOSE: 5.10 CTDI (mGy) COMPARISON: [facility], UPPER GI W GASTROGRAFIN, 03/14/2018. . TECHNIQUE: Multiple contiguous axial images were obtained through the abdomen and pelvis following b olus infusion of 80 ml Omnipaque 350 (iohexol) nonionic water-soluble contrast as a cumulative dose for multiple exams. No oral contrast ingested. Using automated exposure control and adjustment of t he mA and/or kV according to patient size, radiation dose was kept as low as reasonably achievable to obtain optimal diagnostic quality images. DICOM format image data is available electronically for r eview and comparison. FINDINGS: A gastrostomy tube is present. A presumed drainage catheter enters the right upper quadrant and loops under the liver edge and along lesser curve of the stomach. A second drainage catheter ent ers in the left upper quadrant and coils into the left subphrenic region.. A jejunostomy tube is seen . There are surgical clips from cholecystectomy and miracle from gastric surgery. Lower Lungs: There is moderate right-sided pleural effusion with adjacent compressive atelectasis. A thoracostomy tube is present at the left lung base with minimal partially loculated fluid and atelect asis or contusion at the left lung base. Liver: The liver has a homogeneous density without space-occupying lesion. There is no dilation of th e biliary tree. Spleen: Homogeneous density without enlargement. Pancreas: Unremarkable without mass or calcification. Kidneys: Hyperdense mass arising exophytically from the lateral mid to upper pole cortex of the righ t kidney may be a hemorrhagic cyst. There are tiny hypodensities present elsewhere in the kidney whic h are also likely cysts. The left kidney is focally unremarkable. Adrenal Glands: Unremarkable. Aorta: The aorta and proximal iliac vessels are grossly unremarkable without aneurysmal dilation. Bowel/Mesentery: There is contrast projecting into appears to be an anastomotic leak in the region o f the GE junction extending into the low medial left chest. Elsewhere, there is dense contrast presen t in the colon and occasional contrast present in mid small bowel. The bowel structures are nondilate d. Abdominal Wall: Surgical drains, feeding tubes and midline skin miracle Retroperitoneum: No evidence of adenopathy in the retrocrural, para-aortic, or deep pelvic regions. Bladder: Contours are smooth. Reproductive Organs: Surgical clips in the region of the prostate Inguinal: The inguinal region is unremarkable without evidence of adenopathy. Bony Structures: Unremarkable. CONCLUSION: 1. Fluid and atelectasis in the lung bases 2. Extraluminal contrast projecting toward the left from presumed anastomotic leak in the region of the GE junction 3. Surgical drains and feeding tubes present 4. Hyperdense mass arising laterally from the mid to upper pole the right kidney is presumably hemor rhagic cyst, however comparison to prior studies would be recommended to document stability. Alternat ively, pre and postcontrast MRI could be obtained for follow-up when clinically feasible if this lesi on remains in question Electronically signed by: Nic Rain MD Board Certified Radiologist 03/14/2018 6:44 PM EST
--- NOTE | 2018-03-14 18:48 | CT ---
EXAM DATE: 03/14/2018 6:26 PM EST AGE/SEX: 73 years / Male INDICATIONS: Evaluate for empyema. CLINICAL DATA: This is the patient's initial encounter. Patient reports that signs and symptoms have been present for 1 day and indicates a pain score of 7/10. MEDICAL/SURGICAL HISTORY: Crohn's disease. Carcinoma, gastric. Carcinoma, prostatic. Cholecystect luke. Prostatectomy. Fusion, cervical. Partial gastrectomy RADIATION DOSE: 5.10 CTDI (mGy) ; Combined studies COMPARISON: No prior exams available for comparison. TECHNIQUE: Multiple contiguous axial images were obtained through the chest during bolus infusion of 80 ml Omnipaque 350 (iohexol) nonionic water-soluble contrast as a cumulative dose for multiple exa ms. Images were obtained in suspended respiration using multiple row detector helical technique. U sing automated exposure control and adjustment of the mA and/or kV according to patient size, radiati on dose was kept as low as reasonably achievable to obtain optimal diagnostic quality images. DICOM format image data is available electronically for review and comparison. FINDINGS: Lungs: Bilateral atelectasis associated pleural effusions Mediastinum: There is good visualization of the great vessels of the middle mediastinum. No evidenc e of mediastinal or hilar adenopathy/mass. Pleurae: Left base chest tube. Partially loculated left effusion and some interfissural fluid on the left. Moderate size free effusion on the right Axillae: Unremarkable. Bony Structures: Unremarkable. Miscellaneous: The examination was extended to include the upper abdomen, and both adrenal glands ar e normal in size and configuration. CONCLUSION: Bilateral pleural effusions and lung base atelectasis. Electronically signed by: Nic Rain MD Board Certified Radiologist 03/14/2018 6:47 PM EST
[2018-03-15] MEDS: Oral Hygiene Kit OROPHARYNG SCH ×4 (00:23→15:36)
[2018-03-15] MEDS: Morphine Sulfate Inj 2 MG/ML Vial IV.PUSH PRN ×4 (00:30→18:08)
[2018-03-15] MEDS: Heparin - SQ 10,000 UNITS/ML Vial SQ SCH ×3 (05:00→23:04)
[2018-03-15 06:33] LABS: Baso % (Auto) 0.3 % (0.0-2.0); Eos # (Auto) 0.1 th/mm3 (0.0-0.4); Eos % (Auto) 0.9 % (0.0-4.0); Hematocrit 33.3 % (39.0-51.0); Hemoglobin 11.1 gm/dL (13.0-17.0); Lymph % (Auto) 7.2 % (9.0-44.0); Mean Corpuscular HGB Conc 33.4 % (32.0-36.0); Mean Corpuscular Hemoglobin 34.4 pg (27.0-34.0); Mean Corpuscular Volume 102.7 fL (80.0-100.0); Mean Platelet Volume 11.3 fL (7.0-11.0); Mono # (Auto) 1.2 th/mm3 (0.0-0.9); Mono % (Auto) 8.7 % (0.0-8.0); Neut # (Auto) 11.6 th/mm3 (1.8-7.7); Neut % (Auto) 82.9 % (16.0-70.0); Platelet Count 227 th/mm3 (150-450); Red Blood Count 3.24 mil/mm3 (4.50-5.90); Red Cell Distribution Width 13.5 % (11.6-17.2)
[2018-03-15 07:08] LABS: Anion Gap 5 meq/L (5-15); Blood Urea Nitrogen 22 mg/dL (7-18); Calcium 7.5 mg/dL (8.5-10.1); Carbon Dioxide 30.6 meq/L (21.0-32.0); Chloride 106 meq/L (98-107); Glomerular Filtration Rate Greater Than 89 mL/min (>89); Glucose,Random 147 mg/dL (74-106); Potassium 3.7 meq/L (3.5-5.1); Sodium 142 meq/L (136-145)
[2018-03-15] MEDS: Pantoprazole Inj 40 MG Vial IV.PUSH SCH (09:14)
[2018-03-15] MEDS: Multivit/Folic Acid/Minerals Chewable Tablets CHEW SCH (09:14)
[2018-03-15] MEDS: Chlorhexidine 0.12% Oral Kit 15 ML UDC OROPHARYNG SCH ×2 (09:19→23:03)
--- NOTE | 2018-03-15 11:38 | P.PNGS ---
Subjective Interval history: DAILY PROGRESS NOTE FOR SURGICAL ATTENDING, DR. AUNDREA HIDALGO Resting in bed No complaints Sleepy Physical Exam Vital signs: Vital Signs 03/14/18 12:00 03/14/18 16:00 03/14/18 20:00 Temperature 98.9 F 99.3 F 98.4 F Pulse Rate 79 81 87 Respiratory Rate 18 18 17 Blood Pressure 158/89 H 149/76 H 162/90 H Pulse Oximetry 96 95 97 03/14/18 22:55 03/15/18 00:00 03/15/18 04:00 Temperature 98.7 F 98.4 F Pulse Rate 87 85 Respiratory Rate 18 17 18 Blood Pressure 144/74 H 154/78 H Pulse Oximetry 98 96 03/15/18 08:00 03/15/18 09:59 Temperature 97.4 F L Pulse Rate 90 Respiratory Rate 17 16 Blood Pressure 130/74 Pulse Oximetry 95 Intake & Output 03/14/18 03/15/18 03/15/18 18:59 06:59 18:59 Intake Total 400 / 400 1250 / 1250 Output Total 300 / 300 1450 / 1450 Balance 100 / 100 -200 / -200 Weight 71.8 kg Intake: IV 400 / 400 400 / 400 Maxipime Inj 2,000 MG In NS Inj 100 / 100 100 / 100 100 ML @ 200 mls/hr IV.SIG Q12H KELSIE Rx#:[id number] Mycamine Inj 100 MG In NS Inj 100 / 100 100 ML @ 100 mls/hr IV.SIG Q24H KELSIE Rx#:[id number] Rocephin Inj 2,000 MG In NS Inj 100 / 100 100 ML @ 200 mls/hr IV.SIG Q24H KELSIE Rx#:[id number] Flagyl 500 MG Inj 100 ML @ 100 200 / 200 200 / 200 mls/hr IV.SIG Q6H KELSIE Rx#: [id number] Tube Feeding 600 / 600 Tube Irrigant 250 / 250 Output: Urine 1100 / 1100 Gastric Drainage 300 / 300 125 / 125 G tube 300 / 300 125 / 125 Wound Drainage 205 / 205 #1 Lft Abdomen 175 / 175 #2 Rt abdomen 30 / 30 Chest Tube Drainage 20 / 20 #2 Left Lower 20 / 20 Other: Date of Last Bowel Movement 03/14/18 03/14/18 Narrative: Sleepy Abd: soft; G tube to gravity; J tube with TF; bilateral CHAR to biliary bags--- both serous. LEFT sided chest tube with serous drainage - Urinary Catheter Management Indwelling Urethral Catheter Cath placed during this visit: yes, but has since been removed by the nurse Reason for continuing: Decision to DC catheter Removal date: 03/13/18 Removal time: 21:42 Results - Labs 03/15/18 05:30 03/15/18 05:30 Laboratory Results - last 24 hr 03/14/18 03/15/18 03/15/18 05:44 05:30 05:30 WBC 14.0 H RBC 3.24 L Hgb 11.1 L Hct 33.3 L MCV 102.7 H MCH 34.4 H MCHC 33.4 RDW 13.5 Plt Count 227 MPV 11.3 H Neut % (Auto) 82.9 H Lymph % (Auto) 7.2 L [place] % (Auto) 8.7 H Eos % (Auto) 0.9 Baso % (Auto) 0.3 Neut # (Auto) 11.6 H Lymph # (Auto) 1.0 [place] # (Auto) 1.2 H Eos # (Auto) 0.1 Baso # (Auto) 0.0 WBC Differential . Differential Comment Auto diff final Sodium 142 Potassium 3.7 Chloride 106 Carbon Dioxide 30.6 Anion Gap 5 BUN 22 H Creatinine 0.82 Estimated GFR Greater than 89 Random Glucose 147 H Calcium 7.5 L C-Reactive Protein 4.05 H - Imaging Imaging: ITS Impressions Abdomen/Pelvis CT 03/14/18 00:00 CONCLUSION: 1. Fluid and atelectasis in the lung bases 2. Extraluminal contrast projecting toward the left from presumed anastomotic leak in the region of the GE junction 3. Surgical drains and feeding tubes present 4. Hyperdense mass arising laterally from the mid to upper pole the right kidney is presumably hemorrhagic cyst, however comparison to prior studies would be recommended to document stability. Alternatively, pre and postcontrast MRI could be obtained for follow-up when clinically feasible if this lesion remains in question Chest CT 03/14/18 00:00 CONCLUSION: Bilateral pleural effusions and lung base atelectasis. Chest X-Ray 03/14/18 00:00 CONCLUSION: 1. Minimal central pulmonary vascular congestion. 2. Minimal patchiness within the left lung base consistent with atelectasis/or infiltrate. 3. Cardiomegaly. Gastrografin Study 03/14/18 00:00 CONCLUSION: 1. There is leakage of contrast outside the GI tract which is at or just below the level of the GE junction. The contrast extravasation extends towards the left near the tip of the left-sided chest tube.. Assessment and Plan - Assessment (1) Gastric perforation Code(s): K25.5 - Chronic or unspecified gastric ulcer with perforation Status : Acute Plan: 73 year old male s/p partial gastrectomy for adenocarcinoma, readmit for perforation at gastroesophageal anastomosis after vomiting transferred to floor doing better -s/p ex lap; repair of esophagogastric dehiscence; placement of G tube; placement of J tube; Chest washout and tube placement x 2 -UGI yesterday shows leak---plan for GI consult in the morning for stent placement---discussed with yesterday on the phone -NPO -Tolerating TF via j-tube -Continue PT (2) Adenocarcinoma, 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 AUNDREA HIDALGO Need to leave chest tube in place to drain chest GI to place esophageal stent across the anastomosis where he is leaking I agree with above assessment and plan. The exam, history, and the medical decision-making described in the above note were completed with the assistance of the mid-level provider. I reviewed and agree with the findings presented. I attest that I had a [id number] encounter with the patient on the same day, and personally performed and documented my assessment and findings in the medical record. The following services were provided during this hospital visit: Chart data review, vital sign assessments/reviewing monitor data Review of consultations notes if present. Medication orders/review and/or management Ordering and/or reviewing lab tests Ordering and/or interpreting/reviewing x-rays and/or diagnostic studies Care of the patient and discussion of the patient with the care team Documentation time To help prompt me to consider important information that might be impacting today's encounter and assessment, Information from prior notes written by myself or my colleagues may have been "brought forward/copy and pasted" into today's note.
[2018-03-15 13:30] LABS: ABG Base Excess 6.4 mmol/L (-2-2); ABG PCO2 38 mmHg (38-42); ABG PO2 79 mmHg (61-120)
--- NOTE | 2018-03-15 13:42 | P.PNIM ---
Subjective Interval history: Nursing denies any acute changes overnight. I walk in the room patient seems to be snoring a lot as he sleeps almost having abdominal retractions. When he wakes up, he stops snoring, demonstrates no conversive dyspnea, says he is not short of breath. Reports having the same chest discomfort he has had for the past few days. Physical Exam Vital signs: Vital Signs 03/14/18 16:00 03/14/18 20:00 03/14/18 22:55 Temperature 99.3 F 98.4 F Pulse Rate 81 87 Respiratory Rate 18 17 18 Blood Pressure 149/76 H 162/90 H Pulse Oximetry 95 97 03/15/18 00:00 03/15/18 04:00 03/15/18 08:00 Temperature 98.7 F 98.4 F 97.4 F L Pulse Rate 87 85 90 Respiratory Rate 17 18 17 Blood Pressure 144/74 H 154/78 H 130/74 Pulse Oximetry 98 96 95 03/15/18 09:59 03/15/18 12:00 Temperature 97.9 F Pulse Rate 80 Respiratory Rate 16 18 Blood Pressure 135/79 Pulse Oximetry 97 Intake & Output 03/14/18 03/15/18 03/15/18 18:59 06:59 18:59 Intake Total 400 / 400 1250 / 1250 100 / 100 Output Total 300 / 300 1450 / 1450 Balance 100 / 100 -200 / -200 100 / 100 Weight 71.8 kg Intake: IV 400 / 400 400 / 400 100 / 100 Maxipime Inj 2,000 MG In NS Inj 100 / 100 100 / 100 100 ML @ 200 mls/hr IV.SIG Q12H KELSIE Rx#:[id number] Mycamine Inj 100 MG In NS Inj 100 / 100 100 ML @ 100 mls/hr IV.SIG Q24H KELSIE Rx#:[id number] Rocephin Inj 2,000 MG In NS Inj 100 / 100 100 ML @ 200 mls/hr IV.SIG Q24H KELSIE Rx#:[id number] Flagyl 500 MG Inj 100 ML @ 100 200 / 200 200 / 200 100 / 100 mls/hr IV.SIG Q6H KELSIE Rx#: [id number] Tube Feeding 600 / 600 Tube Irrigant 250 / 250 Output: Urine 1100 / 1100 Gastric Drainage 300 / 300 125 / 125 G tube 300 / 300 125 / 125 Wound Drainage 205 / 205 #1 Lft Abdomen 175 / 175 #2 Rt abdomen Chest Tube Drainage #2 Left Lower Other: Date of Last Bowel Movement 03/14/18 03/15/18 Narrative: Clear lungs bilaterally, has abdominal retractions as he sleeps and snores, lesser retractions upon waking up Heart sounds regular rate and rhythm Chest tube in place over posterior left chest Abdomen soft, PEG tube in place - Urinary Catheter Management Indwelling Urethral Catheter Cath placed during this visit: yes, but has since been removed by the nurse Reason for continuing: Decision to DC catheter Removal date: 03/13/18 Removal time: 21:42 Results - Labs CBC & Chem 7: 03/15/18 05:30 03/15/18 05:30 Laboratory Results - last 24 hr 03/14/18 03/15/18 03/15/18 05:44 05:30 05:30 WBC 14.0 H RBC 3.24 L Hgb 11.1 L Hct 33.3 L MCV 102.7 H MCH 34.4 H MCHC 33.4 RDW 13.5 Plt Count 227 MPV 11.3 H Neut % (Auto) 82.9 H Lymph % (Auto) 7.2 L [place] % (Auto) 8.7 H Eos % (Auto) 0.9 Baso % (Auto) 0.3 Neut # (Auto) 11.6 H Lymph # (Auto) 1.0 [place] # (Auto) 1.2 H Eos # (Auto) 0.1 Baso # (Auto) 0.0 WBC Differential . Differential Comment Auto diff final Puncture Site Patient Temperature O2 Saturation ABG pH ABG pCO2 ABG pO2 ABG HCO3 ABG O2 Content ABG Base Excess ABG Methemoglobin Freddy Test Hemoglobin Carboxyhemoglobin O2 Delivery Device Liter Flow Critical Value Sodium 142 Potassium 3.7 Chloride 106 Carbon Dioxide 30.6 Anion Gap 5 BUN 22 H Creatinine 0.82 Estimated GFR Greater than 89 Random Glucose 147 H Calcium 7.5 L C-Reactive Protein 4.05 H 03/15/18 13:20 WBC RBC Hgb Hct MCV MCH MCHC RDW Plt Count MPV Neut % (Auto) Lymph % (Auto) [place] % (Auto) Eos % (Auto) Baso % (Auto) Neut # (Auto) Lymph # (Auto) [place] # (Auto) Eos # (Auto) Baso # (Auto) WBC Differential Differential Comment Puncture Site Left radial Patient Temperature 98.6 O2 Saturation 94 ABG pH 7.50 H ABG pCO2 38 ABG pO2 79 ABG HCO3 30 H ABG O2 Content 14.4 ABG Base Excess 6.4 H ABG Methemoglobin 1.1 Freddy Test Present Hemoglobin 10.8 L Carboxyhemoglobin 1.8 O2 Delivery Device Nasal cannula Liter Flow 4.00 Critical Value No Sodium Potassium Chloride Carbon Dioxide Anion Gap BUN Creatinine Estimated GFR Random Glucose Calcium C-Reactive Protein Microbiology 03/14/18 18:48 Blood - Peripheral Aerobic Blood Culture - Preliminary No growth in 1 day 03/14/18 18:48 Blood - Peripheral Anaerobic Blood Culture - Preliminary No growth in 1 day 03/14/18 18:42 Blood - Peripheral Aerobic Blood Culture - Preliminary No growth in 1 day 03/14/18 18:42 Blood - Peripheral Anaerobic Blood Culture - Preliminary No growth in 1 day - Imaging Impressions Abdomen/Pelvis CT 03/14/18 00:00 CONCLUSION: 1. Fluid and atelectasis in the lung bases 2. Extraluminal contrast projecting toward the left from presumed anastomotic leak in the region of the GE junction 3. Surgical drains and feeding tubes present 4. Hyperdense mass arising laterally from the mid to upper pole the right kidney is presumably hemorrhagic cyst, however comparison to prior studies would be recommended to document stability. Alternatively, pre and postcontrast MRI could be obtained for follow-up when clinically feasible if this lesion remains in question Chest CT 03/14/18 00:00 CONCLUSION: Bilateral pleural effusions and lung base atelectasis. Assessment and Plan - Assessment (1) Gastric perforation Code(s): K25.5 - Chronic or unspecified gastric ulcer with perforation Status : Acute Plan: Continue sedation; increase enteral feeding as tolerated. 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 History of gastric cancer. Patient was admitted to the ICU on mechanical ventilation and started on pressor support and abx for septic shock. He had 2 chest tubes inserted in the OR on 03/04 due to suspected mediastinal contamination, one anterior and one posterior, underwent surgical exploration and repair by gen surg. Eventually had anterior chest tube removed on 03/10, pleural fluid cultures growing Haemophilus parainfluenza. Is currently tolerating feeds via J-tube, G-tube is to gravity. Acute respiratory failure ? Empyema improving, Wean O2 to room air as tolerated -May benefit from CPAP as he sleeps but given his chest tube in place with an esophageal leak I will hold off for now -ABG shows no no changes from before, no CO2 retention -Right sided pleural effusion seen at least mod size on CT on 03/14, concern for empyema forming (again?) D/w Dr. Zambrano, plan for thoracentesis jose Esophageal anastomotic leak s/p gastrectomy for gastric CA, secondary to patient non-compliance with recommended post-gastrectomy diet -Surgical exploration and repair on 03/[address] Storm -Gastrografin study showing extravasation onset of GI tract upwards towards left chest tube, general surgery notified, planning stenting tomorrow -CT abdomen/pelvis and CT chest shows same extravasation of contrast with bilateral moderate pleural effusions Pleural effusion + mediastinal contamination 2/2 intra-abdominal perforation causing possible empyema -CTS managing chest tube - cultures growing Haemophilus parainfluenza, strep viridans -> appreciate ID input with further imaging -continue rocephin and Flagyl and micafungin until modified by ID Severe chronic protein malnutrition j-tube feeds for now heparin q8, on hold aftermidnight for tentative procedures
[2018-03-15] MEDS: Morphine Inj 4 MG/ML Vial IV.PUSH PRN ×2 (15:33→23:05)
[2018-03-15] MEDS ORDERED: Morphine Inj 4 MG/ML Vial IV.PUSH PRN (21:39)
[2018-03-16] MEDS: Oral Hygiene Kit OROPHARYNG SCH ×4 (00:12→15:45)
[2018-03-16] MEDS: Morphine Inj 4 MG/ML Vial IV.PUSH PRN ×4 (04:26→21:00)
[2018-03-16] MEDS: Multivit/Folic Acid/Minerals Chewable Tablets CHEW SCH (08:47)
--- NOTE | 2018-03-16 09:55 | US ---
EXAM DATE: 03/16/2018 9:38 AM EST AGE/SEX: 73 years / Male INDICATIONS: Right pleural effusion. CLINICAL DATA: This is the patient's initial encounter. Patient reports that signs and symptoms have been present for 1 day and indicates a pain score of 0/10. MEDICAL/SURGICAL HISTORY: Carcinoma, prostatic. Hypercholesterolemia. Hypertension. Melanoma . Gastric cancer. Crohn's disease. Depression. Thrombocytopenia. Prostatectomy. Cholecystectomy. T onsillectomy. Partial gastrectomy. COMPARISON: [facility] [place], CT ABDOMEN & PELVIS W CONTRAST, 03/14/2018. . MEASUREMENTS: Skin To Parietal Pleura:__1.9 cm Skin To Max Safe Depth:__2.4 cm Estimated Fluid Volume:__514 cc Fluid Composition:__simple FINDINGS: No marking was performed. CONCLUSION: Moderate right pleural effusion Electronically signed by: Nic Rain MD Board Certified Radiologist 03/16/2018 9:53 AM EST
--- NOTE | 2018-03-16 11:10 | CT ---
EXAM DATE: 03/16/2018 11:04 AM EST AGE/SEX: 73 years / Male INDICATIONS: Right Pleural effusion. CLINICAL DATA: This is the patient's initial encounter. Patient reports that signs and symptoms have been present for 1 day and indicates a pain score of 0/10. MEDICAL/SURGICAL HISTORY: Carcinoma, gastric. Carcinoma, prostatic. Hypertension. Crohns. Chol ecystectomy. Prostatectomy. Partial gastrectomy. RADIATION DOSE: 10.42 CTDI (mGy) COMPARISON: No prior exams available for comparison. DEVICE(S): 10 Fr [place] pigtail thoracostomy tube, nonlocking 19 gauge Benedict blunt needle FLUID: Straw-colored . . PROCEDURE: CT guided right thoracentesis with chest tube placement. The site was prepped in sterile fashion. Full sterile technique was used, including cap, mask, steri le gloves and gown and a large sterile sheet. Hand hygiene and 2% chlorhexidine and/or betadine/alco hol prep was utilized per protocol for cutaneous antisepsis. The skin and subcutaneous tissues were infiltrated with local anesthetic solution. Using automated exposure control and adjustment of the m A and/or kV according to patient size, radiation dose was kept as low as reasonably achievable to obt ain optimal diagnostic quality images. DICOM format image data is available electronically for revie w and comparison. Under CT guidance a 10 Fr catheter was placed in the right pleural space, and clear, yellow fluid wer e gently aspirated out of the chest. Chest tube was connected to Pleur-evac suction and secured with silk suture and Percu-Stay apparatus.. Post procedural scan show reduction in the amount of fluid wit h no evidence of pneumothorax. The patient tolerated the procedure well and there were no complications. The patient was sent [facility] in stable condition. CONCLUSION: Uncomplicated CT-guided right thoracostomy tube placement for pleural effusion. Electronically signed by: Nic Rain MD Board Certified Radiologist 03/16/2018 11:08 AM EST
[2018-03-16] MEDS: Chlorhexidine 0.12% Oral Kit 15 ML UDC OROPHARYNG SCH ×2 (11:38→20:58)
[2018-03-16] MEDS: Pantoprazole Inj 40 MG Vial IV.PUSH SCH (11:40)
--- NOTE | 2018-03-16 12:00 | P.PNVS ---
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 This also resulted in a huge left pleural effusion with abdominal pain and chest pain. The patient was transferred to [facility] and then to us for further care. I am doing an intraoperative at this point regarding the chest condition. Physical examination is performed in the OR and I was present at the time of surgery. The patient does indeed have an intraabdominal perforation which is now being repaired by Dr. Storm. I discussed with him the issues regarding the chest. The patient apparently had significant chest contamination, which was washed out with saline and 2 large chest tubes were placed. This would be exactly what I would have done and, at this point, hopefully the patient will not develop empyema. If he does develop empyema or any signs of such, I will be available to assist. Today patient is stable hemodynamically and respiratory Bilateral breath sounds ventilatory supported Left chest tubes are draining serosanguineous material, some grayish particulate matter but left chest appears to be clear on a.m. x-ray With this quite adequate drainage patient is not likely to develop an empyema but clearly with contamination this is a distinct possibility so we will see how he does Will continue to follow 03/06/2018 Remains intubated ventilated but hemodynamically improved and stabilized Bilateral pulmonary expansion and chest tubes on the left side have been by me and placed in separate Pleur-evacs The anterior chest tube is draining serosanguineous material over the posterior chest tube is draining particulate matter grayish brown in color Clearly retained fluid from the chest. Again is noted yesterday to question whether this is going to cause empyema but at this point the most important thing is adequate drainage and that certainly present Nothing to add at this time 03/07/2018 Patient intubated ventilated Agree with trickle feeds and see how he does Anterior chest tube draining clear material was a posterior chest tube is still somewhat dark brownish stuff but clearing up We will check chest x-ray Nothing to add at this time leave both tubes in place 03/08/2018 Bilateral breath sounds Remains intubated ventilated No evidence of any leak from anastomosis or otherwise Chest tube drainage has cleared up and is straw-colored no particulate material and lungs appear to be quite clear Would leave chest tubes in and then perhaps do a dilute Gastrografin through the gastrostomy tube to check the anastomotic integrity 03/10/2018 Anterior chest tube has been removed and posterior one is draining straw- colored fluid which is quite clear and does not appear to be contaminated Haemophilus parainfluenza cultures from the chest Infectious disease help is greatly appreciated At this point I would leave the left chest tube in for another few days until the drainage comes down to less than 150 cc for 24 hours and we can remove after that tube I agree that this time patient is unlikely to get empyema of the chest but you never know 03/11/2018 Patient is doing better every day Remaining left chest tube drainage is down from 300 cc to about 120 cc over the last 24 hours Leave chest tube in place at this point and will remove chest tube the next few days At this point chance of empyema is certainly very low 03/13/2018 Chest tube drainage is straw-colored and clean Will do chest x-ray and if okay will remove the chest tube today Patient doing very well at this time 03/16/[address] scan and swallow study Patient does have a small leak there and GI has been consulted Agree with general surgery plan As far as the chest tubes are concerned patient will require right-sided radiology placed drain while the left side is being drained by the current regular chest tube Would leave the chest tubes in place till the anastomotic leak resolves Objective Vital Signs / I&O: Vital Signs 03/15/18 12:00 03/15/18 16:00 03/15/18 20:00 Temperature 97.9 F 99.4 F 100.3 F H Pulse Rate 80 83 84 Respiratory Rate 18 17 22 Blood Pressure 135/79 138/77 145/75 H Pulse Oximetry 97 97 96 03/16/18 00:00 03/16/18 04:00 03/16/18 08:00 Temperature 99.7 F H 100.1 F H 98.1 F Pulse Rate 91 H 86 95 H Respiratory Rate 24 22 19 Blood Pressure 142/80 H 136/70 159/85 H Pulse Oximetry 96 96 99 03/16/18 08:47 Temperature 100.0 F H Pulse Rate 96 H Respiratory Rate 20 Blood Pressure 129/85 Pulse Oximetry 94 L Intake & Output 1203/16/18 03/16/18 18:59 06:59 18:59 Intake Total 2080 / 2080 910 / 910 100 / 100 Output Total 495 / 495 335 / 335 Balance 1585 / 1585 575 / 575 100 / 100 Weight 69.9 kg Intake: IV 200 / 200 200 / 200 100 / 100 Rocephin Inj 2,000 MG In NS Inj 100 / 100 100 ML @ 200 mls/hr IV.SIG Q24H KELSIE Rx#:[id number] Flagyl 500 MG Inj 100 ML @ 100 200 / 200 100 / 100 100 / 100 mls/hr IV.SIG Q6H KELSIE Rx#: [id number] Oral 1100 / 1100 Tube Feeding 720 / 720 700 / 700 Tube Irrigant 60 / 60 10 10 Output: Urine 300 / 300 125 / 125 Gastric Drainage 40 / 40 50 / 50 G tube 40 / 40 50 / 50 Wound Drainage 135 / 135 150 / 150 #1 Lft Abdomen 125 / 125 120 / 120 #2 Rt abdomen 30 / 30 Chest Tube Drainage 20 #2 Left Lower Other: # Voids 2 Date of Last Bowel Movement 03/15/18 03/14/18 # Bowel Movements 1 Laboratory Results - last 24 hr 03/15/18 13:20 Puncture Site Left radial Patient Temperature 98.6 O2 Saturation 94 ABG pH 7.50 H ABG pCO2 38 ABG pO2 79 ABG HCO3 30 H ABG O2 Content 14.4 ABG Base Excess 6.4 H ABG Methemoglobin 1.1 Freddy Test Present Hemoglobin 10.8 L Carboxyhemoglobin 1.8 O2 Delivery Device Nasal cannula Liter Flow 4.00 Critical Value No Microbiology 03/14/18 18:48 Aerobic Blood Culture - Preliminary Blood - Peripheral No growth in 2 days Anaerobic Blood Culture - Preliminary No growth in 2 days 03/14/18 18:42 Aerobic Blood Culture - Preliminary Blood - Peripheral No growth in 2 days Anaerobic Blood Culture - Preliminary No growth in 2 days Impressions Abdomen/Pelvis CT 03/14/18 00:00 CONCLUSION: 1. Fluid and atelectasis in the lung bases 2. Extraluminal contrast projecting toward the left from presumed anastomotic leak in the region of the GE junction 3. Surgical drains and feeding tubes present 4. Hyperdense mass arising laterally from the mid to upper pole the right kidney is presumably hemorrhagic cyst, however comparison to prior studies would be recommended to document stability. Alternatively, pre and postcontrast MRI could be obtained for follow-up when clinically feasible if this lesion remains in question Chest CT 03/14/18 00:00 CONCLUSION: Bilateral pleural effusions and lung base atelectasis. Chest Tube Insertion 03/16/18 00:00 CONCLUSION: Uncomplicated CT-guided right thoracostomy tube placement for pleural effusion. 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
[2018-03-16 12:13] LABS: Baso # (Auto) 0.1 th/mm3 (0.0-0.2); Baso % (Auto) 0.4 % (0.0-2.0); Eos # (Auto) 0.1 th/mm3 (0.0-0.4); Eos % (Auto) 0.6 % (0.0-4.0); Hemoglobin 11.5 gm/dL (13.0-17.0); Lymph # (Auto) 1.4 th/mm3 (1.0-4.8); Mean Corpuscular HGB Conc 33.9 % (32.0-36.0); Mean Corpuscular Hemoglobin 34.9 pg (27.0-34.0); Mean Platelet Volume 11.2 fL (7.0-11.0); Mono # (Auto) 1.5 th/mm3 (0.0-0.9); Neut # (Auto) 10.7 th/mm3 (1.8-7.7); Platelet Count 275 th/mm3 (150-450); Red Cell Distribution Width 13.6 % (11.6-17.2); White Blood Count 13.8 th/mm3 (4.0-11.0)
[2018-03-16 12:20] LABS: INR 1.4 Ratio
--- NOTE | 2018-03-16 12:29 | XR ---
EXAM DATE: 03/16/2018 12:25 PM EST AGE/SEX: 73 years / Male INDICATIONS: Status post thoracentesis. CLINICAL DATA: This is the patient's initial encounter. Patient reports that signs and symptoms have been present for 1 day and indicates a pain score of 0/10. MEDICAL/SURGICAL HISTORY: . Carcinoma, gastric. Carcinoma, prostatic. Hypertension. Crohn's. . Cholecystectomy. Prostatectomy. Partial gastrectomy. COMPARISON: [facility] [place]ST 1V SINGLE AP, 03/14/2018. . FINDINGS: Bilateral chest tubes are in place. There is no pneumothorax. There is some parenchymal changes in th e left lung base. The right lung is grossly clear. The heart size is mildly enlarged but stable. No s ignificant changes are seen compared to the prior examination. CONCLUSION: Status post thoracentesis. No evidence of pneumothorax. Electronically signed by: Tyrone Lyles MD Board Certified Radiologist 03/16/2018 12:27 PM EST
--- NOTE | 2018-03-16 12:49 | P.CONGI ---
History of Present Illness Consult date: 03/16/18 Consult reason: Status post partial gastrectomy, status post perforation and repair, upper GI shows leak GI to evaluate for stent placement Chief complaint: Gastric Perforation History of Present Illness: This patient is a 73-year-old male who presented to [facility] on 03/03/2018 with complaint of left chest and upper abdominal pain. Patient has medical history significant for cervical vertebral fusion, Crohn's disease, depression, gastric cancer, hypertension, hyperlipidemia, melanoma, prostate cancer and thrombocytopenia. Surgical history is significant for prostatectomy , cholecystectomy and tonsillectomy. Patient underwent a proximal gastrectomy on February 23 for gastric carcinoma. Patient spouse states that afterwards he began eating large amounts of food, not adhering to post gastrectomy diet. After 2 days patient developed severe abdominal pain with nausea and vomiting. On 03/04/2018, patient underwent left thoracostomy tube placement x2, exploratory laparotomy, primary repair of esophagogastric dehiscence, 50% of the circumference. Pyloroplasty, peritoneal biopsy of the transverse colon mesentery, gastrostomy tube and jejunostomy tube. Patient presently has 2 thoracostomy tubes both of which are draining serous fluid. Patient has G-tube to gravity drainage, draining 100 mL's bilious colored fluid. J-tube clamped at present used for tube feedings. Left lower quadrant urostomy tube draining clear yellow urine. 03/14/2018 Gastrografin study revealed--There is leakage of contrast outside the GI tract which is at or just below the level of the GE junction. The contrast extravasation extends towards the left near the tip of the left-sided chest tube. Our service has been consulted to evaluate patient for stent placement via endoscopy. <Gilma Lima - Last Filed: 03/16/18 12:56> Review of Systems All other systems reviewed negative except as stated in HPI <Gilma Lima - Last Filed: 03/16/18 12:56> PMFSH - History History Provided By: Patient - Medical History Medical History: Medical History (Last Reviewed 03/11/18 @ 09:53 by Vernon Alicia) Cervical vertebral fusion Crohn disease Depression Gastric cancer High blood pressure High cholesterol Melanoma Prostate CA Thrombocytopenia - Surgical History Surgical History: Surgical History (Last Reviewed 03/11/18 @ 09:53 by Vernon Alicia) History of partial gastrectomy H/O prostatectomy History of cholecystectomy Hx of tonsillectomy - Tobacco History Second Hand Smoke Exposure: Yes Tobacco Use In Past 30 Days: No Smoking Status: Former smoker Tobacco Type: Cigarettes - Alcohol History How Often Do You Have a Drink Containing Alcohol: Never - Substance Use History Substance History: No History of Abuse - Travel History Recent Travel in the [place] Within the Last 8 Weeks: No Recent Travel Out of the Country Within the Last 8 Weeks: No - Immunization History Tetanus Immunization: <5 Years Hx Influenza Vaccine This Season: Yes <Gilma Lima - Last Filed: 03/16/18 12:56> - Medical History Medical History: Medical History (Last Reviewed 03/11/18 @ 09:53 by Vernon Alicia) Cervical vertebral fusion Crohn disease Depression Gastric cancer High blood pressure High cholesterol Melanoma Prostate CA Thrombocytopenia - Surgical History Surgical History: Surgical History (Last Reviewed 03/11/18 @ 09:53 by Vernon Alicia) History of partial gastrectomy H/O prostatectomy History of cholecystectomy Hx of tonsillectomy <Chacha Padron - Last Filed: 03/16/18 16:03> Medications and Allergies Active Medications: Active Medications Albuterol (Duoneb Neb (Prn)) 1 ampul NEB Q2HR NEB PRN PRN Reason: SHORTNESS OF BREATH Last Admin: 03/09/18 19:50 Dose: 1 ampul Benzocaine (Hurricaine 20% Oral [place]) 1 spray OROPHARYNG ONCE PRN PRN Reason: SEE LABEL COMMENTS Chlorhexidine Gluconate (Peridex 0.12% Oral Kit) 15 ml OROPHARYNG BID@0800, 2000 [facility] Last Admin: 03/16/18 11:38 Dose: 15 ml Metronidazole/Sodium Chloride (Flagyl 500 Mg Inj) 100 mls @ 100 mls/hr IV.SIG Q6H [facility] Last Admin: 03/16/18 11:39 Dose: 100 mls/hr Magnesium Sulfate 4 gm/ Sodium (Chloride) 100 mls @ 50 mls/hr IV.SIG UNSCH PRN PRN Reason: For Magnesium 0.9 - 1.1 mg/dL Magnesium Sulfate 2 gm/ Sodium (Chloride) 100 mls @ 50 mls/hr IV.SIG UNSCH PRN PRN Reason: For Magnesium 1.2 - 1.6 mg/dL Potassium Chloride (Kcl 40 Meq Premix Inj) 40 meq in 100 mls @ 25 mls/hr IV.SIG Q2H PRN PRN Reason: For Potassium 2.8 - 3.2 mEq/L Last Infusion: 03/05/18 00:05 Dose: Infused Potassium Chloride (Kcl 20 Meq Premix Inj) 20 meq in 100 mls @ 50 mls/hr IV.SIG Q2H PRN PRN Reason: For Potassium 3.3 - 3.5 mEq/L Potassium Chloride (Kcl 20 Meq Premix Inj) 20 meq in 100 mls @ 50 mls/hr IV.SIG Q2H PRN PRN Reason: For Potassium 2.8 - 3.2 mEq/L Last Infusion: 03/11/18 17:43 Dose: Infused Potassium Phosphate 30 mmol/ (Sodium Chloride) 260 mls @ 42 mls/hr IV.SIG UNSCH PRN PRN Reason: SEE LABEL COMMENTS Sodium Phosphate 30 mmol/ (Sodium Chloride) 260 mls @ 42 mls/hr IV.SIG UNSCH PRN PRN Reason: For Phosphorus < 2.5 mg/dL Potassium Chloride (Kcl 40 Meq Premix Inj) 40 meq in 100 mls @ 25 mls/hr IV.SIG UNSCH PRN PRN Reason: For Potassium 3.3 - 3.5 mEq/L Last Infusion: 03/08/18 12:21 Dose: Infused Micafungin Sodium 100 mg/ (Sodium Chloride) 100 mls @ 100 mls/hr IV.SIG Q24H KELSIE Last Infusion: 03/15/18 17:33 Dose: 100 mls/hr Ceftriaxone Sodium 2,000 mg/ (Sodium Chloride) 100 mls @ 200 mls/hr IV.SIG Q24H KELSIE Last Infusion: 03/15/18 23:45 Dose: Infused Magnesium Oxide (Mag-Ox) 800 mg PO UNSCH PRN PRN Reason: For Magnesium 1.2 - 1.6 mg/dL Miscellaneous Medication () 1 each OROPHARYNG 0000,0400,1200,1600 [facility] Last Admin: 03/16/18 11:42 Dose: 1 each Morphine Sulfate (Morphine Inj) 4 mg IV.PUSH Q3H PRN PRN Reason: BREAKTHROUGH PAIN Last Admin: 03/16/18 11:33 Dose: 4 mg Morphine Sulfate (Morphine Inj) 2 mg IV.PUSH Q3H PRN PRN Reason: PAIN 3-5; IF UABLE TO TAKE PO Multivitamins/Folic Acid/Vitamin C (Flintstones) 1 tab CHEW DAILY [facility] Last Admin: 03/16/18 08:47 Dose: Not Given Ondansetron HCl (Zofran Odt) 4 mg PO Q6H PRN PRN Reason: NAUSEA OR VOMITING Ondansetron HCl (Zofran Inj) 4 mg IV.PUSH Q6H PRN PRN Reason: NAUSEA OR VOMITING Padimate O ([place]) 0 applicatio TOPICAL UNSCH PRN PRN Reason: DRY LIPS Pantoprazole Sodium (Protonix Inj) 40 mg IV.PUSH Q24H [facility] Last Admin: 03/16/18 11:40 Dose: 40 mg Promethazine HCl (Phenergan Supp) 25 mg RECTAL Q6H PRN PRN Reason: NAUSEA OR VOMITING Promethazine HCl (Phenergan) 25 mg PO Q6H PRN PRN Reason: NAUSEA OR VOMITING <Gilma Lima - Last Filed: 03/16/18 12:56> Active Medications: Active Medications Hydrocodone Bitart/Acetaminophen (Hycet 325/7.5 Mg Liq) 15 ml J-TUBE Q4H PRN PRN Reason: pain 1-5 Last Admin: 03/16/18 13:12 Dose: 15 ml Albuterol (Duoneb Neb (Prn)) 1 ampul NEB Q2HR NEB PRN PRN Reason: SHORTNESS OF BREATH Last Admin: 03/09/18 19:50 Dose: 1 ampul Benzocaine (Hurricaine 20% Oral [place]) 1 spray OROPHARYNG ONCE PRN PRN Reason: SEE LABEL COMMENTS Chlorhexidine Gluconate (Peridex 0.12% Oral Kit) 15 ml OROPHARYNG BID@0800, 2000 [facility] Last Admin: 03/16/18 11:38 Dose: 15 ml Metronidazole/Sodium Chloride (Flagyl 500 Mg Inj) 100 mls @ 100 mls/hr IV.SIG Q6H [facility] Last Admin: 03/16/18 15:45 Dose: 100 mls/hr Magnesium Sulfate 4 gm/ Sodium (Chloride) 100 mls @ 50 mls/hr IV.SIG UNSCH PRN PRN Reason: For Magnesium 0.9 - 1.1 mg/dL Magnesium Sulfate 2 gm/ Sodium (Chloride) 100 mls @ 50 mls/hr IV.SIG UNSCH PRN PRN Reason: For Magnesium 1.2 - 1.6 mg/dL Potassium Chloride (Kcl 40 Meq Premix Inj) 40 meq in 100 mls @ 25 mls/hr IV.SIG Q2H PRN PRN Reason: For Potassium 2.8 - 3.2 mEq/L Last Infusion: 03/05/18 00:05 Dose: Infused Potassium Chloride (Kcl 20 Meq Premix Inj) 20 meq in 100 mls @ 50 mls/hr IV.SIG Q2H PRN PRN Reason: For Potassium 3.3 - 3.5 mEq/L Potassium Chloride (Kcl 20 Meq Premix Inj) 20 meq in 100 mls @ 50 mls/hr IV.SIG Q2H PRN PRN Reason: For Potassium 2.8 - 3.2 mEq/L Last Infusion: 03/11/18 17:43 Dose: Infused Potassium Phosphate 30 mmol/ (Sodium Chloride) 260 mls @ 42 mls/hr IV.SIG UNSCH PRN PRN Reason: SEE LABEL COMMENTS Sodium Phosphate 30 mmol/ (Sodium Chloride) 260 mls @ 42 mls/hr IV.SIG UNSCH PRN PRN Reason: For Phosphorus < 2.5 mg/dL Potassium Chloride (Kcl 40 Meq Premix Inj) 40 meq in 100 mls @ 25 mls/hr IV.SIG UNSCH PRN PRN Reason: For Potassium 3.3 - 3.5 mEq/L Last Infusion: 03/08/18 12:21 Dose: Infused Micafungin Sodium 100 mg/ (Sodium Chloride) 100 mls @ 100 mls/hr IV.SIG Q24H [facility] Last Infusion: 03/16/18 14:21 Dose: Infused Ceftriaxone Sodium 2,000 mg/ (Sodium Chloride) 100 mls @ 200 mls/hr IV.SIG Q24H [facility] Last Infusion: 03/15/18 23:45 Dose: Infused Magnesium Oxide (Mag-Ox) 800 mg PO UNSCH PRN PRN Reason: For Magnesium 1.2 - 1.6 mg/dL Miscellaneous Medication () 1 each OROPHARYNG 0000,0400,1200,1600 [facility] Last Admin: 03/16/18 15:45 Dose: 1 each Morphine Sulfate (Morphine Inj) 4 mg IV.PUSH Q3H PRN PRN Reason: pain 6-10 Last Admin: 03/16/18 15:44 Dose: 4 mg Multivitamins/Folic Acid/Vitamin C (Flintstones) 1 tab CHEW DAILY [facility] Last Admin: 03/16/18 08:47 Dose: Not Given Ondansetron HCl (Zofran Odt) 4 mg PO Q6H PRN PRN Reason: NAUSEA OR VOMITING Ondansetron HCl (Zofran Inj) 4 mg IV.PUSH Q6H PRN PRN Reason: NAUSEA OR VOMITING Padimate O ([place]) 0 applicatio TOPICAL UNSCH PRN PRN Reason: DRY LIPS Pantoprazole Sodium (Protonix Inj) 40 mg IV.PUSH Q24H KELSIE Last Admin: 03/16/18 11:40 Dose: 40 mg Promethazine HCl (Phenergan Supp) 25 mg RECTAL Q6H PRN PRN Reason: NAUSEA OR VOMITING Promethazine HCl (Phenergan) 25 mg PO Q6H PRN PRN Reason: NAUSEA OR VOMITING <Chacha Padron A - Last Filed: 03/16/18 16:03> Allergies Allergy/AdvReac Type Severity Reaction Status Date / Time No Known Allergies Allergy Verified 02/23/18 06:30 Home Medications Medication Instructions Recorded Confirmed Type atorvastatin [Lipitor] 20 mg PO DAILY 02/23/18 03/10/18 History duloxetine [Cymbalta] 30 mg PO DAILY 02/23/18 03/10/18 History lisinopril 5 mg PO DAILY 02/23/18 03/10/18 History multivitamin 1 tab PO DAILY 02/23/18 03/10/18 History Exam Vital signs: Vital Signs 03/15/18 16:00 03/15/18 20:00 03/16/18 00:00 Temperature 99.4 F 100.3 F H 99.7 F H Pulse Rate 83 84 91 H Respiratory Rate 17 22 24 Blood Pressure 138/77 145/75 H 142/80 H Pulse Oximetry 97 96 96 03/16/18 04:00 03/16/18 08:00 03/16/18 08:47 Temperature 100.1 F H 98.1 F 100.0 F H Pulse Rate 86 95 H 96 H Respiratory Rate 22 19 20 Blood Pressure 136/70 159/85 H 129/85 Pulse Oximetry 96 99 94 L 03/16/18 12:00 Temperature 98.2 F Pulse Rate 91 H Respiratory Rate 17 Blood Pressure 129/73 Pulse Oximetry 90 L Intake & Output 03/15/18 03/16/18 03/16/18 18:59 06:59 18:59 Intake Total 2080 / 2080 910 / 910 100 / 100 Output Total 495 / 495 335 / 335 Balance 1585 / 1585 575 / 575 100 / 100 Weight 69.9 kg Intake: IV 200 / 200 200 / 200 100 / 100 Rocephin Inj 2,000 MG In NS Inj 100 / 100 100 ML @ 200 mls/hr IV.SIG Q24H [facility] Rx#:[id number] Flagyl 500 MG Inj 100 ML @ 100 200 / 200 100 / 100 100 / 100 mls/hr IV.SIG Q6H [facility]EL[facility]E Rx#: [id number] Oral 1100 / 1100 Tube Feeding 720 / 720 700 / 700 Tube Irrigant 60 / 60 10 / 10 Output: Urine 300 / 300 125 / 125 Gastric Drainage 40 / 40 50 / 50 G tube 40 / 40 50 / 50 Wound Drainage 135 / 135 150 / 150 #1 Lft Abdomen 125 / 125 120 / 120 #2 Rt abdomen 10 30 / 30 Chest Tube Drainage 20 / 20 10 / 10 #2 Left Lower 20 / 20 10 / 10 Other: # Voids 2 Date of Last Bowel Movement 03/15/18 03/14/18 # Bowel Movements 1 - Constitutional mild distress, chronically ill appearing - Routine HEENT Exam Head: Present: normocephalic - Routine Neck Exam Present: supple - Routine Chest/Breast/Axilla Exam Chest wall: Present: chest tube Comments: Bilateral chest tubes present draining serous fluid - Routine Respiratory Exam Absent: respiratory distress Comments: Diminished breath sounds bilaterally - Routine Cardiovascular Exam Present: RRR - Routine Abdominal Exam Present: soft, normoactive bowel sounds. Absent: distended, guarding, firm Comments: Gastrostomy tube to drainage Copious amount of biliary drainage noted in collection bag J-tube clamped at present, use for feedings - Routine Exam Comments: Left lower quadrant urostomy tube draining clear yellow urine - Routine Extremities Exam Present: pulses intact. Absent: edema - Routine Skin Exam Present: dry, warm. Absent: pallor - Routine Neurological Exam Present: alert - Routine Psychiatric Exam Present: normal affect, cooperative <Lima,Gilma - Last Filed: 03/16/18 12:56> Vital signs: Vital Signs 03/15/18 20:00 03/16/18 00:00 03/16/18 04:00 Temperature 100.3 F H 99.7 F H 100.1 F H Pulse Rate 84 91 H 86 Respiratory Rate 22 24 22 Blood Pressure 145/75 H 142/80 H 136/70 Pulse Oximetry 96 96 96 03/16/18 08:00 03/16/18 08:47 03/16/18 12:00 Temperature 98.1 F 100.0 F H 98.2 F Pulse Rate 95 H 96 H 91 H Respiratory Rate 19 20 17 Blood Pressure 159/85 H 129/85 129/73 Pulse Oximetry 99 94 L 90 L Intake & Output 03/15/18 03/16/18 03/16/18 18:59 06:59 18:59 Intake Total 2080 / 2080 910 / 910 300 / 300 Output Total 495 / 495 335 / 335 Balance 1585 / 1585 575 / 575 300 / 300 Weight 69.9 kg Intake: IV 200 / 200 200 / 200 300 / 300 Mycamine Inj 100 MG In NS Inj 100 / 100 100 ML @ 100 mls/hr IV.SIG Q24H KELSIE Rx#:[id number] Rocephin Inj 2,000 MG In NS Inj 100 / 100 100 ML @ 200 mls/hr IV.SIG Q24H [facility]ELSIE Rx#:[id number] Flagyl 500 MG Inj 100 ML @ 100 200 / 200 100 / 100 200 / 200 mls/hr IV.SIG Q6H [facility]EL[facility]E Rx#: [id number] Oral 1100 / 1100 Tube Feeding 720 / 720 700 / 700 Tube Irrigant 60 / 60 10 / 10 Output: Urine 300 / 300 125 / 125 Gastric Drainage 40 / 40 50 / 50 G tube 40 / 40 50 / 50 Wound Drainage 135 / 135 150 / 150 #1 Lft Abdomen 125 / 125 120 / 120 #2 Rt abdomen 10 / 10 30 / 30 Chest Tube Drainage 20 / 20 10 / 10 #2 Left Lower 20 / 20 10 / 10 Other: # Voids 2 Date of Last Bowel Movement 03/15/18 03/14/18 # Bowel Movements 1 <Chacha Padron A - Last Filed: 03/16/18 16:03> Results - Labs CBC & Chem 7: 03/16/18 11:56 03/15/18 05:30 Labs: Laboratory Results - last 24 hr 03/15/18 03/16/18 03/16/18 13:20 11:56 11:56 WBC 13.8 H RBC 3.30 L Hgb 11.5 L Hct 34.0 L MCV 103.0 H MCH 34.9 H MCHC 33.9 RDW 13.6 Plt Count 275 MPV 11.2 H Neut % (Auto) 78.0 H Lymph % (Auto) 10.0 [place] % (Auto) 11.0 H Eos % (Auto) 0.6 Baso % (Auto) 0.4 Neut # (Auto) 10.7 H Lymph # (Auto) 1.4 [place] # (Auto) 1.5 H Eos # (Auto) 0.1 Baso # (Auto) 0.1 WBC Differential . Differential Comment Auto diff final PT 14.0 H INR 1.4 Puncture Site Left radial Patient Temperature 98.6 O2 Saturation 94 ABG pH 7.50 H ABG pCO2 38 ABG pO2 79 ABG HCO3 30 H ABG O2 Content 14.4 ABG Base Excess 6.4 H ABG Methemoglobin 1.1 Freddy Test Present Hemoglobin 10.8 L Carboxyhemoglobin 1.8 O2 Delivery Device Nasal cannula Liter Flow 4.00 Critical Value No - Imaging Impressions Chest Tube Insertion 03/16/18 00:00 CONCLUSION: Uncomplicated CT-guided right thoracostomy tube placement for pleural effusion. Chest Ultrasound 03/16/18 00:00 CONCLUSION: Moderate right pleural effusion <Gilma Lima - Last Filed: 03/16/18 12:56> - Labs CBC & Chem 7: 03/16/18 11:56 03/15/18 05:30 Labs: Laboratory Results - last 24 hr 03/16/18 03/16/18 11:56 11:56 WBC 13.8 H RBC 3.30 L Hgb 11.5 L Hct 34.0 L MCV 103.0 H MCH 34.9 H MCHC 33.9 RDW 13.6 Plt Count 275 MPV 11.2 H Neut % (Auto) 78.0 H Lymph % (Auto) 10.0 [place] % (Auto) 11.0 H Eos % (Auto) 0.6 Baso % (Auto) 0.4 Neut # (Auto) 10.7 H Lymph # (Auto) 1.4 [place] # (Auto) 1.5 H Eos # (Auto) 0.1 Baso # (Auto) 0.1 WBC Differential . Differential Comment Auto diff final PT 14.0 H INR 1.4 - Imaging Impressions Chest Tube Insertion 03/16/18 00:00 CONCLUSION: Uncomplicated CT-guided right thoracostomy tube placement for pleural effusion. Chest Ultrasound 03/16/18 00:00 CONCLUSION: Moderate right pleural effusion Chest X-Ray 03/16/18 00:00 CONCLUSION: Status post thoracentesis. No evidence of pneumothorax. <Chacha Padron - Last Filed: 03/16/18 16:03> Assessment and Plan (1) Gastric perforation Status: Acute Code(s): K25.5 - Chronic or unspecified gastric ulcer with perforation - Plan This patient is a 73-year-old male who presented to [facility] on 03/03/2018 with complaint of left chest and upper abdominal pain. Patient has medical history significant for cervical vertebral fusion, Crohn's disease, depression, gastric cancer, hypertension, hyperlipidemia, melanoma, prostate cancer and thrombocytopenia. Surgical history is significant for prostatectomy , cholecystectomy and tonsillectomy. Patient underwent a proximal gastrectomy on February 23 for gastric carcinoma. Patient spouse states that afterwards he began eating large amounts of food, not adhering to post gastrectomy diet. After 2 days patient developed severe abdominal pain with nausea and vomiting. On 03/04/2018, patient underwent left thoracostomy tube placement x2, exploratory laparotomy, primary repair of esophagogastric dehiscence, 50% of the circumference. Pyloroplasty, peritoneal biopsy of the transverse colon mesentery, gastrostomy tube and jejunostomy tube. Patient presently has 2 thoracostomy tubes both of which are draining serous fluid. Patient has G-tube to gravity drainage, draining 100 mL's bilious colored fluid. J-tube clamped at present used for tube feedings. Left lower quadrant urostomy tube draining clear yellow urine. 03/14/2018 Gastrografin study revealed--There is leakage of contrast outside the GI tract which is at or just below the level of the GE junction. The contrast extravasation extends towards the left near the tip of the left-sided chest tube. Our service has been consulted to evaluate patient for stent placement via endoscopy. Contrast extravasation Post proximal gastrectomy Post exploratory laparotomy with repair of a cephalo-gastric dehiscence Surgical progression as noted above 03/14/2018 CT abdomen and pelvis reveal the following-- Fluid and atelectasis in the lung bases Extraluminal contrast projecting toward the left from presumed anastomotic leak in the region of the GE junction Surgical drains and feeding tubes present Hyperdense mass arising laterally from the mid to upper pole the right kidney is presumably hemorrhagic cyst, however comparison to prior studies would be recommended to document stability. Alternatively, pre and postcontrast MRI could be obtained for follow-up when clinically feasible if this lesion remains in question. 03/14/2018 Gastrografin study revealed the following--. There is leakage of contrast outside the GI tract which is at or just below the level of the GE junction. The contrast extravasation extends towards the left near the tip of the left-sided chest tube.. WBC 13.8 hemoglobin 11.5 hematocrit 34.0 INR 1.4 Plan Resume tube feedings Stop tube feedings at midnight Hold heparin a.m. dose 03/17/2018 Will order stent Plan for esophagogastric stent placement via endoscopy Antiemetics and analgesics as per attending Continue PPI Supportive care Further recommendations to follow This patient has been seen by myself and Dr. Padron and this note is written on his behalf - Attending Attestation Dr. Padron <Gilma Lima - Last Filed: 03/16/18 12:56> (1) Gastric perforation Status: Acute Code(s): K25.5 - Chronic or unspecified gastric ulcer with perforation - Attending Attestation Seen and examined, plan as above. Discussed stent placement with the patient and his family, will proceed with placement in AM. Thank you for the consult. <Chacha Padron - Last Filed: 03/16/18 16:03>
--- NOTE | 2018-03-16 12:54 | P.PNGS ---
Subjective Interval history: Resting in bed Just back from RIGHT sided chest tube placement Physical Exam Vital signs: Vital Signs 03/15/18 16:00 03/15/18 20:00 03/16/18 00:00 Temperature 99.4 F 100.3 F H 99.7 F H Pulse Rate 83 84 91 H Respiratory Rate 17 22 24 Blood Pressure 138/77 145/75 H 142/80 H Pulse Oximetry 97 96 96 03/16/18 04:00 03/16/18 08:00 03/16/18 08:47 Temperature 100.1 F H 98.1 F 100.0 F H Pulse Rate 86 95 H 96 H Respiratory Rate 22 19 20 Blood Pressure 136/70 159/85 H 129/85 Pulse Oximetry 96 99 94 L 03/16/18 12:00 Temperature 98.2 F Pulse Rate 91 H Respiratory Rate 17 Blood Pressure 129/73 Pulse Oximetry 90 L Intake & Output 03/15/18 03/16/18 03/16/18 18:59 06:59 18:59 Intake Total 2080 / 2080 910 / 910 200 / 200 Output Total 495 / 495 335 / 335 Balance 1585 / 1585 575 / 575 200 / 200 Weight 69.9 kg Intake: IV 200 / 200 200 / 200 200 / 200 Rocephin Inj 2,000 MG In NS Inj 100 / 100 100 ML @ 200 mls/hr IV.SIG Q24H [facility]EL[facility]E Rx#:[id number] Flagyl 500 MG Inj 100 ML @ 100 200 / 200 100 / 100 200 / 200 mls/hr IV.SIG Q6H KELSIE Rx#: [id number] Oral 1100 / 1100 Tube Feeding 720 / 720 700 / 700 Tube Irrigant 60 / 60 10 10 Output: Urine 300 / 300 125 / 125 Gastric Drainage 40 / 40 50 / 50 G tube 40 / 40 50 / 50 Wound Drainage 135 / 135 150 / 150 #1 Lft Abdomen 125 / 125 120 / 120 #2 Rt abdomen 30 / 30 Chest Tube Drainage 20 #2 Left Lower Other: # Voids 2 Date of Last Bowel Movement 03/15/18 03/14/18 # Bowel Movements 1 Narrative: Alert and awake Abd: soft; midline incision with dressing; Bilateral CHAR to biliary bags---serous ; bilateral CT --- serous drainage; G tube to gravity drainage bag; J tube capped - Urinary Catheter Management Indwelling Urethral Catheter Cath placed during this visit: yes, but has since been removed by the nurse Reason for continuing: Decision to DC catheter Removal date: 03/13/18 Removal time: 21:42 Results - Labs 03/19/18 06:59 03/19/18 06:59 Laboratory Results - last 24 hr 03/15/18 03/16/18 03/16/18 13:20 11:56 11:56 WBC 13.8 H RBC 3.30 L Hgb 11.5 L Hct 34.0 L MCV 103.0 H MCH 34.9 H MCHC 33.9 RDW 13.6 Plt Count 275 MPV 11.2 H Neut % (Auto) 78.0 H Lymph % (Auto) 10.0 [place] % (Auto) 11.0 H Eos % (Auto) 0.6 Baso % (Auto) 0.4 Neut # (Auto) 10.7 H Lymph # (Auto) 1.4 [place] # (Auto) 1.5 H Eos # (Auto) 0.1 Baso # (Auto) 0.1 WBC Differential . Differential Comment Auto diff final PT 14.0 H INR 1.4 Puncture Site Left radial Patient Temperature 98.6 O2 Saturation 94 ABG pH 7.50 H ABG pCO2 38 ABG pO2 79 ABG HCO3 30 H ABG O2 Content 14.4 ABG Base Excess 6.4 H ABG Methemoglobin 1.1 Freddy Test Present Hemoglobin 10.8 L Carboxyhemoglobin 1.8 O2 Delivery Device Nasal cannula Liter Flow 4.00 Critical Value No - Imaging Imaging: ITS Impressions Abdomen/Pelvis CT 03/14/18 00:00 CONCLUSION: 1. Fluid and atelectasis in the lung bases 2. Extraluminal contrast projecting toward the left from presumed anastomotic leak in the region of the GE junction 3. Surgical drains and feeding tubes present 4. Hyperdense mass arising laterally from the mid to upper pole the right kidney is presumably hemorrhagic cyst, however comparison to prior studies would be recommended to document stability. Alternatively, pre and postcontrast MRI could be obtained for follow-up when clinically feasible if this lesion remains in question Chest CT 03/14/18 00:00 CONCLUSION: Bilateral pleural effusions and lung base atelectasis. Gastrografin Study 03/14/18 00:00 CONCLUSION: 1. There is leakage of contrast outside the GI tract which is at or just below the level of the GE junction. The contrast extravasation extends towards the left near the tip of the left-sided chest tube.. Chest Tube Insertion 03/16/18 00:00 CONCLUSION: Uncomplicated CT-guided right thoracostomy tube placement for pleural effusion. Chest Ultrasound 03/16/18 00:00 CONCLUSION: Moderate right pleural effusion Chest X-Ray 03/16/18 00:00 CONCLUSION: Status post thoracentesis. No evidence of pneumothorax. Assessment and Plan - Assessment (1) Gastric perforation Code(s): K25.5 - Chronic or unspecified gastric ulcer with perforation Status : Acute Plan: 73 year old male s/p partial gastrectomy for adenocarcinoma, readmit for perforation at gastroesophageal anastomosis after vomiting transferred to floor doing better -s/p ex lap; repair of esophagogastric dehiscence; placement of G tube; placement of J tube; Chest washout and tube placement x 2 -Thoracic surgery following - NPO -Added Hycet for pain thru J tube -UGI shows leak--consult to GI for stent placement -Restart TF today; NPO after MN -Continue PT -SUZE Melo at bedside (2) Adenocarcinoma, 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 I reviewed and agree with the findings presented. I attest that I had a [id number] encounter with the patient on the same day, and personally performed and documented my assessment and findings in the medical record. s/p Proximal gastrectomy, return to OR for perforation upper GI with small leak, d/w Dr. Zambrano, keep chest tube ID following continue PT continue TF
[2018-03-16] MEDS: Acetaminophen-HYDROcodone 325/7.5 Liq 15 ML UDC J-TUBE PRN ×2 (13:12→17:36)
--- NOTE | 2018-03-16 15:12 | P.PNIM ---
Subjective Interval history: Nursing denies any acute changes overnight. Patient reports being in more pain since he has his chest tube placed in the right side. Would like to try hydrocodone. Spouse is at the bedside. Physical Exam Vital signs: Vital Signs 03/15/18 16:00 03/15/18 20:00 03/16/18 00:00 Temperature 99.4 F 100.3 F H 99.7 F H Pulse Rate 83 84 91 H Respiratory Rate 17 22 24 Blood Pressure 138/77 145/75 H 142/80 H Pulse Oximetry 97 96 96 03/16/18 04:00 03/16/18 08:00 03/16/18 08:47 Temperature 100.1 F H 98.1 F 100.0 F H Pulse Rate 86 95 H 96 H Respiratory Rate 22 19 20 Blood Pressure 136/70 159/85 H 129/85 Pulse Oximetry 96 99 94 L 03/16/18 12:00 Temperature 98.2 F Pulse Rate 91 H Respiratory Rate 17 Blood Pressure 129/73 Pulse Oximetry 90 L Intake & Output 03/15/18 03/16/18 03/16/18 18:59 06:59 18:59 Intake Total 2080 / 2080 910 / 910 300 / 300 Output Total 495 / 495 335 / 335 Balance 1585 / 1585 575 / 575 300 / 300 Weight 69.9 kg Intake: IV 200 / 200 200 / 200 300 / 300 Mycamine Inj 100 MG In NS Inj 100 / 100 100 ML @ 100 mls/hr IV.SIG Q24H [facility]EL[facility]E Rx#:[id number] Rocephin Inj 2,000 MG In NS Inj 100 / 100 100 ML @ 200 mls/hr IV.SIG Q24H KELSIE Rx#:[id number] Flagyl 500 MG Inj 100 ML @ 100 200 / 200 100 / 100 200 / 200 mls/hr IV.SIG Q6H KELSIE Rx#: [id number] Oral 1100 / 1100 Tube Feeding 720 / 720 700 / 700 Tube Irrigant 60 / 60 10 / 10 Output: Urine 300 / 300 125 / 125 Gastric Drainage 40 / 40 50 / 50 G tube 40 / 40 50 / 50 Wound Drainage 135 / 135 150 / 150 #1 Lft Abdomen 125 / 125 120 / 120 #2 Rt abdomen 10 / 10 30 / 30 Chest Tube Drainage 20 / 20 10 / 10 #2 Left Lower 20 / 20 10 / 10 Other: # Voids 2 Date of Last Bowel Movement 03/15/18 03/14/18 # Bowel Movements 1 Narrative: Chest tube in place of the right lateral side, has mild respiratory distress secondary to pain Chest tube in place over posterior rib cage PEG tube in place over abdomen is soft, benign, has mild tenderness to palpation diffusely No lower extremity edema - Urinary Catheter Management Indwelling Urethral Catheter Cath placed during this visit: yes, but has since been removed by the nurse Reason for continuing: Decision to DC catheter Removal date: 03/13/18 Removal time: 21:42 Results - Labs CBC & Chem 7: 03/16/18 11:56 03/15/18 05:30 Laboratory Results - last 24 hr 03/16/18 03/16/18 11:56 11:56 WBC 13.8 H RBC 3.30 L Hgb 11.5 L Hct 34.0 L MCV 103.0 H MCH 34.9 H MCHC 33.9 RDW 13.6 Plt Count 275 MPV 11.2 H Neut % (Auto) 78.0 H Lymph % (Auto) 10.0 [place] % (Auto) 11.0 H Eos % (Auto) 0.6 Baso % (Auto) 0.4 Neut # (Auto) 10.7 H Lymph # (Auto) 1.4 [place] # (Auto) 1.5 H Eos # (Auto) 0.1 Baso # (Auto) 0.1 WBC Differential . Differential Comment Auto diff final PT 14.0 H INR 1.4 Microbiology 03/14/18 18:48 Blood - Peripheral Aerobic Blood Culture - Preliminary No growth in 2 days 03/14/18 18:48 Blood - Peripheral Anaerobic Blood Culture - Preliminary No growth in 2 days 03/14/18 18:42 Blood - Peripheral Aerobic Blood Culture - Preliminary No growth in 2 days 03/14/18 18:42 Blood - Peripheral Anaerobic Blood Culture - Preliminary No growth in 2 days - Imaging Impressions Chest Tube Insertion 03/16/18 00:00 CONCLUSION: Uncomplicated CT-guided right thoracostomy tube placement for pleural effusion. Chest Ultrasound 03/16/18 00:00 CONCLUSION: Moderate right pleural effusion Chest X-Ray 03/16/18 00:00 CONCLUSION: Status post thoracentesis. No evidence of pneumothorax. Assessment and Plan - Assessment (1) Gastric perforation Code(s): K25.5 - Chronic or unspecified gastric ulcer with perforation Status : Acute Plan: Continue sedation; increase enteral feeding as tolerated. 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 History of gastric cancer. Patient was admitted to the ICU on mechanical ventilation and started on pressor support and abx for septic shock. He had 2 chest tubes inserted in the OR on 03/04 due to suspected mediastinal contamination, one anterior and one posterior, underwent surgical exploration and repair by gen surg. Eventually had anterior chest tube removed on 03/10, pleural fluid cultures growing Haemophilus parainfluenza. Is currently tolerating feeds via J-tube, G-tube is to gravity. Underwent thoracentesis on of right lung w/ another chest tube placed. Acute respiratory failure ? Empyema improving, Wean O2 to room air as tolerated -May benefit from CPAP as he sleeps but given his chest tube in place with an esophageal leak I will hold off for now -ABG shows no no changes from before, no CO2 retention -Right sided pleural effusion status post thoracentesis and right-sided chest tube insertion, cx's sent off Esophageal anastomotic leak s/p gastrectomy for gastric CA, secondary to patient non-compliance with recommended post-gastrectomy diet -Surgical exploration and repair on 03/[address] Storm -Gastrografin study showing extravasation onset of GI tract upwards towards left chest tube, general surgery notified, planning stenting tomorrow -CT abdomen/pelvis and CT chest shows same extravasation of contrast with bilateral moderate pleural effusions -anticipate GI stent placement on 03/17 BL Pleural effusions + mediastinal contamination 2/2 intra-abdominal perforation causing possible empyema -CTS managing chest tubes - cultures growing Haemophilus parainfluenza, strep viridans -> appreciate ID input with further imaging - continue rocephin and Flagyl and micafungin until modified by ID Severe chronic protein malnutrition j-tube feeds for now SCDs given procedures.
--- NOTE | 2018-03-16 16:35 | P.PNWCN ---
Wound Care Nurse Consult Description: Received wound pressure ulcer consult for pressure ulcer to sacral area from Doctor Ibrahima. Communicated with: RN Lorie spencer and Doctor Adán Recommendation: 1.Please cleanse wound to coccyx area with wound cleanser or normal saline and pat dry. 2. Apply skin barrier film to periwound 3. Cover wound with Optifoam gentle 6x6 dressing. 4. Change dressing every 3 days or PRN if saturated or dislodged. 5. Turn patient from L side to R side every 2 hours and as needed for comfort and offloading of pressure from eleanor prominences. 6. Limit time spent on back to P.T. and meals. 7. Limit layers under patient. Do not use cotton pads on low airloss bed. Wound/Pressure Injury - Wound Coccyx Wound Staging: Stage II Wound Assessment: Ongoing Wound Type: Pressure Injury Is This a Chronic Wound: No Length (cm): 3 Width (cm): 5 Wound Bed Appearance: Clements Wound Bed Appearance: Wound bed presents with 100% pink tissue Surrounding Tissue Appearance: Clements Surrounding Tissue Temperature: Cool Drainage Description: Serosanguinous Drainage Amount: Scant Drainage Odor: No Odor Dressing Status: Open to Air Cleansing Solution: Saline - Additional Information Patient seen on for evaluation of possible pressure injury to sacral area. Patient was positioned toward the L side to reveal open wound over Coccyx area the extends to the bilateral buttocks. Wound is partial thickness with macerated peeling tissue noted in center of wound in gluteal cleft area, but other wound bed is pink. Partial thickness wound over Coccyx eleanor prominence indicates Stage II pressure injury. Patient is laying on Regular [place] rom bed with cotton pad and two ultra sorbs underneath him. Patient has difficulty with turns and repositioning due to pain. Wound was cleansed with normal saline and Left open to air until recommended dressing arrives. Wound description, measurements and wound care recommendations are noted above.
--- NOTE | 2018-03-16 16:56 | P.PNID ---
Subjective Remarks: is a 73 y/o CM with PMHX significant for adenocarcinoma, s/p laparoscopic proximal gastrectomy on 02/23/2018. Patient was reportedly doing well post operatively and when he went home he had large volume meals and had vomiting with retching at times. He was taken to [facility] and then transferred to [facility].His WBC was 20,000. A CT abdomen/pelvis was obtained which is shows intraperitoneal free air and there is a concern for an anastomotic leak at the gastroesophageal junction. Patient was initially in ICU with septic shock on vasopressors. He was also reportedly intubated at other hospital. He had a large left side pleural effusion. He has been seen by General surgery, CT Surgery . He is now s/p ex lap; repair of esophagogastric dehiscence; placement of G tube; placement of J tube; Chest washout and tube placement x 2 during this admission. At the time of my evaluation, patient is in on regular floor. Awake, sitting in chair, Ox3, Non focal. He had a gastrograffin study which shows ongoing leak. Dw Surgery team plan for possible stent placement later this week. Overnight events reviewed with RN No fevers No rash No diarrhea CT had shown bilateral effusions discussed with Dr. Tracy who interim discussed with CTS and an IR guided chest tube placement was performed. Reviewed surgery notes it appears that GI has been consulted for placement of an esophageal stent. Antibiotics: Ceftriaxone IV Flagyl IV Lines: Line sites with no evidence of infection. Past Medical History: Reviewed. Allergies/Adverse Reactions: Allergies No Known Allergies Allergy (Verified 02/23/18 06:30) Objective Vital Signs 03/15/18 20:00 03/16/18 00:00 03/16/18 04:00 Temperature 100.3 F H 99.7 F H 100.1 F H Pulse Rate 84 91 H 86 Respiratory Rate 22 24 22 Blood Pressure 145/75 H 142/80 H 136/70 Pulse Oximetry 96 96 96 03/16/18 08:00 03/16/18 08:47 03/16/18 12:00 Temperature 98.1 F 100.0 F H 98.2 F Pulse Rate 95 H 96 H 91 H Respiratory Rate 19 20 17 Blood Pressure 159/85 H 129/85 129/73 Pulse Oximetry 99 94 L 90 L 03/16/18 16:00 Temperature 98.0 F Pulse Rate 86 Respiratory Rate 18 Blood Pressure 131/78 Pulse Oximetry 97 Intake & Output 03/15/18 03/16/18 03/16/18 18:59 06:59 18:59 Intake Total 2080 / 2080 910 / 910 300 / 300 Output Total 495 / 495 335 / 335 Balance 1585 / 1585 575 / 575 300 / 300 Weight 69.9 kg Intake: IV 200 / 200 200 / 200 300 / 300 Mycamine Inj 100 MG In NS Inj 100 / 100 100 ML @ 100 mls/hr IV.SIG Q24H KELSIE Rx#:[id number] Rocephin Inj 2,000 MG In NS Inj 100 / 100 100 ML @ 200 mls/hr IV.SIG Q24H KELSIE Rx#:[id number] Flagyl 500 MG Inj 100 ML @ 100 200 / 200 100 / 100 200 / 200 mls/hr IV.SIG Q6H KELSIE Rx#: [id number] Oral 1100 / 1100 Tube Feeding 720 / 720 700 / 700 Tube Irrigant 60 / 60 10 / 10 Output: Urine 300 / 300 125 / 125 Gastric Drainage 40 / 40 50 / 50 G tube 40 / 40 50 / 50 Wound Drainage 135 / 135 150 / 150 #1 Lft Abdomen 125 / 125 120 / 120 #2 Rt abdomen 10 / 10 30 / 30 Chest Tube Drainage 20 / 20 10 / 10 #2 Left Lower 20 / 20 10 / 10 Other: # Voids 2 Date of Last Bowel Movement 03/15/18 03/14/18 # Bowel Movements 1 03/14/18 18:48 Blood - Peripheral Aerobic Blood Culture - Preliminary No growth in 2 days 03/14/18 18:48 Blood - Peripheral Anaerobic Blood Culture - Preliminary No growth in 2 days 03/14/18 18:42 Blood - Peripheral Aerobic Blood Culture - Preliminary No growth in 2 days 03/14/18 18:42 Blood - Peripheral Anaerobic Blood Culture - Preliminary No growth in 2 days Lab - Hematology Results 03/15/18 03/16/18 05:30 11:56 WBC 14.0 H 13.8 H RBC 3.24 L 3.30 L Hgb 11.1 L 11.5 L Hct 33.3 L 34.0 L MCV 102.7 H 103.0 H MCH 34.4 H 34.9 H MCHC 33.4 33.9 RDW 13.5 13.6 Plt Count 227 275 MPV 11.3 H 11.2 H Neut % (Auto) 82.9 H 78.0 H Lymph % (Auto) 7.2 L 10.0 [place] % (Auto) 8.7 H 11.0 H Eos % (Auto) 0.9 0.6 Baso % (Auto) 0.3 0.4 Neut # (Auto) 11.6 H 10.7 H Lymph # (Auto) 1.0 1.4 [place] # (Auto) 1.2 H 1.5 H Eos # (Auto) 0.1 0.1 Baso # (Auto) 0.0 0.1 WBC Differential . . Differential Comment Auto diff final Auto diff final Lab - Chemistry Results 03/15/18 05:30 Sodium 142 Potassium 3.7 Chloride 106 Carbon Dioxide 30.6 Anion Gap 5 BUN 22 H Creatinine 0.82 Estimated GFR Greater than 89 Random Glucose 147 H Calcium 7.5 L Imaging: ITS Impressions Abdomen/Pelvis CT 03/14/18 00:00 CONCLUSION: 1. Fluid and atelectasis in the lung bases 2. Extraluminal contrast projecting toward the left from presumed anastomotic leak in the region of the GE junction 3. Surgical drains and feeding tubes present 4. Hyperdense mass arising laterally from the mid to upper pole the right kidney is presumably hemorrhagic cyst, however comparison to prior studies would be recommended to document stability. Alternatively, pre and postcontrast MRI could be obtained for follow-up when clinically feasible if this lesion remains in question Chest CT 03/14/18 00:00 CONCLUSION: Bilateral pleural effusions and lung base atelectasis. Gastrografin Study 03/14/18 00:00 CONCLUSION: 1. There is leakage of contrast outside the GI tract which is at or just below the level of the GE junction. The contrast extravasation extends towards the left near the tip of the left-sided chest tube.. Chest Tube Insertion 03/16/18 00:00 CONCLUSION: Uncomplicated CT-guided right thoracostomy tube placement for pleural effusion. Chest Ultrasound 03/16/18 00:00 CONCLUSION: Moderate right pleural effusion Chest X-Ray 03/16/18 00:00 CONCLUSION: Status post thoracentesis. No evidence of pneumothorax. Physical Exam: GENERAL: Well-nourished well-developed, not in acute distress SKIN: Cool and dry, no generalized rash HEAD: Atraumatic. Normocephalic. No temporal or scalp tenderness. EYES: Pupils equal round and reactive. Scleral icterus. No injection or drainage. No petechia ENT: Nothing abnormal detected NECK: Trachea midline. Supple, nontender, no meningeal signs. CARDIOVASCULAR: HS audible. RESPIRATORY: Clear to auscultation bilaterally. GASTROINTESTINAL: Abdomen soft nontender. G tube ok. J tube ok. CT sites ok. MUSCULOSKELETAL: Extremities without clubbing, cyanosis. NEUROLOGICAL: Alert oriented 3. Nonfocal. Psych cooperative IV line sites ok. Assessment and Plan - Plan Septic Shock on admission now resolved. Ongoing sepsis due to persistent leucocytosis and source issues. Strep viridans, Haemophilus parainfluenza, Rothia species for left pleural effusion washout. Now with loculated pleural effusion cw empyema. Right side moderate pleural effusion adenocarcinoma, s/p laparoscopic proximal gastrectomy on 02/23/2018. s/p ex lap; repair of esophagogastric dehiscence; placement of G tube; placement of J tube; Chest washout and tube placement x 2 Recs: Continue ceftriaxone IV (covers Strep viridans and H.parainfluenzae, and Rothia species) Continue Flagyl IV (anaerobic coverage, beta lactamase positive organisms) Follow cultures Follow clinical course dw RN dw patient and above plan as well as Dr. Lim yesterday that source control is essential, and stent placement would help. Will discuss with Dr. Zambrano if there is any plans for decortication. Expect a long course of IV antibiotics for treatment of empyema probably 4 weeks or longer depending on repeat imaging. [facility]tic[facility] [facility] this patient is deconditioned as well as has been IV antibiotics. Discussed with family while chest tubes are in place patient is clearly not ready for discharge. Appreciate CTS input Await GI input
[2018-03-16] MEDS ORDERED: Heparin - SQ 10,000 UNITS/ML Vial SQ ONE (21:00)
[2018-03-17] MEDS: Oral Hygiene Kit OROPHARYNG SCH ×4 (00:01→17:03)
[2018-03-17] MEDS: Acetaminophen-HYDROcodone 325/7.5 Liq 15 ML UDC J-TUBE PRN ×3 (00:43→23:48)
[2018-03-17] MEDS: Morphine Inj 4 MG/ML Vial IV.PUSH PRN ×4 (02:41→21:57)
--- NOTE | 2018-03-17 08:20 | ECG ---
Date Performed: 03/16/2018 Time Performed: 13:48:00 PTAGE: 73 years EKG: Sinus rhythm NORMAL ECG PREVIOUS TRACING : 02/23/2018 06.49 Compared to previous tracing, the patient is no longer gerber ycardic DOCTOR: Tashia Skinner Interpretating Date/Time 03/17/2018 08:19:40
--- NOTE | 2018-03-17 10:36 | P.PNIM ---
Physical Exam Vital signs: Last Vital Signs Temp 98.7 F 03/17/18 08:00 Pulse 92 H 03/17/18 08:00 Resp 19 03/17/18 08:00 BP 129/81 03/17/18 08:00 Pulse Ox 97 03/17/18 08:00 Intake & Output 03/15/18 03/16/18 03/17/18 03/18/18 06:59 06:59 06:59 06:59 Intake Total 1650 / 1650 2990 / 2990 700 / 700 Output Total 1750 / 1750 830 / 830 1550 / 1550 Balance -100 / -100 2160 / 2160 -850 / -850 Weight 71.8 kg 69.9 kg 66.7 kg Narrative: GENERAL: This is a well-nourished, well-developed patient, in no apparent distress sitting up in chair. Chest wall - Left chest tube in place CARDIOVASCULAR: Regular rate and rhythm RESPIRATORY: Left-sided lower crackles GASTROINTESTINAL: Abdomen soft, non-tender, nondistended. Normal active bowel sounds GJ tube in place, G-tube to gravity with dark output NEURO: Alert & Oriented x3 to person, place, time. Moves all ext x4 Urinary Catheter Management Indwelling Urethral Catheter: Cath placed during this visit: yes, but has since been removed by the nurse Removal date: 03/13/18 Removal time: 21:42 Results Labs CBC & Chem 7: 03/16/18 11:56 03/15/18 05:30 Labs: Microbiology 03/14/18 18:48 Blood - Peripheral Aerobic Blood Culture - Preliminary No growth in 2 days 03/14/18 18:48 Blood - Peripheral Anaerobic Blood Culture - Preliminary No growth in 2 days 03/14/18 18:42 Blood - Peripheral Aerobic Blood Culture - Preliminary No growth in 2 days 03/14/18 18:42 Blood - Peripheral Anaerobic Blood Culture - Preliminary No growth in 2 days Imaging Imaging: Impressions Chest Tube Insertion 03/16/18 00:00 CONCLUSION: Uncomplicated CT-guided right thoracostomy tube placement for pleural effusion. Chest X-Ray 03/16/18 00:00 CONCLUSION: Status post thoracentesis. No evidence of pneumothorax. 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 History of gastric cancer. Patient was admitted to the ICU on mechanical ventilation and started on pressor support and antibiotic for septic shock. He had 2 chest tubes inserted in the OR on 03/04 due to suspected mediastinal contamination, one anterior and one posterior, underwent surgical exploration and repair by general surgery. Eventually had anterior chest tube removed on 03/10, pleural fluid cultures growing Haemophilus parainfluenza. Is currently tolerating feeds via J-tube, G-tube is to gravity. Underwent thoracentesis on 03/16 of right lung w/ another chest tube placed. Acute respiratory failure Bilateral pleural effusions plus mediastinal contamination due to intra- abdominal perforation causing Empyema Wean O2 to room air as tolerated, encourage incentive spirometry use -Right sided pleural effusion status post thoracentesis and right-sided chest tube insertion, with cultures revealing Haemophilus parainfluenza on 03/04 -CTS managing chest tubes - cultures growing Haemophilus parainfluenza, strep viridans -> Appreciate infectious disease, Dr. Hawkins's recommendations - continue Rocephin and Flagyl, anticipate long course of IV antibiotics with minimum of 4 weeks Continue micafungin. Esophageal anastomotic leak s/p gastrectomy for gastric CA, secondary to patient non-compliance with recommended post-gastrectomy diet -Surgical exploration and repair on 03/[address] Storm -Gastrografin study showing extravasation onset of GI tract upwards towards left chest tube, general surgery notified, GI consulted for stenting -CT abdomen/pelvis and CT chest shows same extravasation of contrast with bilateral moderate pleural effusions -anticipate GI stent placement today. IV Protonix Stage II sacral coccyx pressure ulcer -status post wound care consult, continue local wound care and turning patient every 2 hours Severe chronic protein malnutrition j-tube feeds for now, vital 1.5 at 60 ml/ hour. Status post dietitian consult. DVT prophylaxisSCDs due to pending procedures. Progress Note: Quality VTE Deep Vein Thrombosis/Pulmonary Embolism Present on Admission: No
[2018-03-17] MEDS: Pantoprazole Inj 40 MG Vial IV.PUSH SCH (11:23)
[2018-03-17] MEDS: Multivit/Folic Acid/Minerals Chewable Tablets CHEW SCH (11:25)
[2018-03-17] MEDS: Chlorhexidine 0.12% Oral Kit 15 ML UDC OROPHARYNG SCH ×2 (11:28→21:05)
--- NOTE | 2018-03-17 14:55 | P.PNADD ---
Addendum to Inpatient Note Reason for Addendum: Additional Documentation Additional information: Edgar Laguna no plans for decortication at risk for recurrent effusions. Aware of the loculated appearance but plans remain to follow CTs clinically after the Esophageal stents placed by GI. Edgar Masters agrees with above plan. From ID perspective expect 4 weeks of IV but depends on clinical course. edgar Harp anticipate long stay in hospital.
--- NOTE | 2018-03-17 15:23 | GIPROC ---
[facility] [address] [facility]. [facility], [address] EGD PROCEDURE REPORT EXAM DATE: 03/17/2018 PATIENT NAME: Kiran De La Garza MR #: [id number] BIRTHDATE: 1945 ATTENDING: Maxime Smith MD ORDER #: [id number] TEST ENGINEER: Binh Dalal Pena, Gabriela, Jones, Julie, Power, Victoria, and Stephanie Vargas STATUS: inpatient INDICATIONS: The patient is a 73 yr old male here for an EGD due to Gastric neoplasm,s/p gastric resection .anastomotic leak from esophageal/gastric anastomosis PROCEDURE PERFORMED: EGD w/ transendoscopic intraluminal tube or catheter placement MEDICATIONS: Per Anesthesia and None. TOPICAL ANESTHETIC: none CONSENT: The patient understands the risks and benefits of the procedure and understands that these risks include, but are not limited to: sedation, allergic reaction, infection, perforation and/or bleeding. Alternative means of evaluation and treatment include, among others: physical exam, x-rays, and/or surgical intervention. The patient elects to proceed with this endoscopic procedure. medical equipment was checked for proper function. Hand hygiene and appropriate measures for infection prevention was taken. After the risks, benefits and alternatives of the procedure were thoroughly explained, Informed consent was verified, confirmed and timeout was successfully executed by the treatment team. The patient was anesthetized with topical anesthesia and the Pentax EG-[id number] endoscope was introduced through the mouth and advanced to the second portion of the duodenum. Retroflexion was not performed The gastroscope was then slowly withdrawn and removed. ESOPHAGUS: Anastomosis at 40 cm ulcerated and necrotic.Surgical sutures seen. 105 mm lenght 28 mm diameter fully covered WALLSTENT successfully put in under fluroscopy.Proper placement confirmed by endoscopy. STOMACH: The mucosa of the stomach appeared normal. GTube balloon seen. ADVERSE EVENTS: There were no complications. IMPRESSIONS: 1. Anastomosis at 40 cm ulcerated and necrotic.Surgical sutures seen 2. The mucosa of the stomach appeared normal 3. Retroflexion was not performed 4. Successful placement of ESOPHAGEAL STENT RECOMMENDATIONS: NPO Gastrograffin swallow PATIENT CONDITION: stable DISPOSITION: Inpatient REPEAT EXAM: Return as needed for EGD Maxime Smith MD eSigned: Maxime Smith MD 03/17/2018 3:22 PM cc: PATIENT NAME: Kiran De La Garza MR#: [id number]
--- NOTE | 2018-03-17 15:51 | P.PNGS ---
Subjective Interval history: Just back from stent placement No issues Physical Exam Vital signs: Vital Signs 03/16/18 16:00 03/16/18 20:00 03/17/18 00:00 Temperature 98.0 F 97.9 F 100.2 F H Pulse Rate 86 80 94 H Respiratory Rate 18 18 18 Blood Pressure 131/78 135/72 135/76 Pulse Oximetry 97 97 97 03/17/18 08:00 03/17/18 08:39 Temperature 98.7 F Pulse Rate 92 H Respiratory Rate 19 Blood Pressure 129/81 Pulse Oximetry 97 94 L Intake & Output 03/16/18 03/17/18 03/17/18 18:59 06:59 18:59 Intake Total 400 / 400 300 / 300 400 / 400 Output Total 1550 / 1550 Balance 400 / 400 -1250 / -1250 400 / 400 Weight 66.7 kg Intake: IV 400 / 400 300 / 300 100 / 100 Mycamine Inj 100 MG In NS Inj 100 / 100 100 ML @ 100 mls/hr IV.SIG Q24H KELSIE Rx#:[id number] Rocephin Inj 2,000 MG In NS Inj 100 / 100 100 ML @ 200 mls/hr IV.SIG Q24H KELSIE Rx#:[id number] Flagyl 500 MG Inj 100 ML @ 100 300 / 300 200 / 200 100 / 100 mls/hr IV.SIG Q6H KELSIE Rx#: [id number] Oral 0 / 0 Anesthesia Amount 300 / 300 Output: Urine 600 / 600 Gastric Drainage 200 / 200 G tube 200 / 200 Wound Drainage 160 / 160 #1 Lft Abdomen 140 / 140 #2 Rt abdomen 20 / 20 Chest Tube Drainage 590 / 590 #2 Left Lower 50 / 50 #2 Right Pleural 540 / 540 Other: # Voids 1 Date of Last Bowel Movement 03/16/18 # Bowel Movements 0 Narrative: Alert and awake Abd: soft; midline incision with miracle in place; bilateral CHAR to biliary bags- --both serous; bilateral chest tubes ---placed to wall suction; G tube to gravity bag; J tube clamped - Urinary Catheter Management Indwelling Urethral Catheter Cath placed during this visit: yes, but has since been removed by the nurse Reason for continuing: Decision to DC catheter Removal date: 03/13/18 Removal time: 21:42 Results - Labs 03/19/18 06:59 03/19/18 06:59 - Imaging Imaging: ITS Impressions Abdomen/Pelvis CT 03/14/18 00:00 CONCLUSION: 1. Fluid and atelectasis in the lung bases 2. Extraluminal contrast projecting toward the left from presumed anastomotic leak in the region of the GE junction 3. Surgical drains and feeding tubes present 4. Hyperdense mass arising laterally from the mid to upper pole the right kidney is presumably hemorrhagic cyst, however comparison to prior studies would be recommended to document stability. Alternatively, pre and postcontrast MRI could be obtained for follow-up when clinically feasible if this lesion remains in question Chest CT 03/14/18 00:00 CONCLUSION: Bilateral pleural effusions and lung base atelectasis. Gastrografin Study 03/14/18 00:00 CONCLUSION: 1. There is leakage of contrast outside the GI tract which is at or just below the level of the GE junction. The contrast extravasation extends towards the left near the tip of the left-sided chest tube.. Chest Tube Insertion 03/16/18 00:00 CONCLUSION: Uncomplicated CT-guided right thoracostomy tube placement for pleural effusion. Chest Ultrasound 03/16/18 00:00 CONCLUSION: Moderate right pleural effusion Chest X-Ray 03/16/18 00:00 CONCLUSION: Status post thoracentesis. No evidence of pneumothorax. Assessment and Plan - Assessment (1) Gastric perforation Code(s): K25.5 - Chronic or unspecified gastric ulcer with perforation Status : Acute Plan: 73 year old male s/p partial gastrectomy for adenocarcinoma, readmit for perforation at gastroesophageal anastomosis after vomiting transferred to floor doing better -s/p ex lap; repair of esophagogastric dehiscence; placement of G tube; placement of J tube; Chest washout and tube placement x 2 -Thoracic surgery following - NPO -Hycet for pain thru J tube -UGI shows leak--GI placed stent today -Restart J tube feedings -Continue PT -SUZE Schmidt at bedside (2) Adenocarcinoma, 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 I reviewed and agree with the findings presented. I attest that I had a [id number] encounter with the patient on the same day, and personally performed and documented my assessment and findings in the medical record. s/p Proximal gastrectomy, return to OR for perforation stable continue TF and PT continue drains as indicated
--- NOTE | 2018-03-17 16:08 | FL ---
EXAM DATE: 03/17/2018 4:01 PM EST AGE/SEX: 73 years / Male INDICATIONS: ERCP stent placement done in the operating room. CLINICAL DATA: This is the patient's initial encounter. Patient reports that signs and symptoms have been present for 1 day and indicates a pain score of Nonresponsive. MEDICAL/SURGICAL HISTORY: . Carcinoma, gastric. Carcinoma, prostatic. Hypertension. Crohn's. . Cholecystectomy. Prostatectomy. Partial gastrectomy. COMPARISON: No prior exams available for comparison. FLUORO TIME: 4:47 IMAGE COUNT: 1 RADIATION DOSE: [id number] DAP FINDINGS: An ERCP was performed by the ordering physician. The images demonstrate there appears to be an expan dable stent in the distal esophagus. CONCLUSION: There is an expandable stent which appears to be in the region of the distal esophagus. Electronically signed by: Tyrone Lyles MD Board Certified Radiologist 03/17/2018 4:07 PM EST
[2018-03-18] MEDS: Oral Hygiene Kit OROPHARYNG SCH ×4 (00:36→16:22)
[2018-03-18] MEDS: Acetaminophen-HYDROcodone 325/7.5 Liq 15 ML UDC J-TUBE PRN ×4 (04:15→19:56)
[2018-03-18] MEDS: Multivit/Folic Acid/Minerals Chewable Tablets CHEW SCH (08:24)
[2018-03-18] MEDS: Chlorhexidine 0.12% Oral Kit 15 ML UDC OROPHARYNG SCH (08:25)
[2018-03-18] MEDS: Pantoprazole Inj 40 MG Vial IV.PUSH SCH (09:49)
--- NOTE | 2018-03-18 11:26 | P.PNGS ---
Subjective Interval history: Resting in bed No issues overnight Physical Exam Vital signs: Vital Signs 03/17/18 15:18 03/17/18 15:40 03/17/18 16:35 Temperature 99.2 F 97.8 F Pulse Rate 96 H 100 H 85 Respiratory Rate 20 20 Blood Pressure 118/74 126/75 144/79 H Pulse Oximetry 96 97 99 03/17/18 20:00 03/17/18 20:55 03/18/18 00:00 Temperature 99.6 F 99 F Pulse Rate 86 98 H Respiratory Rate 17 17 Blood Pressure 139/74 132/72 Pulse Oximetry 97 99 96 03/18/18 04:00 03/18/18 08:00 03/18/18 09:49 Temperature 98.8 F 98.4 F Pulse Rate 89 92 H Respiratory Rate 18 16 16 Blood Pressure 143/79 H 136/84 Pulse Oximetry 99 97 Intake & Output 03/17/18 03/18/18 03/18/18 18:59 06:59 18:59 Intake Total 500 / 500 851 / 851 100 / 100 Output Total 400 / 400 2100 / 2100 200 / 200 Balance 100 / 100 -1249 / -1249 -100 / -100 Weight 69.2 kg Intake: IV 200 / 200 300 / 300 100 / 100 Rocephin Inj 2,000 MG In NS Inj 100 / 100 100 ML @ 200 mls/hr IV.SIG Q24H KELSIE Rx#:[id number] Flagyl 500 MG Inj 100 ML @ 100 200 / 200 200 / 200 100 / 100 mls/hr IV.SIG Q6H KELSIE Rx#: [id number] Oral 0 / 0 Tube Feeding 551 / 551 Anesthesia Amount 300 / 300 Output: Urine 400 / 400 700 / 700 200 / 200 Gastric Drainage 350 / 350 G tube 350 / 350 J tube 0 / 0 Wound Drainage 250 / 250 #1 Lft Abdomen 250 / 250 #2 Rt abdomen 0 / 0 Chest Tube Drainage 800 / 800 #2 Left Lower 50 / 50 #2 Right Pleural 750 / 750 Other: Date of Last Bowel Movement 03/16/18 # Bowel Movements 0 Narrative: Alert and awake Abd: soft; midline incision with miracle; bilateral JPs to biliary bags---both serous; G tube to gravity bag; J tube with TF; bilaterally CT to wall suction--- serous drainage - Urinary Catheter Management Indwelling Urethral Catheter Cath placed during this visit: yes, but has since been removed by the nurse Reason for continuing: Decision to DC catheter Removal date: 03/13/18 Removal time: 21:42 Results - Labs 03/19/18 06:59 03/19/18 06:59 - Imaging Imaging: ITS Impressions Abdomen/Pelvis CT 03/14/18 00:00 CONCLUSION: 1. Fluid and atelectasis in the lung bases 2. Extraluminal contrast projecting toward the left from presumed anastomotic leak in the region of the GE junction 3. Surgical drains and feeding tubes present 4. Hyperdense mass arising laterally from the mid to upper pole the right kidney is presumably hemorrhagic cyst, however comparison to prior studies would be recommended to document stability. Alternatively, pre and postcontrast MRI could be obtained for follow-up when clinically feasible if this lesion remains in question Chest CT 03/14/18 00:00 CONCLUSION: Bilateral pleural effusions and lung base atelectasis. Gastrografin Study 03/14/18 00:00 CONCLUSION: 1. There is leakage of contrast outside the GI tract which is at or just below the level of the GE junction. The contrast extravasation extends towards the left near the tip of the left-sided chest tube.. Chest Tube Insertion 03/16/18 00:00 CONCLUSION: Uncomplicated CT-guided right thoracostomy tube placement for pleural effusion. Chest Ultrasound 03/16/18 00:00 CONCLUSION: Moderate right pleural effusion Chest X-Ray 03/16/18 00:00 CONCLUSION: Status post thoracentesis. No evidence of pneumothorax. GI Procedure 03/17/18 00:00 CONCLUSION: There is an expandable stent which appears to be in the region of the distal esophagus. Assessment and Plan - Assessment (1) Gastric perforation Code(s): K25.5 - Chronic or unspecified gastric ulcer with perforation Status : Acute Plan: 73 year old male s/p partial gastrectomy for adenocarcinoma, readmit for perforation at gastroesophageal anastomosis after vomiting transferred to floor doing better -s/p ex lap; repair of esophagogastric dehiscence; placement of G tube; placement of J tube; Chest washout and tube placement x 2 - NPO -Hycet for pain thru J tube -UGI shows leak--GI placed stent today --plan for repeat UGI today -J tube feedings -Continue PT (2) Adenocarcinoma, 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 I reviewed and agree with the findings presented. I attest that I had a [id number] encounter with the patient on the same day, and personally performed and documented my assessment and findings in the medical record. s/p Proximal gastrectomy, return to OR for perforation stable continue pt and tf d/w patient and family, will need to be NPO until verification of healed perforation
[2018-03-18] MEDS ORDERED: Diatrizoate Meglum/Diatrizoate Sod Liq 120 ML Bottle (for RAD diag) G-TUBE ONE (13:13)
--- NOTE | 2018-03-18 13:33 | P.PNGI ---
Subjective Interval history: Patient resting soundly Awakens easily Reports generalized soreness to chest tube sites Post Gastrografin study Post EGD with stent placement <Gilma Lima - Last Filed: 03/18/18 13:28> Physical Exam Vital signs: Vital Signs 03/17/18 15:18 03/17/18 15:40 03/17/18 16:35 Temperature 99.2 F 97.8 F Pulse Rate 96 H 100 H 85 Respiratory Rate 20 20 Blood Pressure 118/74 126/75 144/79 H Pulse Oximetry 96 97 99 03/17/18 20:00 03/17/18 20:55 03/18/18 00:00 Temperature 99.6 F 99 F Pulse Rate 86 98 H Respiratory Rate 17 17 Blood Pressure 139/74 132/72 Pulse Oximetry 97 99 96 03/18/18 04:00 03/18/18 08:00 03/18/18 09:49 Temperature 98.8 F 98.4 F Pulse Rate 89 92 H Respiratory Rate 18 16 16 Blood Pressure 143/79 H 136/84 Pulse Oximetry 99 97 Intake & Output 03/17/18 03/18/18 03/18/18 18:59 06:59 18:59 Intake Total 500 / 500 851 / 851 100 / 100 Output Total 400 / 400 2100 / 2100 200 / 200 Balance 100 / 100 -1249 / -1249 -100 / -100 Weight 69.2 kg Intake: IV 200 / 200 300 / 300 100 / 100 Rocephin Inj 2,000 MG In NS Inj 100 / 100 100 ML @ 200 mls/hr IV.SIG Q24H KEL[facility] Rx#:[id number] Flagyl 500 MG Inj 100 ML @ 100 200 / 200 200 / 200 100 / 100 mls/hr IV.SIG Q6H KELSIE Rx#: [id number] Oral 0 / 0 Tube Feeding 551 / 551 Anesthesia Amount 300 / 300 Output: Urine 400 / 400 700 / 700 200 / 200 Gastric Drainage 350 / 350 G tube 350 / 350 J tube 0 / 0 Wound Drainage 250 / 250 #1 Lft Abdomen 250 / 250 #2 Rt abdomen 0 / 0 Chest Tube Drainage 800 / 800 #2 Left Lower 50 / 50 #2 Right Pleural 750 / 750 Other: Date of Last Bowel Movement 03/16/18 03/18/18 # Bowel Movements 0 - Constitutional no acute distress - Routine HEENT Exam Head: Present: normocephalic - Routine Respiratory Exam Comments: Fine crackles at bilateral bases Bilateral chest tubes present - Routine Cardiovascular Exam Present: RRR - Routine Abdominal Exam Present: soft, normoactive bowel sounds, distended, ostomy. Absent: guarding Comments: G-tube to gravity drainage J-tube-tube feedings infusing Mild abdominal distention post Gastrografin study Urostomy draining clear yellow urine - Routine Skin Exam Present: dry, warm - Routine Neurological Exam Present: alert - Urinary Catheter Management Indwelling Urethral Catheter Cath placed during this visit: yes, but has since been removed by the nurse Reason for continuing: Decision to DC catheter Removal date: 03/13/18 Removal time: 21:42 <Gilma Lima - Last Filed: 03/18/18 13:28> Vital signs: Vital Signs 03/17/18 15:18 03/17/18 15:40 03/17/18 16:35 Temperature 99.2 F 97.8 F Pulse Rate 96 H 100 H 85 Respiratory Rate 20 20 Blood Pressure 118/74 126/75 144/79 H Pulse Oximetry 96 97 99 03/17/18 20:00 03/17/18 20:55 03/18/18 00:00 Temperature 99.6 F 99 F Pulse Rate 86 98 H Respiratory Rate 17 17 Blood Pressure 139/74 132/72 Pulse Oximetry 97 99 96 03/18/18 04:00 03/18/18 08:00 03/18/18 09:49 Temperature 98.8 F 98.4 F Pulse Rate 89 92 H Respiratory Rate 18 16 16 Blood Pressure 143/79 H 136/84 Pulse Oximetry 99 97 Intake & Output 03/17/18 03/18/18 03/18/18 18:59 06:59 18:59 Intake Total 500 / 500 851 / 851 100 / 100 Output Total 400 / 400 2100 / 2100 200 / 200 Balance 100 / 100 -1249 / -1249 -100 / -100 Weight 69.2 kg Intake: IV 200 / 200 300 / 300 100 / 100 Rocephin Inj 2,000 MG In NS Inj 100 / 100 100 ML @ 200 mls/hr IV.SIG Q24H [facility]EL[facility] Rx#:[id number] Flagyl 500 MG Inj 100 ML @ 100 200 / 200 200 / 200 100 / 100 mls/hr IV.SIG Q6H KELSIE Rx#: [id number] Oral 0 / 0 Tube Feeding 551 / 551 Anesthesia Amount 300 / 300 Output: Urine 400 / 400 700 / 700 200 / 200 Gastric Drainage 350 / 350 G tube 350 / 350 J tube 0 / 0 Wound Drainage 250 / 250 #1 Lft Abdomen 250 / 250 #2 Rt abdomen 0 / 0 Chest Tube Drainage 800 / 800 #2 Left Lower 50 / 50 #2 Right Pleural 750 / 750 Other: Date of Last Bowel Movement 03/16/18 03/18/18 # Bowel Movements 0 - Urinary Catheter Management Indwelling Urethral Catheter Cath placed during this visit: no <Chacha Padron - Last Filed: 03/18/18 13:38> Results - Labs CBC & Chem 7: 03/16/18 11:56 03/15/18 05:30 Microbiology 03/14/18 18:48 Blood - Peripheral Aerobic Blood Culture - Preliminary No growth in 4 days 03/14/18 18:48 Blood - Peripheral Anaerobic Blood Culture - Preliminary No growth in 4 days 03/14/18 18:42 Blood - Peripheral Aerobic Blood Culture - Preliminary No growth in 4 days 03/14/18 18:42 Blood - Peripheral Anaerobic Blood Culture - Preliminary No growth in 4 days - Imaging Impressions GI Procedure 03/17/18 00:00 CONCLUSION: There is an expandable stent which appears to be in the region of the distal esophagus. <Gilma Lima - Last Filed: 03/18/18 13:28> - Labs CBC & Chem 7: 03/16/18 11:56 03/15/18 05:30 Microbiology 03/14/18 18:48 Blood - Peripheral Aerobic Blood Culture - Preliminary No growth in 4 days 03/14/18 18:48 Blood - Peripheral Anaerobic Blood Culture - Preliminary No growth in 4 days 03/14/18 18:42 Blood - Peripheral Aerobic Blood Culture - Preliminary No growth in 4 days 03/14/18 18:42 Blood - Peripheral Anaerobic Blood Culture - Preliminary No growth in 4 days - Imaging Impressions GI Procedure 03/17/18 00:00 CONCLUSION: There is an expandable stent which appears to be in the region of the distal esophagus. <Chacha Padron - Last Filed: 03/18/18 13:38> Assessment and Plan (1) Gastric perforation Status: Acute Code(s): K25.5 - Chronic or unspecified gastric ulcer with perforation - Plan This patient is a 73-year-old male who presented to [facility] on 03/03/2018 with complaint of left chest and upper abdominal pain. Patient has medical history significant for cervical vertebral fusion, Crohn's disease, depression, gastric cancer, hypertension, hyperlipidemia, melanoma, prostate cancer and thrombocytopenia. Surgical history is significant for prostatectomy , cholecystectomy and tonsillectomy. Patient underwent a proximal gastrectomy on February 23 for gastric carcinoma. Patient spouse states that afterwards he began eating large amounts of food, not adhering to post gastrectomy diet. After 2 days patient developed severe abdominal pain with nausea and vomiting. On 03/04/2018, patient underwent left thoracostomy tube placement x2, exploratory laparotomy, primary repair of esophagogastric dehiscence, 50% of the circumference. Pyloroplasty, peritoneal biopsy of the transverse colon mesentery, gastrostomy tube and jejunostomy tube. Patient presently has 2 thoracostomy tubes both of which are draining serous fluid. Patient has G-tube to gravity drainage, draining 100 mL's bilious colored fluid. J-tube clamped at present used for tube feedings. Left lower quadrant urostomy tube draining clear yellow urine. 03/14/2018 Gastrografin study revealed--There is leakage of contrast outside the GI tract which is at or just below the level of the GE junction. The contrast extravasation extends towards the left near the tip of the left-sided chest tube. Our service has been consulted to evaluate patient for stent placement via endoscopy. Contrast extravasation Post proximal gastrectomy Post exploratory laparotomy with repair of a cephalo-gastric dehiscence Surgical progression as noted above 03/14/2018 CT abdomen and pelvis reveal the following-- Fluid and atelectasis in the lung bases Extraluminal contrast projecting toward the left from presumed anastomotic leak in the region of the GE junction Surgical drains and feeding tubes present Hyperdense mass arising laterally from the mid to upper pole the right kidney is presumably hemorrhagic cyst, however comparison to prior studies would be recommended to document stability. Alternatively, pre and postcontrast MRI could be obtained for follow-up when clinically feasible if this lesion remains in question. 03/14/2018 Gastrografin study revealed the following--. There is leakage of contrast outside the GI tract which is at or just below the level of the GE junction. The contrast extravasation extends towards the left near the tip of the left-sided chest tube.. WBC 13.8 hemoglobin 11.5 hematocrit 34.0 INR 1.4 03/18/2018 Patient post Gastrografin study-awaiting report Bilateral chest tube in place Post EGD with stent placement-- 1. Anastomosis at 40 cm ulcerated and necrotic.Surgical sutures seen 2. The mucosa of the stomach appeared normal 3. Retroflexion was not performed 4. Successful placement of ESOPHAGEAL STENT Plan Resume tube feedings Gastrografin swallow report pending EGD as needed Antiemetics and analgesics as per attending Continue PPI Supportive care Further recommendations to follow This patient has been seen by myself and Dr. Padron and this note is written on his behalf - Attending Attestation Dr. Padron <Gilma Lima - Last Filed: 03/18/18 13:28> (1) Gastric perforation Status: Acute Code(s): K25.5 - Chronic or unspecified gastric ulcer with perforation - Attending Attestation As above , will check Gastrograffin results prior to any other recommendations. <Chacha Padron - Last Filed: 03/18/18 13:38>
--- NOTE | 2018-03-18 13:40 | FL ---
EXAM DATE: 03/18/2018 12:54 PM EST AGE/SEX: 73 years / Male INDICATIONS: Stent placement, evaluate for leak. CLINICAL DATA: This is the patient's subsequent encounter. Patient reports that signs and symptoms h ave been present for 3 weeks and indicates a pain score of 4/10. MEDICAL/SURGICAL HISTORY: . Hypertension. Gastric ca, Crohn's disease, Prostate ca . Cholecyst ectomy. prostatectomy. Partial gastrectomy COMPARISON: [facility] [place] GI W GASTROGRAFIN, 03/14/2018. . FLUORO TIME: 2.5 minutes IMAGE COUNT: 21 RADIATION DOSE: 5793.8 DAP FINDINGS: Since the prior examination an internal stent has been placed in the distal esophagus. Gastrografin w as again infused through the gastrostomy tube. There was good filling of the stomach. There was reflu x of contrast up and around the stent into the esophagus. There continues to be a small amount of ext ravasation of contrast at the level of the distal esophagus towards the left. However, the leak appea rs to be less compared to the prior examination. CONCLUSION: There continues to be a focal leak of extravasated contrast involving the distal esophagus to the lef t side. The leak appears to be smaller compared to the prior examination. Electronically signed by: Tyrone Lyles MD Board Certified Radiologist 03/18/2018 1:39 PM EST
[2018-03-18] MEDS: Morphine Inj 4 MG/ML Vial IV.PUSH PRN ×3 (14:24→23:10)
--- NOTE | 2018-03-18 15:47 | P.PNID ---
Subjective Remarks: is a 73 y/o CM with PMHX significant for adenocarcinoma, s/p laparoscopic proximal gastrectomy on 02/23/2018. Patient was reportedly doing well post operatively and when he went home he had large volume meals and had vomiting with retching at times. He was taken to [facility] and then transferred to [facility].His WBC was 20,000. A CT abdomen/pelvis was obtained which is shows intraperitoneal free air and there is a concern for an anastomotic leak at the gastroesophageal junction. Patient was initially in ICU with septic shock on vasopressors. He was also reportedly intubated at other hospital. He had a large left side pleural effusion. He has been seen by General surgery, CT Surgery . He is now s/p ex lap; repair of esophagogastric dehiscence; placement of G tube; placement of J tube; Chest washout and tube placement x 2 during this admission. At the time of my evaluation, patient is in on regular floor. Awake, sitting in chair, Ox3, Non focal. He had a gastrograffin study which shows ongoing leak. Dw Surgery team plan for possible stent placement later this week. Overnight events reviewed with RN No fevers No rash No diarrhea s/p stent placement by GI Dw and Surgery team: Gastrograffin post stent still with leak on left. Non surgical approach await epithelialization and repeat imaging. Plan for [facility] early next week if continues to do well. 1 abd drain removed today. Antibiotics: Ceftriaxone IV Flagyl IV Lines: Line sites with no evidence of infection. Past Medical History: Reviewed. Allergies/Adverse Reactions: Allergies No Known Allergies Allergy (Verified 02/23/18 06:30) Objective Vital Signs 03/17/18 16:35 03/17/18 20:00 03/17/18 20:55 Temperature 97.8 F 99.6 F Pulse Rate 85 86 Respiratory Rate 20 17 Blood Pressure 144/79 H 139/74 Pulse Oximetry 99 97 99 03/18/18 00:00 03/18/18 04:00 03/18/18 08:00 Temperature 99 F 98.8 F 98.4 F Pulse Rate 98 H 89 92 H Respiratory Rate 17 18 16 Blood Pressure 132/72 143/79 H 136/84 Pulse Oximetry 96 99 97 03/18/18 09:49 03/18/18 14:53 Temperature Pulse Rate Respiratory Rate 16 16 Blood Pressure Pulse Oximetry Intake & Output 03/17/18 03/18/18 03/18/18 18:59 06:59 18:59 Intake Total 500 / 500 851 / 851 100 / 100 Output Total 400 / 400 2100 / 2100 200 / 200 Balance 100 / 100 -1249 / -1249 -100 / -100 Weight 69.2 kg Intake: IV 200 / 200 300 / 300 100 / 100 Rocephin Inj 2,000 MG In NS Inj 100 / 100 100 ML @ 200 mls/hr IV.SIG Q24H [facility] Rx#:[id number] Flagyl 500 MG Inj 100 ML @ 100 200 / 200 200 / 200 100 / 100 mls/hr IV.SIG Q6H [facility]ELSIE Rx#: [id number] Oral 0 / 0 Tube Feeding 551 / 551 Anesthesia Amount 300 / 300 Output: Urine 400 / 400 700 / 700 200 / 200 Gastric Drainage 350 / 350 G tube 350 / 350 J tube 0 / 0 Wound Drainage 250 / 250 #1 Lft Abdomen 250 / 250 #2 Rt abdomen 0 / 0 Chest Tube Drainage 800 / 800 #2 Left Lower 50 / 50 #2 Right Pleural 750 / 750 Other: Date of Last Bowel Movement 03/16/18 03/18/18 # Bowel Movements 0 03/04/18 13:48 Fluid - Pleural fluid Fungal Smear - Final No fungal elements seen 03/04/18 13:48 Fluid - Pleural fluid Fungal Culture - Preliminary No growth in 2 weeks 03/04/18 13:48 Fluid - Pleural fluid Acid Fast Bacilli Smear - Final No acid fast bacilli seen 03/04/18 13:48 Fluid - Pleural fluid Mycobacterial Culture - Preliminary No growth in 2 weeks 03/14/18 18:48 Blood - Peripheral Aerobic Blood Culture - Preliminary No growth in 4 days 03/14/18 18:48 Blood - Peripheral Anaerobic Blood Culture - Preliminary No growth in 4 days 03/14/18 18:42 Blood - Peripheral Aerobic Blood Culture - Preliminary No growth in 4 days 03/14/18 18:42 Blood - Peripheral Anaerobic Blood Culture - Preliminary No growth in 4 days Imaging: ITS Impressions Abdomen/Pelvis CT 03/14/18 00:00 CONCLUSION: 1. Fluid and atelectasis in the lung bases 2. Extraluminal contrast projecting toward the left from presumed anastomotic leak in the region of the GE junction 3. Surgical drains and feeding tubes present 4. Hyperdense mass arising laterally from the mid to upper pole the right kidney is presumably hemorrhagic cyst, however comparison to prior studies would be recommended to document stability. Alternatively, pre and postcontrast MRI could be obtained for follow-up when clinically feasible if this lesion remains in question Chest CT 03/14/18 00:00 CONCLUSION: Bilateral pleural effusions and lung base atelectasis. Chest Tube Insertion 03/16/18 00:00 CONCLUSION: Uncomplicated CT-guided right thoracostomy tube placement for pleural effusion. Chest Ultrasound 03/16/18 00:00 CONCLUSION: Moderate right pleural effusion Chest X-Ray 03/16/18 00:00 CONCLUSION: Status post thoracentesis. No evidence of pneumothorax. GI Procedure 03/17/18 00:00 CONCLUSION: There is an expandable stent which appears to be in the region of the distal esophagus. Gastrografin Study 03/18/18 00:00 CONCLUSION: There continues to be a focal leak of extravasated contrast involving the distal esophagus to the left side. The leak appears to be smaller compared to the prior examination. Physical Exam: GENERAL: Well-nourished well-developed, not in acute distress SKIN: Cool and dry, no generalized rash HEAD: Atraumatic. Normocephalic. No temporal or scalp tenderness. EYES: Pupils equal round and reactive. Scleral icterus. No injection or drainage. No petechia ENT: Nothing abnormal detected NECK: Trachea midline. Supple, nontender, no meningeal signs. CARDIOVASCULAR: HS audible. RESPIRATORY: Clear to auscultation bilaterally. GASTROINTESTINAL: Abdomen soft nontender. G tube ok. J tube ok. CT sites ok. MUSCULOSKELETAL: Extremities without clubbing, cyanosis. NEUROLOGICAL: Alert oriented 3. Nonfocal. Psych cooperative IV line sites ok. Assessment and Plan - Plan Septic Shock on admission now resolved. Ongoing sepsis due to persistent leucocytosis and source issues. Strep viridans, Haemophilus parainfluenza, Rothia species for left pleural effusion washout. Now with loculated pleural effusion cw empyema. Right side moderate pleural effusion adenocarcinoma, s/p laparoscopic proximal gastrectomy on 02/23/2018. s/p ex lap; repair of esophagogastric dehiscence; placement of G tube; placement of J tube; Chest washout and tube placement x 2 Recs: Continue ceftriaxone IV (covers Strep viridans and H.parainfluenzae, and Rothia species) Continue Flagyl IV (anaerobic coverage, beta lactamase positive organisms) Follow cultures Follow clinical course dw RN dw patient and above plan as well as Dr. Lim yesterday that source control is essential, and stent placement would help. Will discuss with Dr. Zambrano if there is any plans for decortication. Expect a long course of IV antibiotics for treatment of empyema probably 4 weeks or longer depending on repeat imaging. Anticipate detention placement this patient is deconditioned as well as has been IV antibiotics. Discussed with family while chest tubes are in place patient is clearly not ready for discharge. Appreciate CTS input Await GI input If transferred to [facility] will need ID follow up at [facility] by or other covering ID at [facility]. I will be OOT from 03/19/18 to 03/27/18. Other ID MDs covering for me.
--- NOTE | 2018-03-18 19:34 | P.PNIM ---
Subjective Interval history: Follow-up acute respiratory failure, empyema, bilateral pleural effusion, esophageal anastomotic leak status post gastrectomy for gastric cancer, and severe chronic protein calorie malnutrition. Patient seen and examined laying in bed, denies any pain or shortness of breath. Patient denies any discomfort other than the tube sites. Patient denies any abdominal pain, nausea, vomiting, diarrhea or constipation. Patient denies any fever or chills. Patient stated he do not have any complaint, and no pain. Patient denies any fever or chills. Nurse reported no acute concerns overnight Discussed case with Dr. Hawkins Physical Exam Vital signs: Last Vital Signs Temp 98.4 F 03/18/18 17:00 Pulse 90 03/18/18 17:00 Resp 16 03/18/18 17:49 BP 132/76 03/18/18 17:00 Pulse Ox 100 03/18/18 17:00 Intake & Output 03/16/18 03/17/18 03/18/18 03/19/18 06:59 06:59 06:59 06:59 Intake Total 2990 / 2990 700 / 700 1351 / 1351 300 / 300 Output Total 830 / 830 1550 / 1550 2500 / 2500 820 / 820 Balance 2160 / 2160 -850 / -850 -1149 / -1149 -520 / -520 Weight 69.9 kg 66.7 kg 69.2 kg Narrative: GENERAL: Well-developed, well-nourished, male in no apparent distress SKIN: Warm and dry. HEAD: Atraumatic. Normocephalic. EYES: Pupils equal and round. No scleral icterus. No injection or drainage. ENT: No nasal bleeding or discharge. Mucous membranes pink and moist. NECK: Trachea midline. No JVD. CARDIOVASCULAR: Regular rate and rhythm. RESPIRATORY: No accessory muscle use. Left-sided crackles, right lower lobe diminished in the bases. Bilateral chest tube in place. GASTROINTESTINAL: Abdomen soft, non-tender, nondistended. Normal active bowel sounds, bilateral drain tubes in place. J-tube and G-tube in place MUSCULOSKELETAL: Extremities without clubbing, cyanosis, or edema. No obvious deformities. NEUROLOGICAL: Awake and alert and oriented x3. No obvious cranial nerve deficits. Generalized weakness moving all 4 extremities . Normal speech. PSYCHIATRIC: Appropriate mood and affect; insight and judgment normal. Urinary Catheter Management Indwelling Urethral Catheter: Cath placed during this visit: yes, but has since been removed by the nurse Removal date: 03/13/18 Removal time: 21:42 Results Labs CBC & Chem 7: 03/16/18 11:56 03/15/18 05:30 Labs: Microbiology 03/04/18 13:48 Fluid - Pleural fluid Fungal Smear - Final No fungal elements seen 03/04/18 13:48 Fluid - Pleural fluid Fungal Culture - Preliminary No growth in 2 weeks 03/04/18 13:48 Fluid - Pleural fluid Acid Fast Bacilli Smear - Final No acid fast bacilli seen 03/04/18 13:48 Fluid - Pleural fluid Mycobacterial Culture - Preliminary No growth in 2 weeks 03/14/18 18:48 Blood - Peripheral Aerobic Blood Culture - Preliminary No growth in 4 days 03/14/18 18:48 Blood - Peripheral Anaerobic Blood Culture - Preliminary No growth in 4 days 03/14/18 18:42 Blood - Peripheral Aerobic Blood Culture - Preliminary No growth in 4 days 03/14/18 18:42 Blood - Peripheral Anaerobic Blood Culture - Preliminary No growth in 4 days Imaging Imaging: Impressions Gastrografin Study 03/18/18 00:00 CONCLUSION: There continues to be a focal leak of extravasated contrast involving the distal esophagus to the left side. The leak appears to be smaller compared to the prior examination. Assessment and Plan (1) Gastric perforation: Code(s): K25.5 - Chronic or unspecified gastric ulcer with perforation Status: Acute Continue sedation; increase enteral feeding as tolerated. 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 History of gastric cancer. Patient was admitted to the ICU on mechanical ventilation and started on pressor support and antibiotic for septic shock. He had 2 chest tubes inserted in the OR on 03/04 due to suspected mediastinal contamination, one anterior and one posterior, underwent surgical exploration and repair by general surgery. Eventually had anterior chest tube removed on 03/10, pleural fluid cultures growing Haemophilus parainfluenza. Is currently tolerating feeds via J-tube, G-tube is to gravity. Underwent thoracentesis on 03/16 of right lung w/ another chest tube placed. Acute respiratory failure Bilateral pleural effusions plus mediastinal contamination due to intra- abdominal perforation causing Empyema -Wean O2 to room air as tolerated, encourage incentive spirometry use -Right sided pleural effusion status post thoracentesis and right-sided chest tube insertion, cultures revealing Haemophilus parainfluenza on 03/04 -Pleural Fluid : no fungal elements seen, fungal cx no growth in 2 weeks -CTS managing chest tubes -ID following, appreciate Dr. Hawkins's recommendations -continue IV Rocephin and Flagyl, anticipate long course of IV antibiotics with minimum of 4 weeks -continue Continue micafungin Gastric Perforation Esophageal anastomotic leak Adenocarcinoma, gastric Cardia s/p gastrectomy for gastric CA, secondary to patient non-compliance with recommended post-gastrectomy diet s/p EGD with Esophageal stent Placement, 03/18/18 -Surgical exploration and repair on 03/[address] Storm -s/p G tube placement, and J tube placement -s/p Chest wash out and chest tube placement x 2 -Gastrografin study showing extravasation onset of GI tract upwards towards left chest tube, general surgery notified -GI Following,Discussed with GI/[facility] Gilma Lima: s/p EGD and stent placement today 03/18/18 -CT abdomen/pelvis and CT chest shows same extravasation of contrast with bilateral moderate pleural effusions -continue IV Protonix -keep NPO, continue Tube Feeding Leukocytosis Anemia -monitor CBC -antibiotics treatment as above Stage II sacral coccyx pressure ulcer -status post wound care consult, -continue local wound care and turning patient every 2 hours Severe chronic protein malnutrition J-tube feeding with vital 1.5 at 60 ml/ hour. - Status post dietitian consult DVT prophylaxisSCDs due to pending procedures Code Status: full code Discussed Condition With: patient, and nurse ID: Dr. Hawkins GI : Gilma Lima Discharge Planning: [facility] with GI/ ID and General surgery Progress Note: Quality VTE Deep Vein Thrombosis/Pulmonary Embolism Present on Admission: No
--- NOTE | 2018-03-18 19:49 | P.PNIM ---
Physical Exam Vital signs: Last Vital Signs Temp 98.4 F 03/18/18 08:00 Pulse 92 H 03/18/18 08:00 Resp 16 03/18/18 14:53 BP 136/84 03/18/18 08:00 Pulse Ox 97 03/18/18 08:00 Intake & Output 03/16/18 03/17/18 03/18/18 03/19/18 06:59 06:59 06:59 06:59 Intake Total 2990 / 2990 700 / 700 1351 / 1351 100 / 100 Output Total 830 / 830 1550 / 1550 2500 / 2500 200 / 200 Balance 2160 / 2160 -850 / -850 -1149 / -1149 -100 / -100 Weight 69.9 kg 66.7 kg 69.2 kg Urinary Catheter Management Indwelling Urethral Catheter: Cath placed during this visit: yes, but has since been removed by the nurse Removal date: 03/13/18 Removal time: 21:42 Results Labs CBC & Chem 7: 03/16/18 11:56 03/15/18 05:30 Labs: Microbiology 03/04/18 13:48 Fluid - Pleural fluid Fungal Smear - Final No fungal elements seen 03/04/18 13:48 Fluid - Pleural fluid Fungal Culture - Preliminary No growth in 2 weeks 03/04/18 13:48 Fluid - Pleural fluid Acid Fast Bacilli Smear - Final No acid fast bacilli seen 03/04/18 13:48 Fluid - Pleural fluid Mycobacterial Culture - Preliminary No growth in 2 weeks 03/14/18 18:48 Blood - Peripheral Aerobic Blood Culture - Preliminary No growth in 4 days 03/14/18 18:48 Blood - Peripheral Anaerobic Blood Culture - Preliminary No growth in 4 days 03/14/18 18:42 Blood - Peripheral Aerobic Blood Culture - Preliminary No growth in 4 days 03/14/18 18:42 Blood - Peripheral Anaerobic Blood Culture - Preliminary No growth in 4 days Imaging Imaging: Impressions GI Procedure 03/17/18 00:00 CONCLUSION: There is an expandable stent which appears to be in the region of the distal esophagus. Gastrografin Study 03/18/18 00:00 CONCLUSION: There continues to be a focal leak of extravasated contrast involving the distal esophagus to the left side. The leak appears to be smaller compared to the prior examination. Assessment and Plan (1) Gastric perforation: Code(s): K25.5 - Chronic or unspecified gastric ulcer with perforation Status: Acute Continue sedation; increase enteral feeding as tolerated. 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
[2018-03-19] MEDS: Chlorhexidine 0.12% Oral Kit 15 ML UDC OROPHARYNG SCH ×3 (01:23→21:03)
[2018-03-19] MEDS: Oral Hygiene Kit OROPHARYNG SCH ×4 (01:24→17:22)
[2018-03-19] MEDS: Acetaminophen-HYDROcodone 325/7.5 Liq 15 ML UDC J-TUBE PRN ×3 (03:24→21:03)
--- NOTE | 2018-03-19 08:11 | P.PNGS ---
Subjective Patient reports: feels better Physical Exam Vital signs: Vital Signs 03/18/18 09:49 03/18/18 14:53 03/18/18 17:00 Temperature 98.4 F Pulse Rate 90 Respiratory Rate 16 16 16 Blood Pressure 132/76 Pulse Oximetry 100 03/18/18 17:49 03/18/18 20:00 03/19/18 00:00 Temperature 98.7 F 99.2 F Pulse Rate 112 H 93 H Respiratory Rate 16 20 18 Blood Pressure 122/83 125/69 Pulse Oximetry 97 97 Intake & Output 03/18/18 03/19/18 03/19/18 18:59 06:59 18:59 Intake Total 300 / 300 1004 / 1004 Output Total 820 / 820 1160 / 1160 Balance -520 / -520 -156 / -156 Weight 66.7 kg Intake: IV 300 / 300 300 / 300 Mycamine Inj 100 MG In NS Inj 100 / 100 100 ML @ 100 mls/hr IV.SIG Q24H [facility] Rx#:[id number] Rocephin Inj 2,000 MG In NS Inj 100 / 100 100 ML @ 200 mls/hr IV.SIG Q24H [facility] Rx#:[id number] Flagyl 500 MG Inj 100 ML @ 100 200 / 200 200 / 200 mls/hr IV.SIG Q6H [facility] Rx#: [id number] Oral 0 / 0 Tube Feeding 624 / 624 Water Bolus Amount 80 / 80 Output: Urine 500 / 500 1000 / 1000 Stool 0 / 0 Gastric Drainage 110 / 110 100 / 100 G tube 110 / 110 100 / 100 J tube 0 / 0 Wound Drainage 100 / 100 40 / 40 #1 Lft Abdomen 100 / 100 40 / 40 Chest Tube Drainage 110 / 110 20 / 20 #2 Left Lower 60 / 60 0 / 0 #2 Right Pleural 50 / 50 20 / 20 Other: # Voids 1 Date of Last Bowel Movement 03/18/18 03/18/18 # Bowel Movements 1 1 - Constitutional no acute distress - Routine Abdominal Exam Present: soft, normoactive bowel sounds, tenderness. Absent: distended, rebound , guarding - Urinary Catheter Management Indwelling Urethral Catheter Cath placed during this visit: yes, but has since been removed by the nurse Reason for continuing: Decision to DC catheter Removal date: 03/13/18 Removal time: 21:42 Results - Labs 03/16/18 11:56 03/15/18 05:30 - Imaging Imaging: ITS Impressions Abdomen/Pelvis CT 03/14/18 00:00 CONCLUSION: 1. Fluid and atelectasis in the lung bases 2. Extraluminal contrast projecting toward the left from presumed anastomotic leak in the region of the GE junction 3. Surgical drains and feeding tubes present 4. Hyperdense mass arising laterally from the mid to upper pole the right kidney is presumably hemorrhagic cyst, however comparison to prior studies would be recommended to document stability. Alternatively, pre and postcontrast MRI could be obtained for follow-up when clinically feasible if this lesion remains in question Chest CT 03/14/18 00:00 CONCLUSION: Bilateral pleural effusions and lung base atelectasis. Chest Tube Insertion 03/16/18 00:00 CONCLUSION: Uncomplicated CT-guided right thoracostomy tube placement for pleural effusion. Chest Ultrasound 03/16/18 00:00 CONCLUSION: Moderate right pleural effusion Chest X-Ray 03/16/18 00:00 CONCLUSION: Status post thoracentesis. No evidence of pneumothorax. GI Procedure 03/17/18 00:00 CONCLUSION: There is an expandable stent which appears to be in the region of the distal esophagus. Gastrografin Study 03/18/18 00:00 CONCLUSION: There continues to be a focal leak of extravasated contrast involving the distal esophagus to the left side. The leak appears to be smaller compared to the prior examination. Assessment and Plan - Assessment (1) Gastric perforation Code(s): K25.5 - Chronic or unspecified gastric ulcer with perforation Status : Acute Plan: 73 year old male s/p partial gastrectomy for adenocarcinoma, readmit for perforation at gastroesophageal anastomosis after vomiting transferred to floor doing better -s/p ex lap; repair of esophagogastric dehiscence; placement of G tube; placement of J tube; Chest washout and tube placement x 2 - NPO -Hycet for pain thru J tube -UGI shows small fistula after stent -J tube feedings -Continue PT -possible DC to [facility] (2) Adenocarcinoma, 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
[2018-03-19] MEDS: Multivit/Folic Acid/Minerals Chewable Tablets CHEW SCH ×2 (08:34→11:08)
[2018-03-19 09:16] LABS: Baso % (Auto) 0.3 % (0.0-2.0); Eos # (Auto) 0.1 th/mm3 (0.0-0.4); Eos % (Auto) 1.1 % (0.0-4.0); Hematocrit 34.8 % (39.0-51.0); Hemoglobin 11.4 gm/dL (13.0-17.0); Lymph # (Auto) 1.2 th/mm3 (1.0-4.8); Lymph % (Auto) 9.9 % (9.0-44.0); Mean Corpuscular HGB Conc 32.9 % (32.0-36.0); Mean Corpuscular Hemoglobin 34.9 pg (27.0-34.0); Mean Corpuscular Volume 106.1 fL (80.0-100.0); Mean Platelet Volume 11.4 fL (7.0-11.0); Mono # (Auto) 1.3 th/mm3 (0.0-0.9); Mono % (Auto) 10.2 % (0.0-8.0); Neut # (Auto) 9.8 th/mm3 (1.8-7.7); Neut % (Auto) 78.5 % (16.0-70.0); Platelet Count 273 th/mm3 (150-450); Red Blood Count 3.28 mil/mm3 (4.50-5.90); Red Cell Distribution Width 13.9 % (11.6-17.2); White Blood Count 12.5 th/mm3 (4.0-11.0)
[2018-03-19] MEDS: Pantoprazole Inj 40 MG Vial IV.PUSH SCH (09:37)
[2018-03-19 10:00] LABS: Calcium 8.2 mg/dL (8.5-10.1); Carbon Dioxide 32.4 meq/L (21.0-32.0); Potassium 3.8 meq/L (3.5-5.1)
--- NOTE | 2018-03-19 10:22 | P.PNIM ---
Subjective Interval history: Follow-up acute respiratory failure, empyema, bilateral pleural effusion, esophageal anastomotic leak status post gastrectomy for gastric cancer, and severe chronic protein calorie malnutrition. Patient seen and examined laying in bed, complaining of left upper abdominal pain at 7 out of 10 scale. Nurse in room given pain medication. Patient denies any nausea or vomiting, denies any headache or dizziness, denies any shortness of breath. Patient denies any fever or chills. Nurse reported left chest tube draining more than right Physical Exam Vital signs: Last Vital Signs Temp 97.7 F 03/19/18 08:00 Pulse 94 H 03/19/18 08:00 Resp 18 03/19/18 08:00 BP 134/82 03/19/18 08:00 Pulse Ox 98 03/19/18 08:00 Intake & Output 03/17/18 03/18/18 03/19/18 03/20/18 06:59 06:59 06:59 06:59 Intake Total 700 / 700 1351 / 1351 1304 / 1304 Output Total 1550 / 1550 2500 / 2500 1979 / 1979 Balance -850 / -850 -1149 / -1149 -676 / -676 Weight 66.7 kg 69.2 kg 66.7 kg Narrative: GENERAL: Well-developed, well-nourished, male in no apparent distress SKIN: Warm and dry. HEAD: Atraumatic. Normocephalic. EYES: Pupils equal and round. No scleral icterus. No injection or drainage. ENT: No nasal bleeding or discharge. Mucous membranes pink and moist. NECK: Trachea midline. No JVD. CARDIOVASCULAR: Regular rate and rhythm. RESPIRATORY: No accessory muscle use. Bilateral LL crackles on auscultation. Breath sounds equal. Bilateral chest tube in place. GASTROINTESTINAL: Abdomen soft, non-tender, nondistended. Normal active bowel sounds, LUQ drain tubes in place. J-tube and G-tube in place MUSCULOSKELETAL: Extremities without clubbing, cyanosis, or edema. No obvious deformities. NEUROLOGICAL: Awake and alert and oriented x3. No obvious cranial nerve deficits. Generalized weakness moving all 4 extremities . Normal speech. PSYCHIATRIC: Appropriate mood and affect; insight and judgment normal. Urinary Catheter Management Indwelling Urethral Catheter: Cath placed during this visit: yes, but has since been removed by the nurse Removal date: 03/13/18 Removal time: 21:42 Results Labs CBC & Chem 7: 03/19/18 06:59 03/19/18 06:59 Labs: Microbiology 03/04/18 13:48 Fluid - Pleural fluid Fungal Smear - Final No fungal elements seen 03/04/18 13:48 Fluid - Pleural fluid Fungal Culture - Preliminary No growth in 2 weeks 03/04/18 13:48 Fluid - Pleural fluid Acid Fast Bacilli Smear - Final No acid fast bacilli seen 03/04/18 13:48 Fluid - Pleural fluid Mycobacterial Culture - Preliminary No growth in 2 weeks 03/14/18 18:48 Blood - Peripheral Aerobic Blood Culture - Preliminary No growth in 4 days 03/14/18 18:48 Blood - Peripheral Anaerobic Blood Culture - Preliminary No growth in 4 days 03/14/18 18:42 Blood - Peripheral Aerobic Blood Culture - Preliminary No growth in 4 days 03/14/18 18:42 Blood - Peripheral Anaerobic Blood Culture - Preliminary No growth in 4 days Imaging Imaging: Impressions Gastrografin Study 03/18/18 00:00 CONCLUSION: There continues to be a focal leak of extravasated contrast involving the distal esophagus to the left side. The leak appears to be smaller compared to the prior examination. Assessment and Plan (1) Gastric perforation: Code(s): K25.5 - Chronic or unspecified gastric ulcer with perforation Status: Acute Continue sedation; increase enteral feeding as tolerated. 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 History of gastric cancer. Patient was admitted to the ICU on mechanical ventilation and started on pressor support and antibiotic for septic shock. He had 2 chest tubes inserted in the OR on 03/04 due to suspected mediastinal contamination, one anterior and one posterior, underwent surgical exploration and repair by general surgery. Eventually had anterior chest tube removed on 03/10, pleural fluid cultures growing Haemophilus parainfluenza. Is currently tolerating feeds via J-tube, G-tube is to gravity. Underwent thoracentesis on 03/16 of right lung w/ another chest tube placed. Acute respiratory failure Bilateral pleural effusions plus mediastinal contamination due to intra- abdominal perforation causing Empyema -Wean O2 to room air as tolerated, encourage incentive spirometry use, keep O2 Sat > 92% -Right sided pleural effusion status post thoracentesis and right-sided chest tube insertion, Body fluid cultures:Haemophilus parainfluenza on 03/04 -Pleural Fluid : no fungal elements seen, fungal cx no growth in 2 weeks -CTS managing chest tubes -ID following, appreciate Dr. Hawkins's recommendations -continue IV Rocephin and Flagyl, anticipate long course of IV antibiotics with minimum of 4 weeks -continue Continue micafungin Gastric Perforation Esophageal anastomotic leak Adenocarcinoma, gastric Cardia s/p gastrectomy for gastric CA, secondary to patient non-compliance with recommended post-gastrectomy diet s/p EGD with Esophageal stent Placement, 03/18/18 -CT abdomen/pelvis and CT chest shows same extravasation of contrast with bilateral moderate pleural effusions -Surgical exploration and repair on 03/[address] Storm -s/p G tube placement, and J tube placement -s/p Chest wash out and chest tube placement x 2 -Gastrografin study showing extravasation onset of GI tract upwards towards left chest tube, general surgery notified -GI Following,Discussed with GI/[facility] Gilma Lima: s/p EGD and stent placement , s/p Gastrografin study 03/18/18 -General Surgery Following/ Dr. Bello: discontinued RUQ drain on 03/18/18, Possible [facility] -continue IV Protonix -keep NPO, continue Tube Feeding Leukocytosis Anemia -monitor CBC -antibiotics treatment as above Stage II sacral coccyx pressure ulcer -status post wound care consult, -continue wound care and turning patient every 2 hours Severe chronic protein malnutrition J-tube feeding with vital 1.5 at 60 ml/ hour. - Status post dietitian consult DVT prophylaxisSCDs due to pending procedures Discharge Planning: [facility] with GI/ ID and General surgery Progress Note: Quality VTE Deep Vein Thrombosis/Pulmonary Embolism Present on Admission: No
--- NOTE | 2018-03-19 11:33 | XR ---
EXAM DATE: 03/19/2018 11:22 AM EST AGE/SEX: 73 years / Male INDICATIONS: Shortness of breath and chest pain. CLINICAL DATA: This is the patient's subsequent encounter. Patient reports that signs and symptoms h ave been present for 2 days and indicates a pain score of 4/10. MEDICAL/SURGICAL HISTORY: Carcinoma, prostatic. Hypertension. Cholecystectomy. Cardiac stents. COMPARISON: [facility] [place], CHEST 1V SINGLE AP, 03/16/2018. . FINDINGS: Bilateral chest tubes remain in place. There is no evidence of pneumothorax. Interstitial prominence remains evident throughout both lungs especially on the left. There is no significant pleural fluid. Heart and mediastinal structures are stable. CONCLUSION: Stable chest without evidence of pneumothorax or significant pleural fluid accumulation. Electronically signed by: Cristóbal Villarreal MD Board Certified Radiologist 03/19/2018 11:31 AM EST
[2018-03-19] MEDS: Morphine Inj 4 MG/ML Vial IV.PUSH PRN ×2 (12:12→18:03)
--- NOTE | 2018-03-19 12:40 | P.PNGI ---
Subjective Interval history: Patient's resting in the bed alert answering simple questions GJ tube intact Tolerating tube feeds at 60 cc an hour no obvious bleeding abdomen soft some generalized abdominal soreness but able to turn and move in the bed <IshmaelSheri Jordyn - Last Filed: 03/19/18 12:41> Physical Exam Vital signs: Vital Signs 03/18/18 14:53 03/18/18 17:00 03/18/18 17:49 Temperature 98.4 F Pulse Rate 90 Respiratory Rate 16 16 16 Blood Pressure 132/76 Pulse Oximetry 100 03/18/18 20:00 03/19/18 00:00 03/19/18 08:00 Temperature 98.7 F 99.2 F 97.7 F Pulse Rate 112 H 93 H 94 H Respiratory Rate 20 18 18 Blood Pressure 122/83 125/69 134/82 Pulse Oximetry 97 97 98 03/19/18 12:00 Temperature 98.5 F Pulse Rate 85 Respiratory Rate 18 Blood Pressure 155/82 H Pulse Oximetry 99 Intake & Output 03/18/18 03/19/18 03/19/18 18:59 06:59 18:59 Intake Total 300 / 300 1004 / 1004 100 / 100 Output Total 820 / 820 1160 / 1160 Balance -520 / -520 -156 / -156 100 / 100 Weight 66.7 kg Intake: IV 300 / 300 300 / 300 100 / 100 Mycamine Inj 100 MG In NS Inj 100 / 100 100 ML @ 100 mls/hr IV.SIG Q24H [facility] Rx#:[id number] Rocephin Inj 2,000 MG In NS Inj 100 / 100 100 ML @ 200 mls/hr IV.SIG Q24H [facility] Rx#:[id number] Flagyl 500 MG Inj 100 ML @ 100 200 / 200 200 / 200 100 / 100 mls/hr IV.SIG Q6H [facility] Rx#: [id number] Oral 0 / 0 Tube Feeding 624 / 624 Water Bolus Amount 80 / 80 Output: Urine 500 / 500 1000 / 1000 Stool 0 / 0 Gastric Drainage 110 / 110 100 / 100 G tube 110 / 110 100 / 100 J tube 0 / 0 Wound Drainage 100 / 100 40 / 40 #1 Lft Abdomen 100 / 100 40 / 40 Chest Tube Drainage 110 / 110 20 / 20 #2 Left Lower 60 / 60 0 / 0 #2 Right Pleural 50 / 50 20 / 20 Other: # Voids 1 Date of Last Bowel Movement 03/18/18 03/18/18 # Bowel Movements 1 1 - Constitutional mild distress, cachectic, disheveled - Routine HEENT Exam Head: Present: normocephalic ENT: Present: mucous membranes dry - Routine Neck Exam Present: supple - Routine Respiratory Exam Present: decreased breath sounds (No obvious shortness of breath at rest, low volumes) - Routine Cardiovascular Exam Present: S1, S2 - Routine Abdominal Exam Present: soft, tenderness (Mild generalized, GJ tube with feedings at 60 cc an hour and tolerating, soft bowel sounds) - Routine Skin Exam Present: intact - Urinary Catheter Management Indwelling Urethral Catheter Cath placed during this visit: yes, but has since been removed by the nurse Reason for continuing: Decision to DC catheter Removal date: 03/13/18 Removal time: 21:42 <Sheri Quiñones - Last Filed: 03/19/18 12:41> Vital signs: Vital Signs 03/18/18 14:53 03/18/18 17:00 03/18/18 17:49 Temperature 98.4 F Pulse Rate 90 Respiratory Rate 16 16 16 Blood Pressure 132/76 Pulse Oximetry 100 03/18/18 20:00 03/19/18 00:00 03/19/18 08:00 Temperature 98.7 F 99.2 F 97.7 F Pulse Rate 112 H 93 H 94 H Respiratory Rate 20 18 18 Blood Pressure 122/83 125/69 134/82 Pulse Oximetry 97 97 98 03/19/18 12:00 Temperature 98.5 F Pulse Rate 85 Respiratory Rate 18 Blood Pressure 155/82 H Pulse Oximetry 99 Intake & Output 03/18/18 03/19/18 03/19/18 18:59 06:59 18:59 Intake Total 300 / 300 1004 / 1004 100 / 100 Output Total 820 / 820 1160 / 1160 Balance -520 / -520 -156 / -156 100 / 100 Weight 66.7 kg Intake: IV 300 / 300 300 / 300 100 / 100 Mycamine Inj 100 MG In NS Inj 100 / 100 100 ML @ 100 mls/hr IV.SIG Q24H [facility] Rx#:[id number] Rocephin Inj 2,000 MG In NS Inj 100 / 100 100 ML @ 200 mls/hr IV.SIG Q24H [facility] Rx#:[id number] Flagyl 500 MG Inj 100 ML @ 100 200 / 200 200 / 200 100 / 100 mls/hr IV.SIG Q6H [facility] Rx#: [id number] Oral 0 / 0 Tube Feeding 624 / 624 Water Bolus Amount 80 / 80 Output: Urine 500 / 500 1000 / 1000 Stool 0 / 0 Gastric Drainage 110 / 110 100 / 100 G tube 110 / 110 100 / 100 J tube 0 / 0 Wound Drainage 100 / 100 40 / 40 #1 Lft Abdomen 100 / 100 40 / 40 Chest Tube Drainage 110 / 110 20 / 20 #2 Left Lower 60 / 60 0 / 0 #2 Right Pleural 50 / 50 20 / 20 Other: # Voids 1 Date of Last Bowel Movement 03/18/18 03/18/18 # Bowel Movements 1 1 - Urinary Catheter Management Indwelling Urethral Catheter Cath placed during this visit: no <Chacha Padron A - Last Filed: 03/19/18 13:29> Results - Labs CBC & Chem 7: 03/19/18 06:59 03/19/18 06:59 Laboratory Results - last 24 hr 03/19/18 03/19/18 06:59 06:59 WBC 12.5 H RBC 3.28 L Hgb 11.4 L Hct 34.8 L MCV 106.1 H MCH 34.9 H MCHC 32.9 RDW 13.9 Plt Count 273 MPV 11.4 H Neut % (Auto) 78.5 H Lymph % (Auto) 9.9 [place] % (Auto) 10.2 H Eos % (Auto) 1.1 Baso % (Auto) 0.3 Neut # (Auto) 9.8 H Lymph # (Auto) 1.2 [place] # (Auto) 1.3 H Eos # (Auto) 0.1 Baso # (Auto) 0.0 WBC Differential . Differential Comment Auto diff final Sodium 144 Potassium 3.8 Chloride 104 Carbon Dioxide 32.4 H Anion Gap 8 BUN 19 H Creatinine 0.92 Estimated GFR 80 L Random Glucose 179 H Calcium 8.2 L Microbiology 03/14/18 18:48 Blood - Peripheral Aerobic Blood Culture - Final No growth in 5 days 03/14/18 18:48 Blood - Peripheral Anaerobic Blood Culture - Final No growth in 5 days 03/14/18 18:42 Blood - Peripheral Aerobic Blood Culture - Final No growth in 5 days 03/14/18 18:42 Blood - Peripheral Anaerobic Blood Culture - Final No growth in 5 days 03/04/18 13:48 Fluid - Pleural fluid Fungal Smear - Final No fungal elements seen 03/04/18 13:48 Fluid - Pleural fluid Fungal Culture - Preliminary No growth in 2 weeks 03/04/18 13:48 Fluid - Pleural fluid Acid Fast Bacilli Smear - Final No acid fast bacilli seen 03/04/18 13:48 Fluid - Pleural fluid Mycobacterial Culture - Preliminary No growth in 2 weeks - Imaging Impressions Gastrografin Study 03/18/18 00:00 CONCLUSION: There continues to be a focal leak of extravasated contrast involving the distal esophagus to the left side. The leak appears to be smaller compared to the prior examination. Chest X-Ray 03/19/18 00:00 CONCLUSION: Stable chest without evidence of pneumothorax or significant pleural fluid accumulation. <Sheri Quiñones - Last Filed: 03/19/18 12:41> - Labs CBC & Chem 7: 03/19/18 06:59 03/19/18 06:59 Laboratory Results - last 24 hr 03/19/18 03/19/18 06:59 06:59 WBC 12.5 H RBC 3.28 L Hgb 11.4 L Hct 34.8 L MCV 106.1 H MCH 34.9 H MCHC 32.9 RDW 13.9 Plt Count 273 MPV 11.4 H Neut % (Auto) 78.5 H Lymph % (Auto) 9.9 [place] % (Auto) 10.2 H Eos % (Auto) 1.1 Baso % (Auto) 0.3 Neut # (Auto) 9.8 H Lymph # (Auto) 1.2 [place] # (Auto) 1.3 H Eos # (Auto) 0.1 Baso # (Auto) 0.0 WBC Differential . Differential Comment Auto diff final Sodium 144 Potassium 3.8 Chloride 104 Carbon Dioxide 32.4 H Anion Gap 8 BUN 19 H Creatinine 0.92 Estimated GFR 80 L Random Glucose 179 H Calcium 8.2 L Microbiology 03/14/18 18:48 Blood - Peripheral Aerobic Blood Culture - Final No growth in 5 days 03/14/18 18:48 Blood - Peripheral Anaerobic Blood Culture - Final No growth in 5 days 03/14/18 18:42 Blood - Peripheral Aerobic Blood Culture - Final No growth in 5 days 03/14/18 18:42 Blood - Peripheral Anaerobic Blood Culture - Final No growth in 5 days 03/04/18 13:48 Fluid - Pleural fluid Fungal Smear - Final No fungal elements seen 03/04/18 13:48 Fluid - Pleural fluid Fungal Culture - Preliminary No growth in 2 weeks 03/04/18 13:48 Fluid - Pleural fluid Acid Fast Bacilli Smear - Final No acid fast bacilli seen 03/04/18 13:48 Fluid - Pleural fluid Mycobacterial Culture - Preliminary No growth in 2 weeks - Imaging Impressions Gastrografin Study 03/18/18 00:00 CONCLUSION: There continues to be a focal leak of extravasated contrast involving the distal esophagus to the left side. The leak appears to be smaller compared to the prior examination. Chest X-Ray 03/19/18 00:00 CONCLUSION: Stable chest without evidence of pneumothorax or significant pleural fluid accumulation. <Chacha Padron - Last Filed: 03/19/18 13:29> Assessment and Plan (1) Gastric perforation Status: Acute Code(s): K25.5 - Chronic or unspecified gastric ulcer with perforation - Plan This patient is a 73-year-old male who presented to [facility] on 03/03/2018 with complaint of left chest and upper abdominal pain. Patient has medical history significant for cervical vertebral fusion, Crohn's disease, depression, gastric cancer, hypertension, hyperlipidemia, melanoma, prostate cancer and thrombocytopenia. Surgical history is significant for prostatectomy , cholecystectomy and tonsillectomy. Patient underwent a proximal gastrectomy on February 23 for gastric carcinoma. Patient spouse states that afterwards he began eating large amounts of food, not adhering to post gastrectomy diet. After 2 days patient developed severe abdominal pain with nausea and vomiting. On 03/04/2018, patient underwent left thoracostomy tube placement x2, exploratory laparotomy, primary repair of esophagogastric dehiscence, 50% of the circumference. Pyloroplasty, peritoneal biopsy of the transverse colon mesentery, gastrostomy tube and jejunostomy tube. Patient presently has 2 thoracostomy tubes both of which are draining serous fluid. Patient has G-tube to gravity drainage, draining 100 mL's bilious colored fluid. J-tube clamped at present used for tube feedings. Left lower quadrant urostomy tube draining clear yellow urine. 03/14/2018 Gastrografin study revealed--There is leakage of contrast outside the GI tract which is at or just below the level of the GE junction. The contrast extravasation extends towards the left near the tip of the left-sided chest tube. Our service has been consulted to evaluate patient for stent placement via endoscopy. Contrast extravasation Post proximal gastrectomy Post exploratory laparotomy with repair of a cephalo-gastric dehiscence Surgical progression as noted above 03/14/2018 CT abdomen and pelvis reveal the following-- Fluid and atelectasis in the lung bases Extraluminal contrast projecting toward the left from presumed anastomotic leak in the region of the GE junction Surgical drains and feeding tubes present Hyperdense mass arising laterally from the mid to upper pole the right kidney is presumably hemorrhagic cyst, however comparison to prior studies would be recommended to document stability. Alternatively, pre and postcontrast MRI could be obtained for follow-up when clinically feasible if this lesion remains in question. 03/14/2018 Gastrografin study revealed the following--. There is leakage of contrast outside the GI tract which is at or just below the level of the GE junction. The contrast extravasation extends towards the left near the tip of the left-sided chest tube.. WBC 13.8 hemoglobin 11.5 hematocrit 34.0 INR 1.4 03/18/2018 Patient post Gastrografin study-awaiting report Bilateral chest tube in place Post EGD with stent placement-- 1. Anastomosis at 40 cm ulcerated and necrotic.Surgical sutures seen 2. The mucosa of the stomach appeared normal 3. Retroflexion was not performed 4. Successful placement of ESOPHAGEAL STENT 03/19/2018 J G-tube intact with patient , J-tube feedings at 60 cc an hour goal rate denies any abdominal pain labs reviewed initially WBC count 13.8 now 12.5 mild improvement, hemoglobin was 11.5 now 11.4, noted positive CRP. Status post esophageal stent Chest x-ray pending general surgery note, appreciate input, status post partial gastrectomy for adenocarcinoma, status post exploratory lap and repair of esophageal gastric dehiscence. Gradual improvement noted, Gastrografin study still shows a focal leak involving the distal esophagus to the left side but appears to be smaller than prior examination. We will continue to monitor Repeat EGD as needed Plan J-tube feedings 60 cc an hour goal rate Gastrografin swallow report pending PPI Bowel regimen Pain meds per attending Supportive care Monitor labs Patient has been seen by myself and Dr. Padron, note is written on his behalf <Sheri Quiñones - Last Filed: 03/19/18 12:41> (1) Gastric perforation Status: Acute Code(s): K25.5 - Chronic or unspecified gastric ulcer with perforation - Attending Attestation As above, minimal leak noted by gastrograffin, but feeling better overall. Will follow up with you. <Chacha Padron - Last Filed: 03/19/18 13:29>
[2018-03-20] MEDS: Oral Hygiene Kit OROPHARYNG SCH ×4 (00:24→16:38)
[2018-03-20] MEDS: Morphine Inj 4 MG/ML Vial IV.PUSH PRN ×2 (01:33→05:16)
[2018-03-20 08:52] VITALS: RESP 18
[2018-03-20] MEDS: Chlorhexidine 0.12% Oral Kit 15 ML UDC OROPHARYNG SCH ×2 (09:06→21:29)
[2018-03-20] MEDS: Multivit/Folic Acid/Minerals Chewable Tablets CHEW SCH (09:06)
[2018-03-20] MEDS: Pantoprazole Inj 40 MG Vial IV.PUSH SCH (09:07)
[2018-03-20] MEDS: Acetaminophen-HYDROcodone 325/7.5 Liq 15 ML UDC J-TUBE PRN ×3 (09:08→21:50)
--- NOTE | 2018-03-20 10:34 | P.PNGS ---
Subjective Patient reports: feels better Physical Exam Vital signs: Vital Signs 03/19/18 12:00 03/19/18 16:00 03/19/18 20:00 Temperature 98.5 F 98.6 F 98.3 F Pulse Rate 85 91 H 97 H Respiratory Rate 18 18 18 Blood Pressure 155/82 H 159/85 H 155/91 H Pulse Oximetry 99 99 96 03/20/18 00:00 03/20/18 08:00 Temperature 98.0 F 99.2 F Pulse Rate 109 H 93 H Respiratory Rate 20 18 Blood Pressure 159/88 H 138/85 Pulse Oximetry 92 L 98 Intake & Output 03/19/18 03/20/18 03/20/18 18:59 06:59 18:59 Intake Total 300 / 300 1071 / 1071 Output Total 280 / 280 1230 / 1230 Balance -159 / -159 Weight 66.8 kg Intake: IV 300 / 300 300 / 300 Mycamine Inj 100 MG In NS Inj 100 / 100 100 ML @ 100 mls/hr IV.SIG Q24H [facility] Rx#:[id number] Rocephin Inj 2,000 MG In NS Inj 100 / 100 100 ML @ 200 mls/hr IV.SIG Q24H [facility] Rx#:[id number] Flagyl 500 MG Inj 100 ML @ 100 200 / 200 200 / 200 mls/hr IV.SIG Q6H [facility] Rx#: [id number] Oral 0 / 0 0 / 0 Tube Feeding 641 / 641 Tube Irrigant 10 / 10 Water Bolus Amount 120 / 120 Output: Urine 950 / 950 Estimated Blood Loss 100 / 100 Gastric Drainage 180 / 180 80 / 80 G tube 180 / 180 80 / 80 J tube 0 / 0 Wound Drainage 0 / 0 #1 Lft Abdomen 0 / 0 Chest Tube Drainage 100 / 100 100 / 100 #2 Left Lower 0 / 0 0 / 0 #2 Right Pleural 100 / 100 100 / 100 Other: # Voids 2 2 Date of Last Bowel Movement 03/19/18 # Bowel Movements 2 2 - Constitutional no acute distress - Routine Abdominal Exam Present: soft, normoactive bowel sounds. Absent: tenderness, distended, rebound - Urinary Catheter Management Indwelling Urethral Catheter Cath placed during this visit: yes, but has since been removed by the nurse Reason for continuing: Decision to DC catheter Removal date: 03/13/18 Removal time: 21:42 Results - Labs 03/19/18 06:59 03/19/18 06:59 - Imaging Imaging: ITS Impressions Abdomen/Pelvis CT 03/14/18 00:00 CONCLUSION: 1. Fluid and atelectasis in the lung bases 2. Extraluminal contrast projecting toward the left from presumed anastomotic leak in the region of the GE junction 3. Surgical drains and feeding tubes present 4. Hyperdense mass arising laterally from the mid to upper pole the right kidney is presumably hemorrhagic cyst, however comparison to prior studies would be recommended to document stability. Alternatively, pre and postcontrast MRI could be obtained for follow-up when clinically feasible if this lesion remains in question Chest CT 03/14/18 00:00 CONCLUSION: Bilateral pleural effusions and lung base atelectasis. Chest Tube Insertion 03/16/18 00:00 CONCLUSION: Uncomplicated CT-guided right thoracostomy tube placement for pleural effusion. Chest Ultrasound 03/16/18 00:00 CONCLUSION: Moderate right pleural effusion GI Procedure 03/17/18 00:00 CONCLUSION: There is an expandable stent which appears to be in the region of the distal esophagus. Gastrografin Study 03/18/18 00:00 CONCLUSION: There continues to be a focal leak of extravasated contrast involving the distal esophagus to the left side. The leak appears to be smaller compared to the prior examination. Chest X-Ray 03/19/18 00:00 CONCLUSION: Stable chest without evidence of pneumothorax or significant pleural fluid accumulation. Assessment and Plan - Assessment (1) Gastric perforation Code(s): K25.5 - Chronic or unspecified gastric ulcer with perforation Status : Acute Plan: 73 year old male s/p partial gastrectomy for adenocarcinoma, readmit for perforation at gastroesophageal anastomosis after vomiting transferred to floor doing better -s/p ex lap; repair of esophagogastric dehiscence; placement of G tube; placement of J tube; Chest washout and tube placement x 2 - NPO -Hycet for pain thru J tube -UGI shows small fistula after stent, keep left chest tube -J tube feedings continued -Continue PT -possible DC to [facility] this [facility] (2) Adenocarcinoma, 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
--- NOTE | 2018-03-20 10:50 | P.PNIM ---
Subjective Interval history: Follow-up acute respiratory failure, empyema, bilateral pleural effusion, esophageal anastomotic leak status post gastrectomy for gastric cancer, and severe chronic protein calorie malnutrition. Patient seen and examined the complaint of discomfort in the abdomen hydrogenation still operator mostly pain, pain from the tube sites. Patient denies any nausea or vomiting. Patient denies any fever or chills, headache or dizziness, chest pain or shortness of breath. Patient states that bowels have been moving good with no problem. Patient denies any shortness of breath, wheezing or discomfort. There is reported no acute concerns. Physical Exam Vital signs: Last Vital Signs Temp 99.2 F 03/20/18 08:00 Pulse 93 H 03/20/18 08:00 Resp 18 03/20/18 08:00 BP 138/85 03/20/18 08:00 Pulse Ox 98 03/20/18 08:00 Intake & Output 03/18/18 03/19/18 03/20/18 03/21/18 06:59 06:59 06:59 06:59 Intake Total 1351 / 1351 1304 / 1304 1371 / 1371 Output Total 2500 / 2500 1979 / 1979 1510 / 1510 Balance -1149 / -1149 -676 / -676 -139 / -139 Weight 69.2 kg 66.7 kg 66.8 kg Narrative: GENERAL: Well-developed, well-nourished, male in no apparent distress SKIN: Warm and dry. HEAD: Atraumatic. Normocephalic. EYES: Pupils equal and round. No scleral icterus. No injection or drainage. ENT: No nasal bleeding or discharge. Mucous membranes pink and moist. NECK: Trachea midline. No JVD. CARDIOVASCULAR: Regular rate and rhythm. RESPIRATORY: No accessory muscle use. Bilateral LL crackles on auscultation. Breath sounds equal. Bilateral chest tube in place. GASTROINTESTINAL: slight abdominal tenderness, slight abdominal distention. normal active bowel sounds, LUQ drain tubes in place. Left upper quadrant J- tube and G-tube in place MUSCULOSKELETAL: Extremities without clubbing, cyanosis, or edema. No obvious deformities. NEUROLOGICAL: Awake and alert and oriented x3. No obvious cranial nerve deficits. Generalized weakness moving all 4 extremities . Normal speech. PSYCHIATRIC: Appropriate mood and affect; insight and judgment normal. Urinary Catheter Management Indwelling Urethral Catheter: Cath placed during this visit: yes, but has since been removed by the nurse Removal date: 03/13/18 Removal time: 21:42 Results Labs CBC & Chem 7: 03/19/18 06:59 03/19/18 06:59 Labs: Microbiology 03/14/18 18:48 Blood - Peripheral Aerobic Blood Culture - Final No growth in 5 days 03/14/18 18:48 Blood - Peripheral Anaerobic Blood Culture - Final No growth in 5 days 03/14/18 18:42 Blood - Peripheral Aerobic Blood Culture - Final No growth in 5 days 03/14/18 18:42 Blood - Peripheral Anaerobic Blood Culture - Final No growth in 5 days Imaging Imaging: Impressions Chest X-Ray 03/19/18 00:00 CONCLUSION: Stable chest without evidence of pneumothorax or significant pleural fluid accumulation. Assessment and Plan (1) Gastric perforation: Code(s): K25.5 - Chronic or unspecified gastric ulcer with perforation Status: Acute Continue sedation; increase enteral feeding as tolerated. All drains will stay in for now Plan This is a 73-year-old white male admitted with acute respiratory failure and septic shock from outside hospital secondary to mediastinal contamination secondary to esophageal anastomotic leak secondary to noncompliance with post gastrectomy diet. History of gastric cancer. Patient was admitted to the ICU on mechanical ventilation and started on pressor support and antibiotic for septic shock. He had 2 chest tubes inserted in the OR on 03/04 due to suspected mediastinal contamination, one anterior and one posterior, underwent surgical exploration and repair by general surgery. Eventually had anterior chest tube removed on 03/10, pleural fluid cultures growing Haemophilus parainfluenza. Is currently tolerating feeds via J-tube, G-tube is to gravity. Underwent thoracentesis on 03/16 of right lung w/ another chest tube placed. Acute respiratory failure Bilateral pleural effusions plus mediastinal contamination due to intra- abdominal perforation causing Empyema -Wean O2 to room air as tolerated, encourage incentive spirometry use, keep O2 Sat > 92% -Right sided pleural effusion status post thoracentesis and right-sided chest tube insertion, Body fluid cultures:Haemophilus parainfluenza on 03/04 -Pleural Fluid : no fungal elements seen, fungal cx no growth in 2 weeks -CTS managing chest tubes -ID following, appreciate Dr. Hawkins's recommendations -continue IV Rocephin and Flagyl, anticipate long course of IV antibiotics with minimum of 4 weeks -continue Continue micafungin Gastric Perforation Esophageal anastomotic leak Adenocarcinoma, gastric Cardia s/p gastrectomy for gastric CA, secondary to patient non-compliance with recommended post-gastrectomy diet s/p EGD with Esophageal stent Placement, 03/18/18 -CT abdomen/pelvis and CT chest shows same extravasation of contrast with bilateral moderate pleural effusions -Surgical exploration and repair on 03/[address] Storm -s/p G tube placement, and J tube placement -s/p Chest wash out and chest tube placement x 2 -Gastrografin study showing extravasation onset of GI tract upwards towards left chest tube, general surgery notified -GI Following,Discussed with GI/MOLD PRESSER Gilma Lima: s/p EGD and stent placement , s/p Gastrografin study 03/18/18 -General Surgery Following/ Dr. Storm: discontinued RUQ drain on 03/18/18 , Possible DC to [facility] this week -continue IV Protonix -keep NPO, continue Tube Feeding thru J tube -Hycet for pain thru J tube -UGI shows small fistula after stent, keep left chest tube -c/o gas pain, add Gas X -PT rehab per protocol Leukocytosis Anemia -antibiotics treatment as above -WBC trending down, monitor CBC Stage II sacral coccyx pressure ulcer -status post wound care consult, -continue wound care and turning patient every 2 hours Severe chronic protein malnutrition J-tube feeding with vital 1.5 at 60 ml/ hour, tolerating - Status post dietitian consult DVT prophylaxisSCDs due to pending procedures Discharge Planning: [facility] with GI/ ID and General surgery Progress Note: Quality VTE Deep Vein Thrombosis/Pulmonary Embolism Present on Admission: No
[2018-03-20] MEDS ORDERED: Simethicone 80 MG Chew Tablet PO PRN (10:51)
--- NOTE | 2018-03-20 11:47 | P.PNVS ---
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 This also resulted in a huge left pleural effusion with abdominal pain and chest pain. The patient was transferred to [facility] and then to us for further care. I am doing an intraoperative at this point regarding the chest condition. Physical examination is performed in the OR and I was present at the time of surgery. The patient does indeed have an intraabdominal perforation which is now being repaired by Dr. Storm. I discussed with him the issues regarding the chest. The patient apparently had significant chest contamination, which was washed out with saline and 2 large chest tubes were placed. This would be exactly what I would have done and, at this point, hopefully the patient will not develop empyema. If he does develop empyema or any signs of such, I will be available to assist. Today patient is stable hemodynamically and respiratory Bilateral breath sounds ventilatory supported Left chest tubes are draining serosanguineous material, some grayish particulate matter but left chest appears to be clear on a.m. x-ray With this quite adequate drainage patient is not likely to develop an empyema but clearly with contamination this is a distinct possibility so we will see how he does Will continue to follow 03/06/2018 Remains intubated ventilated but hemodynamically improved and stabilized Bilateral pulmonary expansion and chest tubes on the left side have been by me and placed in separate Pleur-evacs The anterior chest tube is draining serosanguineous material over the posterior chest tube is draining particulate matter grayish brown in color Clearly retained fluid from the chest. Again is noted yesterday to question whether this is going to cause empyema but at this point the most important thing is adequate drainage and that certainly present Nothing to add at this time 03/07/2018 Patient intubated ventilated Agree with trickle feeds and see how he does Anterior chest tube draining clear material was a posterior chest tube is still somewhat dark brownish stuff but clearing up We will check chest x-ray Nothing to add at this time leave both tubes in place 03/08/2018 Bilateral breath sounds Remains intubated ventilated No evidence of any leak from anastomosis or otherwise Chest tube drainage has cleared up and is straw-colored no particulate material and lungs appear to be quite clear Would leave chest tubes in and then perhaps do a dilute Gastrografin through the gastrostomy tube to check the anastomotic integrity 03/10/2018 Anterior chest tube has been removed and posterior one is draining straw- colored fluid which is quite clear and does not appear to be contaminated Haemophilus parainfluenza cultures from the chest Infectious disease help is greatly appreciated At this point I would leave the left chest tube in for another few days until the drainage comes down to less than 150 cc for 24 hours and we can remove after that tube I agree that this time patient is unlikely to get empyema of the chest but you never know 03/11/2018 Patient is doing better every day Remaining left chest tube drainage is down from 300 cc to about 120 cc over the last 24 hours Leave chest tube in place at this point and will remove chest tube the next few days At this point chance of empyema is certainly very low 03/13/2018 Chest tube drainage is straw-colored and clean Will do chest x-ray and if okay will remove the chest tube today Patient doing very well at this time 03/16/[address] scan and swallow study Patient does have a small leak there and GI has been consulted Agree with general surgery plan As far as the chest tubes are concerned patient will require right-sided radiology placed drain while the left side is being drained by the current regular chest tube Would leave the chest tubes in place till the anastomotic leak resolves 03/20/2018 Left chest tube drainage is minimal, nonetheless patient had a stent placed over the leak and there is still small area of fistulization flow toward the left pleural cavity so I would leave the chest tube at this point in place to all this resolves Patient is managed expertly and I have nothing further to add to her care Objective Vital Signs / I&O: Vital Signs 03/19/18 12:00 03/19/18 16:00 03/19/18 20:00 Temperature 98.5 F 98.6 F 98.3 F Pulse Rate 85 91 H 97 H Respiratory Rate 18 18 18 Blood Pressure 155/82 H 159/85 H 155/91 H Pulse Oximetry 99 99 96 03/20/18 00:00 03/20/18 08:00 Temperature 98.0 F 99.2 F Pulse Rate 109 H 93 H Respiratory Rate 20 18 Blood Pressure 159/88 H 138/85 Pulse Oximetry 92 L 98 Intake & Output 03/19/18 03/20/18 03/20/18 18:59 06:59 18:59 Intake Total 300 / 300 1071 / 1071 100 / 100 Output Total 280 / 280 1230 / 1230 Balance / 20 -159 / -159 100 / 100 Weight 66.8 kg Intake: IV 300 / 300 300 / 300 100 / 100 Mycamine Inj 100 MG In NS Inj 100 / 100 100 ML @ 100 mls/hr IV.SIG Q24H KELSIE Rx#:[id number] Rocephin Inj 2,000 MG In NS Inj 100 / 100 100 ML @ 200 mls/hr IV.SIG Q24H KELSIE Rx#:[id number] Flagyl 500 MG Inj 100 ML @ 100 200 / 200 200 / 200 100 / 100 mls/hr IV.SIG Q6H KELSIE Rx#: [id number] Oral 0 / 0 0 / 0 Tube Feeding 641 / 641 Tube Irrigant 10 / 10 Water Bolus Amount 120 / 120 Output: Urine 950 / 950 Estimated Blood Loss 100 / 100 Gastric Drainage 180 / 180 80 / 80 G tube 180 / 180 80 / 80 J tube 0 / 0 Wound Drainage 0 / 0 #1 Lft Abdomen 0 / 0 Chest Tube Drainage 100 / 100 100 / 100 #2 Left Lower 0 / 0 0 / 0 #2 Right Pleural 100 / 100 100 / 100 Other: # Voids 2 2 Date of Last Bowel Movement 03/19/18 # Bowel Movements 2 2 Microbiology 03/14/18 18:48 Aerobic Blood Culture - Final Blood - Peripheral No growth in 5 days Anaerobic Blood Culture - Final No growth in 5 days 03/14/18 18:42 Aerobic Blood Culture - Final Blood - Peripheral No growth in 5 days Anaerobic Blood Culture - Final No growth in 5 days Impressions Gastrografin Study 03/18/18 00:00 CONCLUSION: There continues to be a focal leak of extravasated contrast involving the distal esophagus to the left side. The leak appears to be smaller compared to the prior examination. Chest X-Ray 03/19/18 00:00 CONCLUSION: Stable chest without evidence of pneumothorax or significant pleural fluid accumulation. 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
[2018-03-21] MEDS: Oral Hygiene Kit OROPHARYNG SCH ×4 (00:11→15:45)
[2018-03-21] MEDS: Morphine Inj 4 MG/ML Vial IV.PUSH PRN (04:05)
[2018-03-21] MEDS: Multivit/Folic Acid/Minerals Chewable Tablets CHEW SCH (08:58)
[2018-03-21] MEDS: Pantoprazole Inj 40 MG Vial IV.PUSH SCH (09:00)
[2018-03-21] MEDS: Chlorhexidine 0.12% Oral Kit 15 ML UDC OROPHARYNG SCH (09:01)
[2018-03-21 10:10] LABS: Baso # (Auto) 0.1 th/mm3 (0.0-0.2); Baso % (Auto) 0.5 % (0.0-2.0); Eos # (Auto) 0.1 th/mm3 (0.0-0.4); Hemoglobin 11.6 gm/dL (13.0-17.0); Lymph # (Auto) 1.1 th/mm3 (1.0-4.8); Lymph % (Auto) 8.6 % (9.0-44.0); Mean Corpuscular HGB Conc 33.3 % (32.0-36.0); Mean Corpuscular Hemoglobin 34.7 pg (27.0-34.0); Mean Corpuscular Volume 104.2 fL (80.0-100.0); Mono # (Auto) 1.4 th/mm3 (0.0-0.9); Mono % (Auto) 10.1 % (0.0-8.0); Neut # (Auto) 10.7 th/mm3 (1.8-7.7); Neut % (Auto) 79.8 % (16.0-70.0); Platelet Count 256 th/mm3 (150-450); Red Blood Count 3.36 mil/mm3 (4.50-5.90); Red Cell Distribution Width 13.8 % (11.6-17.2); White Blood Count 13.3 th/mm3 (4.0-11.0)
[2018-03-21] MEDS ORDERED: Lisinopril 5 MG Tablet PO SCH (10:45)
--- NOTE | 2018-03-21 13:16 | P.PNGS ---
Subjective Patient reports: feels better Physical Exam Vital signs: Vital Signs 03/20/18 16:00 03/20/18 19:30 03/20/18 20:00 Temperature 99.4 F 98.3 F Pulse Rate 87 85 Respiratory Rate 18 16 18 Blood Pressure 156/83 H 150/80 H Pulse Oximetry 98 99 03/21/18 00:00 03/21/18 07:59 03/21/18 12:00 Temperature 98.7 F 97.6 F 98.2 F Pulse Rate 84 89 85 Respiratory Rate 18 18 18 Blood Pressure 161/86 H 161/85 H 131/81 Pulse Oximetry 96 97 97 Intake & Output 03/20/18 03/21/18 03/21/18 18:59 06:59 18:59 Intake Total 300 / 300 300 / 300 Output Total 1430 / 1430 730 / 730 Balance -1130 / -1130 -430 / -430 Weight 65.3 kg Intake: IV 300 / 300 300 / 300 Mycamine Inj 100 MG In NS Inj 100 / 100 100 ML @ 100 mls/hr IV.SIG Q24H KELSIE Rx#:[id number] Rocephin Inj 2,000 MG In NS Inj 100 / 100 100 ML @ 200 mls/hr IV.SIG Q24H KELSIE Rx#:[id number] Flagyl 500 MG Inj 100 ML @ 100 200 / 200 200 / 200 mls/hr IV.SIG Q6H KELSIE Rx#: [id number] Oral 0 / 0 Output: Urine 1400 / 1400 600 / 600 Gastric Drainage 30 / 30 50 / 50 G tube 30 / 30 50 / 50 Wound Drainage 0 / 0 80 / 80 #1 Lft Abdomen 0 / 0 80 / 80 Chest Tube Drainage 0 / 0 0 / 0 #2 Left Lower 0 / 0 0 / 0 #2 Right Pleural 0 / 0 0 / 0 Other: # Voids 4 Date of Last Bowel Movement 03/10/18 # Bowel Movements 1 - Constitutional no acute distress - Routine Abdominal Exam Present: soft, normoactive bowel sounds, drain. Absent: tenderness, distended, rebound, guarding, firm - Urinary Catheter Management Indwelling Urethral Catheter Cath placed during this visit: yes, but has since been removed by the nurse Reason for continuing: Decision to DC catheter Removal date: 03/13/18 Removal time: 21:42 Results - Labs 03/21/18 09:29 03/19/18 06:59 Laboratory Results - last 24 hr 03/21/18 09:29 WBC 13.3 H RBC 3.36 L Hgb 11.6 L Hct 35.0 L MCV 104.2 H MCH 34.7 H MCHC 33.3 RDW 13.8 Plt Count 256 MPV 11.0 Neut % (Auto) 79.8 H Lymph % (Auto) 8.6 L [place] % (Auto) 10.1 H Eos % (Auto) 1.0 Baso % (Auto) 0.5 Neut # (Auto) 10.7 H Lymph # (Auto) 1.1 [place] # (Auto) 1.4 H Eos # (Auto) 0.1 Baso # (Auto) 0.1 WBC Differential . Differential Comment Auto diff final - Imaging Imaging: ITS Impressions Abdomen/Pelvis CT 03/14/18 00:00 CONCLUSION: 1. Fluid and atelectasis in the lung bases 2. Extraluminal contrast projecting toward the left from presumed anastomotic leak in the region of the GE junction 3. Surgical drains and feeding tubes present 4. Hyperdense mass arising laterally from the mid to upper pole the right kidney is presumably hemorrhagic cyst, however comparison to prior studies would be recommended to document stability. Alternatively, pre and postcontrast MRI could be obtained for follow-up when clinically feasible if this lesion remains in question Chest CT 03/14/18 00:00 CONCLUSION: Bilateral pleural effusions and lung base atelectasis. Chest Tube Insertion 03/16/18 00:00 CONCLUSION: Uncomplicated CT-guided right thoracostomy tube placement for pleural effusion. Chest Ultrasound 03/16/18 00:00 CONCLUSION: Moderate right pleural effusion GI Procedure 03/17/18 00:00 CONCLUSION: There is an expandable stent which appears to be in the region of the distal esophagus. Gastrografin Study 03/18/18 00:00 CONCLUSION: There continues to be a focal leak of extravasated contrast involving the distal esophagus to the left side. The leak appears to be smaller compared to the prior examination. Chest X-Ray 03/19/18 00:00 CONCLUSION: Stable chest without evidence of pneumothorax or significant pleural fluid accumulation. Assessment and Plan - Assessment (1) Gastric perforation Code(s): K25.5 - Chronic or unspecified gastric ulcer with perforation Status : Acute Plan: 73 year old male s/p partial gastrectomy for adenocarcinoma, readmit for perforation at gastroesophageal anastomosis after vomiting transferred to floor doing better -s/p ex lap; repair of esophagogastric dehiscence; placement of G tube; placement of J tube; Chest washout and tube placement x 2 - NPO -Hycet for pain thru J tube -UGI shows leak, s/p stent, will need fu upper GI in 1 week -removed left CHAR and right chest drain -left chest tube with minimal output, keep to suction per thoracic surgery unto no output -tolerating J tube feedings -Continue PT -plan for transfer to [facility], stable from surgery standpoint for transfer (2) Adenocarcinoma, 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 I reviewed and agree with the findings presented. I attest that I had a [id number] encounter with the patient on the same day, and personally performed and documented my assessment and findings in the medical record. s/p Proximal gastrectomy, return to OR for perforation stable continue TF and PT continue drains as indicated
--- NOTE | 2018-03-21 13:47 | P.PNVS ---
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 This also resulted in a huge left pleural effusion with abdominal pain and chest pain. The patient was transferred to [facility] and then to us for further care. I am doing an intraoperative at this point regarding the chest condition. Physical examination is performed in the OR and I was present at the time of surgery. The patient does indeed have an intraabdominal perforation which is now being repaired by Dr. Storm. I discussed with him the issues regarding the chest. The patient apparently had significant chest contamination, which was washed out with saline and 2 large chest tubes were placed. This would be exactly what I would have done and, at this point, hopefully the patient will not develop empyema. If he does develop empyema or any signs of such, I will be available to assist. Today patient is stable hemodynamically and respiratory Bilateral breath sounds ventilatory supported Left chest tubes are draining serosanguineous material, some grayish particulate matter but left chest appears to be clear on a.m. x-ray With this quite adequate drainage patient is not likely to develop an empyema but clearly with contamination this is a distinct possibility so we will see how he does Will continue to follow 03/06/2018 Remains intubated ventilated but hemodynamically improved and stabilized Bilateral pulmonary expansion and chest tubes on the left side have been by me and placed in separate Pleur-evacs The anterior chest tube is draining serosanguineous material over the posterior chest tube is draining particulate matter grayish brown in color Clearly retained fluid from the chest. Again is noted yesterday to question whether this is going to cause empyema but at this point the most important thing is adequate drainage and that certainly present Nothing to add at this time 03/07/2018 Patient intubated ventilated Agree with trickle feeds and see how he does Anterior chest tube draining clear material was a posterior chest tube is still somewhat dark brownish stuff but clearing up We will check chest x-ray Nothing to add at this time leave both tubes in place 03/08/2018 Bilateral breath sounds Remains intubated ventilated No evidence of any leak from anastomosis or otherwise Chest tube drainage has cleared up and is straw-colored no particulate material and lungs appear to be quite clear Would leave chest tubes in and then perhaps do a dilute Gastrografin through the gastrostomy tube to check the anastomotic integrity 03/10/2018 Anterior chest tube has been removed and posterior one is draining straw- colored fluid which is quite clear and does not appear to be contaminated Haemophilus parainfluenza cultures from the chest Infectious disease help is greatly appreciated At this point I would leave the left chest tube in for another few days until the drainage comes down to less than 150 cc for 24 hours and we can remove after that tube I agree that this time patient is unlikely to get empyema of the chest but you never know 03/11/2018 Patient is doing better every day Remaining left chest tube drainage is down from 300 cc to about 120 cc over the last 24 hours Leave chest tube in place at this point and will remove chest tube the next few days At this point chance of empyema is certainly very low 03/13/2018 Chest tube drainage is straw-colored and clean Will do chest x-ray and if okay will remove the chest tube today Patient doing very well at this time 03/16/[address] scan and swallow study Patient does have a small leak there and GI has been consulted Agree with general surgery plan As far as the chest tubes are concerned patient will require right-sided radiology placed drain while the left side is being drained by the current regular chest tube Would leave the chest tubes in place till the anastomotic leak resolves 03/20/2018 Left chest tube drainage is minimal, nonetheless patient had a stent placed over the leak and there is still small area of fistulization flow toward the left pleural cavity so I would leave the chest tube at this point in place to all this resolves Patient is managed expertly and I have nothing further to add to her care 03/21/2018 Patient looks great today He is afebrile feels better Right chest tube has been removed Discussed with Dr. Storm. Agree to leave the left chest tube in till drainage nearly stops which may be another for 5 days Excellent care by all involved Objective Vital Signs / I&O: Vital Signs 03/20/18 16:00 03/20/18 19:30 03/20/18 20:00 Temperature 99.4 F 98.3 F Pulse Rate 87 85 Respiratory Rate 18 16 18 Blood Pressure 156/83 H 150/80 H Pulse Oximetry 98 99 03/21/18 00:00 03/21/18 07:59 03/21/18 12:00 Temperature 98.7 F 97.6 F 98.2 F Pulse Rate 84 89 85 Respiratory Rate 18 18 Blood Pressure 161/86 H 161/85 H 131/81 Pulse Oximetry 96 97 97 Intake & Output 03/20/18 03/21/18 03/21/18 18:59 06:59 18:59 Intake Total 300 / 300 300 / 300 Output Total 1430 / 1430 730 / 730 Balance -1130 / -1130 -430 / -430 Weight 65.3 kg Intake: IV 300 / 300 300 / 300 Mycamine Inj 100 MG In NS Inj 100 / 100 100 ML @ 100 mls/hr IV.SIG Q24H KELSIE Rx#:[id number] Rocephin Inj 2,000 MG In NS Inj 100 / 100 100 ML @ 200 mls/hr IV.SIG Q24H KELSIE Rx#:[id number] Flagyl 500 MG Inj 100 ML @ 100 200 / 200 200 / 200 mls/hr IV.SIG Q6H KELSIE Rx#: [id number] Oral 0 / 0 Output: Urine 1400 / 1400 600 / 600 Gastric Drainage 30 / 30 50 / 50 G tube 30 / 30 50 / 50 Wound Drainage 0 / 0 80 / 80 #1 Lft Abdomen 0 / 0 80 / 80 Chest Tube Drainage 0 / 0 0 / 0 #2 Left Lower 0 / 0 0 / 0 #2 Right Pleural 0 / 0 0 / 0 Other: # Voids 4 Date of Last Bowel Movement 03/10/18 # Bowel Movements 1 Laboratory Results - last 24 hr 03/21/18 09:29 WBC 13.3 H RBC 3.36 L Hgb 11.6 L Hct 35.0 L MCV 104.2 H MCH 34.7 H MCHC 33.3 RDW 13.8 Plt Count 256 MPV 11.0 Neut % (Auto) 79.8 H Lymph % (Auto) 8.6 L [place] % (Auto) 10.1 H Eos % (Auto) 1.0 Baso % (Auto) 0.5 Neut # (Auto) 10.7 H Lymph # (Auto) 1.1 [place] # (Auto) 1.4 H Eos # (Auto) 0.1 Baso # (Auto) 0.1 WBC Differential . 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
--- NOTE | 2018-03-21 15:02 | P.DIET ---
Nutritional Evaluation Type of nutrition evaluation: follow-up Nutrition consult regarding: Tube Feeding Subjective Subjective Comments: Pt has just returned form gastrogafin study-TF'ing not running. Objective - Diagnosis Gastric Perforation - Objective % IBW: 92 (IBW = 172#) Body Weight Used for Calculations: Actual (admit wt 72.2 kg) Energy Needs - Lower Range (kCal/kg): 28 Energy Needs - Upper Range (kCal/kg): 32 Lower Limit kCal/kg (kCals): 2,022 Upper Limit kCal/kg (kCals): 2,310 Lower Limit Protein Factor (Grams per Kg): 1.2 Upper Limit Protein Factor (Grams per Kg): 1.6 Lower Protein Needs (Protein): 87 Upper Protein Needs (Protein): 116 Dietitian Reviewed in Medical Record: Curent medications, Intake & Output, Labs , Medical history, Tube feeding Diet Order: NPO Objective Comments: PMH includes: cervical vertebra fusion, Crohn Disease, Depression, Gastric Cancer, high blood pressure, high cholesterol, melanoma, prostate cancer, thrombocytopenia 02/23 lap proximal gastrectomy Meds: MVI Labs: random glucose 147 179 LBM 03/19 Assessment Assessment: Pt continues at high nutrition risk r/t diagnosis and need for TF'ing. Pt currently TF'ing Jevtiy 1.5 @ goal rate of 60mL/hr via Jtube. RD continue to recommend Vital 1.5 @ goal rate 60 ml/hr to provide 2160 kcal, 97g protein and 1100 ml of free water to best meet pts nutritional needs. Free water flushes per MD. Continue to monitor TF tolerance and glucose labs. Labs reviewed. Wt changes noted, CBW = 65.3kg (-6.9kg since admission). Dietitian following. Recommendations: 1. RD continue to recommend Vital 1.5 @ goal rate 60 ml/hr to best meet pts nutritional needs 2. Free water flushes per MD 3. Continue to monitor TF tolerance and glucose labs 4. Dietitian following Dietitian to Monitor: Lab values, Intake & Output, Tube feeding tolerance, Weight change, Medical course
--- NOTE | 2018-03-21 15:36 | P.DS ---
DS: Providers Date of admission: 03/04/18 08:26 Primary care physician: Mich Ashton Consults: 03/04/18 16:35 Consult to Cardiothoracic Surgery Routine Consulting Provider: Louie Olivier Preferred Emergency Registrar:: Louie Olivier Reason for Consultation: intraoperative consultation Notified:: Physician Spoke with:: Date Notified:: 03/04/18 Time Notified:: 16:41 Ordering Provider: DONI 03/07/18 11:38 HUB Only Consult Order Routine Consulting Provider: [facility] Reason for Consultation: LTACH 03/10/18 10:03 Consult to Hospitalist Routine Consulting Provider: Arthur Guzmán Reason for Consultation: Continuation of medical management Notified:: Service Spoke with:: JACK Date Notified:: 03/10/18 Time Notified:: 10:10 Comments:: Ordering Provider: GEORGE 03/13/18 16:43 Consult to Infectious Diseases Routine Consulting Provider: Kiara Hawkins Reason for Consultation: empyema; Hemoph. parainfluenza Notified:: Service Spoke with:: ELIJAH Date Notified:: 03/13/18 Time Notified:: 16:47 Ordering Provider: WILNER 03/16/18 08:48 Consult to Gastroenterology Routine Consulting Provider: August Rodriguez Reason for Consultation: s/p partial gasterctomy; s/p perf and repair; UGI shows leak; eval for stent Notified:: Office Spoke with:: medina Date Notified:: 03/16/18 Time Notified:: 09:57 Ordering Provider: BRANDON Anticipated date of discharge: 03/21/18 Brief History from admission: This year old male known to our service and is status post laparoscopic proximal gastrectomy on February 23 of this year. The patient recovered well during his hospitalization and was discharged on February 28. He was instructed to eat small meals. His family at the bedside report that he had an excellent day on Wednesday but on Wednesday began eating larger meals. On , he ate a large bowl of soup and starting vomiting. He was taken to [facility]. His WBC was 20,000. A CT abdomen/pelvis was obtained which is shows intraperitoneal free air and there is a concern for an anastomotic leak at the gastroesophageal junction. The patient has been transferred to [place] for evaluation. He is currently intubated and on pressors. Patient update on day of discharge: Follow-up acute respiratory failure, empyema , bilateral pleural effusion, esophageal anastomotic leak status post gastrectomy for gastric cancer, and severe chronic protein calorie malnutrition. Patient seen and examined laying in bed, patient sleeping awakened for assessment. Patient denies any pain at this time, stated to some mild discomfort in the tube site. Patient denies any headache or dizziness, denies any abdominal pain, nausea or vomiting. Patient states that he is feeling fine. Patient denies any headache or dizziness, denies any fever or chills. Family at bedside discussed patient's status, answers questions. Nurse discussed concern, tube pulled this morning with a surgeon, discussed [facility]. DS: Diagnosis Discharge Diagnosis (1) Gastric perforation: Status: Acute (2) Adenocarcinoma, gastric cardia: Status: Acute DS: Summary This is a 73-year-old white male admitted with acute respiratory failure and septic shock from outside hospital secondary to mediastinal contamination secondary to esophageal anastomotic leak secondary to noncompliance with post gastrectomy diet. History of gastric cancer. Patient was admitted to the ICU on mechanical ventilation and started on pressor support and antibiotic for septic shock. He had 2 chest tubes inserted in the OR on 03/04 due to suspected mediastinal contamination, one anterior and one posterior, underwent surgical exploration and repair by general surgery. Eventually had anterior chest tube removed on 03/10, pleural fluid cultures growing Haemophilus parainfluenza. Is currently tolerating feeds via J-tube, G-tube is to gravity. Underwent thoracentesis on 03/16 of right lung w/ another chest tube placed. Patient had Acute respiratory failure, Bilateral pleural effusions plus mediastinal contamination due to intra- abdominal perforation causing Empyema. Pt had Right sided pleural effusion status post thoracentesis and right-sided chest tube insertion, Body fluid cultures:Haemophilus parainfluenza on 03/04. Pleural Fluid showedno fungal elements seen, fungal cx no growth in 2 weeks. ID following, appreciate Dr. Hawkins's recommendations, continue IV Rocephin and Flagyl, anticipate long course of IV antibiotics with minimum of 4 weeks and Continue micafungin. Patient also had Gastric Perforation, Esophageal anastomotic leak, Adenocarcinoma, gastric Cardia, s/p gastrectomy for gastric CA, secondary to patient non-compliance with recommended post-gastrectomy diet s/p EGD with Esophageal stent Placement, 03/18/18. CT abdomen/pelvis and CT chest shows same extravasation of contrast with bilateral moderate pleural effusions. Surgical exploration and repair on 03/[address] Storm with G tube placement, and J tube placement, Chest wash out and chest tube placement x 2. Gastrografin study showing extravasation onset of GI tract upwards towards left chest tube, general surgery notified. GI Following,Discussed with GI/TECHNOLOGY PROFESSIONAL Gilma Lima: s/p EGD and stent placement , s/p Gastrografin study Patient also had Leukocytosis, Anemia, WBC trending down, will monitor CBC. Pt also have Stage II sacral coccyx pressure ulcer, status post wound care consult, . Severe chronic protein malnutrition, J-tube feeding with vital 1.5 at 60 ml/ hour, tolerating. Status post dietitian consult. Patient is cleared by the surgeon in GIs perspective [facility] stated [facility]. ID agreed to reconsult ID and [facility]. Time Spent with Patient Total time spent providing and/or coordinating discharge services: Quality: VTE Deep Vein Thrombosis/Pulmonary Embolism Present on Admission: No Exam Narrative Exam Narrative: GENERAL: Well-developed, well-nourished, male in no apparent distress SKIN: Warm and dry. HEAD: Atraumatic. Normocephalic. EYES: Pupils equal and round. No scleral icterus. No injection or drainage. ENT: No nasal bleeding or discharge. Mucous membranes pink and moist. NECK: Trachea midline. No JVD. CARDIOVASCULAR: Regular rate and rhythm. RESPIRATORY: No accessory muscle use. Bilateral LL crackles on auscultation. Breath sounds equal. Left chest tube in place. Right chest tube discontinued today GASTROINTESTINAL: slight abdominal tenderness, slight abdominal distention. normal active bowel sounds, LUQ drain tubes in place discontinued today. Left upper quadrant J-tube and G-tube in place MUSCULOSKELETAL: Extremities without clubbing, cyanosis, or edema. No obvious deformities. NEUROLOGICAL: Awake and alert and oriented x3. No obvious cranial nerve deficits. Generalized weakness moving all 4 extremities . Normal speech. PSYCHIATRIC: Appropriate mood and affect; insight and judgment normal. Results Completed studies during hospitalization: Pending at discharge 03/04/18 09:00 Surgical [PTH] Routine Labs on day of discharge: Labs from last 24 hours 03/21/18 09:29 WBC 13.3 H RBC 3.36 L Hgb 11.6 L Hct 35.0 L MCV 104.2 H MCH 34.7 H MCHC 33.3 RDW 13.8 Plt Count 256 MPV 11.0 Neut % (Auto) 79.8 H Lymph % (Auto) 8.6 L [place] % (Auto) 10.1 H Eos % (Auto) 1.0 Baso % (Auto) 0.5 Neut # (Auto) 10.7 H Lymph # (Auto) 1.1 [place] # (Auto) 1.4 H Eos # (Auto) 0.1 Baso # (Auto) 0.1 WBC Differential . Differential Comment Auto diff final Preliminary micro results at discharge 03/04/18 13:48 Fungal Culture - Preliminary Fluid - Pleural fluid No growth in 2 weeks 03/04/18 13:48 Mycobacterial Culture - Preliminary Fluid - Pleural fluid No growth in 2 weeks Impressions ITS Impressions Abdomen/Pelvis CT 03/14/18 00:00 CONCLUSION: 1. Fluid and atelectasis in the lung bases 2. Extraluminal contrast projecting toward the left from presumed anastomotic leak in the region of the GE junction 3. Surgical drains and feeding tubes present 4. Hyperdense mass arising laterally from the mid to upper pole the right kidney is presumably hemorrhagic cyst, however comparison to prior studies would be recommended to document stability. Alternatively, pre and postcontrast MRI could be obtained for follow-up when clinically feasible if this lesion remains in question Chest CT 03/14/18 00:00 CONCLUSION: Bilateral pleural effusions and lung base atelectasis. Chest Tube Insertion 03/16/18 00:00 CONCLUSION: Uncomplicated CT-guided right thoracostomy tube placement for pleural effusion. Chest Ultrasound 03/16/18 00:00 CONCLUSION: Moderate right pleural effusion GI Procedure 03/17/18 00:00 CONCLUSION: There is an expandable stent which appears to be in the region of the distal esophagus. Gastrografin Study 03/18/18 00:00 CONCLUSION: There continues to be a focal leak of extravasated contrast involving the distal esophagus to the left side. The leak appears to be smaller compared to the prior examination. Chest X-Ray 03/19/18 00:00 CONCLUSION: Stable chest without evidence of pneumothorax or significant pleural fluid accumulation. Discharge Plan Discharge Disposition Patient Disposition: 70 Transfer To Other Facility Discharge Order Discharge Orders: Discharge Order (Routine); Ordered 03/21/18 Ordered By: Eliza Olivarez Discharge Details Anticipated Discharge Date: 03/21/18 Discharge Comment: [facility] to [facility] Primary Care Provider: Mich Ashton Attending Provider: Esequiel Fatima Other Providers: Louie Olivier ; [facility],Maria De Jesus ; Fabián Storm ; Kiara Hawkins ; August Rodriguez Rxs /Orders / Referrals /Forms Prescriptions: New ceftriaxone 2 gram recon soln 2 g IV.SIG Q24H 28 Days Qty: 30 RF: 0 metronidazole in NaCl (iso-os) 500 mg/100 mL piggyback 500 mg IV.SIG Q6H 28 Days Qty: [id number] RF: 0 ipratropium-albuterol 0.5 mg-3 mg(2.5 mg base)/3 mL Solution For Nebulization 1 amp NEB Q2HR NEB PRN (Reason: Shortness Of Breath) Qty: 30 RF: 0 pantoprazole [Protonix] 40 mg Recon Soln 40 mg IV.PUSH Q24H Qty: 7 RF: 0 hydrocodone-acetaminophen 7.5-325 mg/15 mL Solution 15 ml J-Tube Q4H PRN (Reason: pain 1-5 ) 3 Days Qty: 18 RF: 0 micafungin 100 mg recon soln 100 mg IV.SIG Q24H 28 Days Qty: 30 RF: 0 ondansetron HCl (PF) 4 mg/2 mL Solution 4 mg IV.PUSH Q6H PRN (Reason: Nausea Or Vomiting) Qty: 24 RF: 0 simethicone 80 mg Tablet,Chewable 80 mg PO Q8H PRN (Reason: Gas Retention) Qty: 21 RF: 0 Continue multivitamin Tablet 1 tab PO DAILY RF: 0 atorvastatin [Lipitor] 20 mg Tablet 20 mg PO DAILY RF: 0 lisinopril 5 mg Tablet 5 mg PO DAILY RF: 0 duloxetine [Cymbalta] 30 mg Capsule,Delayed Release(Dr/Ec) 30 mg PO DAILY RF: 0 Referrals: Mich Ashton MD [Primary Care Provider] - See Instructions Discharge Instructions Patient Printed Instructions: Exploratory Laparoscopy (DC), Exploratory Laparotomy (DC)
[2018-03-21 16:31] VITALS: BP 151/93; PULSE 88; TEMP 99.6; O2SAT 96
== END 2018-03-21 16:33 | disposition short-term general hospital (02) | DRG 907 ==
LOC: N03 08:26 → N07 03-12 22:48
PROVIDERS: ADMIT Hospitalist; ATTEND Hospitalist
PROC: PANENDO (2018-03-17 14:25)
DX: A41.9 Sepsis, unspecified organism; I10 Essential (primary) hypertension; J86.9 Pyothorax without fistula; Z90.3 Acquired absence of stomach [part of]; K50.90 Crohn's disease, unspecified, without complications; D69.59 Other secondary thrombocytopenia; N17.9 Acute kidney failure, unspecified; Y83.2 Surgical operation with anastomosis, bypass or graft as the cause of abnormal reaction of the patient, or of later complication, without mention of misadventure at the time of the procedure; G93.40 Encephalopathy, unspecified; J96.01 Acute respiratory failure with hypoxia; D64.9 Anemia, unspecified; L89.152 Pressure ulcer of sacral region, stage 2; E43 Unspecified severe protein-calorie malnutrition; Z85.820 Personal history of malignant melanoma of skin; F32.9 Major depressive disorder, single episode, unspecified; Z85.028 Personal history of other malignant neoplasm of stomach; T81.32XA Disruption of internal operation (surgical) wound, not elsewhere classified, initial encounter; R65.21 Severe sepsis with septic shock; Z87.891 Personal history of nicotine dependence; Z85.46 Personal history of malignant neoplasm of prostate; E87.2 Acidosis; E78.5 Hyperlipidemia, unspecified; Z92.3 Personal history of irradiation; E78.00 Pure hypercholesterolemia, unspecified; J90 Pleural effusion, not elsewhere classified; Z91.11 Patient's noncompliance with dietary regimen; Z92.21 Personal history of antineoplastic chemotherapy
CPT/HCPCS: 32555; 32557; 36556; 36600; 71010; 71045; 71260; 74177; 74240; 74330; 76604; 80048; 80053; 82040; 82805; 82948; 82962; 83605; 83735; 84132; 85025; 85610; 86140; 86850; 86900; 86901; 87015; 87040; 87070; 87077; 87102; 87116; 87181; 87185; 87205; 87206; 87641; 88305; 93005; 94002; 94003; 94150; 94640; 94656; 94657; 94665; 97110; 97162; 97167; 97530; 97535; B4084; B4086; C1769; C2625; C9113; J0692; J0696; J1644; J1720; J1940; J2060; J2248; J2270; J2370; J2405; J2704; J3010; J3480; J7030; J7040; J7120; P9047; Q9963; Q9967